=== PATIENT | female | born 1935 | race Caucasian/White ===

== ENCOUNTER 2016-03-28 08:32 | Inpatient (IN) | payer MEDICARE, OTHER ==
[~2016-03-28] VITALS: Ht 154.9 cm; Wt 47.5 kg
[~2016-03-28 08:32] MED LIST: /ESOM40CA PO; /NITR4TASL SL; /PROC25SU PO; ASPI81TA2 PO; BONI150T PO; CIPR500T3 PO; CIPR500T89 PO; CITRTAB15 PO; DRIS50002 PO; ECOT81TA2 PO; FLAG500T PO; FOLI1TAB2 PO; FOLI1TAB86 PO; HYCOSAMINE PO; HYDR200T3 PO; LEXA1TAB PO; LOPR50TA PO; MAGN500T2 PO; METH2.5T PO; METOPROLOL PO; MIRA255PW PO; NEXI40CA PO; OSEL75CA PO; PAXI40TA2 PO; PLAQ200T PO; PRED1TABL PO; PRED5TA PO; PRED5TAB PO; PROL60SO SC; PROVENTIL 90 MCG INH; RAMI5CA PO; TIMO5OPD OU; TYLE325T5 PO; ULTR50TA PO; VITA250L PO; VITAMIN D2 PO; XALATAN; XALATAN OU; [UNRECOGNIZED DRUG - CODE] PO; [UNRECOGNIZED DRUG - OTHER] OU; robitussin PO
[2016-03-28 09:36] LABS: BASO % 0.4 % (0.0-1.0); EOS # 0.2 K/mm3 (0.0-0.50); EOS % 1.9 % (0.0-3.0); LARGE UNSTAINED CELL # 0.1 K/mm3 (0.0-0.4); LARGE UNSTAINED CELL % 1.1 % (0.0-4.0); LYMPH # 1.6 K/mm3 (1.5-4.5); LYMPH % 18.2 % (24.0-44.0); MEAN CORPUSCULAR HEMOGLOBIN 29.7 pg (27.0-33.0); MEAN CORPUSCULAR HGB CONC 31.8 g/dl (32.0-36.5); MEAN CORPUSCULAR VOLUME 93.4 fl (80.0-96.0); MONO # 0.4 K/mm3 (0.0-0.8); MONO % 4.2 % (0.0-5.0); NEUTROPHILS # 6.6 K/mm3 (1.8-7.7); NEUTROPHILS % 74.2 % (36.0-66.0); PLATELET COUNT, AUTOMATED 230 k/mm3 (150-450); RED CELL DISTRIBUTION WIDTH 12.8 % (11.5-14.5); WHITE BLOOD COUNT 8.8 K/mm3 (4.0-10.0)
[2016-03-28 09:47] LABS: ANION GAP 9 MEQ/L (8-16); BLOOD UREA NITROGEN 22 MG/DL (7-18); CALCIUM LEVEL 9.3 MG/DL (8.8-10.2); CARBON DIOXIDE LEVEL 27 MEQ/L (21-32); CHLORIDE LEVEL 106 MEQ/L (98-107); CREATININE FOR GFR 0.78 MG/DL (0.55-1.02); GLOMERULAR FILTRATION RATE > 60.0 (>39); GLUCOSE, FASTING 83 MG/DL (83-110); SODIUM LEVEL 142 MEQ/L (136-145)
[2016-03-28 09:50] LABS: INR 0.98
[2016-03-28 09:59] LABS: ALBUMIN 3.6 GM/DL (3.2-5.2); ALBUMIN/GLOBULIN RATIO 1.16 (1.00-1.93); ALKALINE PHOSPHATASE 55 U/L (45-117); ALT/SGPT 17 U/L (12-78); AMYLASE 38 U/L (25-115); AST/SGOT 22 U/L (15-37); BILIRUBIN,DIRECT 0.2 MG/DL (0.0-0.2); BILIRUBIN,TOTAL 0.5 MG/DL (0.2-1.0); TOTAL PROTEIN 6.7 GM/DL (6.4-8.2)
--- NOTE | 2016-03-28 10:11 | REP ---
Portable chest x-ray: Sitting AP view. History: CVA less than 4 1/2 hours old. Comparison chest x-ray June 01, 2014. Findings: EKG monitoring electrodes overlie the chest. The lungs are symmetrically aerated and clear. Heart is not enlarged. The aorta somewhat tortuous. Pulmonary vasculature is not increased. Impression: No active disease. Signed by Jalen Dunn MD 03/28/2016 10:12 A
--- NOTE | 2016-03-28 10:19 | REP ---
Noncontrast head CT: History: CVA less than 4.[address] study June 09, 2014. 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 Bone window settings demonstrate an intact bony calvarium. Vascular calcification is noted in the carotid siphons bilaterally. There is chronic sinusitis filling the left sphenoid sinus and left posterior ethmoid air cells. Some bony sinus wall thickening is seen indicating chronicity. No bony destructive lesion is appreciated. No intraorbital abnormality is seen. There is diffuse cerebral atrophy noted. No evidence of intracranial hemorrhage is seen. There is a small low density area in the anterior limb of the internal capsule on the right unchanged from the June 09, 2014 study. This is compatible with old lacunar infarct. No acute infarct is seen. No extra-axial fluid collection, mass, or midline shift is seen. Impression: Vascular calcification, diffuse atrophy, old right basal ganglia lacunar infarct. No acute infarct, hemorrhage, mass or midline shift is seen. Signed by Jalen Dunn MD 03/28/2016 02:05 P
[2016-03-28] MEDS ORDERED: GABA-279 PO (11:04)
[2016-03-28] MEDS ORDERED: TIMO5OPD OU (11:04)
[2016-03-28] MEDS ORDERED: PRAV10TA PO (11:04)
[2016-03-28] MEDS ORDERED: LATA5OPD OU (11:04)
[2016-03-28] MEDS ORDERED: METO-207 PO (11:07)
[2016-03-28] MEDS ORDERED: ONDANSETRON 4MG/2ML VIAL (J2405) As Ordered ONE (11:35)
[2016-03-28] MEDS ORDERED: ACETAMINOPHEN TAB 650MG DOSE (2X325MG) PO PRN (12:15)
[2016-03-28] MEDS ORDERED: THIAMINE 100 MG TAB PO SCH (12:15)
[2016-03-28] MEDS ORDERED: HEPARIN SOD (PORCINE) 5000 UNITS/ML VIAL SC SCH (12:15)
[2016-03-28] MEDS ORDERED: GASTROGRAFIN SOLUTION 30ML (Q9963) As Ordered ONE (12:42)
--- NOTE | 2016-03-28 14:11 | REP ---
MR angiography the brain without contrast: History: Question CVA. Technique: 3-D [id number] MR angiography of the brain is acquired in the usual fashion and maximal intensity projection images were generated in rotational format about the vertical and horizontal axes. In addition, source axial T1-weighted images are viewed in cine mode. MR angiographic findings: The distal vertebral arteries are patent , left is dominant . Basilar artery is a little tortuous but widely patent. The posterior cerebral and superior cerebellar vessels are normal and symmetric. The left posterior cerebral artery takes a persistent origin which is a common normal variant. The distal internal carotid arteries are unremarkable. Anterior and middle cerebral arteries appear intact. There is no visible charles aneurysm or arteriovenous malformation. Impression: Unremarkable MR angiography the brain. Signed by Jalen Dunn MD 03/28/2016 02:02 P
--- NOTE | 2016-03-28 15:15 | HPE ---
DATE OF ADMISSION: 03/28/2016 PRIMARY CARE PROVIDER: Dr. Chun Quezada NEUROLOGIST: Nancy Vogel MD, currently covered by Dr. Lance Diaz CHIEF COMPLAINT: Amnesia. HISTORY OF PRESENT ILLNESS: This is a 80-year-old female patient with underlying rheumatoid arthritis, coronary artery disease, stents a couple of years ago, breast cancer with bilateral mastectomy, colon cancer with colostomy, gastroesophageal reflux disease (GERD). The patient woke up this morning, it was found that she cannot remember anything. Yesterday dinner, the patient does not remember emergency medical services (EMS) ride and have very limited short-term memory. Last noticed normal was 10 p.m. last night. The patient woke up around 6:30 in the morning. Lives with her . Baseline is high functioning. Walk on her own. Other than that, the patient reported some nausea. There was no vomiting. No belly pain. Denies any fevers or chills. Denies any headache, neck pain. No sick contact. No previous evidence of this happening. No urinary or bowel incontinence. No loss of consciousness, as per . Symptoms persisted in the emergency department (ED). ALLERGIES: To PENICILLIN and SULFA and CODEINE and TAPES. PAST MEDICAL HISTORY: 1. Rheumatoid arthritis. 2. Coronary artery disease. 3. Breast cancer bilateral. 4. Colon cancer. 5. GERD. PAST SURGICAL HISTORY: 1. Right knee replacement. 2. Left knee replacement. 3. Bilateral hip replacement. 4. Colostomy construction. 5. Double mastectomy. 6. Hernia repair with mesh. DICTATION ENDS HERE Please refer to full note. Dictation terminated in the middle MTDD
[2016-03-28 15:18] LABS: THYROXINE (T4) 10.6 UG/DL (4.5-12.0)
--- NOTE | 2016-03-28 16:10 | HPE ---
DATE OF ADMISSION: 03/28/2016 PRIMARY CARE PROVIDER: Chun Quezada MD CHIEF COMPLAINT: Cannot remember. HISTORY OF PRESENT ILLNESS: This is a 80-year-old female patient with underlying medical history of rheumatoid arthritis, coronary artery disease, stents a few years ago, bilateral breast cancer, colon cancer, in remission, gastroesophageal reflux disease (GERD), peripheral neuropathy. Patient was brought to the hospital with acute onset, patient woke up, cannot remember, last thing patient remembered was last night. As per family last normal was 10 p.m. last night. Patient remembered what she had for dinner but subsequently does not remember anything else and has very limited short-term memory. Does not remember that emergency medical services (EMS) brought her to the hospital. Patient also reported nausea with no vomiting, stomach upset. Denies any fever or chills, chest pain, pressure or discomfort, diarrhea, constipation, sick contacts, headache, vision change, hearing change. Denies any previous episode. Denies any urinary or bowel incontinence, tonic-clonic movement, no history of seizure, sees Dr. Vogel before. No history of dementia. No neurological deficits and no facial asymmetry. ALLERGIES: PENICILLIN, SULFA. PAST MEDICAL HISTORY: 1. Rheumatoid arthritis. 2. Peripheral neuropathy. 3. Coronary artery disease. 4. Breast cancer, bilateral. 5. Colon cancer. 6. GERD. PAST SURGICAL HISTORY: 1. Right knee replacement. 2. Left knee replacement. 3. Bilateral hip replacement. 4. Colostomy. 5. Double mastectomy. 6. Hernia repair. SOCIAL HISTORY: Former smoker, quit smoking 40 years ago, was a light smoker before, does not know how long she smoked. Socially drinks alcohol two times a week, a cup of wine. Denies any illicit substance abuse. Lives with . At baseline, patient is ambulatory. FAMILY HISTORY: Noncontributory. REVIEW OF SYSTEMS: 11-point review of systems is negative except for those mentioned in the history of present illness (HPI). HOME MEDICATIONS: - acetaminophen 650 mg by mouth every 4 hours as needed - aspirin 81 mg by mouth daily - Citracal one tablet by mouth daily - vitamin B12 1000 mcg by mouth daily - Nexium 40 mg by mouth daily - folic acid 1 mg by mouth twice a day - gabapentin 100 mg by mouth three times a day - hydroxychloroquine 300 mg by mouth daily - latanoprost one drop intraocular nightly - metoprolol 50 mg by mouth daily - pravastatin 10 mg by mouth nightly - prednisone 6 mg by mouth daily - Prolia 60 subcutaneous as directed every 6 months - ramipril 5 mg by mouth nightly - timolol eye drops twice a day - vitamin D 50,000 units by mouth every Wednesday PHYSICAL EXAMINATION: VITAL SIGNS: Temperature 100, pulse oximetry 98% on room air, pulse 86, blood pressure 170/97, respirations 16. Patient is alert, oriented to person, place, and birthday, in no acute distress, comfortable. HEENT: Normocephalic, atraumatic. PULMONARY: Bilaterally clear to auscultation. CARDIAC: Regular rate and rhythm, normal S1, S2. ABDOMEN: Soft, nontender, positive bowel sounds. EXTREMITIES: No edema bilateral lower extremities. NEUROLOGIC: Cranial nerves II-XII grossly intact. No focal deficit. Transient global amnesia. Lxjyca-fq-jigh intact. Able to move all four extremities. EKG sinus rhythm at [address] segment changes. LABORATORY DATA: WBC 8.8, hemoglobin and hematocrit 13.9/43.9, platelets 230. Chemistry: Sodium 142, potassium 4, chloride 106, bicarbonate 27, BUN 22, creatinine 0.78. Cardiac enzymes negative times two. Thyroid function within normal limits. Lipase negative. MRA preliminary negative. MRI still pending. ASSESSMENT AND PLAN: This is a 80-year-old female patient with underlying medical history of rheumatoid arthritis, coronary artery disease, bilateral breast cancer, colon cancer, gastroesophageal reflux disease (GERD), peripheral neuropathy, admitted with transient global amnesia. PROBLEMS: 1. Transient global amnesia. Possible etiology includes metastatic brain lesions, seizures versus ischemic changes. Will get neurology consult. Neurologic checks. Patient is on aspirin 81 mg at home, increased to 325 mg by mouth daily. Statin. Holding angiotensin converting enzyme (ALEXIA). Followup EEG, MRI of the brain with and without contrast, MRA of the brain, MRA of the neck, echo. Neurology consulted. Serial cardiac enzymes. EKG is appreciated. 2. Nausea. CT of the abdomen. 3. Peripheral neuropathy. Management as per neurology, Dr. Diaz. 4. Rheumatoid arthritis. Continue home medication. 5. Coronary artery disease. Continue aspirin, statin, beta blockers. Angiotensin-converting enzyme (ALEXIA) inhibitor on hold for permissive hypertension. 6. Deep venous thrombosis (DVT) prophylaxis. Heparin subcutaneous. 7. History of colon and breast cancer. Outpatient followup. DISPOSITION: Pending further workup, physical therapy.
--- NOTE | 2016-03-28 16:13 | EDDOCDS ---
Physician Documentation [facility] Name: Rosa Birch Age: 80 yrs Sex: Female : 1935 Arrival Date: 03/28/2016 Time: 08:32 Bed Admit Hold Private MD: Disposition: 03/28 10:19 Critical Care:. ml Disposition: 03/28/16 10:20 Hospitalization ordered by Gabrielle Hartley for Inpatient Admission. Preliminary diagnosis is Transient global amnesia - rule out ischmemic stroke. - Bed requested for PCU. - Status is Inpatient Admission. mb9 - Condition is Stable. - Problem is new. - Symptoms are unchanged. Historical: - Allergies: PENICILLINS (Hives); SULFA (SULFONAMIDES) (Hives); - Home Meds: 1. aspirin 81 mg Oral chew 1 tab once daily 2. Vitamin B-12 1,000 mcg Oral tab 3. prolia 2 shot Yearly 4. Xalatan 0.005 % Opht drop 1 drop nightly 5. timolol maleate 0.25 % Opht drop 1 drop 2 times per day 6. Vitamin D 1.25 mg weekly 7. ramipril 5 mg Oral cap 1 cap nightly 8. gabapentin 100 mg Oral tab three times a day 9. prednisone 5 mg Oral tab once daily 10. prednisone 1 mg Oral tab 2 tabs once daily 11. pravastatin 10 mg oral tab 1 tab nightly 12. Plaquenil 200 mg Oral tab 1.5 tabs once daily 13. Nexium 40 mg Oral cpDR 1 cap once daily as needed 14. metoprolol succinate 50 mg Tb24 1 tab once daily 15. metaxalone 800 mg oral tab 1 tab 3 times per day 16. folic acid 1 mg Oral tab 1 tab twice a day 17. Oral 30 mg as needed 18. Citracal Oral 1 tab daily - PMHx: Rheumatoid Arthritis; CAD; Cancer, Breast - Right; Cancer, Colon; GERD; Cancer, Breast - Left; - PSHx: Right Knee Replacement; left knee replacement; Hip Replacement Bilateral; Colostomy Construction; Double Mastectomy; Hernia repair with mesh; - Social history: Smoking status: Patient states former smoker of tobacco. No barriers to communication noted, The patient speaks fluent Ivorian. - Family history: Not pertinent. - : The pt / caregiver states he / she is not on anticoagulants. Home medication list is obtained from the patient, family members. - Exposure Risk Screening:: None identified. Vital Signs: 08:43 BP 185 / 92; Pulse 86; Resp 18; Temp 100.0(TE); Pulse Ox 97% on R/A; Weight 43.09 kg / ct3 95 lbs (R); Height 5 ft. 1 in. (154.94 cm) (R); Pain 0/10; 08:58 BP 170 / 97 (auto/); js13 08:58 Pulse 102 MON; Resp 16; Pulse Ox 98% on R/A; js13 09:11 BP 198 / 76 (auto/); js13 09:11 Pulse 90 MON; Resp 16; Pulse Ox 98% ; js13 09:26 BP 161 / 77 (auto/); js13 09:26 Pulse 78 MON; Resp 16; Pulse Ox 98% ; js13 09:41 BP 154 / 93 (auto/); js13 09:41 Pulse 84 MON; Resp 16; Pulse Ox 97% on R/A; js13 09:56 BP 156 / 86 (auto/); js13 09:56 Pulse 82 MON; Resp 16; Pulse Ox 98% on R/A; js13 10:11 BP 150 / 76 (auto/); js13 10:11 Pulse 76 MON; Resp 16; Pulse Ox 99% on R/A; js13 10:26 BP 171 / 94 (auto/); js13 10:26 Pulse 80 MON; Resp 16; Pulse Ox 99% on R/A; js13 10:41 BP 148 / 92 (auto/); mb9 10:42 Pulse 90 MON; Pulse Ox 99% ; mb9 10:56 BP 136 / 88 (auto/); mb9 10:57 Pulse 90 MON; Pulse Ox 98% ; mb9 11:11 BP 135 / 74 (auto/); mb9 11:12 Pulse 74 MON; Pulse Ox 98% ; mb9 11:26 BP 128 / 73 (auto/); mb9 11:27 Pulse 72 MON; Pulse Ox 99% ; mb9 11:41 BP 154 / 82 (auto/); mb9 11:42 Pulse 94 MON; Pulse Ox 97% ; mb9 11:56 BP 136 / 72 (auto/); mb9 11:57 Pulse 86 MON; Pulse Ox 98% ; mb9 12:11 BP 135 / 73 (auto/); mb9 12:12 Pulse 76 MON; Pulse Ox 98% ; mb9 12:26 BP 119 / 63 (auto/); mb9 12:27 Pulse 80 MON; Pulse Ox 97% ; mb9 14:38 BP 132 / 74 (auto/); mb9 14:40 BP 132 / 74; Pulse 80 MON; Resp 19; Temp 98.9(TE); Pulse Ox 97% ; mb9 08:43 Body Mass Index 17.95 (43.09 kg, 154.94 cm) ct3 MDM: 08:49 ECG WITH READING ER PHYS+CARDIAG ordered. EDMS 09:28 RN interventions must not delay CT ordered. js13 09:28 Sling Operator/Pulse Ox/q 15 min VS ordered. js13 09:28 IV Saline Lock ordered. js13 09:28 Rhythm Strip to chart ordered. js13 09:29 Type & Screen Ordered. EDMS 09:30 Basic Metabolic Profile Ordered. EDMS 09:30 CBC with Diff Ordered. EDMS 09:30 Partial Thromboplastin Time Ordered. EDMS 09:30 Prothrombin Time Profile\\E\\INR Ordered. EDMS 09:30 Chest, 1 View Ordered. EDMS 09:30 CT Head Without Contrast Ordered. EDMS 09:34 CIP Ordered. EDMS 09:34 Troponin Ordered. EDMS 09:34 Lactic Acid (Mo tube on ice) Ordered. EDMS 09:35 Ammonia ([place] Tube on Ice, Not [place]) Ordered. EDMS 09:44 AMYLASE Ordered. EDMS 09:44 LIPASE Ordered. EDMS 09:44 LIVER PROFILE Ordered. EDMS 10:06 BED REQUEST+ADM ordered. EDMS 10:10 Basic Metabolic Profile Reviewed. ml 10:10 CBC with Diff Reviewed. ml 10:10 Partial Thromboplastin Time Reviewed. ml 10:10 Prothrombin Time Profile\\E\\INR Reviewed. ml 10:10 Type & Screen Reviewed. ml 10:10 CIP Reviewed. ml 10:10 Troponin Reviewed. ml 10:10 Lactic Acid (Mo tube on ice) Reviewed. ml 10:10 AMYLASE Reviewed. ml 10:10 LIPASE Reviewed. ml 10:10 LIVER PROFILE Reviewed. ml 10:12 Financial registration complete. [id number] 10:15 [facility] Payment Agreement was scanned into [employer] and attached to record. dm19 11:33 Ondansetron 4 mg IVP once ordered. mb9 11:59 T-Sheet-- Draft Copy was scanned into [employer] and attached to record. seh 12:08 CARDIAC MARKER PANEL Ordered. EDMS 12:08 CARDIAC MARKER PANEL Ordered. EDMS 12:09 THYROID PROFILE Ordered. EDMS 12:09 MRA BRAIN W/O CONTRAST Ordered. EDMS 12:09 MRA CAROTID W/O FOL WITH Ordered. EDMS 12:10 Admission / Observation Status ordered. EDMS 12:10 ECHOCARD,DOPPLER/COLOR FLOW ordered. EDMS 12:11 REGULAR DIET ordered. EDMS 12:12 SYPHILIS Ordered. EDMS 12:15 PHYSICAL THERAPY EVAL & TREAT ordered. EDMS 12:41 Diatrizoate Meglumine & Sodium Liquid 10 ml PO once; mix in 290cc of water ordered. mb9 12:41 Diatrizoate Meglumine & Sodium Liquid 10 ml PO once; mix in 290cc of water ordered. mb9 13:48 MRI Brain without Contrast Ordered. EDMS Administered Medications: 11:39 Drug: Ondansetron 4 mg [ondansetron HCl 2 mg/mL intravenous solution (2 mL)] Route: mb9 IVP; Site: left antecubital; 12:39 Follow up: Response: Nausea is resolved mb9 14:42 Not Given (Other Intervention Used; Dr Hartley aware that pt unable to tolerate MRI. Dr Hartley mb9 states, "It can wait util tomorrow". ): Diatrizoate Meglumine & Sodium Liquid 10 ml PO once; mix in 290cc of water 14:42 Not Given (Other Intervention Used; Dr Hartley aware that pt unable to tolerate MRI. Dr Naeem adams9 states, "It can wait util tomorrow". ): Diatrizoate Meglumine & Sodium Liquid 10 ml PO once; mix in 290cc of water Critical Care Time: 10:19 Critical care time: Bedside Care: 90 minutes, Consultation: 10 minutes. Total time: 100 ml minutes Signatures: Dispatcher [employer] EDIA Michelle Eduardo MD MD ml Nannette Adams, BULK COOLER INSTALLER BULK COOLER INSTALLER ar3 Danielle AlvarengaRN RN [id number] Irving Warren RN RN mb9 Sunita Moncada Diane dm19 The chart was reviewed and I authenticate all verbal orders and agree with the evaluation and treatment provided.Corrections: (The following items were deleted from the chart) 09:29 09:28 Consult [facility]: Telemedicine Stroke Attending ordered. js13 js13 09:43 09:35 LIVER PROFILE+LAB ordered. EDMS EDMS :43 09:35 AMYLASE+LAB ordered. EDMS EDMS :43 09:35 LIPASE+LAB ordered. EDMS EDMS 13:48 12:09 MRI Brain W/O FOLL BY WITH ordered. EDMS EDMS 14:47 12:10 CT ABD & PELVIS WITH CONTRAST ordered. EDMS EDMS Attachments: 10:15 [facility] Payment Agreement [email or web address] 11:59 T-Sheet-- Draft [email or web address] M[facility]
--- NOTE | 2016-03-28 16:14 | EDDOCDS ---
Nurse's Notes [facility] Name: Rosa Birch Age: 80 yrs Sex: Female : 1935 Arrival Date: 03/28/2016 Time: 08:32 Bed Admit Hold Private MD: Diagnosis: Transient global amnesia-rule out ischmemic stroke Presentation: 03/28 08:48 Presenting complaint: EMS states: Patient woke up this morning at approx 0630 and was js13 nauseous. Patient went downstairs and then back to bed with no memory of events. Patients family states she is out of sorts. Adult Sepsis Screening: Patient has new or worsening altered mentation (1 point). Patient's respiratory rate is less than 22. Systolic blood pressure is greater than 100. Patient has a qSOFA score of 1- Negative Sepsis Screen. Suicide/Homicide risk assessment- the patient denies having any suicidal and/or homicidal ideations and does not present with any other emotional, behavioral or mental health complaints. Status: Patient is not a director volunteer services or dependent. Transition of care: patient was not received from another setting of care. Care prior to arrival: See EMS report. Glucose check. 121. 08:48 Acuity: MONIKA Level 3 js13 08:48 Method Of Arrival: Ambulance js13 Triage Assessment: 08:57 General: Appears in no apparent distress, comfortable, Behavior is appropriate for age, js13 cooperative. Pain: Denies pain. Neurological: Level of Consciousness is awake, alert, obeys commands, Oriented to person, place, month . Jewel Blocker And Sawyer are equal bilaterally Moves all extremities. Speech is normal, Facial symmetry appears normal, Facial symmetry: tongue is midline, Pupils are PERRLA. Cardiovascular: Rhythm is sinus rhythm Chest pain is denied. Respiratory: Airway is patent Respiratory effort is even, unlabored, Respiratory pattern is regular, symmetrical, Breath sounds are clear. Derm: Skin is pink, warm & dry. 08:57 The patient is triaged at the bedside. See Assessment in Nurses Notes section of ED js13 record. Historical: - Allergies: PENICILLINS (Hives); SULFA (SULFONAMIDES) (Hives); - Home Meds: 1. aspirin 81 mg Oral chew 1 tab once daily 2. Vitamin B-12 1,000 mcg Oral tab 3. prolia 2 shot Yearly 4. Xalatan 0.005 % Opht drop 1 drop nightly 5. timolol maleate 0.25 % Opht drop 1 drop 2 times per day 6. Vitamin D 1.25 mg weekly 7. ramipril 5 mg Oral cap 1 cap nightly 8. gabapentin 100 mg Oral tab three times a day 9. prednisone 5 mg Oral tab once daily 10. prednisone 1 mg Oral tab 2 tabs once daily 11. pravastatin 10 mg oral tab 1 tab nightly 12. Plaquenil 200 mg Oral tab 1.5 tabs once daily 13. Nexium 40 mg Oral cpDR 1 cap once daily as needed 14. metoprolol succinate 50 mg Tb24 1 tab once daily 15. metaxalone 800 mg oral tab 1 tab 3 times per day 16. folic acid 1 mg Oral tab 1 tab twice a day 17. Oral 30 mg as needed 18. Citracal Oral 1 tab daily - PMHx: Rheumatoid Arthritis; CAD; Cancer, Breast - Right; Cancer, Colon; GERD; Cancer, Breast - Left; - PSHx: Right Knee Replacement; left knee replacement; Hip Replacement Bilateral; Colostomy Construction; Double Mastectomy; Hernia repair with mesh; - Social history: Smoking status: Patient states former smoker of tobacco. No barriers to communication noted, The patient speaks fluent [place]. - Family history: Not pertinent. - : The pt / caregiver states he / she is not on anticoagulants. Home medication list is obtained from the patient, family members. - Exposure Risk Screening:: None identified. Screenin:58 Screening information is obtained from the patient. Fall risk: At risk due to apparent js13 cognitive impairment. Assistance ADL's: requires no assistance with activities of daily living. Abuse/DV Screen: The patient / caregiver reports he/she is: not in a situation that causes fear, pain or injury. Nutritional screening: No deficits noted. Advance Directives: There is no active DNR order. home support is adequate. Assessment: 08:58 General: Appears in no apparent distress, comfortable, Behavior is appropriate for age, js13 cooperative. Pain: Denies pain. Neurological: Level of Consciousness is awake, alert, obeys commands, Oriented to person, place, month. Jewel Blocker And Sawyer are equal bilaterally Moves all extremities. Speech is normal, Facial symmetry appears normal, Facial symmetry: tongue is midline, Pupils are PERRLA. Cardiovascular: Rhythm is sinus rhythm Chest pain is denied. Respiratory: Airway is patent Respiratory effort is even, unlabored, Respiratory pattern is regular, symmetrical. GI: Colostomy site Ostomy appliance is intact. Abd is soft and non tender. GI: Bowel sounds present X 4 quads. Derm: Skin is pink, warm & dry. 10:30 Adult Sepsis Screening: Patient has new or worsening altered mentation (1 point). js13 Patient's respiratory rate is less than 22. Systolic blood pressure is greater than 100. Patient has a qSOFA score of 1- Negative Sepsis Screen. General: Appears in no apparent distress, comfortable, Behavior is appropriate for age, cooperative. Pain: Denies pain. Neurological: Level of Consciousness is awake, alert, obeys commands, Oriented to person, place, Jewel Blocker And Sawyer are equal bilaterally Moves all extremities. Speech is normal, Facial symmetry appears normal, Facial symmetry: tongue is midline, Pupils are PERRLA. Cardiovascular: Rhythm is sinus rhythm Chest pain is denied. Respiratory: Airway is patent Respiratory effort is even, unlabored, Respiratory pattern is regular, symmetrical. Derm: Skin is pink, warm & dry. 11:15 General: Appears in no apparent distress, comfortable, Behavior is appropriate for age, mb9 cooperative. Pain: Denies pain. Neurological: Level of Consciousness is awake, alert, Oriented to person, place, time, Jewel Blocker And Sawyer are equal bilaterally Moves all extremities. Speech is normal, Facial symmetry appears normal, Pupils are PERRLA. Cardiovascular: Rhythm is sinus rhythm. Respiratory: Airway is patent Respiratory effort is even, unlabored. GI: Reports indigestion, nausea. 11:40 General: Dr. Hartley in to see pt at this time. . mb9 12:38 Reassessment: Patient states feeling better. Patient states symptoms have improved. mb9 General: Appears comfortable, Behavior is appropriate for age, cooperative. Respiratory: Airway is patent Respiratory effort is even, unlabored. 12:50 General: This RN went in to start pt on her oral contrast and the pt's family at the mb9 bedside state, "They just took her to MRI.".. 13:30 General: pt in mri. mb9 13:41 General: Sheryl from MRI called at this time to report, "pt was able to tolerate mri and mb9 mra of brain. I went to start the study of the mra with contrast of the carotids and she started to complain of sob. I called Dr. Hartley and he said it could be finished tomorrow. So ask pcu to order an mra of the brain with contrast and a mri/mra of the carotids with and without contrast". . 14:16 Reassessment: Patient appears in no apparent distress at this time. Adult Sepsis mb9 Screening: The patient does not have new or worsening altered mentation. Patient's respiratory rate is less than 22. Systolic blood pressure is greater than 100. Patient has a qSOFA score of 0- Negative Sepsis Screen. General: Appears in no apparent distress, comfortable, Behavior is appropriate for age, cooperative, pt able to ambulate to the bathroom with standby assist. . Pain: Denies pain. Respiratory: Airway is patent Respiratory effort is even, unlabored, Breath sounds are coarse bilaterally. 14:42 Reassessment: Patient appears in no apparent distress at this time. Patient states mb9 feeling better. Patient states symptoms have improved. General: Appears in no apparent distress, comfortable, Behavior is appropriate for age, cooperative, Dr Naeem made aware that pt was unable to tolerate MRI and that the pt has a CT of the ABD ordered. Dr Hartley states, "It's ok to hold off until tomorrow to do the CT of the abd.". . Respiratory: Airway is patent Respiratory effort is even, unlabored. Vital Signs: 08:43 BP 185 / 92; Pulse 86; Resp 18; Temp 100.0(TE); Pulse Ox 97% on R/A; Weight 43.09 kg ct3 (R); Height 5 ft. 1 in. (154.94 cm) (R); Pain 0/10; 08:58 BP 170 / 97 (auto/); js13 08:58 Pulse 102 MON; Resp 16; Pulse Ox 98% on R/A; js13 09:11 BP 198 / 76 (auto/); js13 09:11 Pulse 90 MON; Resp 16; Pulse Ox 98% ; js13 09:26 BP 161 / 77 (auto/); js13 09:26 Pulse 78 MON; Resp 16; Pulse Ox 98% ; js13 09:41 BP 154 / 93 (auto/); js13 09:41 Pulse 84 MON; Resp 16; Pulse Ox 97% on R/A; js13 09:56 BP 156 / 86 (auto/); js13 09:56 Pulse 82 MON; Resp 16; Pulse Ox 98% on R/A; js13 10:11 BP 150 / 76 (auto/); js13 10:11 Pulse 76 MON; Resp 16; Pulse Ox 99% on R/A; js13 10:26 BP 171 / 94 (auto/); js13 10:26 Pulse 80 MON; Resp 16; Pulse Ox 99% on R/A; js13 10:41 BP 148 / 92 (auto/); mb9 10:42 Pulse 90 MON; Pulse Ox 99% ; mb9 10:56 BP 136 / 88 (auto/); mb9 10:57 Pulse 90 MON; Pulse Ox 98% ; mb9 11:11 BP 135 / 74 (auto/); mb9 11:12 Pulse 74 MON; Pulse Ox 98% ; mb9 11:26 BP 128 / 73 (auto/); mb9 11:27 Pulse 72 MON; Pulse Ox 99% ; mb9 11:41 BP 154 / 82 (auto/); mb9 11:42 Pulse 94 MON; Pulse Ox 97% ; mb9 11:56 BP 136 / 72 (auto/); mb9 11:57 Pulse 86 MON; Pulse Ox 98% ; mb9 12:11 BP 135 / 73 (auto/); mb9 12:12 Pulse 76 MON; Pulse Ox 98% ; mb9 12:26 BP 119 / 63 (auto/); mb9 12:27 Pulse 80 MON; Pulse Ox 97% ; mb9 14:38 BP 132 / 74 (auto/); mb9 14:40 BP 132 / 74; Pulse 80 MON; Resp 19; Temp 98.9(TE); Pulse Ox 97% ; mb9 08:43 Body Mass Index 17.95 (43.09 kg, 154.94 cm) ct3 Vitals: 08:57 Log In Time N/A - ambulance arrival. js13 ED Course: 08:34 Patient visited by Nannette Adams PCA. ar3 08:34 Patient moved to Waiting ar3 08:35 Danielle Alvarenga,MICHAEL is Primary Nurse. ar3 08:35 Patient moved to 14 ar3 08:43 Accompanied by Family Member, Patient has correct armband on for positive ct3 identification. Placed in gown. Bed in low position. Call light in reach. Side rails up X2. warehouse associate on. Pulse ox on. NIBP on. 08:44 Patient visited by Mervat Maurer PCA. ct3 08:50 Triage Initiated js13 08:51 EKG done. (by ED staff). Reviewed by Woody Mo MD. nb2 08:55 Patient visited by Francine Ch. nb2 08:58 The patient / caregiver is instructed regarding the plan of care and ED course. js13 09:00 Patient visited by Danielle Alvarenga RN. js13 09:22 Michelle Eduardo MD is Attending Physician. ml 09:22 Patient visited by Michelle Eduardo MD. ml 09:30 Basic Metabolic Profile Sent. js13 09:30 CBC with Diff Sent. js13 09:30 Partial Thromboplastin Time Sent. js13 09:30 Type & Screen Sent. js13 09:30 Prothrombin Time Profile\\E\\INR Sent. js13 09:31 Inserted saline lock: 18 gauge in left antecubital area and blood collected. The js13 patient tolerated the procedure well. No procedures done that require assistance. Labs drawn. (by ED staff). Sent per order to lab. 09:31 Labs/Blood culture drawn. js13 09:39 Ammonia (Little Green Tube on Ice, Not Pea Green) Sent. js13 09:39 Lactic Acid (Mo tube on ice) Sent. js13 09:39 Troponin Sent. js13 09:39 CIP Sent. js13 09:52 LIVER PROFILE Sent. ar3 09:52 LIPASE Sent. ar3 09:52 AMYLASE Sent. ar3 09:57 Patient visited by Mervat Maurer PCA. ct3 10:15 [facility] Payment Agreement was scanned into [employer] and attached to record. dm19 10:19 Gabrielle Hartley is Hospitalizing Provider. ml 10:22 Chest, 1 View Returned. EDMS 10:22 CT Head Without Contrast Returned. EDMS 10:31 Patient visited by Danielle Alvarenga RN. js13 10:48 Patient visited by Jil Hernández. dem1 10:48 Assisted to bedside commode. dem1 11:59 T-Sheet-- Draft Copy was scanned into [employer] and attached to record. seh 12:12 Patient visited by Jil Hernández. dem1 12:12 Assisted to bedside commode. dem1 14:09 Patient moved to Admit Hold [facility] 14:30 MRA BRAIN W/O CONTRAST Returned. EDMS Administered Medications: 11:39 Drug: Ondansetron 4 mg [ondansetron HCl 2 mg/mL intravenous solution (2 mL)] Route: mb9 IVP; Site: left antecubital; 12:39 Follow up: Response: Nausea is resolved Jackeline 14:42 Not Given (Other Intervention Used; Dr Hartley aware that pt unable to tolerate MRI. Dr Naeem adams9 states, "It can wait util tomorrow". ): Diatrizoate Meglumine & Sodium Liquid 10 ml PO once; mix in 290cc of water 14:42 Not Given (Other Intervention Used; Dr Hartley aware that pt unable to tolerate MRI. Dr Naeem adams9 states, "It can wait util tomorrow". ): Diatrizoate Meglumine & Sodium Liquid 10 ml PO once; mix in 290cc of water Order Results: Lab Order: Basic Metabolic Profile; SPEC'M 03/28/16 09:24 Test: GLUCOSE, FASTING; Value: 83; Range: 83-110; Units: MG/DL; Status: F Test: BLOOD UREA NITROGEN; Value: 22; Range: 7-18; Abnormal: Above high normal; Units: MG/DL; Status: F Test: CREATININE FOR GFR; Value: 0.78; Range: 0.55-1.02; Units: MG/DL; Status: F Test: GLOMERULAR FILTRATION RATE; Value: > 60.0; Range: >39; Status: F Test: SODIUM LEVEL; Value: 142; Range: 136-145; Units: MEQ/L; Status: F Test: POTASSIUM SERUM; Value: 4.0; Range: 3.5-5.1; Units: MEQ/L; Status: F Test: CHLORIDE LEVEL; Value: 106; Range: 98-107; Units: MEQ/L; Status: F Test: CARBON DIOXIDE LEVEL; Value: 27; Range: 21-32; Units: MEQ/L; Status: F Test: ANION GAP; Value: 9; Range: 8-16; Units: MEQ/L; Status: F Test: CALCIUM LEVEL; Value: 9.3; Range: 8.8-10.2; Units: MG/DL; Status: F Test Note: ; Units are mL/min/1.73 m2 Chronic Kidney Disease Staging per NKF: Stage I & II GFR >=60 Normal to Mildly Decreased Stage III GFR 30-59 Moderately Decreased Stage IV GFR 15-29 Severely Decreased Stage V GFR <15 Very Little GFR Left ESRD GFR <15 on LOOP TACKER Lab Order: CBC with Diff; ADALID 03/28/16 09:24 Test: WHITE BLOOD COUNT; Value: 8.8; Range: 4.0-10.0; Units: K/mm3; Status: F Test: RED BLOOD COUNT; Value: 4.70; Range: 4.00-5.40; Units: M/mm3; Status: F Test: HEMOGLOBIN; Value: 13.9; Range: 12.0-16.0; Units: g/dl; Status: F Test: HEMATOCRIT; Value: 43.9; Range: 36.0-47.0; Units: %; Status: F Test: MEAN CORPUSCULAR VOLUME; Value: 93.4; Range: 80.0-96.0; Units: fl; Status: F Test: MEAN CORPUSCULAR HEMOGLOBIN; Value: 29.7; Range: 27.0-33.0; Units: pg; Status: F Test: MEAN CORPUSCULAR HGB CONC; Value: 31.8; Range: 32.0-36.5; Abnormal: Below low normal; Units: g/dl; Status: F Test: RED CELL DISTRIBUTION WIDTH; Value: 12.8; Range: 11.5-14.5; Units: %; Status: F Test: PLATELET COUNT, AUTOMATED; Value: 230; Range: 150-450; Units: k/mm3; Status: F Test: NEUTROPHILS %; Value: 74.2; Range: 36.0-66.0; Abnormal: Above high normal; Units: %; Status: F Test: LYMPH %; Value: 18.2; Range: 24.0-44.0; Abnormal: Below low normal; Units: %; Status: F Test: MONO %; Value: 4.2; Range: 0.0-5.0; Units: %; Status: F Test: EOS %; Value: 1.9; Range: 0.0-3.0; Units: %; Status: F Test: BASO %; Value: 0.4; Range: 0.0-1.0; Units: %; Status: F Test: LARGE UNSTAINED CELL %; Value: 1.1; Range: 0.0-4.0; Units: %; Status: F Test: NEUTROPHILS #; Value: 6.6; Range: 1.8-7.7; Units: K/mm3; Status: F Test: LYMPH #; Value: 1.6; Range: 1.5-4.5; Units: K/mm3; Status: F Test: MONO #; Value: 0.4; Range: 0.0-0.8; Units: K/mm3; Status: F Test: EOS #; Value: 0.2; Range: 0.0-0.50; Units: K/mm3; Status: F Test: BASO #; Value: 0.0; Range: 0.0-0.2; Units: K/mm3; Status: F Test: LARGE UNSTAINED CELL #; Value: 0.1; Range: 0.0-0.4; Units: K/mm3; Status: F Lab Order: Partial Thromboplastin Time; 03/28/16 09:24 Test: PARTIAL THROMBOPLASTIN TIME; Value: 29.2; Range: 26.6-37.1; Units: SECONDS; Status: F Lab Order: Prothrombin Time Profile\\E\\INR; 03/28/16 09:24 Test: PROTHROMBIN TIME; Value: 13.1; Range: 12.3-14.5; Units: SECONDS; Status: F Test: INR; Value: 0.98; Status: F Test Note: ; THERAPUTIC HUMAN INR VALUES INDICATIONS NORMAL RANGES PROPHYLAXIS/TREATMENT OF: VENOUS THROMBOSIS 2.0-3.0 PULMONARY EMBOLISM 2.0-3.0 PREVENTION OF SYSTEMIC EMBOLISM FROM: TISSUE HEART VALVES 2.0-3.0 ACUTE MYOCARDIAL INFARCTION 2.0-3.0 VALVULAR HEART DISEASE 2.0-3.0 ATRIAL FIBRILLATION 2.0-3.0 MECHANICAL VALVES(HIGH RISK) 2.5-3.5 RECURRENT MYOCARDIAL INFARCTION 2.5-3.5 Lab Order: Type & Screen; 03/28/16 09:24 Test: BLOOD TYPE; Value: O POS; Status: F Test: AB SCREEN (INDIRECT CORIE)GEL; Value: NEGATIVE; Status: F Lab Order: CIP; 03/28/16 09:24 Test: CPK CREATINE PHOSPHOKINASE; Value: 64; Range: 26-192; Units: U/L; Status: F Test: CK-MB VALUE MASS; Value: 1.9; Range: 0.0-3.6; Units: NG/ML; Status: F Test: MB/CK RELATIVE INDEX; Value: 2.96; Range: < OR =4; Status: F Test Note: ; DIAGNOSIS CRITERIA MMB ng/ml Relative Index (RI) NON-AMI < or = 5 N/A MO ZONE > 5 < or = 4 AMI > 5 > 4 Lab Order: Troponin; 03/28/1624 Test: TROPONIN I; Value: < 0.02; Range: < 0.10; Units: NG/ML; Status: F Test Note: ; Troponin I Reference Interval for [employer] LOCI: 99th Percentile= 0.00-0.045 ng/ml Risk Stratification: <= 0.10 ng/ml Decreased Risk for Adverse Clinical Events. 0.10-1.50 ng/ml Increased Risk for Adverse Clinical Events. Evaluation of additional criterion and/or repeat testing in 2-6 hours is suggested to rule out myocardial damage. >= 1.50 ng/ml Indicative of Myocardial Injury. Lab Order: Lactic Acid (Mo tube on ice); 03/28/16:24 Test: LACTIC ACID LEVEL, LACTATE; Value: 1.0; Range: 0.4-2.0; Units: MMOL/L; Status: F Lab Order: Ammonia (Little Green Tube on Ice, Not Pea Green); 03/28/16:24 Test: AMMONIA; Value: < 25; Range: <32; Units: uMOL/L; Status: F Lab Order: AMYLASE; 03/28/16 09:24 Test: AMYLASE; Value: 38; Range: 25-115; Units: U/L; Status: F Lab Order: LIPASE; 03/28/16 09:24 Test: LIPASE; Value: 83; Range: 73-393; Units: U/L; Status: F Lab Order: LIVER PROFILE; 03/28/16 09:24 Test: AST/SGOT; Value: 22; Range: 15-37; Units: U/L; Status: F Test: ALT/SGPT; Value: 17; Range: 12-78; Units: U/L; Status: F Test: ALKALINE PHOSPHATASE; Value: 55; Range: 45-117; Units: U/L; Status: F Test: BILIRUBIN,TOTAL; Value: 0.5; Range: 0.2-1.0; Units: MG/DL; Status: F Test: BILIRUBIN,DIRECT; Value: 0.2; Range: 0.0-0.2; Units: MG/DL; Status: F Test: TOTAL PROTEIN; Value: 6.7; Range: 6.4-8.2; Units: GM/DL; Status: F Test: ALBUMIN; Value: 3.6; Range: 3.2-5.2; Units: GM/DL; Status: F Test: ALBUMIN/GLOBULIN RATIO; Value: 1.16; Range: 1.00-1.93; Status: F Lab Order: CARDIAC MARKER PANEL; SPEC' 03/28/16 14:28 Test: CPK CREATINE PHOSPHOKINASE; Value: 73; Range: 26-192; Units: U/L; Status: F Test: CK-MB VALUE MASS; Value: 1.6; Range: 0.0-3.6; Units: NG/ML; Status: F Test: MB/CK RELATIVE INDEX; Value: 2.19; Range: < OR =4; Status: F Test: TROPONIN I; Value: < 0.02; Range: < 0.10; Units: NG/ML; Status: F Test Note: ; DIAGNOSIS CRITERIA MMB ng/ml Relative Index (RI) NON-AMI < or = 5 N/A MO ZONE > 5 < or = 4 AMI > 5 > 4 Lab Order: THYROID PROFILE; SPEC'M 03/28/16 14:28 Test: T UPTAKE; Value: 37; Range: 30-39; Units: %; Status: F Test: THYROXINE (T4); Value: 10.6; Range: 4.5-12.0; Units: UG/DL; Status: F Test: FREE THYROXINE INDEX; Value: 3.9; Range: 1.3-4.8; Units: %; Status: F Test: THYROID STIMULATING HORMONE; Value: 1.030; Range: 0.358-3.740; Units: uIU/ML; Status: F Radiology Order: CT Head Without Contrast Test: CT Head Without Contrast REASON FOR EXAMINATION: CVA <4.5hrs; Noncontrast head CT:; ; History: CVA less than 4.[address] study June 09, 2014.; ; Findings: Digital lateral livestock nutrition territory manager radiograph is unremarkable. Bone window; settings demonstrate an intact bony calvarium. Vascular calcification is noted; in the carotid siphons bilaterally. There is chronic sinusitis filling the left; sphenoid sinus and left posterior ethmoid air cells. Some bony sinus wall; thickening is seen indicating chronicity. No bony destructive lesion is; appreciated. No intraorbital abnormality is seen. There is diffuse cerebral; atrophy noted. No evidence of intracranial hemorrhage is seen. There is a small; low density area in the anterior limb of the internal capsule on the right; unchanged from the June 09, 2014 study. This is compatible with old lacunar; infarct. No acute infarct is seen. No extra-axial fluid collection, mass, or; midline shift is seen.; ; Impression:; ; Vascular calcification, diffuse atrophy, old right basal ganglia lacunar infarct.; No acute infarct, hemorrhage, mass or midline shift is seen.; ; ; Signed by; Jalen Dunn MD 03/28/2016 02:05 P; Radiology Order: Chest, 1 View Test: Chest, 1 View REASON FOR EXAMINATION: CVA <4.5hrs; Portable chest x-ray: Sitting AP view.; ; History: CVA less than 4 1/2 hours old.; ; Comparison chest x-ray June 01, 2014.; ; Findings: EKG monitoring electrodes overlie the chest. The lungs are; symmetrically aerated and clear. Heart is not enlarged. The aorta somewhat; tortuous. Pulmonary vasculature is not increased.; ; Impression:; ; No active disease.; ; ; Signed by; Jalen Dunn MD 03/28/2016 10:12 A; Radiology Order: MRA BRAIN W/O CONTRAST Test: MRA BRAIN W/O CONTRAST REASON FOR EXAMINATION: r/o CVA; MR angiography the brain without contrast:; ; History: Question CVA.; ; Technique: 3-D [id number] MR angiography of the brain is acquired in the; usual fashion and maximal intensity projection images were generated in; rotational format about the vertical and horizontal axes. In addition, source; axial T1-weighted images are viewed in cine mode.; ; MR angiographic findings: The distal vertebral arteries are patent , left is; dominant . Basilar artery is a little tortuous but widely patent. The posterior; cerebral and superior cerebellar vessels are normal and symmetric. The left; posterior cerebral artery takes a persistent origin which is a common; normal variant. The distal internal carotid arteries are unremarkable. Anterior; and middle cerebral arteries appear intact. There is no visible charles aneurysm; or arteriovenous malformation.; ; Impression:; ; Unremarkable MR angiography the brain.; ; ; Signed by; Jalen Dunn MD 03/28/2016 02:02 P; Outcome: 10:20 Decision to Hospitalize by Provider. 16:11 Discharge Assessment: patient administered narcotics - no. The following High Risk 9 Discharge criteria are identified: None. Admitted to PCU accompanied by nurse, accompanied by tech. Condition: good Condition: stable Condition: improved. CT Study completed. MRI Study completed. Property :Personal belongings accompany Pt. 16:12 Patient left the ED. mb9 Signatures: Dispatcher [employer] EDMS Michelle Eduardo MD MD ml Jobson, Karen RN RN Nannette Valentine, BUSINESS SUPPORT BUSINESS SUPPORT ar3 Meravt Maurer, BUSINESS SUPPORT BUSINESS SUPPORT ct3 Jil Hernández dem1 Danielle Alvarenga,RN RN js13 Irving Warren RN RN mb9 Antwan, Sunita Ch, Francine scott2 Dinah Small dm19 Corrections: (The following items were deleted from the chart) 09:43 09:39 LIPASE+LAB sent. [facility] 09:43 09:39 AMYLASE+LAB sent. [facility] 09:43 09:39 LIVER PROFILE+LAB sent. [facility] 10:17 10:17 Assisted with bedpan. dem1 dem1 MTDD
[2016-03-28 16:25] VITALS: BP 134/71
--- NOTE | 2016-03-28 17:00 | REP ---
MRI brain without contrast: History: Possible CVA, possible other lesion. History of cancer. Technique: Axial and sagittal imaging planes are utilized for T1 and T2-weighted scans. Sequences include spin-echo, fast spin echo, FLAIR, and diffusion weighted sequences. The patient was unable to tolerate lying flat any longer due to shortness of breath. The MRI study of the brain and the MR angio of the brain were accomplished but the patient requests that we postpone the MR angio of the carotids and the postcontrast MRI images of the brain. MRI findings: No bony calvarial lesion is seen. Craniocervical junction and upper cervical cord is normal in appearance. There is no evidence of intracranial hemorrhage. There are mild mucosal changes in the ethmoid air cells bilaterally. No intraorbital abnormality is seen. There is mild diffuse cerebral atrophy. Diffusion weighted scans show no evidence to suggest acute ischemia. No extra-axial fluid collection, mass or midline shift is seen. There are small vessel atherosclerotic changes in the periventricular white matter bilaterally. Impression: No acute intracranial lesion. Small vessel changes and diffuse atrophy. Mucosal thickening in the ethmoid sinuses. Signed by Jalen Dunn MD 03/28/2016 05:34 P
[2016-03-28] MEDS: ASPIRIN 325 MG TAB PO SCH (17:54)
[2016-03-28] MEDS: predniSONE 1 MG TAB PO SCH (17:54)
[2016-03-28] MEDS: GABAPENTIN 100 MG CAP PO SCH (17:54)
[2016-03-28] MEDS: METOPROLOL SUCC (TopROL XL) 50MG **XL** TAB PO SCH (17:54)
[2016-03-28] MEDS: predniSONE 5 MG TAB PO SCH (17:55)
[2016-03-28] MEDS: PANTOPRAZOLE 40MG TAB (PROTONIX) PO SCH (17:55)
[2016-03-28] MEDS: CYANOCOBALAMIN 500 MCG TAB PO SCH (17:55)
[2016-03-28] MEDS: HYDROXYCHLOROQUINE 200 MG TAB PO SCH (17:55)
[2016-03-28 20:35] VITALS: BP 124/65
[2016-03-28] MEDS: HEPARIN SOD (PORCINE) 5000 UNITS/ML VIAL SC SCH (20:50)
[2016-03-28] MEDS: TIMOLOL MALEATE 0.5% OPHTH SOLN 5 ML OU SCH (20:50)
[2016-03-28] MEDS: FOLIC ACID 1 MG TAB PO SCH (20:50)
[2016-03-28] MEDS ORDERED: DIVALPROEX 500MG *ER* TAB PO SCH (21:00)
[2016-03-28] MEDS ORDERED: ATORVASTATIN 20 MG TAB PO SCH (21:00)
[2016-03-28] MEDS ORDERED: LATANOPROST 0.005% OPHTH SOLN 2.5 ML OU SCH (21:00)
[2016-03-28 21:22] LABS: TOTAL PROTEIN 6.3 GM/DL (6.4-8.2)
--- NOTE | 2016-03-28 22:59 | ECGEPIP ---
Stationary ECG Study [facility] - ED Test Date: 2016-03-28 Pat Name: CLOTILDE MEJIA Department: Room: - Gender: F Regional Manager: nimo : [id number] Requested By: Michelle Eduardo Order Number: [id number] Reading MD: Gigi Garcia Measurements Intervals [place] Rate: 84 P: 80 SD: 199 QRS: 34 QRSD: 100 T: 29 QT: 370 QTc: 440 Interpretive Statements SINUS RHYTHM WITH OCCASIONAL SUPRAVENTRICULAR PREMATURE COMPLEXES NONSPECIFIC ST & T-WAVE ABNORMALITY SIMILAR TO 06/01/14 Electronically Signed On 03-28-2016 22:59:13 EST by Gigi Garcia
[2016-03-29] MEDS: GABAPENTIN 100 MG CAP PO SCH ×2 (00:39→07:56)
[2016-03-29 01:03] VITALS: BP 113/59
[2016-03-29 03:48] VITALS: BP 122/79
[2016-03-29 05:53] VITALS: BP 104/63
[2016-03-29 05:55] LABS: MEAN CORPUSCULAR HGB CONC 31.9 g/dl (32.0-36.5); MEAN CORPUSCULAR VOLUME 94.1 fl (80.0-96.0); RED CELL DISTRIBUTION WIDTH 13.5 % (11.5-14.5); WHITE BLOOD COUNT 7.4 K/mm3 (4.0-10.0)
[2016-03-29 06:03] LABS: ANION GAP 10 MEQ/L (8-16); BLOOD UREA NITROGEN 16 MG/DL (7-18); CALCIUM LEVEL 8.7 MG/DL (8.8-10.2); CARBON DIOXIDE LEVEL 25 MEQ/L (21-32); CHLORIDE LEVEL 108 MEQ/L (98-107); CHOLESTEROL LEVEL 153 MG/DL (<200); CREATININE FOR GFR 0.74 MG/DL (0.55-1.02); GLOMERULAR FILTRATION RATE > 60.0 (>39); GLUCOSE, FASTING 95 MG/DL (83-110); POTASSIUM SERUM 4.2 MEQ/L (3.5-5.1); SODIUM LEVEL 143 MEQ/L (136-145); TRIGLYCERIDES LEVEL 63 MG/DL (<150)
[2016-03-29] MEDS: CYANOCOBALAMIN 500 MCG TAB PO SCH (07:55)
[2016-03-29] MEDS: HEPARIN SOD (PORCINE) 5000 UNITS/ML VIAL SC SCH (07:55)
[2016-03-29] MEDS: PANTOPRAZOLE 40MG TAB (PROTONIX) PO SCH (07:56)
[2016-03-29] MEDS: FOLIC ACID 1 MG TAB PO SCH (07:56)
[2016-03-29] MEDS: predniSONE 1 MG TAB PO SCH (07:56)
[2016-03-29] MEDS: HYDROXYCHLOROQUINE 200 MG TAB PO SCH (07:56)
[2016-03-29] MEDS: ASPIRIN 325 MG TAB PO SCH (07:56)
[2016-03-29 07:57] VITALS: BP 112/74
[2016-03-29] MEDS: TIMOLOL MALEATE 0.5% OPHTH SOLN 5 ML OU SCH (07:57)
[2016-03-29] MEDS: METOPROLOL SUCC (TopROL XL) 50MG **XL** TAB PO SCH (07:57)
[2016-03-29] MEDS: predniSONE 5 MG TAB PO SCH (07:57)
[2016-03-29 08:00] VITALS: BP 113/62
[2016-03-29] MEDS ORDERED: VITAMIN D 50,000 UNITS CAPSULE (ERGOCALCIFEROL 1.25MG) PO SCH (09:00)
[2016-03-29] MEDS ORDERED: THIAMINE 100 MG TAB PO SCH (09:00)
[2016-03-29 12:00] VITALS: BP 121/71
[2016-03-29] MEDS ORDERED: DEPA500T2 PO (12:39)
[2016-03-29] MEDS ORDERED: ASPI325T PO (12:39)
[2016-03-29] MEDS ORDERED: PRAV10TA PO (12:39)
--- NOTE | 2016-03-29 14:35 | ECHO ---
DATE: 03/29/2016 REFERRING PHYSICIAN: Dr. Hartley INDICATIONS: CVA / TIA The patient measures 61 inches and weighs 94 pounds. DIMENSIONS: IVS 1.0 LV 3.2 LVPW 1.0 LA 4.3 Aorta 2.8 RV 2.8 Ascending FINDINGS: Study is of good technical quality. Parastomal views were limited but apical views were of good quality. Left ventricle is of normal size and systolic function with estimated EF around 65-70%. Right ventricle is also normal size and systolic function. Left atrium is severely enlarged right atrium is probably also severely enlarged. Aortic valve is sclerotic but it has it has trileaflet valve and has normal mobility. Mitral tricuspid and pulmonic valves appear normal. Pulmonic valve was not well seen. No pericardial effusion is noted. Inferior vena cava is mildly dilated but does have some collapse with respiration indicative of at least mildly elevated central venous pressure. Aortic root and abdominal aorta appear normal. Aortic arch was not seen. Doppler interrogation reveals no significant aortic disease. There is mild mitral insufficiency and moderate tricuspid insufficiency. Calculated pulmonary artery pressure is at least in mid 40s corresponding to moderate pulmonary hypertension. Pulmonic valve is poorly seen. Mitral inflow pattern and tissue Doppler imaging of mitral annulus reveal likely grade 2 diastolic dysfunction. CONCLUSIONS: 1. Study is of good technical quality. 2. Normal LV size and systolic function, grade 2 diastolic dysfunction. 3. Aortic sclerosis. 4. Mild mitral insufficiency. 5. Moderate tricuspid insufficiency. 6. Elevated CVP. 7. At least moderate pulmonary hypertension. COMMENT: SBE prophylaxis is not recommended. Study does not provide obvious explanation for TIA / CVA.
--- NOTE | 2016-03-30 08:56 | CR ---
DATE OF CONSULTATION: 03/28/2016 REFERRING PHYSICIAN: Dr. Hartley HISTORY: The patient is a 80-year-old female who he is being admitted to the hospital because of altered mental status. According to the history available, she went to bed last and seemed to be doing quite well. When she woke up this morning, her noted that she was confused. She was repeating things over and over. She was not remembering them after a few minutes. The patient however did not have any associated headache, dizzy spells, vertigo, diplopia, blurred vision, dysarthria or dysphagia. She was also not weak in her arms or legs. She was brought to the ER here at the [facility] where she had a CT scan of the brain performed, which did not show any acute changes. Since then, she has had an MRI and MRA of the brain but the results are still pending. Currently, the patient is awake and does not remember as to what happened this morning. She is now more alert when compared to before. She knows what is going on at the present time. On questioning this afternoon, she denies having any headache at the present time. There is no complaint of dizzy spells, vertigo, diplopia, blurred vision, dysarthria, dysphagia. She does not have any neck pain. There is no pain in her shoulder muscles or upper extremities. She denies weakness in her arms. There is no numbness in her hands. She has not noticed resting or postural tremors of the hands. She has known history of chronic low back pain. This pain at times radiates into her legs. There is no weakness in her lower extremities. Her feet are numb. She is unsteady on her feet. She has a tendency to drift towards one side when she walks. Her bladder and bowel functions are however normal. MEDICATIONS: Her medications prior to admission here included: - aspirin 81 mg daily - Citracal - vitamin B12 - Nexium - folic acid - gabapentin 100 mg three times a day - hydroxychloroquine - latanoprost eyedrops - metoprolol - pravastatin - prednisone - Prolia - Ramipril PAST MEDICAL HISTORY: 1. Hypertension. 2. Diabetes. 3. Coronary artery disease. 4. Depression. 5. Anxiety disorder. 6. Anemia. 7. Gastroesophageal reflux disease. 8. Colorectal cancer. 9. Diverticulitis. 10. Breast cancer. 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 12. Colon resection. 13. Stent placement. 14. Tonsillectomy. FAMILY HISTORY: The patient's mother and father are both . Her mother was known to have coronary artery disease. Her father had diabetes and peripheral polyneuropathy. PERSONAL AND SOCIAL HISTORY: The patient lives with her family. There is no past history of smoking or alcohol and drug abuse. REVIEW OF SYSTEMS: All other systems were reviewed and found to be noncontributory. PHYSICAL EXAMINATION: On examination, the patient does not appear in any discomfort. She is pleasant to interact with. Her posture is normal. Her blood pressure is 140/85. Pulse is 72 per minute. Respirations are 18 per minute. She is 5 feet 1 inch tall. She weighs about 43 kg. Her neck is supple. There is no carotid bruit audible. She does not have any tenderness in her cervical spine or lumbar area. Her ear, nose and throat examination is normal. Her lungs are clear to auscultation. Her heart is regular in rhythm. Her abdomen is soft and nondistended. There is no ankle edema seen. The peripheral pulses are normally palpable. She is oriented to time and place. Her speech is fluent. Extraocular movements are intact. There is no horizontal or vertical nystagmus seen. Her pupils are about 3 mm in size and reactive to light. The consensual light reflex is present bilaterally. Visual saini are all within normal limits. Her face is symmetrical. Her tongue is midline. Her motor examination does not show any focal motor weakness in her upper or lower extremities. There are no resting or postural tremors of the hands seen. Her muscle tone is normal. The sensation to fine touch and pinprick is equal on both sides of the body. Deep tendon reflexes are 1+ and symmetrical with equivocal plantar reflexes. Her gait is not tested. DIAGNOSTIC STUDIES: The patient's CBC shows a white cell count of 8800, hemoglobin 13.9, hematocrit 43.9 and platelets 230,000. Her sodium is 142, potassium 4, BUN 22 and creatinine 0.78. Her calcium level is 9.3. Her liver functions are all within normal limits. Her CPK on admission was 64. Her CT scan of the brain does not show any acute changes. IMPRESSION: 1. Episode of altered mental status. 2. Likely [employer] amnesia 3. Rule out CVA versus seizures, although unlikely 4. History of chronic migraine headaches. 5. Unsteady gait. 6. History of peripheral polyneuropathy. PLAN 1. Await for the results of her MRI and MRA of the brain. 2. MRA of the carotid arteries. 3. ESR, MEGHA, rheumatoid factor and lupus anticoagulant. 4. Vitamin B1, B6 and B12 levels. 5. EMG/NCS of the lower extremities as outpatient to assess her peripheral polyneuropathy. 6. Aspirin 325 mg by mouth daily. 7. Depakote ER 500 mg by mouth at night for her migraine headaches. Thank you very much for this consultation. NAHOMI
[2016-03-30 10:16] LABS: VITAMIN B12 LEVEL 534 PG/ML (247-911)
--- NOTE | 2016-03-31 11:21 | EDDOCDS ---
Nurse's Notes [facility] Name: Rosa Birch Age: 80 yrs Sex: Female : 1935 Arrival Date: 03/28/2016 Time: 08:32 Bed Admit Hold Private MD: Diagnosis: Transient global amnesia-rule out ischmemic stroke Presentation: 03/28 08:48 Presenting complaint: EMS states: Patient woke up this morning at approx 0630 and was js13 nauseous. Patient went downstairs and then back to bed with no memory of events. Patients family states she is out of sorts. Adult Sepsis Screening: Patient has new or worsening altered mentation (1 point). Patient's respiratory rate is less than 22. Systolic blood pressure is greater than 100. Patient has a qSOFA score of 1- Negative Sepsis Screen. Suicide/Homicide risk assessment- the patient denies having any suicidal and/or homicidal ideations and does not present with any other emotional, behavioral or mental health complaints. Status: Patient is not a automotive service technician or dependent. Transition of care: patient was not received from another setting of care. Care prior to arrival: See EMS report. Glucose check. 121. 08:48 Acuity: MONIKA Level 3 js13 08:48 Method Of Arrival: Ambulance js13 Triage Assessment: 08:57 General: Appears in no apparent distress, comfortable, Behavior is appropriate for age, js13 cooperative. Pain: Denies pain. Neurological: Level of Consciousness is awake, alert, obeys commands, Oriented to person, place, month . [employer] are equal bilaterally Moves all extremities. Speech is normal, Facial symmetry appears normal, Facial symmetry: tongue is midline, Pupils are PERRLA. Cardiovascular: Rhythm is sinus rhythm Chest pain is denied. Respiratory: Airway is patent Respiratory effort is even, unlabored, Respiratory pattern is regular, symmetrical, Breath sounds are clear. Derm: Skin is pink, warm & dry. 08:57 The patient is triaged at the bedside. See Assessment in Nurses Notes section of ED js13 record. Historical: - Allergies: PENICILLINS (Hives); SULFA (SULFONAMIDES) (Hives); - Home Meds: 1. aspirin 81 mg Oral chew 1 tab once daily 2. Vitamin B-12 1,000 mcg Oral tab 3. prolia 2 shot Yearly 4. Xalatan 0.005 % Opht drop 1 drop nightly 5. timolol maleate 0.25 % Opht drop 1 drop 2 times per day 6. Vitamin D 1.25 mg weekly 7. ramipril 5 mg Oral cap 1 cap nightly 8. gabapentin 100 mg Oral tab three times a day 9. prednisone 5 mg Oral tab once daily 10. prednisone 1 mg Oral tab 2 tabs once daily 11. pravastatin 10 mg oral tab 1 tab nightly 12. Plaquenil 200 mg Oral tab 1.5 tabs once daily 13. Nexium 40 mg Oral cpDR 1 cap once daily as needed 14. metoprolol succinate 50 mg Tb24 1 tab once daily 15. metaxalone 800 mg oral tab 1 tab 3 times per day 16. folic acid 1 mg Oral tab 1 tab twice a day 17. Oral 30 mg as needed 18. Citracal Oral 1 tab daily - PMHx: Rheumatoid Arthritis; CAD; Cancer, Breast - Right; Cancer, Colon; GERD; Cancer, Breast - Left; - PSHx: Right Knee Replacement; left knee replacement; Hip Replacement Bilateral; Colostomy Construction; Double Mastectomy; Hernia repair with mesh; - Social history: Smoking status: Patient states former smoker of tobacco. No barriers to communication noted, The patient speaks fluent [place] Leone[place]. - Family history: Not pertinent. - : The pt / caregiver states he / she is not on anticoagulants. Home medication list is obtained from the patient, family members. - Exposure Risk Screening:: None identified. Screenin:58 Screening information is obtained from the patient. Fall risk: At risk due to apparent js13 cognitive impairment. Assistance ADL's: requires no assistance with activities of daily living. Abuse/DV Screen: The patient / caregiver reports he/she is: not in a situation that causes fear, pain or injury. Nutritional screening: No deficits noted. Advance Directives: There is no active DNR order. home support is adequate. Assessment: 08:58 General: Appears in no apparent distress, comfortable, Behavior is appropriate for age, js13 cooperative. Pain: Denies pain. Neurological: Level of Consciousness is awake, alert, obeys commands, Oriented to person, place, month. [employer] are equal bilaterally Moves all extremities. Speech is normal, Facial symmetry appears normal, Facial symmetry: tongue is midline, Pupils are PERRLA. Cardiovascular: Rhythm is sinus rhythm Chest pain is denied. Respiratory: Airway is patent Respiratory effort is even, unlabored, Respiratory pattern is regular, symmetrical. GI: Colostomy site Ostomy appliance is intact. Abd is soft and non tender. GI: Bowel sounds present X 4 quads. Derm: Skin is pink, warm & dry. 10:30 Adult Sepsis Screening: Patient has new or worsening altered mentation (1 point). js13 Patient's respiratory rate is less than 22. Systolic blood pressure is greater than 100. Patient has a qSOFA score of 1- Negative Sepsis Screen. General: Appears in no apparent distress, comfortable, Behavior is appropriate for age, cooperative. Pain: Denies pain. Neurological: Level of Consciousness is awake, alert, obeys commands, Oriented to person, place, [employer]acer are equal bilaterally Moves all extremities. Speech is normal, Facial symmetry appears normal, Facial symmetry: tongue is midline, Pupils are PERRLA. Cardiovascular: Rhythm is sinus rhythm Chest pain is denied. Respiratory: Airway is patent Respiratory effort is even, unlabored, Respiratory pattern is regular, symmetrical. Derm: Skin is pink, warm & dry. 11:15 General: Appears in no apparent distress, comfortable, Behavior is appropriate for age, mb9 cooperative. Pain: Denies pain. Neurological: Level of Consciousness is awake, alert, Oriented to person, place, time, [employer]placer are equal bilaterally Moves all extremities. Speech is normal, Facial symmetry appears normal, Pupils are PERRLA. Cardiovascular: Rhythm is sinus rhythm. Respiratory: Airway is patent Respiratory effort is even, unlabored. GI: Reports indigestion, nausea. 11:40 General: Dr. Hartley in to see pt at this time. . mb9 12:38 Reassessment: Patient states feeling better. Patient states symptoms have improved. mb9 General: Appears comfortable, Behavior is appropriate for age, cooperative. Respiratory: Airway is patent Respiratory effort is even, unlabored. 12:50 General: This RN went in to start pt on her oral contrast and the pt's family at the mb9 bedside state, "They just took her to MRI.".. 13:30 General: pt in mri. mb9 13:41 General: Sheryl from MRI called at this time to report, "pt was able to tolerate mri and mb9 mra of brain. I went to start the study of the mra with contrast of the carotids and she started to complain of sob. I called Dr. Hartley and he said it could be finished tomorrow. So ask pcu to order an mra of the brain with contrast and a mri/mra of the carotids with and without contrast". . 14:16 Reassessment: Patient appears in no apparent distress at this time. Adult Sepsis mb9 Screening: The patient does not have new or worsening altered mentation. Patient's respiratory rate is less than 22. Systolic blood pressure is greater than 100. Patient has a qSOFA score of 0- Negative Sepsis Screen. General: Appears in no apparent distress, comfortable, Behavior is appropriate for age, cooperative, pt able to ambulate to the bathroom with standby assist. . Pain: Denies pain. Respiratory: Airway is patent Respiratory effort is even, unlabored, Breath sounds are coarse bilaterally. 14:42 Reassessment: Patient appears in no apparent distress at this time. Patient states mb9 feeling better. Patient states symptoms have improved. General: Appears in no apparent distress, comfortable, Behavior is appropriate for age, cooperative, Dr Naeem made aware that pt was unable to tolerate MRI and that the pt has a CT of the ABD ordered. Dr Hartley states, "It's ok to hold off until tomorrow to do the CT of the abd.". . Respiratory: Airway is patent Respiratory effort is even, unlabored. Vital Signs: 08:43 BP 185 / 92; Pulse 86; Resp 18; Temp 100.0(TE); Pulse Ox 97% on R/A; Weight 43.09 kg ct3 (R); Height 5 ft. 1 in. (154.94 cm) (R); Pain 0/10; 08:58 BP 170 / 97 (auto/); js13 08:58 Pulse 102 MON; Resp 16; Pulse Ox 98% on R/A; js13 09:11 BP 198 / 76 (auto/); js13 09:11 Pulse 90 MON; Resp 16; Pulse Ox 98% ; js13 09:26 BP 161 / 77 (auto/); js13 09:26 Pulse 78 MON; Resp 16; Pulse Ox 98% ; js13 09:41 BP 154 / 93 (auto/); js13 09:41 Pulse 84 MON; Resp 16; Pulse Ox 97% on R/A; js13 09:56 BP 156 / 86 (auto/); js13 09:56 Pulse 82 MON; Resp 16; Pulse Ox 98% on R/A; js13 10:11 BP 150 / 76 (auto/); js13 10:11 Pulse 76 MON; Resp 16; Pulse Ox 99% on R/A; js13 10:26 BP 171 / 94 (auto/); js13 10:26 Pulse 80 MON; Resp 16; Pulse Ox 99% on R/A; js13 10:41 BP 148 / 92 (auto/); mb9 10:42 Pulse 90 MON; Pulse Ox 99% ; mb9 10:56 BP 136 / 88 (auto/); mb9 10:57 Pulse 90 MON; Pulse Ox 98% ; mb9 11:11 BP 135 / 74 (auto/); mb9 11:12 Pulse 74 MON; Pulse Ox 98% ; mb9 11:26 BP 128 / 73 (auto/); mb9 11:27 Pulse 72 MON; Pulse Ox 99% ; mb9 11:41 BP 154 / 82 (auto/); mb9 11:42 Pulse 94 MON; Pulse Ox 97% ; mb9 11:56 BP 136 / 72 (auto/); mb9 11:57 Pulse 86 MON; Pulse Ox 98% ; mb9 12:11 BP 135 / 73 (auto/); mb9 12:12 Pulse 76 MON; Pulse Ox 98% ; mb9 12:26 BP 119 / 63 (auto/); mb9 12:27 Pulse 80 MON; Pulse Ox 97% ; mb9 14:38 BP 132 / 74 (auto/); mb9 14:40 BP 132 / 74; Pulse 80 MON; Resp 19; Temp 98.9(TE); Pulse Ox 97% ; mb9 08:43 Body Mass Index 17.95 (43.09 kg, 154.94 cm) ct3 Vitals: 08:57 Log In Time N/A - ambulance arrival. js13 ED Course: 08:34 Patient visited by Nannette Adams PCA. ar3 08:34 Patient moved to Waiting ar3 08:35 Danielle Alvarenga,MICHAEL is Primary Nurse. ar3 08:35 Patient moved to 14 ar3 08:43 Accompanied by Family Member, Patient has correct armband on for positive ct3 identification. Placed in gown. Bed in low position. Call light in reach. Side rails up X2. mail distribution scheme examiner on. Pulse ox on. NIBP on. 08:44 Patient visited by Mervat Maurer PCA. ct3 08:50 Triage Initiated js13 08:51 EKG done. (by ED staff). Reviewed by Woody Mo MD. nb2 08:55 Patient visited by Francine Ch. nb2 08:58 The patient / caregiver is instructed regarding the plan of care and ED course. js13 09:00 Patient visited by Danielle Alvarenga RN. js13 09:22 Michelle Eduardo MD is Attending Physician. ml 09:22 Patient visited by Michelle Eduardo MD. ml 09:30 Basic Metabolic Profile Sent. js13 09:30 CBC with Diff Sent. js13 09:30 Partial Thromboplastin Time Sent. js13 09:30 Type & Screen Sent. js13 09:30 Prothrombin Time Profile\\E\\INR Sent. js13 09:31 Inserted saline lock: 18 gauge in left antecubital area and blood collected. The js13 patient tolerated the procedure well. No procedures done that require assistance. Labs drawn. (by ED staff). Sent per order to lab. 09:31 Labs/Blood culture drawn. js13 09:39 Ammonia (Little Green Tube on Ice, Not Pea Green) Sent. js13 09:39 Lactic Acid (Mo tube on ice) Sent. js13 09:39 Troponin Sent. js13 09:39 CIP Sent. js13 09:52 LIVER PROFILE Sent. ar3 09:52 LIPASE Sent. ar3 09:52 AMYLASE Sent. ar3 09:57 Patient visited by Mervat Maurer PCA. ct3 10:15 [facility] Payment Agreement was scanned into [employer] and attached to record. dm19 10:19 Gabrielle Hartley is Hospitalizing Provider. ml 10:22 Chest, 1 View Returned. EDMS 10:22 CT Head Without Contrast Returned. EDMS 10:31 Patient visited by Danielle Alvarenga RN. js13 10:48 Patient visited by Jil Hernández. dem1 10:48 Assisted to bedside commode. dem1 11:59 T-Sheet-- Draft Copy was scanned into [employer] and attached to record. seh 12:12 Patient visited by Jil Hernández. dem1 12:12 Assisted to bedside commode. dem1 14:09 Patient moved to Admit Hold [facility] 14:30 MRA BRAIN W/O CONTRAST Returned. EDMS 03/29 11:00 ECG/EKG was scanned into [employer] and attached to record. gb Administered Medications: 03/28 11:39 Drug: Ondansetron 4 mg [ondansetron HCl 2 mg/mL intravenous solution (2 mL)] Route: mb9 IVP; Site: left antecubital; 12:39 Follow up: Response: Nausea is resolved [facility] 14:42 Not Given (Other Intervention Used; Dr Hartley aware that pt unable to tolerate MRI. Dr Naeem adams9 states, "It can wait util tomorrow". ): Diatrizoate Meglumine & Sodium Liquid 10 ml PO once; mix in 290cc of water 14:42 Not Given (Other Intervention Used; Dr Hartley aware that pt unable to tolerate MRI. Dr Naeem adams9 states, "It can wait util tomorrow". ): Diatrizoate Meglumine & Sodium Liquid 10 ml PO once; mix in 290cc of water Order Results: Lab Order: Basic Metabolic Profile; SPEC'M 03/28/16 09:24 Test: GLUCOSE, FASTING; Value: 83; Range: 83-110; Units: MG/DL; Status: F Test: BLOOD UREA NITROGEN; Value: 22; Range: 7-18; Abnormal: Above high normal; Units: MG/DL; Status: F Test: CREATININE FOR GFR; Value: 0.78; Range: 0.55-1.02; Units: MG/DL; Status: F Test: GLOMERULAR FILTRATION RATE; Value: > 60.0; Range: >39; Status: F Test: SODIUM LEVEL; Value: 142; Range: 136-145; Units: MEQ/L; Status: F Test: POTASSIUM SERUM; Value: 4.0; Range: 3.5-5.1; Units: MEQ/L; Status: F Test: CHLORIDE LEVEL; Value: 106; Range: 98-107; Units: MEQ/L; Status: F Test: CARBON DIOXIDE LEVEL; Value: 27; Range: 21-32; Units: MEQ/L; Status: F Test: ANION GAP; Value: 9; Range: 8-16; Units: MEQ/L; Status: F Test: CALCIUM LEVEL; Value: 9.3; Range: 8.8-10.2; Units: MG/DL; Status: F Test Note: ; Units are mL/min/1.73 m2 Chronic Kidney Disease Staging per NKF: Stage I & II GFR >=60 Normal to Mildly Decreased Stage III GFR 30-59 Moderately Decreased Stage IV GFR 15-29 Severely Decreased Stage V GFR <15 Very Little GFR Left ESRD GFR <15 on STONE DECORATOR Lab Order: CBC with Diff; SPEC'M 03/28/16 09:24 Test: WHITE BLOOD COUNT; Value: 8.8; Range: 4.0-10.0; Units: K/mm3; Status: F Test: RED BLOOD COUNT; Value: 4.70; Range: 4.00-5.40; Units: M/mm3; Status: F Test: HEMOGLOBIN; Value: 13.9; Range: 12.0-16.0; Units: g/dl; Status: F Test: HEMATOCRIT; Value: 43.9; Range: 36.0-47.0; Units: %; Status: F Test: MEAN CORPUSCULAR VOLUME; Value: 93.4; Range: 80.0-96.0; Units: fl; Status: F Test: MEAN CORPUSCULAR HEMOGLOBIN; Value: 29.7; Range: 27.0-33.0; Units: pg; Status: F Test: MEAN CORPUSCULAR HGB CONC; Value: 31.8; Range: 32.0-36.5; Abnormal: Below low normal; Units: g/dl; Status: F Test: RED CELL DISTRIBUTION WIDTH; Value: 12.8; Range: 11.5-14.5; Units: %; Status: F Test: PLATELET COUNT, AUTOMATED; Value: 230; Range: 150-450; Units: k/mm3; Status: F Test: NEUTROPHILS %; Value: 74.2; Range: 36.0-66.0; Abnormal: Above high normal; Units: %; Status: F Test: LYMPH %; Value: 18.2; Range: 24.0-44.0; Abnormal: Below low normal; Units: %; Status: F Test: MONO %; Value: 4.2; Range: 0.0-5.0; Units: %; Status: F Test: EOS %; Value: 1.9; Range: 0.0-3.0; Units: %; Status: F Test: BASO %; Value: 0.4; Range: 0.0-1.0; Units: %; Status: F Test: LARGE UNSTAINED CELL %; Value: 1.1; Range: 0.0-4.0; Units: %; Status: F Test: NEUTROPHILS #; Value: 6.6; Range: 1.8-7.7; Units: K/mm3; Status: F Test: LYMPH #; Value: 1.6; Range: 1.5-4.5; Units: K/mm3; Status: F Test: MONO #; Value: 0.4; Range: 0.0-0.8; Units: K/mm3; Status: F Test: EOS #; Value: 0.2; Range: 0.0-0.50; Units: K/mm3; Status: F Test: BASO #; Value: 0.0; Range: 0.0-0.2; Units: K/mm3; Status: F Test: LARGE UNSTAINED CELL #; Value: 0.1; Range: 0.0-0.4; Units: K/mm3; Status: F Lab Order: Partial Thromboplastin Time; SPEC 03/28/16 09:24 Test: PARTIAL THROMBOPLASTIN TIME; Value: 29.2; Range: 26.6-37.1; Units: SECONDS; Status: F Lab Order: Prothrombin Time Profile\\E\\INR; 03/28/16 09:24 Test: PROTHROMBIN TIME; Value: 13.1; Range: 12.3-14.5; Units: SECONDS; Status: F Test: INR; Value: 0.98; Status: F Test Note: ; THERAPUTIC HUMAN INR VALUES INDICATIONS NORMAL RANGES PROPHYLAXIS/TREATMENT OF: VENOUS THROMBOSIS 2.0-3.0 PULMONARY EMBOLISM 2.0-3.0 PREVENTION OF SYSTEMIC EMBOLISM FROM: TISSUE HEART VALVES 2.0-3.0 ACUTE MYOCARDIAL INFARCTION 2.0-3.0 VALVULAR HEART DISEASE 2.0-3.0 ATRIAL FIBRILLATION 2.0-3.0 MECHANICAL VALVES(HIGH RISK) 2.5-3.5 RECURRENT MYOCARDIAL INFARCTION 2.5-3.5 Lab Order: Type & Screen; 03/28/16 09:24 Test: BLOOD TYPE; Value: O POS; Status: F Test: AB SCREEN (INDIRECT CORIE)GEL; Value: NEGATIVE; Status: F Lab Order: CIP; 03/28/16 09:24 Test: CPK CREATINE PHOSPHOKINASE; Value: 64; Range: 26-192; Units: U/L; Status: F Test: CK-MB VALUE MASS; Value: 1.9; Range: 0.0-3.6; Units: NG/ML; Status: F Test: MB/CK RELATIVE INDEX; Value: 2.96; Range: < OR =4; Status: F Test Note: ; DIAGNOSIS CRITERIA MMB ng/ml Relative Index (RI) NON-AMI < or = 5 N/A MO ZONE > 5 < or = 4 AMI > 5 > 4 Lab Order: Troponin; 03/28/16:24 Test: TROPONIN I; Value: < 0.02; Range: < 0.10; Units: NG/ML; Status: F Test Note: ; Troponin I Reference Interval for ImaCor LOCI: 99th Percentile= 0.00-0.045 ng/ml Risk Stratification: <= 0.10 ng/ml Decreased Risk for Adverse Clinical Events. 0.10-1.50 ng/ml Increased Risk for Adverse Clinical Events. Evaluation of additional criterion and/or repeat testing in 2-6 hours is suggested to rule out myocardial damage. >= 1.50 ng/ml Indicative of Myocardial Injury. Lab Order: Lactic Acid (Mo tube on ice); 03/28/16 09:24 Test: LACTIC ACID LEVEL, LACTATE; Value: 1.0; Range: 0.4-2.0; Units: MMOL/L; Status: F Lab Order: Ammonia (Little Green Tube on Ice, Not Pea Green); 03/28/16 09:24 Test: AMMONIA; Value: < 25; Range: <32; Units: uMOL/L; Status: F Lab Order: AMYLASE; 03/28/16 09:24 Test: AMYLASE; Value: 38; Range: 25-115; Units: U/L; Status: F Lab Order: LIPASE; 03/28/16 09:24 Test: LIPASE; Value: 83; Range: 73-393; Units: U/L; Status: F Lab Order: LIVER PROFILE; 03/28/16 09:24 Test: AST/SGOT; Value: 22; Range: 15-37; Units: U/L; Status: F Test: ALT/SGPT; Value: 17; Range: 12-78; Units: U/L; Status: F Test: ALKALINE PHOSPHATASE; Value: 55; Range: 45-117; Units: U/L; Status: F Test: BILIRUBIN,TOTAL; Value: 0.5; Range: 0.2-1.0; Units: MG/DL; Status: F Test: BILIRUBIN,DIRECT; Value: 0.2; Range: 0.0-0.2; Units: MG/DL; Status: F Test: TOTAL PROTEIN; Value: 6.7; Range: 6.4-8.2; Units: GM/DL; Status: F Test: ALBUMIN; Value: 3.6; Range: 3.2-5.2; Units: GM/DL; Status: F Test: ALBUMIN/GLOBULIN RATIO; Value: 1.16; Range: 1.00-1.93; Status: F Lab Order: CARDIAC MARKER PANEL; [facility] 03/28/16 14:28 Test: CPK CREATINE PHOSPHOKINASE; Value: 73; Range: 26-192; Units: U/L; Status: F Test: CK-MB VALUE MASS; Value: 1.6; Range: 0.0-3.6; Units: NG/ML; Status: F Test: MB/CK RELATIVE INDEX; Value: 2.19; Range: < OR =4; Status: F Test: TROPONIN I; Value: < 0.02; Range: < 0.10; Units: NG/ML; Status: F Test Note: ; DIAGNOSIS CRITERIA MMB ng/ml Relative Index (RI) NON-AMI < or = 5 N/A MO ZONE > 5 < or = 4 AMI > 5 > 4 Lab Order: THYROID PROFILE; [facility] 03/28/16 14:28 Test: T UPTAKE; Value: 37; Range: 30-39; Units: %; Status: F Test: THYROXINE (T4); Value: 10.6; Range: 4.5-12.0; Units: UG/DL; Status: F Test: FREE THYROXINE INDEX; Value: 3.9; Range: 1.3-4.8; Units: %; Status: F Test: THYROID STIMULATING HORMONE; Value: 1.030; Range: 0.358-3.740; Units: uIU/ML; Status: F Radiology Order: CT Head Without Contrast Test: CT Head Without Contrast REASON FOR EXAMINATION: CVA <4.5hrs; Noncontrast head CT:; ; History: CVA less than 4.[address] study June 09, 2014.; ; Findings: Digital lateral rug shampooer radiograph is unremarkable. Bone window; settings demonstrate an intact bony calvarium. Vascular calcification is noted; in the carotid siphons bilaterally. There is chronic sinusitis filling the left; sphenoid sinus and left posterior ethmoid air cells. Some bony sinus wall; thickening is seen indicating chronicity. No bony destructive lesion is; appreciated. No intraorbital abnormality is seen. There is diffuse cerebral; atrophy noted. No evidence of intracranial hemorrhage is seen. There is a small; low density area in the anterior limb of the internal capsule on the right; unchanged from the June 09, 2014 study. This is compatible with old lacunar; infarct. No acute infarct is seen. No extra-axial fluid collection, mass, or; midline shift is seen.; ; Impression:; ; Vascular calcification, diffuse atrophy, old right basal ganglia lacunar infarct.; No acute infarct, hemorrhage, mass or midline shift is seen.; ; ; Signed by; Jalen Dunn MD 03/28/2016 02:05 P; Radiology Order: Chest, 1 View Test: Chest, 1 View REASON FOR EXAMINATION: CVA <4.5hrs; Portable chest x-ray: Sitting AP view.; ; History: CVA less than 4 1/2 hours old.; ; Comparison chest x-ray June 01, 2014.; ; Findings: EKG monitoring electrodes overlie the chest. The lungs are; symmetrically aerated and clear. Heart is not enlarged. The aorta somewhat; tortuous. Pulmonary vasculature is not increased.; ; Impression:; ; No active disease.; ; ; Signed by; Jalen Dunn MD 03/28/2016 10:12 A; Radiology Order: MRA BRAIN W/O CONTRAST Test: MRA BRAIN W/O CONTRAST REASON FOR EXAMINATION: r/o CVA; MR angiography the brain without contrast:; ; History: Question CVA.; ; Technique: 3-D [id number] MR angiography of the brain is acquired in the; usual fashion and maximal intensity projection images were generated in; rotational format about the vertical and horizontal axes. In addition, source; axial T1-weighted images are viewed in cine mode.; ; MR angiographic findings: The distal vertebral arteries are patent , left is; dominant . Basilar artery is a little tortuous but widely patent. The posterior; cerebral and superior cerebellar vessels are normal and symmetric. The left; posterior cerebral artery takes a persistent origin which is a common; normal variant. The distal internal carotid arteries are unremarkable. Anterior; and middle cerebral arteries appear intact. There is no visible charles aneurysm; or arteriovenous malformation.; ; Impression:; ; Unremarkable MR angiography the brain.; ; ; Signed by; Jalen Dunn MD 03/28/2016 02:02 P; Outcome: 10:20 Decision to Hospitalize by Provider. 16:11 Discharge Assessment: patient administered narcotics - no. The following High Risk mb9 Discharge criteria are identified: None. Admitted to PCU accompanied by nurse, accompanied by tech. Condition: good Condition: stable Condition: improved. CT Study completed. MRI Study completed. Property :Personal belongings accompany Pt. 16:12 Patient left the ED. mb9 Signatures: Dispatcher [employer] EDMS Michelle Eduardo MD MD ml Jobson, Karen RN RN Raya Renner, Kevin Reg Nannette Trevizo, PUBLIC HEALTH DOCTOR PUBLIC HEALTH DOCTOR ar3 Maurer, Mervat, PUBLIC HEALTH DOCTOR PUBLIC HEALTH DOCTOR ct3 Brett Hernándezia dem1 Danielle Alvarenga RN RN js13 Irving Warren RN RN mb9 Sunita Moncada Nicole nb2 McLear, Diane dm19 Corrections: (The following items were deleted from the chart) 09:43 09:39 LIPASE+LAB sent. [facility] EDAZ 09:43 09:39 AMYLASE+LAB sent. [facility] EDAZ 09:43 09:39 LIVER PROFILE+LAB sent. [facility] EDAZ 10:17 10:17 Assisted with bedpan. dem1 dem1 Chart Complete MTDD
--- NOTE | 2016-03-31 11:21 | EDDOCDS ---
Physician Documentation [facility] Name: Rosa Birch Age: 80 yrs Sex: Female : 1935 Arrival Date: 03/28/2016 Time: 08:32 Bed Admit Hold Private MD: Disposition: 03/28 10:19 Critical Care:. ml Disposition: 03/28/16 10:20 Hospitalization ordered by Gabrielle Hartley for Inpatient Admission. Preliminary diagnosis is Transient global amnesia - rule out ischmemic stroke. - Bed requested for PCU. - Status is Inpatient Admission. mb9 - Condition is Stable. - Problem is new. - Symptoms are unchanged. Historical: - Allergies: PENICILLINS (Hives); SULFA (SULFONAMIDES) (Hives); - Home Meds: 1. aspirin 81 mg Oral chew 1 tab once daily 2. Vitamin B-12 1,000 mcg Oral tab 3. prolia 2 shot Yearly 4. Xalatan 0.005 % Opht drop 1 drop nightly 5. timolol maleate 0.25 % Opht drop 1 drop 2 times per day 6. Vitamin D 1.25 mg weekly 7. ramipril 5 mg Oral cap 1 cap nightly 8. gabapentin 100 mg Oral tab three times a day 9. prednisone 5 mg Oral tab once daily 10. prednisone 1 mg Oral tab 2 tabs once daily 11. pravastatin 10 mg oral tab 1 tab nightly 12. Plaquenil 200 mg Oral tab 1.5 tabs once daily 13. Nexium 40 mg Oral cpDR 1 cap once daily as needed 14. metoprolol succinate 50 mg Tb24 1 tab once daily 15. metaxalone 800 mg oral tab 1 tab 3 times per day 16. folic acid 1 mg Oral tab 1 tab twice a day 17. Oral 30 mg as needed 18. Citracal Oral 1 tab daily - PMHx: Rheumatoid Arthritis; CAD; Cancer, Breast - Right; Cancer, Colon; GERD; Cancer, Breast - Left; - PSHx: Right Knee Replacement; left knee replacement; Hip Replacement Bilateral; Colostomy Construction; Double Mastectomy; Hernia repair with mesh; - Social history: Smoking status: Patient states former smoker of tobacco. No barriers to communication noted, The patient speaks fluent [place]. - Family history: Not pertinent. - : The pt / caregiver states he / she is not on anticoagulants. Home medication list is obtained from the patient, family members. - Exposure Risk Screening:: None identified. Vital Signs: 08:43 BP 185 / 92; Pulse 86; Resp 18; Temp 100.0(TE); Pulse Ox 97% on R/A; Weight 43.09 kg / ct3 95 lbs (R); Height 5 ft. 1 in. (154.94 cm) (R); Pain 0/10; 08:58 BP 170 / 97 (auto/); js13 08:58 Pulse 102 MON; Resp 16; Pulse Ox 98% on R/A; js13 09:11 BP 198 / 76 (auto/); js13 09:11 Pulse 90 MON; Resp 16; Pulse Ox 98% ; js13 09:26 BP 161 / 77 (auto/); js13 09:26 Pulse 78 MON; Resp 16; Pulse Ox 98% ; js13 09:41 BP 154 / 93 (auto/); js13 09:41 Pulse 84 MON; Resp 16; Pulse Ox 97% on R/A; js13 09:56 BP 156 / 86 (auto/); js13 09:56 Pulse 82 MON; Resp 16; Pulse Ox 98% on R/A; js13 10:11 BP 150 / 76 (auto/); js13 10:11 Pulse 76 MON; Resp 16; Pulse Ox 99% on R/A; js13 10:26 BP 171 / 94 (auto/); js13 10:26 Pulse 80 MON; Resp 16; Pulse Ox 99% on R/A; js13 10:41 BP 148 / 92 (auto/); mb9 10:42 Pulse 90 MON; Pulse Ox 99% ; mb9 10:56 BP 136 / 88 (auto/); mb9 10:57 Pulse 90 MON; Pulse Ox 98% ; mb9 11:11 BP 135 / 74 (auto/); mb9 11:12 Pulse 74 MON; Pulse Ox 98% ; mb9 11:26 BP 128 / 73 (auto/); mb9 11:27 Pulse 72 MON; Pulse Ox 99% ; mb9 11:41 BP 154 / 82 (auto/); mb9 11:42 Pulse 94 MON; Pulse Ox 97% ; mb9 11:56 BP 136 / 72 (auto/); mb9 11:57 Pulse 86 MON; Pulse Ox 98% ; mb9 12:11 BP 135 / 73 (auto/); mb9 12:12 Pulse 76 MON; Pulse Ox 98% ; mb9 12:26 BP 119 / 63 (auto/); mb9 12:27 Pulse 80 MON; Pulse Ox 97% ; mb9 14:38 BP 132 / 74 (auto/); mb9 14:40 BP 132 / 74; Pulse 80 MON; Resp 19; Temp 98.9(TE); Pulse Ox 97% ; mb9 08:43 Body Mass Index 17.95 (43.09 kg, 154.94 cm) ct3 MDM: 08:49 ECG WITH READING ER PHYS+CARDIAG ordered. EDMS 09:28 RN interventions must not delay CT ordered. js13 09:28 Blasting Entryman/Pulse Ox/q 15 min VS ordered. js13 09:28 IV Saline Lock ordered. js13 09:28 Rhythm Strip to chart ordered. js13 09:29 Type & Screen Ordered. EDMS 09:30 Basic Metabolic Profile Ordered. EDMS 09:30 CBC with Diff Ordered. EDMS 09:30 Partial Thromboplastin Time Ordered. EDMS 09:30 Prothrombin Time Profile\\E\\INR Ordered. EDMS 09:30 Chest, 1 View Ordered. EDMS 09:30 CT Head Without Contrast Ordered. EDMS 09:34 CIP Ordered. EDMS 09:34 Troponin Ordered. EDMS 09:34 Lactic Acid (Mo tube on ice) Ordered. EDMS 09:35 Ammonia (Little Green Tube on Ice, Not Pea Green) Ordered. EDMS 09:44 AMYLASE Ordered. EDMS 09:44 LIPASE Ordered. EDMS 09:44 LIVER PROFILE Ordered. EDMS 10:06 BED REQUEST+ADM ordered. EDMS 10:10 Basic Metabolic Profile Reviewed. ml 10:10 CBC with Diff Reviewed. ml 10:10 Partial Thromboplastin Time Reviewed. ml 10:10 Prothrombin Time Profile\\E\\INR Reviewed. ml 10:10 Type & Screen Reviewed. ml 10:10 CIP Reviewed. ml 10:10 Troponin Reviewed. ml 10:10 Lactic Acid (Mo tube on ice) Reviewed. ml 10:10 AMYLASE Reviewed. ml 10:10 LIPASE Reviewed. ml 10:10 LIVER PROFILE Reviewed. ml 10:12 Financial registration complete. dm19 10:15 [facility] [place] Payment Agreement was scanned into [employer] and attached to record. dm19 11:33 Ondansetron 4 mg IVP once ordered. mb9 11:59 T-Sheet-- Draft Copy was scanned into [employer] and attached to record. seh 12:08 CARDIAC MARKER PANEL Ordered. EDMS 12:08 CARDIAC MARKER PANEL Ordered. EDMS 12:09 THYROID PROFILE Ordered. EDMS 12:09 MRA BRAIN W/O CONTRAST Ordered. EDMS 12:09 MRA CAROTID W/O FOL WITH Ordered. EDMS 12:10 Admission / Observation Status ordered. EDMS 12:10 ECHOCARD,DOPPLER/COLOR FLOW ordered. EDMS 12:11 REGULAR DIET ordered. EDMS 12:12 SYPHILIS Ordered. EDMS 12:15 PHYSICAL THERAPY EVAL & TREAT ordered. EDMS 12:41 Diatrizoate Meglumine & Sodium Liquid 10 ml PO once; mix in 290cc of water ordered. mb9 12:41 Diatrizoate Meglumine & Sodium Liquid 10 ml PO once; mix in 290cc of water ordered. mb9 13:48 MRI Brain without Contrast Ordered. EDMS 03/29 11:00 ECG/EKG was scanned into [employer] and attached to record. gb Administered Medications: 03/28 11:39 Drug: Ondansetron 4 mg [ondansetron HCl 2 mg/mL intravenous solution (2 mL)] Route: mb9 IVP; Site: left antecubital; 12:39 Follow up: Response: Nausea is resolved mb9 14:42 Not Given (Other Intervention Used; Dr Hartley aware that pt unable to tolerate MRI. Dr Hartlye mb9 states, "It can wait util tomorrow". ): Diatrizoate Meglumine & Sodium Liquid 10 ml PO once; mix in 290cc of water 14:42 Not Given (Other Intervention Used; Dr Hartley aware that pt unable to tolerate MRI. Dr Hartley mb9 states, "It can wait util tomorrow". ): Diatrizoate Meglumine & Sodium Liquid 10 ml PO once; mix in 290cc of water Critical Care Time: 10:19 Critical care time: Bedside Care: 90 minutes, Consultation: 10 minutes. Total time: 100 ml minutes Signatures: Dispatcher [employer] EDNV Michelle Eduardo MD MD ml Barcedrict, Raya, Reg Reg gb Nannette Adams, MAIL COURIER MAIL COURIER ar3 Danielle Alvarenga RN RN js13 Irving Warren RN RN mb9 Sunita Moncada Diane dm19 The chart was reviewed and I authenticate all verbal orders and agree with the evaluation and treatment provided.Corrections: (The following items were deleted from the chart) 09:29 09:28 Consult [facility]: Telemedicine Stroke Attending ordered. js13 js13 09:43 09:35 LIVER PROFILE+LAB ordered. EDMS EDMS :43 09:35 AMYLASE+LAB ordered. EDMS EDMS :43 09:35 LIPASE+LAB ordered. EDMS EDMS 13:48 12:09 MRI Brain W/O FOLL BY WITH ordered. EDMS EDMS 14:47 12:10 CT ABD & PELVIS WITH CONTRAST ordered. EDMS EDMS Attachments: 10:15 [facility] [place] Payment Agreement [id number] 11:59 T-Sheet-- Draft Copy [facility] 03/29 11:00 ECG/EKG gb Chart Complete MTDD
--- NOTE | 2016-03-31 11:21 | EDDOCDS ---
Physician Documentation [facility] Name: Rosa Birch Age: 80 yrs Sex: Female : 1935 Arrival Date: 03/28/2016 Time: 08:32 Bed Admit Hold Private MD: Disposition: 03/28 10:19 Critical Care:. ml Disposition: 03/28/16 10:20 Hospitalization ordered by Gabrielle Hartley for Inpatient Admission. Preliminary diagnosis is Transient global amnesia - rule out ischmemic stroke. - Bed requested for PCU. - Status is Inpatient Admission. mb9 - Condition is Stable. - Problem is new. - Symptoms are unchanged. Historical: - Allergies: PENICILLINS (Hives); SULFA (SULFONAMIDES) (Hives); - Home Meds: 1. aspirin 81 mg Oral chew 1 tab once daily 2. Vitamin B-12 1,000 mcg Oral tab 3. prolia 2 shot Yearly 4. Xalatan 0.005 % Opht drop 1 drop nightly 5. timolol maleate 0.25 % Opht drop 1 drop 2 times per day 6. Vitamin D 1.25 mg weekly 7. ramipril 5 mg Oral cap 1 cap nightly 8. gabapentin 100 mg Oral tab three times a day 9. prednisone 5 mg Oral tab once daily 10. prednisone 1 mg Oral tab 2 tabs once daily 11. pravastatin 10 mg oral tab 1 tab nightly 12. Plaquenil 200 mg Oral tab 1.5 tabs once daily 13. Nexium 40 mg Oral cpDR 1 cap once daily as needed 14. metoprolol succinate 50 mg Tb24 1 tab once daily 15. metaxalone 800 mg oral tab 1 tab 3 times per day 16. folic acid 1 mg Oral tab 1 tab twice a day 17. Oral 30 mg as needed 18. Citracal Oral 1 tab daily - PMHx: Rheumatoid Arthritis; CAD; Cancer, Breast - Right; Cancer, Colon; GERD; Cancer, Breast - Left; - PSHx: Right Knee Replacement; left knee replacement; Hip Replacement Bilateral; Colostomy Construction; Double Mastectomy; Hernia repair with mesh; - Social history: Smoking status: Patient states former smoker of tobacco. No barriers to communication noted, The patient speaks fluent [place]. - Family history: Not pertinent. - : The pt / caregiver states he / she is not on anticoagulants. Home medication list is obtained from the patient, family members. - Exposure Risk Screening:: None identified. Vital Signs: 08:43 BP 185 / 92; Pulse 86; Resp 18; Temp 100.0(TE); Pulse Ox 97% on R/A; Weight 43.09 kg / ct3 95 lbs (R); Height 5 ft. 1 in. (154.94 cm) (R); Pain 0/10; 08:58 BP 170 / 97 (auto/); js13 08:58 Pulse 102 MON; Resp 16; Pulse Ox 98% on R/A; js13 09:11 BP 198 / 76 (auto/); js13 09:11 Pulse 90 MON; Resp 16; Pulse Ox 98% ; js13 09:26 BP 161 / 77 (auto/); js13 09:26 Pulse 78 MON; Resp 16; Pulse Ox 98% ; js13 09:41 BP 154 / 93 (auto/); js13 09:41 Pulse 84 MON; Resp 16; Pulse Ox 97% on R/A; js13 09:56 BP 156 / 86 (auto/); js13 09:56 Pulse 82 MON; Resp 16; Pulse Ox 98% on R/A; js13 10:11 BP 150 / 76 (auto/); js13 10:11 Pulse 76 MON; Resp 16; Pulse Ox 99% on R/A; js13 10:26 BP 171 / 94 (auto/); js13 10:26 Pulse 80 MON; Resp 16; Pulse Ox 99% on R/A; js13 10:41 BP 148 / 92 (auto/); mb9 10:42 Pulse 90 MON; Pulse Ox 99% ; mb9 10:56 BP 136 / 88 (auto/); mb9 10:57 Pulse 90 MON; Pulse Ox 98% ; mb9 11:11 BP 135 / 74 (auto/); mb9 11:12 Pulse 74 MON; Pulse Ox 98% ; mb9 11:26 BP 128 / 73 (auto/); mb9 11:27 Pulse 72 MON; Pulse Ox 99% ; mb9 11:41 BP 154 / 82 (auto/); mb9 11:42 Pulse 94 MON; Pulse Ox 97% ; mb9 11:56 BP 136 / 72 (auto/); mb9 11:57 Pulse 86 MON; Pulse Ox 98% ; mb9 12:11 BP 135 / 73 (auto/); mb9 12:12 Pulse 76 MON; Pulse Ox 98% ; mb9 12:26 BP 119 / 63 (auto/); mb9 12:27 Pulse 80 MON; Pulse Ox 97% ; mb9 14:38 BP 132 / 74 (auto/); mb9 14:40 BP 132 / 74; Pulse 80 MON; Resp 19; Temp 98.9(TE); Pulse Ox 97% ; mb9 08:43 Body Mass Index 17.95 (43.09 kg, 154.94 cm) ct3 MDM: 08:49 ECG WITH READING ER PHYS+CARDIAG ordered. EDMS 09:28 RN interventions must not delay CT ordered. js13 09:28 Joint Filler/Pulse Ox/q 15 min VS ordered. js13 09:28 IV Saline Lock ordered. js13 09:28 Rhythm Strip to chart ordered. js13 09:29 Type & Screen Ordered. EDMS 09:30 Basic Metabolic Profile Ordered. EDMS 09:30 CBC with Diff Ordered. EDMS 09:30 Partial Thromboplastin Time Ordered. EDMS 09:30 Prothrombin Time Profile\\E\\INR Ordered. EDMS 09:30 Chest, 1 View Ordered. EDMS 09:30 CT Head Without Contrast Ordered. EDMS 09:34 CIP Ordered. EDMS 09:34 Troponin Ordered. EDMS 09:34 Lactic Acid (Mo tube on ice) Ordered. EDMS 09:35 Ammonia (Little Green Tube on Ice, Not Pea Green) Ordered. EDMS 09:44 AMYLASE Ordered. EDMS 09:44 LIPASE Ordered. EDMS 09:44 LIVER PROFILE Ordered. EDMS 10:06 BED REQUEST+ADM ordered. EDMS 10:10 Basic Metabolic Profile Reviewed. ml 10:10 CBC with Diff Reviewed. ml 10:10 Partial Thromboplastin Time Reviewed. ml 10:10 Prothrombin Time Profile\\E\\INR Reviewed. ml 10:10 Type & Screen Reviewed. ml 10:10 CIP Reviewed. ml 10:10 Troponin Reviewed. ml 10:10 Lactic Acid (Mo tube on ice) Reviewed. ml 10:10 AMYLASE Reviewed. ml 10:10 LIPASE Reviewed. ml 10:10 LIVER PROFILE Reviewed. ml 10:12 Financial registration complete. [id number] 10:15 [facility] [place] Payment Agreement was scanned into [employer] and attached to record. dm19 11:33 Ondansetron 4 mg IVP once ordered. mb9 11:59 T-Sheet-- Draft Copy was scanned into [employer] and attached to record. seh 12:08 CARDIAC MARKER PANEL Ordered. EDMS 12:08 CARDIAC MARKER PANEL Ordered. EDMS 12:09 THYROID PROFILE Ordered. EDMS 12:09 MRA BRAIN W/O CONTRAST Ordered. EDMS 12:09 MRA CAROTID W/O FOL WITH Ordered. EDMS 12:10 Admission / Observation Status ordered. EDMS 12:10 ECHOCARD,DOPPLER/COLOR FLOW ordered. EDMS 12:11 REGULAR DIET ordered. EDMS 12:12 SYPHILIS Ordered. EDMS 12:15 PHYSICAL THERAPY EVAL & TREAT ordered. EDMS 12:41 Diatrizoate Meglumine & Sodium Liquid 10 ml PO once; mix in 290cc of water ordered. mb9 12:41 Diatrizoate Meglumine & Sodium Liquid 10 ml PO once; mix in 290cc of water ordered. mb9 13:48 MRI Brain without Contrast Ordered. EDMS 03/29 11:00 ECG/EKG was scanned into [employer] and attached to record. gb Administered Medications: 03/28 11:39 Drug: Ondansetron 4 mg [ondansetron HCl 2 mg/mL intravenous solution (2 mL)] Route: mb9 IVP; Site: left antecubital; 12:39 Follow up: Response: Nausea is resolved mb9 14:42 Not Given (Other Intervention Used; Dr Hartley aware that pt unable to tolerate MRI. Dr Hartley mb9 states, "It can wait util tomorrow". ): Diatrizoate Meglumine & Sodium Liquid 10 ml PO once; mix in 290cc of water 14:42 Not Given (Other Intervention Used; Dr Hartley aware that pt unable to tolerate MRI. Dr Hartley mb9 states, "It can wait util tomorrow". ): Diatrizoate Meglumine & Sodium Liquid 10 ml PO once; mix in 290cc of water Critical Care Time: 10:19 Critical care time: Bedside Care: 90 minutes, Consultation: 10 minutes. Total time: 100 ml minutes Signatures: Dispatcher [employer] EDAR Michelle Eduardo MD MD ml Barcedrict, Raya, Reg Reg gb Nannette Adams, PUBLIC INFORMATION COORDINATOR PUBLIC INFORMATION COORDINATOR ar3 Danielle Alvarenga RN RN js13 Irving Warren RN RN mb9 Sunita Moncada Diane dm19 The chart was reviewed and I authenticate all verbal orders and agree with the evaluation and treatment provided.Corrections: (The following items were deleted from the chart) 09:29 09:28 Consult [facility]: Telemedicine Stroke Attending ordered. js13 js13 09:43 09:35 LIVER PROFILE+LAB ordered. EDMS EDMS :43 09:35 AMYLASE+LAB ordered. EDMS EDMS :43 09:35 LIPASE+LAB ordered. EDMS EDMS 13:48 12:09 MRI Brain W/O FOLL BY WITH ordered. EDMS EDMS 14:47 12:10 CT ABD & PELVIS WITH CONTRAST ordered. EDMS EDMS Attachments: 10:15 [facility] Payment Agreement [email or web address] 11:59 T-Sheet-- Draft Copy [facility] 03/29 11:00 ECG/EKG gb Chart Complete MTDD
[2016-04-01 07:39] LABS: ALBUMIN 3.52 GM/DL (3.29-5.55); ALBUMIN % 55.8 % (55.8-66.1)
--- NOTE | 2016-04-01 09:53 | DSES ---
DATE OF ADMISSION: 03/28/2016 DATE OF DISCHARGE: 03/29/2016 PRIMARY CARE PROVIDER: Chun Quezada. DISCHARGE DIAGNOSES: Transient local amnesia. Rheumatoid arthritis. Coronary artery disease status post stents. History of breast cancer status post surgery. History of colon cancer in remission. Peripheral neuropathy. Gastroesophageal reflux disease (GERD). Depression and anxiety. History of double mastectomy. Colon resection. Hypertension. History of chronic migraine headaches. Diastolic congestive heart failure, chronic. Moderate pulmonary hypertension. DISCHARGE MEDICATIONS: - aspirin 325 mg by mouth daily - Depakote ER 500 mg at bedtime - Tylenol 650 mg every 4 hours as needed pain - Citracal plus one tablet by mouth daily - cyanocobalamin 1000 mcg by mouth daily - esomeprazole 40 mg by mouth daily - folic acid 1 mg by mouth twice daily - gabapentin 100 mg by mouth three times daily - hydroxychloroquine 300 mg by mouth daily - metoprolol succinate 50 mg by mouth daily - prednisone 6 mg by mouth daily - Protea mg subcutaneous as directed - Ramipril 5 mg at bedtime - Timolol eye drop both eyes twice a day - latanoprost eye drop both eyes at bedtime - vitamin D 50,000 units once a week - pravastatin 20 mg at bedtime HOSPITAL COURSE: This is a 80-year-old female who presented to the hospital with acute onset altered mental status. Patient went to bed in her usual state of health. When she woke up in the morning, her noted that she was confused, repeating things over and over, not remembering them after a few minutes so the patient was brought to the emergency room. In the ED, patient had a CT head done which was negative. Patient also had MRI and MRA of the brain done which did not show any acute cerebrovascular event. Patient was subsequently seen by neurology, Dr. Diaz, and was diagnosed with transient global ischemia versus seizures. After about 6-7 hours, patient's mental status came back to baseline. Patient did not remember anything that happened in those few hours. She was scheduled as an outpatient. On the day of discharge, patient was back to her baseline mental functional status without any complaints with stable vitals. PHYSICAL EXAMINATION: Vital signs: Temperature 96.9, pulse 62, respiratory rate 18, blood pressure 121/71, pulse oximetry 97% on room air. General: Patient awake, alert, oriented times three. Lying down in bed in no acute distress. HEENT: Normocephalic, atraumatic. Moist mucous membranes. Anicteric eyes. Chest: Clear to auscultation. Cardiovascular: S1, S2. Regular. No rub, murmur or gallop. Abdomen: Soft, nontender, bowel sounds present. Extremities: No edema. Neurological examination: Intact with normal sensations on both sides of the body. Normal deep tendon reflexes with symmetrical flexor plantar. Symmetric equal motor power in both sides of the body. LABORATORY DATA: WBC 7.4, hemoglobin 12.5, platelets 238. Sodium 143, potassium 4.2, chloride 108, bicarbonate 25, BUN 16, creatinine 0.7, calcium 8.7. Lipid panel within normal limits. Vitamin B12 534. TSH 1.03. Protein electrophoresis as well as vitamin B1 and B6 levels are pending. Serum RPR negative. ANS screen pending. Also protein C, protein S pending. Lupus anticoagulant screen negative. Brain MRA was unremarkable. Brain MRI showed small vessel changes and diffuse atrophy. No acute intracranial lesion. DISPOSITION: Patient is discharged home in stable condition. DISCHARGE INSTRUCTIONS: Patient to followup with primary care provider in 2 weeks. Patient to followup with Dr. Diaz in 1-2 weeks. Patient will need outpatient EEG to assess for seizures. She will also need outpatient EMG and CT studies of the lower extremities to evaluate for her peripheral polyneuropathy. Patient will also need a carotid ultrasound Doppler or MRA of the carotid as an outpatient.
[2016-04-02 10:19] LABS: PROTEIN C ANTIGEN 87 % (60-150); PROTEIN S ANTIGEN FREE 105 % (57-157); PROTEIN S ANTIGEN TOTAL 89 % (60-150)
== END 2016-03-29 14:57 | disposition home or self-care (01) | DRG 71 ==
LOC: M ED 08:32 → M PCU 11:57 → M ED INP 11:58 → M PCU 16:25
PROVIDERS: ADMIT Hospitalist; ATTEND Internal Medicine Nephrology
DX: G45.4 Transient global amnesia (principal); I50.32 Chronic diastolic (congestive) heart failure; I25.10 Atherosclerotic heart disease of native coronary artery without angina pectoris; K21.9 Gastro-esophageal reflux disease without esophagitis; F41.9 Anxiety disorder, unspecified; F32.9 Major depressive disorder, single episode, unspecified; I10 Essential (primary) hypertension; Z79.82 Long term (current) use of aspirin; Z79.899 Other long term (current) drug therapy; G60.9 Hereditary and idiopathic neuropathy, unspecified; M06.9 Rheumatoid arthritis, unspecified; Z85.3 Personal history of malignant neoplasm of breast; I27.2 Other secondary pulmonary hypertension; Z85.038 Personal history of other malignant neoplasm of large intestine; Z90.13 Acquired absence of bilateral breasts and nipples; Z88.0 Allergy status to penicillin; Z88.2 Allergy status to sulfonamides; Z88.5 Allergy status to narcotic agent; Z87.891 Personal history of nicotine dependence; E11.9 Type 2 diabetes mellitus without complications; G43.909 Migraine, unspecified, not intractable, without status migrainosus

== ENCOUNTER → 2016-08-20 | Outpatient (CLI) | payer MEDICARE, OTHER ==
[~2016-08-20] MED LIST changes: +ASPI325T PO; +DEPA500T2 PO; -ECOT81TA2 PO; +ECOT81TA5 PO; +GABA-279 PO; +LATA5OPD OU; +METO-207 PO; +PRAV10TA PO
[2016-08-20 11:18] LABS: ANION GAP 6 MEQ/L (8-16); BLOOD UREA NITROGEN 26 MG/DL (7-18); CALCIUM LEVEL 10.1 MG/DL (8.8-10.2); CARBON DIOXIDE LEVEL 34 MEQ/L (21-32); CHLORIDE LEVEL 106 MEQ/L (98-107); CREATININE FOR GFR 0.93 MG/DL (0.55-1.02); GLOMERULAR FILTRATION RATE > 60.0 (>39); GLUCOSE, FASTING 88 MG/DL (83-110); POTASSIUM SERUM 3.9 MEQ/L (3.5-5.1); SODIUM LEVEL 146 MEQ/L (136-145)
== END ==
LOC: M LAB 09:53
PROVIDERS: ATTEND Internal Medicine Endocrinology, Diabetes & Metabolism
DX: M81.0 Age-related osteoporosis without current pathological fracture (principal); E55.9 Vitamin D deficiency, unspecified

== ENCOUNTER → 2016-10-06 | Outpatient (REF) | payer MEDICARE, OTHER ==
[~2016-10-06] MED LIST changes: +ASPI1TAB PO; +DONN1TAB PO; -FOLI1TAB2 PO; +FOLI1TAB4 PO; -METO-207 PO; +METO1TAB7 PO; -PRAV10TA PO; +PRAV10TA4 PO; +TIMO0.5S29 OU; +plaquenil
[2016-10-06 11:44] LABS: MEAN CORPUSCULAR HEMOGLOBIN 30.8 pg (27.0-33.0); MEAN CORPUSCULAR HGB CONC 32.9 g/dl (32.0-36.5); MEAN CORPUSCULAR VOLUME 93.6 fl (80.0-96.0); RED CELL DISTRIBUTION WIDTH 13.5 % (11.5-14.5); WHITE BLOOD COUNT 7.6 K/mm3 (4.0-10.0)
[2016-10-06 12:03] LABS: ALBUMIN 3.8 GM/DL (3.2-5.2); ALBUMIN/GLOBULIN RATIO 1.31 (1.00-1.93); ALKALINE PHOSPHATASE 52 U/L (45-117); ALT/SGPT 15 U/L (12-78); ANION GAP 7 MEQ/L (8-16); AST/SGOT 15 U/L (15-37); BILIRUBIN,TOTAL 0.5 MG/DL (0.2-1.0); BLOOD UREA NITROGEN 23 MG/DL (7-18); CALCIUM LEVEL 9.8 MG/DL (8.8-10.2); CARBON DIOXIDE LEVEL 28 MEQ/L (21-32); CHLORIDE LEVEL 107 MEQ/L (98-107); CHOLESTEROL LEVEL 157 MG/DL (<200); CREATININE FOR GFR 0.77 MG/DL (0.55-1.02); GLOMERULAR FILTRATION RATE > 60.0 (>39); GLUCOSE, FASTING 72 MG/DL (83-110); POTASSIUM SERUM 4.3 MEQ/L (3.5-5.1); SODIUM LEVEL 142 MEQ/L (136-145); TOTAL PROTEIN 6.7 GM/DL (6.4-8.2); TRIGLYCERIDES LEVEL 96 MG/DL (<150)
== END ==
LOC: M SFHCPLAZ 10:09
PROVIDERS: ATTEND Internal Medicine
DX: M06.9 Rheumatoid arthritis, unspecified (principal); I10 Essential (primary) hypertension; E78.5 Hyperlipidemia, unspecified

== ENCOUNTER → 2016-10-26 | Outpatient (CLI) | payer MEDICARE, OTHER ==
[2016-10-26 13:52] LABS: BASO # 0.1 K/mm3 (0.0-0.2); BASO % 0.8 % (0.0-1.0); EOS # 0.2 K/mm3 (0.0-0.50); EOS % 2.3 % (0.0-3.0); LARGE UNSTAINED CELL # 0.1 K/mm3 (0.0-0.4); LARGE UNSTAINED CELL % 1.3 % (0.0-4.0); LYMPH # 3.4 K/mm3 (1.5-4.5); LYMPH % 42.1 % (24.0-44.0); MEAN CORPUSCULAR HEMOGLOBIN 29.9 pg (27.0-33.0); MEAN CORPUSCULAR HGB CONC 31.5 g/dl (32.0-36.5); MEAN CORPUSCULAR VOLUME 95.1 fl (80.0-96.0); MONO # 0.5 K/mm3 (0.0-0.8); NEUTROPHILS # 3.7 K/mm3 (1.8-7.7); NEUTROPHILS % 47.5 % (36.0-66.0); PLATELET COUNT, AUTOMATED 282 k/mm3 (150-450); RED CELL DISTRIBUTION WIDTH 12.9 % (11.5-14.5); WHITE BLOOD COUNT 7.7 K/mm3 (4.0-10.0)
[2016-10-26 14:39] LABS: ERYTHROCYTE SEDIMENTATION RATE 5 mm/hr (0-30)
== END ==
LOC: M SMT 09:39
PROVIDERS: ATTEND Orthopaedic Surgery
DX: Z96.651 Presence of right artificial knee joint (principal)

== ENCOUNTER → 2016-11-12 | Outpatient (CLI) | payer MEDICARE, OTHER ==
--- NOTE | 2016-11-12 10:33 | REP ---
CHEST X-RAY: TWO VIEWS. HISTORY: Chronic diastolic heart failure. FINDINGS: The lungs are hyperinflated. Pleural angles are sharp. Heart is mildly enlarged. Cardiothoracic ratio is 12.7 cm over 25.9 cm. The aorta is slightly tortuous, as before. There are degenerative changes in the thoracic spine, and there are osteoporotic wedge compression deformities at several levels. These are unchanged from comparison radiograph June 01, 2014. IMPRESSION: Mild cardiac enlargement. Otherwise no acute cardiopulmonary disease. Signed by Jalen Dunn MD 11/12/2016 01:59 P
== END ==
LOC: M RAD 10:00
PROVIDERS: ATTEND Internal Medicine Cardiovascular Disease
DX: I50.32 Chronic diastolic (congestive) heart failure (principal)

== ENCOUNTER 2016-12-27 01:53 | Emergency (ER) | payer MEDICARE, OTHER ==
[~2016-12-27] VITALS: Ht 149.9 cm; Wt 43.0 kg
[~2016-12-27 01:53] MED LIST changes: -ASPI1TAB PO; -DONN1TAB PO; -plaquenil
[2016-12-27] MEDS ORDERED: DONN1TAB PO (02:12)
[2016-12-27] MEDS ORDERED: plaquenil (02:12)
[2016-12-27] MEDS ORDERED: ASPI1TAB PO (02:12)
[2016-12-27 03:12] LABS: BASO # 0.1 10^3/uL (0.0-0.2); BASO % 0.5 % (0.0-1.0); EOS # 0.2 10^3/uL (0.0-0.50); EOS % 2.5 % (0.0-3.0); IMMATURE GRANULOCYTE % 0.1 % (0-0); LYMPH # 3.9 10^3/uL (1.5-4.5); LYMPH % 39.9 % (24.0-44.0); MEAN CORPUSCULAR HEMOGLOBIN 29.8 pg (27.0-33.0); MEAN CORPUSCULAR HGB CONC 31.7 g/dl (32.0-36.5); MEAN CORPUSCULAR VOLUME 93.9 fl (80.0-96.0); MONO # 0.7 10^3/uL (0.0-0.8); MONO % 7.3 % (0.0-5.0); NEUTROPHILS # 4.8 10^3/uL (1.8-7.7); NEUTROPHILS % 49.7 % (36.0-66.0); PLATELET COUNT, AUTOMATED 245 10^3/uL (150-450); RED CELL DISTRIBUTION WIDTH 12.6 % (11.5-14.5); VENOUS BASE EXCESS 3.2 (-2.0-2.0); VENOUS O2 SATURATION 59.3 % (60.0-80.0); VENOUS PARTIAL PRESSURE CO2 53.6 mmHg (38.0-50.0); VENOUS PARTIAL PRESSURE O2 32.2 mmHg (30.0-50.0); VENOUS STANDARD HCO3 26.3 MEQ/L; VENOUS TOTAL CO2 31.5 MEQ/L (24.0-28.0); WHITE BLOOD COUNT 9.7 10^3/uL (4.0-10.0)
[2016-12-27] MEDS: IPRATROPIUM 0.5MG/ALBUTEROL 2.5MG INH SOL UD 3ML (DUONEB)(J7620) NEB ONE (03:16)
[2016-12-27 03:34] LABS: ANION GAP 6 MEQ/L (8-16); BLOOD UREA NITROGEN 18 MG/DL (7-18); CALCIUM LEVEL 9.9 MG/DL (8.8-10.2); CARBON DIOXIDE LEVEL 32 MEQ/L (21-32); CHLORIDE LEVEL 103 MEQ/L (98-107); CREATININE FOR GFR 0.69 MG/DL (0.55-1.02); GLOMERULAR FILTRATION RATE > 60.0 (>39); GLUCOSE, FASTING 89 MG/DL (83-110); POTASSIUM SERUM 4.1 MEQ/L (3.5-5.1); SODIUM LEVEL 141 MEQ/L (136-145)
[2016-12-27] MEDS: FUROSEMIDE 40 MG/4 ML VIAL (J1940) IV ONE (04:30)
[2016-12-27 04:34] VITALS: BP 135/77
--- NOTE | 2016-12-27 11:42 | REP ---
REASON: Dyspnea. COMPARISON: 11/12/2016 There are chronic right lung base changes status quo. The cardiomediastinal silhouette is unchanged. There are no new abnormal opacities. There is no change in the osseous structures. Multiple thoracic spine vertebral body compression fractures of various grades are again noted. IMPRESSION: Stable exam. Signed by Farrukh Luis DO 12/27/2016 10:40 A
--- NOTE | 2016-12-27 12:44 | ECGEPIP ---
Stationary ECG Study [facility] - ED Test Date: 2016-12-27 Pat Name: CLOTILDE MEJIA Department: Room: - Gender: F It Trainee: jaz : 1935 Requested By: ELLIE Muñoz Order Number: [id number] Reading MD: Sunita Nielsen Measurements Intervals [place] Rate: 65 P: 38 AK: 199 QRS: 38 QRSD: 90 T: 12 QT: 366 QTc: 383 Interpretive Statements SINUS RHYTHM VOLTAGE CRITERIA FOR LVH NONSPECIFIC T-WAVE ABNORMALITY DECREASED ECTOPY 03/28/16 Electronically Signed On 12-27-2016 12:43:57 EDT by Sunita Nielsen
== END 2016-12-27 04:41 | disposition home or self-care (01) ==
LOC: M ED 01:53
DX: I50.9 Heart failure, unspecified (principal)
CPT/HCPCS: 71020; 80048; 82550; 82553; 82803; 83880; 84484; 85025; 93005; 93041; 94640; 96374; 99284; J1940

== ENCOUNTER → 2017-02-15 | Outpatient (CLI) | payer MEDICARE, OTHER ==
[~2017-02-15] MED LIST changes: +ASPI1TAB PO; +DONN1TAB PO; +plaquenil
--- NOTE | 2017-02-15 11:55 | REP ---
Clinical: Dyspnea. Comparison: 01/23/2012. Findings: The bilateral lung saini are relatively well aerated and symmetric. Minimal bibasilar fibroatelectatic changes are appreciated (right greater than left). No significant consolidation, nodule or mass lesion. No pleural effusion/reaction or pneumothorax. Tracheobronchial tree is patent. Atherosclerotic changes to the thoracic aorta and coronary arteries noted without aortic aneurysm. Chronic cardiomegaly is suggested without significant pericardial effusion. Elevation to the right hemidiaphragm is nonspecific and without obvious associated abnormality. Surrounding musculoskeletal structures demonstrate age-related degenerative changes and chronic-appearing compression fractures most pronounced at the T11 and T12 levels. Impression: Mild bibasilar fibroatelectatic changes. Chronic changes as noted above including chronic-appearing compression deformities at T11 and T12 and to a lesser extent T7. Signed by John Bernabe MD 02/15/2017 11:47 A
== END ==
LOC: M RAD 10:13
PROVIDERS: ATTEND Physician Assistant
DX: R06.00 Dyspnea, unspecified (principal); R91.8 Other nonspecific abnormal finding of lung field

== ENCOUNTER → 2017-02-23 | Outpatient (REF) | payer MEDICARE, OTHER ==
[2017-02-23 13:58] LABS: CALCIUM LEVEL 9.6 MG/DL (8.8-10.2)
== END ==
LOC: M LABDRAW1 10:03
PROVIDERS: ATTEND Internal Medicine Endocrinology, Diabetes & Metabolism
DX: M81.0 Age-related osteoporosis without current pathological fracture (principal); E55.9 Vitamin D deficiency, unspecified

== ENCOUNTER → 2017-04-05 | Outpatient (REF) | payer MEDICARE, OTHER ==
[2017-04-05 12:15] LABS: ALBUMIN 3.6 GM/DL (3.2-5.2); ALBUMIN/GLOBULIN RATIO 1.24 (1.00-1.93); ALKALINE PHOSPHATASE 107 U/L (45-117); ALT/SGPT 41 U/L (12-78); ANION GAP 3 MEQ/L (8-16); AST/SGOT 22 U/L (7-37); BILIRUBIN,TOTAL 0.4 MG/DL (0.2-1.0); BLOOD UREA NITROGEN 20 MG/DL (7-18); CALCIUM LEVEL 9.4 MG/DL (8.8-10.2); CARBON DIOXIDE LEVEL 33 MEQ/L (21-32); CHLORIDE LEVEL 107 MEQ/L (98-107); CREATININE FOR GFR 0.71 MG/DL (0.55-1.02); GLOMERULAR FILTRATION RATE > 60.0 (>39); GLUCOSE, FASTING 82 MG/DL (83-110); MAGNESIUM LEVEL 2.2 MG/DL (1.8-2.4); POTASSIUM SERUM 3.9 MEQ/L (3.5-5.1); SODIUM LEVEL 143 MEQ/L (136-145); TOTAL PROTEIN 6.5 GM/DL (6.4-8.2)
== END ==
LOC: M SFHCPLAZ 09:21
DX: I10 Essential (primary) hypertension (principal)
CPT/HCPCS: 83735

== ENCOUNTER → 2017-05-03 | Outpatient (REF) | payer MEDICARE, OTHER ==
[2017-05-03 12:54] LABS: BASO % 0.5 % (0.0-1.0); EOS # 0.3 10^3/uL (0.0-0.50); EOS % 3.4 % (0.0-3.0); HEMATOCRIT 42.9 % (36.0-47.0); HEMOGLOBIN 13.4 g/dl (12.0-16.0); IMMATURE GRANULOCYTE % 0.3 % (0-3.0); LYMPH # 2.2 10^3/uL (1.5-4.5); LYMPH % 28.3 % (24.0-44.0); MEAN CORPUSCULAR HEMOGLOBIN 28.9 pg (27.0-33.0); MEAN CORPUSCULAR HGB CONC 31.2 g/dl (32.0-36.5); MEAN CORPUSCULAR VOLUME 92.7 fl (80.0-96.0); MONO # 0.7 10^3/uL (0.0-0.8); MONO % 8.5 % (0.0-5.0); NEUTROPHILS # 4.6 10^3/uL (1.8-7.7); PLATELET COUNT, AUTOMATED 237 10^3/uL (150-450); RED BLOOD COUNT 4.63 10^6/uL (4.00-5.40); RED CELL DISTRIBUTION WIDTH 13.3 % (11.5-14.5); WHITE BLOOD COUNT 7.8 10^3/uL (4.0-10.0)
[2017-05-03 12:59] LABS: ALBUMIN 3.6 GM/DL (3.2-5.2); ALT/SGPT 35 U/L (12-78); AST/SGOT 32 U/L (7-37); C REACTIVE PROTEIN QUANTITATIV 0.52 MG/DL (0.00-0.30); CREATININE FOR GFR 0.76 MG/DL (0.55-1.30); GLOMERULAR FILTRATION RATE > 60.0 (>39)
[2017-05-03 13:18] LABS: ERYTHROCYTE SEDIMENTATION RATE 7 mm/hr (0-30)
== END ==
LOC: M LABDRAW1 11:50
DX: Z79.899 Other long term (current) drug therapy (principal)
CPT/HCPCS: 84460

== ENCOUNTER → 2017-07-08 | Outpatient (REF) | payer MEDICARE, OTHER ==
[2017-07-08 14:03] LABS: ALBUMIN 3.6 GM/DL (3.2-5.2); ALBUMIN/GLOBULIN RATIO 1.24 (1.00-1.93); ALKALINE PHOSPHATASE 57 U/L (45-117); ALT/SGPT 19 U/L (12-78); ANION GAP 6 MEQ/L (8-16); AST/SGOT 19 U/L (7-37); BILIRUBIN,TOTAL 0.4 MG/DL (0.2-1.0); BLOOD UREA NITROGEN 23 MG/DL (7-18); CALCIUM LEVEL 9.3 MG/DL (8.8-10.2); CARBON DIOXIDE LEVEL 30 MEQ/L (21-32); CHLORIDE LEVEL 108 MEQ/L (98-107); CHOLESTEROL LEVEL 135 MG/DL (<200); CHOLESTEROL RISK RATIO 1.687 (<5); GLOMERULAR FILTRATION RATE > 60.0 (>39); GLUCOSE, FASTING 71 MG/DL (70-100); HDL CHOLESTEROL 80 MG/DL (>40); LDL CHOLESTEROL 36.8 MG/DL (<100); MAGNESIUM LEVEL 2.3 MG/DL (1.8-2.4); NON-HDL-C 55 MG/DL; POTASSIUM SERUM 4.3 MEQ/L (3.5-5.1); SODIUM LEVEL 144 MEQ/L (136-145); TOTAL PROTEIN 6.5 GM/DL (6.4-8.2); TRIGLYCERIDES LEVEL 91 MG/DL (<150)
== END ==
LOC: M SFHCPLAZ 08:47
DX: I10 Essential (primary) hypertension (principal); I25.10 Atherosclerotic heart disease of native coronary artery without angina pectoris
CPT/HCPCS: 83735

== ENCOUNTER → 2017-08-17 | Outpatient (CLI) | payer MEDICARE, OTHER | LOC: M RAD 08:56 | DX: J84.9 Interstitial pulmonary disease, unspecified (principal); I25.10 Atherosclerotic heart disease of native coronary artery without angina pectoris; I70.0 Atherosclerosis of aorta; J47.9 Bronchiectasis, uncomplicated | CPT/HCPCS: 71250 ==

== ENCOUNTER → 2017-08-19 | Outpatient (CLI) | payer MEDICARE, OTHER ==
[2017-08-19 14:21] LABS: ALBUMIN 3.7 GM/DL (3.2-5.2); ALT/SGPT 32 U/L (12-78); AST/SGOT 18 U/L (7-37); BASO % 0.4 % (0.0-1.0); C REACTIVE PROTEIN QUANTITATIV < 0.30 MG/DL (0.00-0.30); EOS # 0.2 10^3/uL (0.0-0.50); EOS % 2.7 % (0.0-3.0); GLOMERULAR FILTRATION RATE > 60.0 (>39); HEMATOCRIT 41.3 % (36.0-47.0); HEMOGLOBIN 12.9 g/dl (12.0-15.5); IMMATURE GRANULOCYTE % 0.1 % (0-3.0); LYMPH # 3.6 10^3/uL (1.5-4.5); LYMPH % 46.1 % (24.0-44.0); MEAN CORPUSCULAR HEMOGLOBIN 29.7 pg (27.0-33.0); MEAN CORPUSCULAR HGB CONC 31.2 g/dl (32.0-36.5); MEAN CORPUSCULAR VOLUME 94.9 fl (80.0-96.0); MONO # 0.7 10^3/uL (0.0-0.8); MONO % 8.8 % (0.0-5.0); NEUTROPHILS # 3.2 10^3/uL (1.8-7.7); NEUTROPHILS % 41.9 % (36.0-66.0); PLATELET COUNT, AUTOMATED 241 10^3/uL (150-450); RED BLOOD COUNT 4.35 10^6/uL (4.00-5.40); RED CELL DISTRIBUTION WIDTH 14.2 % (11.5-14.5); WHITE BLOOD COUNT 7.7 10^3/uL (4.0-10.0)
[2017-08-19 16:17] LABS: ERYTHROCYTE SEDIMENTATION RATE 4 mm/hr (0-30)
== END ==
LOC: M SMT 09:02
DX: M06.9 Rheumatoid arthritis, unspecified (principal); Z79.899 Other long term (current) drug therapy
CPT/HCPCS: 84460

== ENCOUNTER → 2017-08-23 | Outpatient (CLI) | payer MEDICARE, OTHER ==
[2017-08-23 12:01] LABS: CALCIUM LEVEL 9.8 MG/DL (8.8-10.2)
[2017-08-23 12:06] LABS: TOTAL 25(OH) VITAMIN D 60.1 NG/ML (30.0-100.0)
== END ==
LOC: M LAB 10:51
DX: M81.0 Age-related osteoporosis without current pathological fracture (principal)
CPT/HCPCS: 82310

== ENCOUNTER → 2017-09-07 | Outpatient (CLI) | payer MEDICARE, OTHER | LOC: M RAD 07:48 | DX: I27.20 Pulmonary hypertension, unspecified (principal) | CPT/HCPCS: 71046 ==

== ENCOUNTER 2017-09-12 11:21 | Inpatient (IN) | payer MEDICARE, OTHER ==
[2017-09-12 11:41] LABS: BASO % 0.4 % (0.0-1.0); EOS # 0.2 10^3/uL (0.0-0.50); EOS % 1.4 % (0.0-3.0); IMMATURE GRANULOCYTE % 0.2 % (0-3.0); LYMPH # 3.9 10^3/uL (1.5-4.5); LYMPH % 35.4 % (24.0-44.0); MEAN CORPUSCULAR HEMOGLOBIN 30.3 pg (27.0-33.0); MEAN CORPUSCULAR HGB CONC 32.6 g/dl (32.0-36.5); MEAN CORPUSCULAR VOLUME 93.1 fl (80.0-96.0); MONO # 0.8 10^3/uL (0.0-0.8); MONO % 6.8 % (0.0-5.0); NEUTROPHILS # 6.2 10^3/uL (1.8-7.7); NEUTROPHILS % 55.8 % (36.0-66.0); PLATELET COUNT, AUTOMATED 250 10^3/uL (150-450); RED BLOOD COUNT 4.62 10^6/uL (4.00-5.40); WHITE BLOOD COUNT 11.1 10^3/uL (4.0-10.0)
[2017-09-12] MEDS: METOPROLOL 5 MG/5 ML VIAL IV ×3 (11:54→12:20)
[2017-09-12 12:05] LABS: INR 0.91; PROTHROMBIN TIME 12.3 SECONDS (12.4-14.5)
[2017-09-12 12:06] LABS: ALT/SGPT 25 U/L (12-78); ANION GAP 6 MEQ/L (8-16); AST/SGOT 24 U/L (7-37); BLOOD UREA NITROGEN 24 MG/DL (7-18); CALCIUM LEVEL 9.1 MG/DL (8.8-10.2); CARBON DIOXIDE LEVEL 29 MEQ/L (21-32); CHLORIDE LEVEL 107 MEQ/L (98-107); CPK CREATINE PHOSPHOKINASE 83 U/L (26-192); CREATININE FOR GFR 0.83 MG/DL (0.55-1.30); GLOMERULAR FILTRATION RATE > 60.0 (>39); GLUCOSE, FASTING 111 MG/DL (70-100); POTASSIUM SERUM 3.4 MEQ/L (3.5-5.1); SODIUM LEVEL 142 MEQ/L (136-145)
[2017-09-12 12:07] LABS: ALBUMIN 3.8 GM/DL (3.2-5.2); ALBUMIN/GLOBULIN RATIO 0.93 (1.00-1.93); ALKALINE PHOSPHATASE 71 U/L (45-117); BILIRUBIN,DIRECT 0.1 MG/DL (0.0-0.2); BILIRUBIN,TOTAL 0.6 MG/DL (0.2-1.0); TOTAL PROTEIN 7.9 GM/DL (6.4-8.2); TROPONIN I < 0.02 NG/ML (< 0.10)
[2017-09-12 12:12] LABS: CK-MB VALUE MASS 3.7 NG/ML (<3.6); MB/CK RELATIVE INDEX 4.45 (< OR =4); NT-PRO BNP 1877 PG/ML (<450); THYROID STIMULATING HORMONE 0.966 uIU/ML (0.358-3.740)
[2017-09-12] MEDS: POTASSIUM CHLORIDE 10 MEQ SR TABLET PO (12:38)
[2017-09-12 13:29] LABS: MAGNESIUM LEVEL 1.8 MG/DL (1.8-2.4)
[2017-09-12] MEDS ORDERED: DENOSUMAB 60MG/1ML SYRINGE (PROLIA) (J0897 PER 1MG) (FOR ONCOLOGY) SC (18:00)
[2017-09-12] MEDS ORDERED: DICYCLOMINE 10 MG CAP PO (18:00)
[2017-09-12] MEDS ORDERED: ACETAMINOPHEN 500 MG TAB PO (18:00)
[2017-09-12] MEDS: APIXABAN 2.5 MG TAB (ELIQUIS) PO (18:09)
[2017-09-12] MEDS: GABAPENTIN 400 MG CAP PO (19:28)
[2017-09-12] MEDS: METOPROLOL TART 25 MG TABLET PO (19:28)
[2017-09-12 21:08] LABS: CPK CREATINE PHOSPHOKINASE 76 U/L (26-192); TROPONIN I 0.99 NG/ML (< 0.10)
[2017-09-12 21:09] LABS: CK-MB VALUE MASS 5.5 NG/ML (<3.6); MB/CK RELATIVE INDEX 7.23 (< OR =4)
[2017-09-12] MEDS: LATANOPROST 0.005% OPHTH SOLN 2.5 ML OU (21:34)
[2017-09-13 01:37] LABS: CK-MB VALUE MASS 5.1 NG/ML (<3.6); CPK CREATINE PHOSPHOKINASE 65 U/L (26-192); MB/CK RELATIVE INDEX 7.84 (< OR =4)
[2017-09-13 04:31] LABS: BASO % 0.4 % (0.0-1.0); EOS # 0.2 10^3/uL (0.0-0.50); EOS % 2.1 % (0.0-3.0); HEMATOCRIT 40.4 % (36.0-47.0); HEMOGLOBIN 13.2 g/dl (12.0-15.5); IMMATURE GRANULOCYTE % 0.2 % (0-3.0); LYMPH # 3.3 10^3/uL (1.5-4.5); LYMPH % 39.2 % (24.0-44.0); MEAN CORPUSCULAR HEMOGLOBIN 29.9 pg (27.0-33.0); MEAN CORPUSCULAR HGB CONC 32.7 g/dl (32.0-36.5); MEAN CORPUSCULAR VOLUME 91.6 fl (80.0-96.0); MONO # 0.7 10^3/uL (0.0-0.8); MONO % 8.6 % (0.0-5.0); NEUTROPHILS # 4.2 10^3/uL (1.8-7.7); NEUTROPHILS % 49.5 % (36.0-66.0); PLATELET COUNT, AUTOMATED 227 10^3/uL (150-450); RED BLOOD COUNT 4.41 10^6/uL (4.00-5.40); RED CELL DISTRIBUTION WIDTH 13.6 % (11.5-14.5); WHITE BLOOD COUNT 8.5 10^3/uL (4.0-10.0)
[2017-09-13 05:10] LABS: ALBUMIN 3.1 GM/DL (3.2-5.2); ALKALINE PHOSPHATASE 60 U/L (45-117); ALT/SGPT 21 U/L (12-78); ANION GAP 6 MEQ/L (8-16); AST/SGOT 17 U/L (7-37); BILIRUBIN,TOTAL 0.3 MG/DL (0.2-1.0); BLOOD UREA NITROGEN 19 MG/DL (7-18); CALCIUM LEVEL 8.7 MG/DL (8.8-10.2); CARBON DIOXIDE LEVEL 29 MEQ/L (21-32); CHLORIDE LEVEL 109 MEQ/L (98-107); CREATININE FOR GFR 0.66 MG/DL (0.55-1.30); GLOMERULAR FILTRATION RATE > 60.0 (>39); GLUCOSE, FASTING 108 MG/DL (70-100); POTASSIUM SERUM 4.1 MEQ/L (3.5-5.1); SODIUM LEVEL 144 MEQ/L (136-145); TOTAL PROTEIN 6.2 GM/DL (6.4-8.2)
[2017-09-13 08:24] LABS: CK-MB VALUE MASS 4.7 NG/ML (<3.6); CPK CREATINE PHOSPHOKINASE 60 U/L (26-192); MB/CK RELATIVE INDEX 7.83 (< OR =4)
[2017-09-13] MEDS: CANDESARTAN 4MG TABLET PO (09:00)
[2017-09-13] MEDS: predniSONE 5 MG TAB PO (09:00)
[2017-09-13] MEDS: CYANOCOBALAMIN 500 MCG TAB PO (09:00)
[2017-09-13] MEDS: METOPROLOL SUCC (TopROL XL) 50MG **XL** TAB PO (09:00)
[2017-09-13] MEDS: predniSONE 1 MG TAB PO (09:00)
[2017-09-13] MEDS: FOLIC ACID 1 MG TAB PO (09:00)
[2017-09-13] MEDS: ATORVASTATIN 20 MG TAB PO (09:00)
[2017-09-13] MEDS: GABAPENTIN 100 MG CAP PO (09:00)
[2017-09-13] MEDS: APIXABAN 2.5 MG TAB (ELIQUIS) PO ×2 (09:00→20:58)
[2017-09-13] MEDS: ASPIRIN 81 MG ENTERIC TAB PO (09:00)
[2017-09-13] MEDS: DIGOXIN INJ 0.5 MG/2 ML AMP (J1160) IV (09:06)
[2017-09-13] MEDS ORDERED: SLF 3 ML SYR IV (12:00)
[2017-09-13] MEDS: AMIODARONE 200 MG TAB (PACERONE) PO ×3 (13:09→20:58)
[2017-09-13] MEDS: SLF 3 ML SYR IV ×2 (13:09→22:00)
[2017-09-13] MEDS: AMIODARONE HCL 150 MG in APPROPRIATE DILUENT 1 EA IV (15:46)
[2017-09-13] MEDS: GABAPENTIN 400 MG CAP PO (17:11)
[2017-09-13] MEDS: LATANOPROST 0.005% OPHTH SOLN 2.5 ML OU (20:58)
[2017-09-14] MEDS: SLF 3 ML SYR IV ×2 (05:43→14:54)
[2017-09-14 05:44] LABS: BASO % 0.4 % (0.0-1.0); EOS # 0.2 10^3/uL (0.0-0.50); EOS % 2.2 % (0.0-3.0); HEMATOCRIT 41.5 % (36.0-47.0); HEMOGLOBIN 13.3 g/dl (12.0-15.5); IMMATURE GRANULOCYTE % 0.2 % (0-3.0); LYMPH # 3.4 10^3/uL (1.5-4.5); LYMPH % 36.7 % (24.0-44.0); MEAN CORPUSCULAR HEMOGLOBIN 30.1 pg (27.0-33.0); MEAN CORPUSCULAR VOLUME 93.9 fl (80.0-96.0); MONO # 0.9 10^3/uL (0.0-0.8); MONO % 9.5 % (0.0-5.0); NEUTROPHILS # 4.6 10^3/uL (1.8-7.7); PLATELET COUNT, AUTOMATED 217 10^3/uL (150-450); RED BLOOD COUNT 4.42 10^6/uL (4.00-5.40); RED CELL DISTRIBUTION WIDTH 13.9 % (11.5-14.5); WHITE BLOOD COUNT 9.1 10^3/uL (4.0-10.0)
[2017-09-14 06:08] LABS: ALBUMIN/GLOBULIN RATIO 0.94 (1.00-1.93); ALKALINE PHOSPHATASE 62 U/L (45-117); ALT/SGPT 21 U/L (12-78); ANION GAP 5 MEQ/L (8-16); AST/SGOT 14 U/L (7-37); BILIRUBIN,TOTAL 0.2 MG/DL (0.2-1.0); BLOOD UREA NITROGEN 21 MG/DL (7-18); CALCIUM LEVEL 8.6 MG/DL (8.8-10.2); CARBON DIOXIDE LEVEL 30 MEQ/L (21-32); CHLORIDE LEVEL 110 MEQ/L (98-107); CREATININE FOR GFR 0.77 MG/DL (0.55-1.30); GLOMERULAR FILTRATION RATE > 60.0 (>39); GLUCOSE, FASTING 80 MG/DL (70-100); POTASSIUM SERUM 4.3 MEQ/L (3.5-5.1); SODIUM LEVEL 145 MEQ/L (136-145); TOTAL PROTEIN 6.2 GM/DL (6.4-8.2)
[2017-09-14] MEDS: ATORVASTATIN 20 MG TAB PO (08:51)
[2017-09-14] MEDS: GABAPENTIN 100 MG CAP PO (08:51)
[2017-09-14] MEDS: CYANOCOBALAMIN 500 MCG TAB PO (08:51)
[2017-09-14] MEDS: FOLIC ACID 1 MG TAB PO (08:51)
[2017-09-14] MEDS: HYDROXYCHLOROQUINE 200 MG TAB PO (08:52)
[2017-09-14] MEDS: METOPROLOL SUCC (TopROL XL) 100MG *XL* TAB PO (08:52)
[2017-09-14] MEDS: APIXABAN 2.5 MG TAB (ELIQUIS) PO (08:52)
[2017-09-14] MEDS: ASPIRIN 81 MG ENTERIC TAB PO (08:52)
[2017-09-14] MEDS: AMIODARONE 200 MG TAB (PACERONE) PO ×2 (08:52→13:17)
[2017-09-14] MEDS: predniSONE 1 MG TAB PO (08:53)
[2017-09-14] MEDS: predniSONE 5 MG TAB PO (08:53)
== END 2017-09-14 17:15 | disposition home or self-care (01) | DRG 309 ==
LOC: M PCU 09-13 22:44 → M ED 11:21 → M ED INP 16:53 → M ICU 18:32
DX: I48.3 Typical atrial flutter (principal); I50.32 Chronic diastolic (congestive) heart failure; E46 Unspecified protein-calorie malnutrition; Z68.1 Body mass index [BMI] 19.9 or less, adult; Z66 Do not resuscitate; I47.1 Supraventricular tachycardia; I11.0 Hypertensive heart disease with heart failure; I25.10 Atherosclerotic heart disease of native coronary artery without angina pectoris; I50.812 Chronic right heart failure; I44.0 Atrioventricular block, first degree; E78.00 Pure hypercholesterolemia, unspecified; R94.31 Abnormal electrocardiogram [ECG] [EKG]; I48.0 Paroxysmal atrial fibrillation; I27.29 Other secondary pulmonary hypertension; M06.9 Rheumatoid arthritis, unspecified; K21.9 Gastro-esophageal reflux disease without esophagitis; G62.9 Polyneuropathy, unspecified; Z96.653 Presence of artificial knee joint, bilateral; Z96.643 Presence of artificial hip joint, bilateral; Z90.13 Acquired absence of bilateral breasts and nipples; Z87.891 Personal history of nicotine dependence; Z85.3 Personal history of malignant neoplasm of breast; Z85.038 Personal history of other malignant neoplasm of large intestine; Z93.3 Colostomy status; Z79.82 Long term (current) use of aspirin; Z79.52 Long term (current) use of systemic steroids; Z79.899 Other long term (current) drug therapy; Z88.0 Allergy status to penicillin; Z88.2 Allergy status to sulfonamides; Z88.5 Allergy status to narcotic agent; Z95.9 Presence of cardiac and vascular implant and graft, unspecified

== ENCOUNTER → 2017-10-04 | Outpatient (REF) | payer MEDICARE, OTHER ==
[2017-10-04 13:21] LABS: ALBUMIN 3.3 GM/DL (3.2-5.2); ALBUMIN/GLOBULIN RATIO 1.14 (1.00-1.93); ALKALINE PHOSPHATASE 55 U/L (45-117); ALT/SGPT 35 U/L (12-78); ANION GAP 7 MEQ/L (8-16); AST/SGOT 18 U/L (7-37); BILIRUBIN,TOTAL 0.5 MG/DL (0.2-1.0); BLOOD UREA NITROGEN 23 MG/DL (7-18); CALCIUM LEVEL 9.3 MG/DL (8.8-10.2); CARBON DIOXIDE LEVEL 31 MEQ/L (21-32); CHLORIDE LEVEL 107 MEQ/L (98-107); CREATININE FOR GFR 0.85 MG/DL (0.55-1.30); GLOMERULAR FILTRATION RATE > 60.0 (>32); GLUCOSE, FASTING 79 MG/DL (70-100); MAGNESIUM LEVEL 2.2 MG/DL (1.8-2.4); POTASSIUM SERUM 4.3 MEQ/L (3.5-5.1); SODIUM LEVEL 145 MEQ/L (136-145); TOTAL PROTEIN 6.2 GM/DL (6.4-8.2)
== END ==
LOC: M SFHCPLAZ 08:39
DX: I10 Essential (primary) hypertension (principal); F34.1 Dysthymic disorder; R53.82 Chronic fatigue, unspecified
CPT/HCPCS: 83735

== ENCOUNTER → 2017-11-25 | Outpatient (REF) | payer MEDICARE, OTHER | LOC: M LAB REF 14:43 | DX: M67.479 Ganglion, unspecified ankle and foot (principal) | CPT/HCPCS: 88108 ==

== ENCOUNTER → 2018-01-07 | Outpatient (CLI) | payer MEDICARE, OTHER ==
[2018-01-07 13:40] LABS: BASO % 0.3 % (0.0-1.0); EOS # 0.1 10^3/uL (0.0-0.50); EOS % 1.1 % (0.0-3.0); HEMATOCRIT 40.4 % (36.0-47.0); HEMOGLOBIN 12.8 g/dl (12.0-15.5); IMMATURE GRANULOCYTE % 0.3 % (0-3.0); LYMPH # 2.7 10^3/uL (1.5-4.5); LYMPH % 26.5 % (24.0-44.0); MEAN CORPUSCULAR HEMOGLOBIN 31.4 pg (27.0-33.0); MEAN CORPUSCULAR HGB CONC 31.7 g/dl (32.0-36.5); MONO # 0.7 10^3/uL (0.0-0.8); NEUTROPHILS # 6.7 10^3/uL (1.8-7.7); NEUTROPHILS % 64.8 % (36.0-66.0); PLATELET COUNT, AUTOMATED 242 10^3/uL (150-450); RED BLOOD COUNT 4.08 10^6/uL (4.00-5.40); RED CELL DISTRIBUTION WIDTH 14.5 % (11.5-14.5); WHITE BLOOD COUNT 10.3 10^3/uL (4.0-10.0)
[2018-01-07 14:04] LABS: ALBUMIN 3.8 GM/DL (3.2-5.2); ALT/SGPT 28 U/L (12-78); AST/SGOT 22 U/L (7-37); C REACTIVE PROTEIN QUANTITATIV < 0.30 MG/DL (0.00-0.30); CREATININE FOR GFR 0.81 MG/DL (0.55-1.30); GLOMERULAR FILTRATION RATE > 60.0 (>32)
[2018-01-07 14:37] LABS: ERYTHROCYTE SEDIMENTATION RATE 6 mm/hr (0-30)
== END ==
LOC: M LAB 12:32
DX: Z51.81 Encounter for therapeutic drug level monitoring (principal); Z79.899 Other long term (current) drug therapy
CPT/HCPCS: 84460

== ENCOUNTER 2018-01-16 10:56 | Emergency (ER) | payer MEDICARE, OTHER ==
[2018-01-16] MEDS: TETANUS/DIPHTHERIA TOX ADSORB ADULT 0.5ML SYR/VIAL (90714) IM (11:37)
== END 2018-01-16 11:48 | disposition home or self-care (01) ==
LOC: M ED 10:56
DX: S81.812A Laceration without foreign body, left lower leg, initial encounter (principal); W22.09XA Striking against other stationary object, initial encounter; Y92.098 Other place in other non-institutional residence as the place of occurrence of the external cause; I10 Essential (primary) hypertension; E78.9 Disorder of lipoprotein metabolism, unspecified; H40.9 Unspecified glaucoma; Z88.5 Allergy status to narcotic agent; Z88.0 Allergy status to penicillin; Z88.2 Allergy status to sulfonamides; Z79.899 Other long term (current) drug therapy; Z79.01 Long term (current) use of anticoagulants; Z79.82 Long term (current) use of aspirin
CPT/HCPCS: 90714

== ENCOUNTER → 2018-01-17 | Outpatient (REF) | payer MEDICARE, OTHER ==
[2018-01-17 12:30] LABS: ALBUMIN 3.3 GM/DL (3.2-5.2); ALBUMIN/GLOBULIN RATIO 1.06 (1.00-1.93); ALKALINE PHOSPHATASE 74 U/L (45-117); ALT/SGPT 28 U/L (12-78); ANION GAP 9 MEQ/L (8-16); AST/SGOT 19 U/L (7-37); BILIRUBIN,TOTAL 0.4 MG/DL (0.2-1.0); BLOOD UREA NITROGEN 22 MG/DL (7-18); CALCIUM LEVEL 9.3 MG/DL (8.8-10.2); CARBON DIOXIDE LEVEL 29 MEQ/L (21-32); CHLORIDE LEVEL 107 MEQ/L (98-107); CREATININE FOR GFR 0.89 MG/DL (0.55-1.30); GLOMERULAR FILTRATION RATE > 60.0 (>32); GLUCOSE, FASTING 72 MG/DL (70-100); MAGNESIUM LEVEL 2.1 MG/DL (1.8-2.4); POTASSIUM SERUM 4.2 MEQ/L (3.5-5.1); SODIUM LEVEL 145 MEQ/L (136-145); TOTAL PROTEIN 6.4 GM/DL (6.4-8.2)
== END ==
LOC: M SFHCPLAZ 08:11
DX: I10 Essential (primary) hypertension (principal); E53.8 Deficiency of other specified B group vitamins
CPT/HCPCS: 83735

== ENCOUNTER 2018-02-10 08:14 | Emergency (ER) | payer MEDICARE, OTHER ==
[2018-02-10] MEDS: FLUORESCEIN OPHTH 1 MG STRIP OD (09:00)
[2018-02-10] MEDS: TETRACAINE 0.5% OPHTH SOLN 4ML OD (09:00)
[2018-02-10] MEDS ORDERED: TETRACAINE 0.5% OPHTH SOLN 4ML OD (09:15)
[2018-02-10] MEDS: TOBRAMYCIN 0.3% OPHTH SOLN 5 ML OD (09:20)
== END 2018-02-10 09:21 | disposition home or self-care (01) ==
LOC: M ED 08:14
DX: H11.31 Conjunctival hemorrhage, right eye (principal); S05.01XA Injury of conjunctiva and corneal abrasion without foreign body, right eye, initial encounter; X58.XXXA Exposure to other specified factors, initial encounter; Y92.89 Other specified places as the place of occurrence of the external cause; I10 Essential (primary) hypertension; E78.9 Disorder of lipoprotein metabolism, unspecified; H40.9 Unspecified glaucoma; K21.9 Gastro-esophageal reflux disease without esophagitis; K58.9 Irritable bowel syndrome, unspecified; F41.9 Anxiety disorder, unspecified; Z95.5 Presence of coronary angioplasty implant and graft; Z79.899 Other long term (current) drug therapy; Z79.82 Long term (current) use of aspirin; Z88.0 Allergy status to penicillin; Z88.2 Allergy status to sulfonamides; Z88.5 Allergy status to narcotic agent
CPT/HCPCS: 99283

== ENCOUNTER → 2018-02-28 | Outpatient (CLI) | payer MEDICARE, OTHER ==
[2018-02-28 13:14] LABS: CALCIUM LEVEL 8.8 MG/DL (8.8-10.2)
== END ==
LOC: M SMT 09:26
DX: M81.0 Age-related osteoporosis without current pathological fracture (principal)
CPT/HCPCS: 82310

== ENCOUNTER → 2018-03-29 | Outpatient (REF) | payer MEDICARE, OTHER ==
[~2018-03-29] MED LIST changes: +ACET500T15 PO; +AMIO200T PO; +ATOR40TA75 PO; +CAND4TAB PO; +DICY10CA13 PO; -DONN1TAB PO; +DONN1TAB3 PO; -DRIS50002 PO; +DRIS50003 PO; +ELIQ2.5T PO; +FOLI1TAB11 PO; -FOLI1TAB4 PO; +GABA-1171 PO; -GABA-279 PO; +GABA-845 PO; +METH2.5T48 PO; +METO1TAB32 PO; +METO1TAB33 PO; +RAMI1CAP24 PO; -RAMI5CA PO; +TOBR0.3S37 OD
[2018-03-29 11:58] LABS: HEMATOCRIT 43.6 % (36.0-47.0); HEMOGLOBIN 13.6 g/dl (12.0-15.5); MEAN CORPUSCULAR HEMOGLOBIN 30.6 pg (27.0-33.0); MEAN CORPUSCULAR HGB CONC 31.2 g/dl (32.0-36.5); PLATELET COUNT, AUTOMATED 248 10^3/uL (150-450); RED BLOOD COUNT 4.45 10^6/uL (4.00-5.40); WHITE BLOOD COUNT 7.4 10^3/uL (4.0-10.0)
[2018-03-29 12:16] LABS: ALBUMIN 3.4 GM/DL (3.2-5.2); ALT/SGPT 25 U/L (12-78); BILIRUBIN,TOTAL 0.5 MG/DL (0.2-1.0); BLOOD UREA NITROGEN 17 MG/DL (7-18); CALCIUM LEVEL 9.1 MG/DL (8.8-10.2); CARBON DIOXIDE LEVEL 30 MEQ/L (21-32); CHLORIDE LEVEL 107 MEQ/L (98-107); CREATININE FOR GFR 0.82 MG/DL (0.55-1.30); GLOMERULAR FILTRATION RATE > 60.0 (>32); GLUCOSE, FASTING 87 MG/DL (70-100); MAGNESIUM LEVEL 2.1 MG/DL (1.8-2.4); POTASSIUM SERUM 4.1 MEQ/L (3.5-5.1); SODIUM LEVEL 144 MEQ/L (136-145); TOTAL PROTEIN 6.4 GM/DL (6.4-8.2)
== END ==
LOC: M SFHCPLAZ 08:30
PROVIDERS: ATTEND Nurse Practitioner Adult Health
DX: M06.9 Rheumatoid arthritis, unspecified (principal); I10 Essential (primary) hypertension; R53.82 Chronic fatigue, unspecified

== ENCOUNTER → 2018-06-29 | Outpatient (CLI) | payer MEDICARE, OTHER ==
[~2018-06-29] MED LIST changes: -/ESOM40CA PO; -/NITR4TASL SL; -/PROC25SU PO; +ASPI-1 PO; -ASPI1TAB PO; -ASPI325T PO; +ASPI81TA26 PO; +COMP1SUP2 PO; +FLON1SPR NARES; +LATA0.0013 OU; -LATA5OPD OU; -MIRA255PW PO; +NEXI1CAP3 PO; +NITR0.4S SL; +POLY1POW4 PO; -TIMO5OPD OU
[2018-06-29 10:58] LABS: BASO % 0.3 % (0.0-1.0); EOS # 0.1 10^3/uL (0.0-0.50); EOS % 1.3 % (0.0-3.0); HEMATOCRIT 39.9 % (36.0-47.0); HEMOGLOBIN 12.4 g/dl (12.0-15.5); LYMPH # 2.2 10^3/uL (1.5-4.5); LYMPH % 29.9 % (24.0-44.0); MEAN CORPUSCULAR HEMOGLOBIN 30.4 pg (27.0-33.0); MEAN CORPUSCULAR HGB CONC 31.1 g/dl (32.0-36.5); MEAN CORPUSCULAR VOLUME 97.8 fl (80.0-96.0); MONO # 0.7 10^3/uL (0.0-0.8); MONO % 9.3 % (0.0-5.0); NEUTROPHILS # 4.4 10^3/uL (1.8-7.7); NEUTROPHILS % 59.1 % (36.0-66.0); PLATELET COUNT, AUTOMATED 249 10^3/uL (150-450); RED BLOOD COUNT 4.08 10^6/uL (4.00-5.40); WHITE BLOOD COUNT 7.5 10^3/uL (4.0-10.0)
[2018-06-29 11:27] LABS: GLOMERULAR FILTRATION RATE > 60.0 (>32)
[2018-06-29 11:34] LABS: ERYTHROCYTE SEDIMENTATION RATE 9 mm/hr (0-30)
== END ==
LOC: M SMT 09:14
PROVIDERS: ATTEND Physician Assistant
DX: M35.00 Sjogren syndrome, unspecified (principal); Z79.899 Other long term (current) drug therapy

== ENCOUNTER → 2018-07-01 | Outpatient (CLI) | payer MEDICARE, OTHER ==
[~2018-07-01] MED LIST changes: +GASTROGRAFIN SOLUTION 30ML (Q9963) As Ordered ONE
--- NOTE | 2018-07-01 18:59 | REP ---
CT abdomen and pelvis without IV but with oral contrast: History: Chronic fatigue, weight loss, history of colon carcinoma. Comparison CT study October 19, 2013. CT findings: Preliminary digital business representative radiograph demonstrates prosthetic hips bilaterally. The lung bases show minimal linear fibrosis but no mass or nodule. Bilateral breast prostheses are noted. Vascular calcification is visible. No pleural or pericardial effusion is seen. No focal liver mass lesion is seen. The spleen is unremarkable. No adrenal lesion is observed on either side. There is some fatty involution of the pancreas. No pancreatic mass or cyst is appreciated. The gallbladder shows no abnormality. Vascular calcification is noted in the abdomen. There are intrarenal stones bilaterally. The largest of these is in the lower pole of the left kidney. This calculus measures 9 mm in greatest diameter. There is a left lumbar hernia transmitting perirenal and pararenal fat into the left flank through a defect which measures approximately 18 mm across. The rectum appears to be oversewn and there is a left lower quadrant colostomy. There is an anastomotic suture line in the small bowel in the left lower quadrant. No obstructive lesion is seen. No retroperitoneal or mesenteric mass or adenopathy is observed. No uterine abnormality is observed. The urinary bladder is not well seen due to spray artifact from the hip prostheses. There is a large fluid collection in the anterior periarticular soft tissues associated with the right hip prosthesis. This extends upward from the inguinal soft tissues lateral to the femoral vessels along the anterior border of the iliopsoas on the right side. This fluid collection has a craniocaudal span of 9.4 cm. It was not apparent in 2014. There are degenerative changes in the lumbar spine. No bony destructive lesion is seen. Impression: Status post left colonic resection and left lower quadrant colostomy. Bilateral nephrolithiasis. Large periarticular fluid collection associated with a prosthetic right hip extends into the right lower quadrant within the right iliopsoas muscle. Moderate right colonic stool. No acute abnormality seen. Electronically Signed by Jalen Dunn MD 07/01/2018 08:15 P
== END ==
LOC: M RAD 15:04
PROVIDERS: ATTEND Nurse Practitioner Adult Health
DX: R53.81 Other malaise (principal)
CPT/HCPCS: 74176; Q9963

== ENCOUNTER → 2018-08-18 | Outpatient (CLI) | payer MEDICARE, OTHER ==
[~2018-08-18] MED LIST changes: -GASTROGRAFIN SOLUTION 30ML (Q9963) As Ordered ONE
--- NOTE | 2018-08-18 15:10 | REP ---
CT CHEST WITHOUT CONTRAST: HISTORY: Abnormal finding in the lung saini. Comparison chest CT studies are from August 17, 2017, February 15, 2017, and January 23, 2012. The patient gives a history of prior carcinoma of the breast and colon. 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 There are two small low density nodules in the left lobe of the thyroid gland which appear to be chronic findings. There is no evidence of hilar or mediastinal mass or adenopathy. Vascular calcification is noted including coronary artery vascular calcification. There is no evidence of pleural or pericardial effusion. There are mild bilateral lower lobe fibrotic changes which are essentially status quo. No new infiltrate is seen. No significant pulmonary nodule is appreciated. The right hemidiaphragm is elevated unchanged. Tracheobronchial tree is unremarkable. The thoracic aorta is tortuous as before. There are multiple wedge-shaped compression deformities in the lower thoracic and mid thoracic and upper lumbar spine. These are unchanged from the August 17, 2017 prior study. No acute bony abnormality is appreciated. There is a 1 cm stone in the lower pole collecting system of the left kidney. There are several other smaller intrarenal calculi bilaterally. No adrenal lesion is seen. The visualized upper abdominal structures are otherwise unremarkable. IMPRESSION: Stable bibasilar fibrosis. No pulmonary mass or nodules seen. Extensive vascular calcification. Chronic wedge compression deformities in multiple thoracic and upper lumbar levels unchanged. Electronically Signed by Jalen Dunn MD 08/18/2018 03:53 P
== END ==
LOC: M RAD 11:00
PROVIDERS: ATTEND Physician Assistant
DX: R91.8 Other nonspecific abnormal finding of lung field (principal); J84.10 Pulmonary fibrosis, unspecified; N20.0 Calculus of kidney

== ENCOUNTER → 2018-09-02 | Outpatient (CLI) | payer MEDICARE, OTHER | LOC: M SMT 09:25 | PROVIDERS: ATTEND Internal Medicine Endocrinology, Diabetes & Metabolism | DX: M81.0 Age-related osteoporosis without current pathological fracture (principal) ==

== ENCOUNTER → 2018-10-06 | Outpatient (REF) | payer MEDICARE, OTHER ==
[2018-10-06 17:35] LABS: HEMATOCRIT 40.9 % (36.0-47.0); HEMOGLOBIN 12.5 g/dl (12.0-15.5); MEAN CORPUSCULAR HEMOGLOBIN 30.3 pg (27.0-33.0); MEAN CORPUSCULAR HGB CONC 30.6 g/dl (32.0-36.5); MEAN CORPUSCULAR VOLUME 99.3 fl (80.0-96.0); PLATELET COUNT, AUTOMATED 303 10^3/uL (150-450); RED BLOOD COUNT 4.12 10^6/uL (4.00-5.40); WHITE BLOOD COUNT 9.6 10^3/uL (4.0-10.0)
[2018-10-06 18:19] LABS: ALBUMIN 3.2 GM/DL (3.2-5.2); ALT/SGPT 27 U/L (12-78); BILIRUBIN,TOTAL 0.5 MG/DL (0.2-1.0); BLOOD UREA NITROGEN 20 MG/DL (7-18); CARBON DIOXIDE LEVEL 30 MEQ/L (21-32); CHLORIDE LEVEL 105 MEQ/L (98-107); CREATININE FOR GFR 0.81 MG/DL (0.55-1.30); GLOMERULAR FILTRATION RATE > 60.0 (>32); GLUCOSE, FASTING 73 MG/DL (70-100); POTASSIUM SERUM 4.1 MEQ/L (3.5-5.1); SODIUM LEVEL 143 MEQ/L (136-145); TOTAL PROTEIN 6.2 GM/DL (6.4-8.2)
== END ==
LOC: M SFHCPLAZ 15:21
PROVIDERS: ATTEND Nurse Practitioner Adult Health
DX: R53.82 Chronic fatigue, unspecified (principal)
CPT/HCPCS: 36415; 80053; 85027; G0463

== ENCOUNTER → 2018-12-21 | Outpatient (REF) | payer MEDICARE, OTHER ==
[2018-12-21 13:20] LABS: FREE T4 1.49 NG/DL (0.76-1.46); RHEUMATOID FACTOR QUANT < 10.0 IU/ML (<15.0); TOTAL PROTEIN 6.6 GM/DL (6.4-8.2)
[2018-12-21 13:21] LABS: VITAMIN B12 LEVEL 1369 PG/ML
[2018-12-21 13:22] LABS: FOLATE > 24.0 NG/ML
[2018-12-21 14:18] LABS: HEMOGLOBIN A1c 5.8 %
[2018-12-22 12:41] LABS: ALBUMIN % 56.7 % (55.8-66.1)
[2018-12-22 12:42] LABS: ALBUMIN 3.74 GM/DL (3.29-5.55); ALPHA-1-GLOBULIN % 5.3 % (2.9-4.9); ALPHA-1-GLOBULINS 0.35 GM/DL (0.17-0.41); ALPHA-2-GLOBULINS 0.89 GM/DL (0.42-0.99); ALPHA-2-GLOBULINS % 13.5 % (7.1-11.8); BETA-1-GLOBULINS 0.46 GM/DL (0.28-0.60); GAMMA GLOBULIN % 11.5 % (11.1-18.8); GAMMA GLOBULINS 0.76 GM/DL (0.65-1.58)
[2018-12-26 08:23] LABS: ANTINUCLEAR ANTIBODIES DIRECT Negative (Negative); VITAMIN B1 LEVEL WHOLE BLOOD 118.3 nmol/L (66.5-200.0); VITAMIN B6,PYRIDOXAL PHOSPHATE 3.5 ug/L (2.0-32.8); VITAMIN E(ALPHA TOCOPHEROL) 10.7 mg/L (9.0-29.0); VITAMIN E(GAMMA TOCOPHEROL) 1.7 mg/L (0.5-4.9)
[2018-12-27 09:04] LABS: DRVV SCREEN 36.2 SEC
[2018-12-27 09:05] LABS: PTT LUPUS TYPE ANTICOAG SCREEN 0.9 (0-1.2)
== END ==
LOC: M LABNEURO 11:00
PROVIDERS: ATTEND Psychiatry & Neurology Neurology
DX: F03.90 Unspecified dementia, unspecified severity, without behavioral disturbance, psychotic disturbance, mood disturbance, and anxiety (principal); G62.9 Polyneuropathy, unspecified; Z79.899 Other long term (current) drug therapy; Z79.82 Long term (current) use of aspirin

== ENCOUNTER → 2019-01-12 | Outpatient (CLI) | payer MEDICARE, OTHER ==
[2019-01-12 13:34] LABS: BASO % 0.5 % (0.0-1.0); EOS # 0.1 10^3/uL (0.0-0.5); EOS % 1.2 % (0.0-3.0); HEMATOCRIT 41.8 % (36.0-47.0); HEMOGLOBIN 12.8 g/dl (12.0-15.5); LYMPH # 2.7 10^3/uL (1.5-5.0); LYMPH % 33.6 % (24.0-44.0); MEAN CORPUSCULAR HEMOGLOBIN 31.1 pg (27.0-33.0); MEAN CORPUSCULAR HGB CONC 30.6 g/dl (32.0-36.5); MEAN CORPUSCULAR VOLUME 101.5 fl (80.0-96.0); MONO # 0.6 10^3/uL (0.0-0.8); MONO % 7.3 % (0.0-5.0); NEUTROPHILS # 4.6 10^3/uL (1.5-8.5); NEUTROPHILS % 57.2 % (36.0-66.0); PLATELET COUNT, AUTOMATED 242 10^3/uL (150-450); RED BLOOD COUNT 4.12 10^6/uL (4.00-5.40)
[2019-01-12 14:04] LABS: ALBUMIN 3.3 GM/DL (3.2-5.2); ALT/SGPT 29 U/L (12-78); C REACTIVE PROTEIN QUANTITATIV < 0.30 MG/DL (0.00-0.30); GLOMERULAR FILTRATION RATE > 60.0 (>32)
[2019-01-12 14:07] LABS: ERYTHROCYTE SEDIMENTATION RATE 4 mm/hr (0-30)
== END ==
LOC: M SMT 09:22
PROVIDERS: ATTEND Nurse Practitioner
DX: Z51.81 Encounter for therapeutic drug level monitoring (principal); Z79.899 Other long term (current) drug therapy; M06.9 Rheumatoid arthritis, unspecified

== ENCOUNTER 2019-01-27 11:26 | Inpatient (IN) | payer MEDICARE, OTHER ==
[~2019-01-27] VITALS: Ht 142.2 cm; Wt 43.6 kg
[2019-01-27] MEDS ORDERED: TIMO0.5S29 OU (11:57)
[2019-01-27] MEDS ORDERED: ATOR40TA75 PO (11:57)
[2019-01-27] MEDS ORDERED: METO1TAB32 PO (11:57)
[2019-01-27] MEDS ORDERED: ONDANSETRON 4MG/2ML VIAL (J2405) IV ONE (12:15)
[2019-01-27] MEDS ORDERED: NS 500 ML IV ONE ×2 (12:15→14:00)
[2019-01-27] MEDS: MORPHINE 2 MG/ML 1ML VIAL (J2270) IV PRN ×3 (12:29→18:24)
[2019-01-27] MEDS ORDERED: ISOVUE-370 76% 100ML VIAL (Q9967) As Ordered ONE (12:44)
[2019-01-27 12:46] LABS: BASO % 0.4 % (0.0-1.0); EOS # 0.1 10^3/uL (0.0-0.5); EOS % 0.6 % (0.0-3.0); HEMATOCRIT 39.4 % (36.0-47.0); HEMOGLOBIN 12.2 g/dl (12.0-15.5); LYMPH # 0.4 10^3/uL (1.5-5.0); LYMPH % 4.5 % (24.0-44.0); MEAN CORPUSCULAR HEMOGLOBIN 30.4 pg (27.0-33.0); MEAN CORPUSCULAR VOLUME 98.3 fl (80.0-96.0); MONO # 0.6 10^3/uL (0.0-0.8); MONO % 5.7 % (0.0-5.0); NEUTROPHILS # 8.5 10^3/uL (1.5-8.5); NEUTROPHILS % 88.4 % (36.0-66.0); PLATELET COUNT, AUTOMATED 203 10^3/uL (150-450); RED BLOOD COUNT 4.01 10^6/uL (4.00-5.40); WHITE BLOOD COUNT 9.6 10^3/uL (4.0-10.0)
--- NOTE | 2019-01-27 12:53 | REP ---
Portable chest x-ray: Single view. History: Chest pain. Comparison chest x-ray: September 12, 2017. Findings: EKG monitoring electrodes overlie the chest. Right hemidiaphragm is somewhat elevated unchanged. Heart is mildly prominent also unchanged. There is linear fibrosis in the left base. There is diffuse osteopenia. Pulmonary vasculature is not increased. Impression: Mildly prominent heart. Left base fibrosis. Chronic elevation right hemidiaphragm. No acute abnormality. Electronically Signed by Jalen Dunn MD 01/27/2019 12:45 P
[2019-01-27 12:54] LABS: INR 1.09; PROTHROMBIN TIME 13.8 SECONDS (11.8-14.0)
[2019-01-27 12:55] LABS: PARTIAL THROMBOPLASTIN TIME 26.8 SECONDS (25.0-38.4)
[2019-01-27 13:06] LABS: ALBUMIN 3.2 GM/DL (3.2-5.2); ALT/SGPT 38 U/L (12-78); BILIRUBIN,DIRECT 0.3 MG/DL (0.0-0.2); BILIRUBIN,TOTAL 1.2 MG/DL (0.2-1.0); C REACTIVE PROTEIN QUANTITATIV 1.83 MG/DL (0.00-0.30); CK-MB VALUE MASS 1.6 NG/ML (<3.6); CPK CREATINE PHOSPHOKINASE 46 U/L (26-192); LIPASE 29 U/L (73-393); MB/CK RELATIVE INDEX 3.48 (< OR =4); NT-PRO BNP 2185 PG/ML (<450); TOTAL PROTEIN 5.7 GM/DL (6.4-8.2); TROPONIN I < 0.02 NG/ML (< 0.10)
--- NOTE | 2019-01-27 13:20 | REP ---
CT of the chest with IV contrast for chest and abdomen pain: Comparison is 08/18/2018 without IV contrast. The the pulmonary arteries are adequately opacified. There are no pulmonary emboli. There is no contrast in the abdominal aorta, therefore the study is insensitive for aortic dissection. There is no periaortic hematoma. There is no mediastinal hematoma. There is focal discoid atelectasis posteriorly in the right lower lobe. There are no infiltrates. No pleural effusions. There are no masses or nodules. There is no pneumothorax. Beam-hardening artifact from the dense contrast in the pulmonary arteries obscures the mediastinum. No large adenopathy or mediastinal mass are identified. There is no hilar adenopathy. No axillary adenopathy. Cardiac size is mildly enlarged. This is unchanged. There is no pericardial effusion. There are chronic compression deformities of mid/lower thoracic vertebral bodies, unchanged. Impression: There are no pulmonary emboli. There is no contrast in the thoracic aorta, the study is insensitive for thoracic aortic dissection. There is no periaortic/mediastinal hematoma. Chronic compression deformities of lower thoracic vertebral bodies, unchanged. The discoid atelectasis in the right lower lobe. Cardiomegaly. Electronically Signed by Woody Wallace MD 01/27/2019 01:11 P
[2019-01-27] MEDS ORDERED: METOCLOPRAMIDE INJ 10MG/2ML VIAL (J2765) IV ONE (13:30)
--- NOTE | 2019-01-27 13:33 | REP ---
CT of the abdomen and pelvis with IV contrast, without bowel contrast: The studies performed contiguously with the chest CT this same date. On the abdominal CT. There is contrast in the abdominal aorta. There is no abdominal aortic aneurysm or dissection. The abdominal aorta is tortuous. The hepatic parenchyma is homogeneous. The gallbladder is dilated and there is pericholecystic fluid. This is concerning for acalculous cholecystitis. There is no no gallbladder calculi are identified. There is no biliary duct dilatation. There is no ascites. The pancreas and spleen are unremarkable. The adrenals are unremarkable. There are bilateral nonobstructive renal calculi as previously. There are parapelvic renal cysts. There is no hydroureter. There is no perinephric stranding. There is anterior abdominal wall colostomy as previously. The the patient has a left mikal colon resection. This is unchanged. There is no bowel distension or obstruction. There is a left lumbar hernia containing retroperitoneal fat, unchanged. Pelvis: The uterus and adnexa are unremarkable. The inferior pelvis is obscured by bilateral hip arthroplasties. A large right femoral fluid collection extending cephalic along the right so as muscle into the pelvis is again identified, compatible with bursitis, unchanged. Impression: The abdominal aorta is unremarkable. There is no dissection, aneurysm or periaortic hematoma. The gallbladder is distended and there is pericholecystic fluid. There are no gallbladder calculi. Findings suggest AT calculus cholecystitis and require clinical confirmation. There is no biliary duct dilatation. Nonobstructive renal calculi bilaterally. Parapelvic cysts. No hydronephrosis or ureteral dilatation. Left hemicolectomy and colostomy are unchanged. Left lumbar hernia containing retroperitoneal fat is unchanged. Electronically Signed by Woody Wallace MD 01/27/2019 01:25 P
--- NOTE | 2019-01-27 13:45 | ECGEPIP ---
[facility] - ED Test Date: 2019-01-27 Pat Name: CLOTILDE MEJIA Department: Room: - Gender: Female Mycologist: : 1935 Requested By: Gigi Tsang Order Number: [id number] Reading MD: Sunita Nielsen Measurements Intervals [place] Rate: 52 P: 64 KS: 243 QRS: 52 QRSD: 88 T: -14 QT: 465 QTc: 436 Interpretive Statements SINUS BRADYCARDIA WITH FIRST DEGREE AV BLOCK LEFT VENTRICULAR HYPERTROPHY AND ST-T CHANGE NSTTW abnormalities PRIOR SINUS TACHYCARDIA 09/12/17 Electronically Signed on 01-27-2019 13:45:12 EST by Sunita Nielsen
[2019-01-27] MEDS: HYDROMORPHONE HCL 0.5 MG/ 0.5 ML SYRINGE (J1170 PER 1) IV PRN ×2 (13:50→15:14)
[2019-01-27] MEDS ORDERED: ERTAPENEM SODIUM 1 GM in NS MINI-BAG PLUS 50 ML IV ONE (14:00)
[2019-01-27] MEDS ORDERED: FLON1SPR NARES (14:25)
[2019-01-27] MEDS ORDERED: VOLT1GEL15 TD (14:25)
[2019-01-27] MEDS ORDERED: GABA-1171 PO (14:25)
[2019-01-27] MEDS ORDERED: XALA0.007 OU (14:25)
[2019-01-27] MEDS ORDERED: AMIO200T PO (14:25)
[2019-01-27] MEDS ORDERED: FLUO0.0216 TOP (14:25)
--- NOTE | 2019-01-27 15:06 | REP ---
However quadrant sonography: History: Right upper quadrant pain. Comparison CT study January 27, 2019. Findings: Scanning through the right upper quadrant of the abdomen demonstrates a mildly dilated, 8.2 x 5.0 x 4.3 cm gallbladder. There is a small amount of pericholecystic fluid. Nonshadowing echogenic material is seen in the gallbladder consistent with sludge. Gallbladder wall is thickened, 0.4 cm. Common bile duct is somewhat dilated measuring 0.9 cm in greatest diameter. No focal liver lesion is seen. No pancreatic abnormalities observed. The pancreas is largely obscured by abdominal gas however. There is no diffuse ascites. Right kidney measures 9.7 x 5.6 x 5.3 cm. There is a 0.8 cm echogenic focus with shadowing in the lower pole of the right kidney consistent with intrarenal calculus. IMPRESSION: 1. Dilated thick-walled gallbladder with pericholecystic fluid consistent with cholecystitis. There is some echogenic sludge in the gallbladder. Similar findings are visible on today's CT. Common bile duct is dilated as well. 2. Probable intrarenal calculus lower pole right kidney. Electronically Signed by Jalen Dunn MD 01/27/2019 05:19 P
[2019-01-27] MEDS ORDERED: DICYCLOMINE 10 MG CAP PO PRN (15:30)
[2019-01-27] MEDS ORDERED: FLUTICASONE PROP 0.05% NASAL SPRAY 16 GM (FLONASE) NARES PRN (15:30)
--- NOTE | 2019-01-27 15:42 | IPNPDOC ---
Date Seen The patient was seen on 01/27/19. Progress Note SUBJECTIVE: 83-year-old female with past medical history of paroxysmal A. fib (not on anticoagulation), CHF, rheumatoid arthritis, breast cancer status post bilateral mastectomy, colon cancer, status post left hemicolectomy with ostomy in place, presents with severe acute abdominal pain and nausea since last night. Patient was feeling well up until last night when her symptoms started with sha rp chest pain, abdominal pain and nausea for which she came to the emergency room. She was evaluated in the emergency department, CTA of chest was negative for PE, CT abdomen and pelvis consistent with acalculous cholecystitis; follow- up ultrasound of the gallbladder was consistent with the same diagnosis. Dr. Tyler from general surgery was consulted by the emergency department, who plans on surgical intervention but requests hospital medicine to admit the patient. Patient is currently comfortable after receiving IV Dilaudid, Zofran and Reglan, no complaints at this time, denies any shortness of breath, chest pain, nausea, vomiting, abdominal pain or diarrhea. 10 point review of systems negative except for above PHYSICAL EXAMINATION: VITAL SIGNS: Please see below. GENERAL: No distress, thin, frail HEENT: Normocephalic, atraumatic, moist mucous membranes NECK: Supple CARDIOVASCULAR EXAMINATION: S1, S2, systolic murmur appreciated loudest at the apex RESPIRATORY EXAMINATION: Clear to auscultation, no wheezing ABDOMINAL EXAMINATION: Soft, mild right upper quadrant tenderness, positive Gama sign, nondistended, ostomy in place positive bowel sounds EXTREMITIES: Range of motion intact SKIN: No rash NEUROLOGICAL EXAMINATION: Alert and oriented 3, no focal deficits PSYCHIATRIC EXAMINATION: Calm and cooperative LABORATORY DATA, IMAGING STUDIES, MICROBIOLOGY: Please see below. Echocardiogram: Pending. DVT prophylaxis ordered?: Yes ASSESSMENT AND PLAN: 83-year-old female with past medical history of paroxysmal A. fib, not oriented to current admission, CHF, which arthritis on chronic steroids, breast and colon cancer, status post colostomy, presents with abdominal pain. CT and imaging concerning for a calculus cholecystitis. PROBLEMS: 1. Acalculous cholecystitis: . Surgical evaluation pending, pain control with morphine and Tylenol, Cipro, Flagyl. If surgical intervention is planned. We will give stress dose steroids, patient is at moderate risk for moderate risk procedure. Nothing by mouth, maintenance IV fluids. Patient is medically cleared for surgery if needed, TTE pending for further cardiac assessment. 2. Paroxysmal A. fib:. Continue amiodarone and beta tae, no anticoagulation. 3. CAD/CHF:, Stable, continue home meds. (Aspirin, statin, beta tae) 4. Rheumatoid arthritis. Continue Plaquenil will and prednisone, I'll hold methotrexate for now. DVT prophylaxis: Heparin subcutaneous GI prophylaxis: Not needed VS, I&O, 24H, Fishbone Vital Signs/I&O Vital Signs Date Time Temp Pulse Resp B/P (MAP) Pulse Ox O2 Delivery O2 Flow Rate FiO2 01/27/19 15:14 18 01/27/19 15:04 194/98 (130) 01/27/19 15:00 74 100 Nasal Cannula 2.0 01/27/19 11:45 97.7 Laboratory Data 24H LABS Laboratory Tests 2 01/27/19 12:23: Immature Granulocyte % (Auto) 0.4, Neutrophils (%) (Auto) 88.4H, Lymphocytes (%) (Auto) 4.5L, Monocytes (%) (Auto) 5.7H, Eosinophils (%) (Auto) 0.6, Basophils (%) (Auto) 0.4, Neutrophils # (Auto) 8.5, Lymphocytes # (Auto) 0.4L, Monocytes # (Auto) 0.6, Eosinophils # (Auto) 0.1, Basophils # (Auto) 0.0, Nucleated Red Blood Cells % (auto) 0.0, Prothrombin Time 13.8, Prothromb Time International Ratio 1.09, Activated Partial Thromboplast Time 26.8, Total Bilirubin 1.2H, Direct Bilirubin 0.3H, Aspartate Amino Transf (AST/SGOT) 31, Alanine Aminotransferase (ALT/SGPT) 38, Alkaline Phosphatase 59, Total Creatine Kinase 46, Creatine Kinase MB 1.6, Creatine Kinase MB Relative Index 3.48, Troponin I < 0.02, C-Reactive Protein, Quantitative 1.83H, KP-Bfk-[id number]-Type Natriuretic Peptide 2185H, Total Protein 5.7L, Albumin 3.2, Albumin/Globulin Ratio 1.28, Lipase 29L, Thyroid Stimulating Hormone (TSH) 2.790 01/27/19 12:36: POC Glucose (Misc Panel) 121H, POC Sodium (Misc Panel) 139, POC Potassium (Misc Panel) 3.8, POC Chloride (Misc Panel) 103, POC Total CO2 (Misc Panel) 26.0, POC Blood Urea Nitrogen (Misc Panel 21, POC Ionized Calcium (Misc Panel) 4.6, POC Creatinine (Misc Panel) 0.7, POC Hematocrit (Misc Panel) 38.0 01/27/19 12:42: Lactic Acid Level 1.7 CBC/BMP Laboratory Tests 01/27/19 12:23 Microbiology Microbiology 01/27/19 Blood Culture, Received Pending 01/27/19 Blood Culture, Received Pending JOEY IRIZARRY MD Jan 27, 2019 15:42
[2019-01-27 17:24] VITALS: BP 163/79
[2019-01-27] MEDS: NS 1,000 ML IV SCH (18:23)
[2019-01-27] MEDS: LATANOPROST 0.005% OPHTH SOLN 2.5 ML OU SCH (20:02)
[2019-01-27] MEDS: ATORVASTATIN 20 MG TAB PO SCH (20:02)
[2019-01-27] MEDS: GABAPENTIN 100 MG CAP PO SCH (20:03)
[2019-01-27] MEDS: HEPARIN SOD (PORCINE) 5000 UNITS/ML VIAL SC SCH (20:04)
[2019-01-27] MEDS: METOPROLOL SUCC *XL* 25MG TAB (TopROL *XL*) PO SCH (20:06)
[2019-01-27] MEDS: metroNIDAZOLE 500 MG in IV 1 EA IV SCH (20:10)
[2019-01-27] MEDS: CIPROFLOXACIN 400 MG in IV 1 EA IV SCH (21:21)
[2019-01-27 22:00] VITALS: BP 144/65
[2019-01-27] MEDS: ACETAMINOPHEN 500 MG TAB PO PRN (22:01)
[2019-01-28] VITALS (9 sets, daily range): BP systolic 82–126; BP diastolic 51–67
[2019-01-28] MEDS: ACETAMINOPHEN 500 MG TAB PO PRN ×2 (03:10→10:32)
[2019-01-28] MEDS: metroNIDAZOLE 500 MG in IV 1 EA IV SCH ×3 (03:49→19:08)
[2019-01-28] MEDS: MORPHINE 2 MG/ML 1ML VIAL (J2270) IV PRN ×2 (03:57→08:03)
[2019-01-28 06:10] LABS: HEMOGLOBIN 11.4 g/dl (12.0-15.5); MEAN CORPUSCULAR HEMOGLOBIN 30.5 pg (27.0-33.0); MEAN CORPUSCULAR HGB CONC 30.8 g/dl (32.0-36.5); MEAN CORPUSCULAR VOLUME 98.9 fl (80.0-96.0); PLATELET COUNT, AUTOMATED 164 10^3/uL (150-450); RED BLOOD COUNT 3.74 10^6/uL (4.00-5.40); WHITE BLOOD COUNT 15.8 10^3/uL (4.0-10.0)
[2019-01-28 06:40] LABS: ALBUMIN 2.7 GM/DL (3.2-5.2); ALT/SGPT 52 U/L (12-78); BILIRUBIN,TOTAL 0.8 MG/DL (0.2-1.0); BLOOD UREA NITROGEN 20 MG/DL (7-18); CALCIUM LEVEL 7.8 MG/DL (8.8-10.2); CARBON DIOXIDE LEVEL 22 MEQ/L (21-32); CHLORIDE LEVEL 108 MEQ/L (98-107); CREATININE FOR GFR 0.94 MG/DL (0.55-1.30); GLOMERULAR FILTRATION RATE > 60.0 (>32); GLUCOSE, FASTING 77 MG/DL (70-100); MAGNESIUM LEVEL 1.6 MG/DL (1.8-2.4); SODIUM LEVEL 138 MEQ/L (136-145); TOTAL PROTEIN 5.7 GM/DL (6.4-8.2)
[2019-01-28] MEDS: CIPROFLOXACIN 400 MG in IV 1 EA IV SCH ×2 (08:04→20:57)
[2019-01-28] MEDS: CYANOCOBALAMIN 500 MCG TAB PO SCH (08:05)
[2019-01-28] MEDS: TIMOLOL MALEATE 0.5% OPHTH SOLN 5 ML OU SCH (08:05)
[2019-01-28] MEDS: HEPARIN SOD (PORCINE) 5000 UNITS/ML VIAL SC SCH ×2 (08:05→21:10)
[2019-01-28] MEDS: AMIODARONE 200 MG TAB (PACERONE) PO SCH (08:05)
[2019-01-28] MEDS: GABAPENTIN 100 MG CAP PO SCH ×2 (08:05→21:07)
[2019-01-28] MEDS: FOLIC ACID 1 MG TAB PO SCH (08:06)
[2019-01-28] MEDS ORDERED: predniSONE 5 MG TAB PO SCH (09:00)
[2019-01-28] MEDS ORDERED: predniSONE 1 MG TAB PO SCH (09:00)
[2019-01-28] MEDS ORDERED: ASPIRIN 81 MG ENTERIC TAB PO SCH (09:00)
[2019-01-28] MEDS: MAG SULF 1GM/100ML (MAG RUN) 1 GM in IV 1 EA IV SCH ×3 (10:32→12:29)
[2019-01-28] MEDS ORDERED: HYDROCORTISONE 100 MG/2 ML VIAL (J1720) IV SCH (12:00)
[2019-01-28] MEDS: HYDROCORTISONE 100 MG/2 ML VIAL (J1720) IV SCH ×2 (12:07→18:00)
[2019-01-28] MEDS: NS 1,000 ML IV SCH ×2 (12:08→20:56)
[2019-01-28] MEDS ORDERED: NS 500 ML IV ONE (13:00)
--- NOTE | 2019-01-28 13:28 | CR.PDOC ---
General Surgery Consultation Date of Consultation 01/28/19 History and Physical CONSULT REPORT FOR: hospitalist service REASON FOR CONSULTATION: acute cholecystitis HISTORY OF PRESENT ILLNESS: Patient is an 83-year-old female with multiple medical problems who was brought into the emergency room early Wednesday morning with sudden onset of sharp right sided abdominal upper abdominal and chest pain along with shortness of breath that she thought she was having a heart attack that she was brought to the emergency room and evaluated was found to have evidence for severe acute cholecystitis. She denies any fevers or chills. She felt very nauseous when she came in but improved with a dose of Zofran and Reglan. She was given IV Dilaudid with improvement of her pain though she continues to complain of soreness on her abdomen. She reports some mild shortness of breath with taking deep breaths but able to lay down flat in the bed. Patient denies any prior episodes of what could be biliary colic attacks. She has significant multiple prior abdominal surgeries including that of a colectomy with an end colostomy for colon (?rectal) cancer. She subsequently had a parastomal hernia which was repaired in 2018 [facility] with mesh. She has a long-standing use of prednisone for rheumatoid arthritis. PAST MEDICAL HISTORY: 1. History of paroxysmal atrial fibrillation 2. Congestive heart failure 3. Rheumatoid arthritis 4. History of colon/rectal cancer status post resection with colostomy.5. History of breast cancer status post bilateral mastectomy. . PAST SURGICAL HISTORY: INCLUDES: 1. She had some sort of a colectomy with an end colostomy placed for colorectal cancer. 2. Should bilateral mastectomy for breast cancer 3. She had a laparoscopic/robotic parastomal hernia repair with placement of mesh that was done at [facility] last year. PREVIOUS ANESTHESIA REACTIONS: Denies ALLERGIES: Please see below. FAMILY HISTORY: Noncontributory HOME MEDICATIONS: Please see below. REVIEW OF SYSTEMS: Patient was in her usual state of health prior to the episode started last evening. Baseline she reports that she is mainly sedentary. She still fairly independent and see able to ambulate by herself but does not go out much. Main limiting factor seems to be her rheumatoid arthritis. She denies any chest pain with her regular activity, denies any shortness of breath, wheezing or paroxysmal nocturnal dyspnea. She is seen Dr. Smith and she was last seen back in August and has been maintained on her usual medications. She has rheumatoid arthritis and is on chronic steroids. She currently is on 5 mg daily of prednisone. She denies any swollen joints at this time. As mentioned she has a prior history of colon cancer for which she had surgery. According to her she was recommended to have chemotherapy but opted not to go through this adjuvant lay. She had bilateral mastectomy done for breast cancer. She denies any dysuria, hematuria or nocturia. She denies any heat or cold intolerance, polyphagia, polyuria or polydipsia. PHYSICAL EXAMINATION: VITALS SIGNS: Please see below. GENERAL APPEARANCE: Patient seen laying in bed, mildly uncomfortable. SKIN: Warm and dry. HEENT: Normocephalic, atraumatic, mild pale palpebral conjunctiva. Dry lips and mucosa. NECK: No obvious jugular venous distention noted. LUNGS: [Clear to auscultation bilaterally. No wheezing appreciated]. HEART: Regular heart rate and rhythm with some dropped beats, no murmurs appreciated. ABDOMEN: Abdomen is mildly distended, soft, tender on palpation at the right upper quadrant towards the right paramedian and right paraumbilical area with mild guarding.. She has a left-sided colostomy. No obvious recurrence of her hernia. This seems to be functioning with semi-formed brownish stool without any blood. She is nontender on the left side. EXTREMITIES: [Extremities have no deformities. No edema identified] ANCILLARIES: . LABORATORY DATA: Please see below. IMAGING STUDIES: CT abdomen and pelvis. The gallbladder is distended and there is pericholecystic fluid. There are no gallbladder calculi. Findings suggest AT calculus cholecystitis and require clinical confirmation. There is no biliary duct dilatation. Nonobstructive renal calculi bilaterally. Parapelvic cysts. No hydronephrosis or ureteral dilatation. Left hemicolectomy and colostomy are unchanged. Left lumbar hernia containing retroperitoneal fat is unchanged. Ultrasound gallbladder 1. Dilated thick-walled gallbladder with pericholecystic fluid consistent with cholecystitis. There is some echogenic sludge in the gallbladder. Similar findings are visible on today's CT. Common bile duct is dilated as well. 2. Probable intrarenal calculus lower pole right kidney. IMPRESSION AND PLAN: Acute cholecystitis Patient on chronic prednisone and most likely with some element of adrenal suppression Patient has multiple abdominal surgeries including prior hernia repair with intra-abdominal mesh placement Significant history for CHF, CAD, paroxysmal atrial fibrillation I saw the patient yesterday, she was comfortable but relatively hemodynamically stable. The CAT scan shows a very inflamed gallbladder. No definite stones seen but has some sludge on the ultrasound. She denies any prior biliary colic type symptoms. She was actually hypertensive with a saw her which I presume was more from the discomfort. My initial plan was to have her be treated with IV antibiotics and short period of bowel rest and if need be draining the gallbladder percutaneously with a cholecystostomy tube on Wednesday. Interventional radiology services or not available in our instruction on the weekend. I feel with her multiple abdominal surgeries, her fragile baseline medical state, presence of mesh in the abdomen, going inside the abdomen to perform cholecystectomy and the hot gallbladder may not be the best route for her. If she gets better with or without the drain, we spoke about getting her optimized for attempt at laparoscopic cholecystectomy. Even then there is a good chance that she may need an open cholecystectomy given her multiple abdominal surgeries. Overnight patient was noted to be hypotensive. Patient still is moderately uncomfortable on palpation over the right upper quadrant area. She was given a stress dose of steroids. This could certainly be worsening of her gallbladder with her possibly becoming septic from the cholecystitis or just her adrenal system being chronically suppressed with her steroids she is not able to mount the appropriate response hemodynamically to the current stress. I still think that a percutaneous cholecystostomy route is prudent for her but given that we don't have that at our facility I think we need to bring her to the operating room to attempt a cholecystectomy or depending on how she is doing a cholecystostomy drainage. We will start with laparoscopy and evaluate for feasibility of performing laparoscopic cholecystectomy. Depending on the degree of inflammation, degree of abdominal adhesions he may need to convert to an open cholecystectomy or switch to a surgically placed cholecystostomy tube to drain the gallbladder to control the cholecystitis. A cholecystostomy would only be feasible if there is no gross perforation/necrosis of the wall of the gallbladder. I have conveyed to them my plan surgically and patient has agreed to proceed. Anticipate she will need to be closely monitored postoperatively and even may need to be in the ICU. Vital Signs Vital Signs Date Time Temp Pulse Resp B/P (MAP) Pulse Ox O2 Delivery O2 Flow Rate FiO2 01/28/19 12:12 99.5 70 20 85/54 (64) 01/28/19 06:00 96 Room Air 01/27/19 17:19 2.0 I&Os I&O- Last 24 Hours up to 6 AM 01/28/19 06:00 Intake Total 1850 ml Output Total 0 ml Balance 1850 ml Laboratory Data Labs 24H Laboratory Tests 2 01/28/19 05:47: Nucleated Red Blood Cells % (auto) 0.0, Anion Gap 8, Glomerular Filtration Rate > 60.0, Calcium Level 7.8L, Magnesium Level 1.6L, Total Bilirubin 0.8, Aspartate Amino Transf (AST/SGOT) 41H, Alanine Aminotransferase (ALT/SGPT) 52, Alkaline Phosphatase 77, Total Protein 5.7L, Albumin 2.7L, Albumin/Globulin Ratio 0.90L CBC/BMP Laboratory Tests 01/28/19 05:47 Microbiology Microbiology 01/27/19 Blood Culture - Preliminary, Resulted No growth after 24 hours . All specim... 01/27/19 Blood Culture - Preliminary, Resulted No growth after 24 hours . All specim... Home Medications Scheduled Amiodarone HCl (Amiodarone HCl) 200 Mg Tablet, 200 MG PO DAILY, (Reported) Aspirin (Aspirin EC) 81 Mg Tab, 81 MG PO DAILY, (Reported) Atorvastatin Calcium (Atorvastatin Calcium) 40 Mg Tablet, 40 MG PO QHS, (Reported) Cyanocobalamin (Vitamin B-12) (Vitamin B-12) 250 Mcg Lizette, 1,000 MCG PO DAILY, (Reported) Denosumab Injection (Prolia) 60 Mg/Ml Wendy, 60 MG SC ASDIRECTED, (Reported) EVERY 6 MONTHS Ergocalciferol (Vitamin D2) (Drisdol) 50,000 Unit Cap, 50,000 UNIT PO Q2WK, (Reported) EVERY OTHER WEDNESDAY Fluorouracil (Fluorouracil) 0.5% 30GM Cream..g., 1 APLCT TOP BID, (Reported) APPLY TO LEGS Folic Acid (Folic Acid) 1 Mg Tab, 2 MG PO DAILY, (Reported) Gabapentin (Gabapentin) 100 Mg Cap, 100 MG PO QAM, (Reported) Gabapentin (Gabapentin) 100 Mg Capsule, 200 MG PO QHS, (Reported) Hydroxychloroquine Sulfate (Hydroxychloroquine Sulfate) 200 Mg Tab, 200 MG PO Q2D, (Reported) Latanoprost (Xalatan) 0.005% 2.5ML Drops, 1 DROP OU QHS, (Reported) Methotrexate Sodium (Methotrexate) 2.5 Mg Tab, 7.5 MG PO QWEEK, (Reported) TUESDAYS Metoprolol Succinate (Metoprolol Succinate) 25 Mg Tab.er.24h, 25 MG PO QHS, (Reported) Prednisone (Prednisone) 1 Mg Tab, 1 MG PO DAILY, (Reported) TOTAL 6MG Prednisone (Prednisone) 5 Mg Tab, 5 MG PO DAILY, (Reported) TOTAL 6MG Timolol Maleate (Timolol Maleate) 0.5% 5ML Drops, 1 DROP OU DAILY, (Reported) Scheduled PRN Acetaminophen (Acetaminophen) 500 Mg Tab, 500 MG PO Q4H PRN for PAIN, (Reported) Diclofenac Sodium (Voltaren) 100 Gm Gel..gram., 1 GM TD TID PRN for PAIN, (Reported) APPLY TO ELBOW Dicyclomine HCl (Dicyclomine HCl) 10 Mg Cap, 10 MG PO Q6H PRN for ABDOMINAL PAIN, (Reported) Fluticasone Propionate (Flonase Allergy Relief) 9.9 Ml [place].susp, 2 SPRAY NARES DAILY PRN for CONGESTION, (Reported) Phenobarb/Hyoscy/Atropine/Scop ( Tablet) 1 Tab Tab, 1 TAB PO TID PRN for ABDOMINAL PAIN, (Reported) Allergies Coded Allergies: Penicillins (Verified Allergy, Intermediate, Hives, 07/08/18) Sulfa (Sulfonamide Antibiotics) (Verified Allergy, Intermediate, Hives, 07/08/18) codeine (Verified Allergy, Unknown, UNKNOWN REACTION, 01/27/19) STEPHANI GARAY MD Jan 28, 2019 13:28
[2019-01-28] MEDS ORDERED: traMADol 50 MG TAB PO ONE (14:00)
--- NOTE | 2019-01-28 14:36 | IPNPDOC ---
Date Seen The patient was seen on 01/28/19. Progress Note SUBJECTIVE: 83-year-old female with past medical history of paroxysmal A. fib (not on anticoagulation), CHF, rheumatoid arthritis, breast cancer status post bilateral mastectomy, colon cancer, status post left hemicolectomy with ostomy in place, presents with severe acute abdominal pain and nausea since last night. Patient was feeling well up until last night when her symptoms started with sha rp chest pain, abdominal pain and nausea for which she came to the emergency room. She was evaluated in the emergency department, CTA of chest was negative for PE, CT abdomen and pelvis consistent with acalculous cholecystitis; follow- up ultrasound of the gallbladder was consistent with the same diagnosis. Dr. Tyler from general surgery was consulted by the emergency department, who plans on surgical intervention but requests hospital medicine to admit the patient. Patient is currently comfortable after receiving IV Dilaudid, Zofran and Reglan, no complaints at this time, denies any shortness of breath, chest pain, nausea, vomiting, abdominal pain or diarrhea. 01/28/2019 Patient with significant abdominal pain today, worsening overnight, was also hypotensive overnight. She has no additional complaints at this time, denies any short of breath, nausea, vomiting, chest pain or diarrhea. 10 point review of systems negative except for above PHYSICAL EXAMINATION: VITAL SIGNS: Please see below. GENERAL: No distress, thin, frail HEENT: Normocephalic, atraumatic, moist mucous membranes NECK: Supple CARDIOVASCULAR EXAMINATION: S1, S2, systolic murmur appreciated loudest at the apex RESPIRATORY EXAMINATION: Clear to auscultation, no wheezing ABDOMINAL EXAMINATION: Soft, moderate to severe right upper quadrant tenderness, positive Gama's sign, nondistended, ostomy in place positive bowel sounds EXTREMITIES: Range of motion intact SKIN: No rash NEUROLOGICAL EXAMINATION: Alert and oriented 3, no focal deficits PSYCHIATRIC EXAMINATION: Calm and cooperative LABORATORY DATA, IMAGING STUDIES, MICROBIOLOGY: Please see below. Echocardiogram: Pending. DVT prophylaxis ordered?: Yes ASSESSMENT AND PLAN: 83-year-old female with past medical history of paroxysmal A. fib, not oriented to current admission, CHF, which arthritis on chronic steroids, breast and colon cancer, status post colostomy, presents with abdominal pain. CT and imaging concerning for Acalculous cholecystitis. PROBLEMS: 1. Acalculous cholecystitis: Plan for or today, possible cholecystectomy versus surgical cholecystostomy placement, continue Cipro, Flagyl, pain control, IV fluids, stress dose steroids ordered. Maintain nothing by mouth, patient is moderate to high risk for this procedure, discussed in detail with patient and family at bedside, patient understands and agrees with the procedure. Given patient's clinical presentation, delay in surgery can be fatal, percutaneous cholecystostomy would be ideal, but IR is not available over the weekend. I believe patient's condition will deteriorate the longer surgical intervention is delayed. Patient is as medically optimized as we can hope at this time, cleared for surgery. 2. Paroxysmal A. fib: Continue amiodarone and beta tae, no anticoagulation. 3. CAD/CHF: Stable, continue home meds. (Aspirin, statin, beta tae) 4. Rheumatoid arthritis. Continue Plaquenil will and prednisone, I'll hold methotrexate for now. DVT prophylaxis: Heparin subcutaneous GI prophylaxis: Not needed VS, I&O, 24H, Fishbone Vital Signs/I&O Vital Signs Date Time Temp Pulse Resp B/P (MAP) Pulse Ox O2 Delivery O2 Flow Rate FiO2 01/28/19 14:21 18 01/28/19 13:32 99.0 66 82/51 (61) 01/28/19 06:00 96 Room Air 01/27/19 17:19 2.0 I&O- Last 24 Hours up to 6 AM 01/28/19 05:59 Intake Total 1650 ml Output Total 0 ml Balance 1650 ml Laboratory Data 24H LABS Laboratory Tests 2 01/28/19 05:47: Nucleated Red Blood Cells % (auto) 0.0, Anion Gap 8, Glomerular Filtration Rate > 60.0, Calcium Level 7.8L, Magnesium Level 1.6L, Total Bilirubin 0.8, Aspartate Amino Transf (AST/SGOT) 41H, Alanine Aminotransferase (ALT/SGPT) 52, Alkaline Phosphatase 77, Total Protein 5.7L, Albumin 2.7L, Albumin/Globulin Ratio 0.90L CBC/BMP Laboratory Tests 01/28/19 05:47 Microbiology Microbiology 01/27/19 Blood Culture - Preliminary, Resulted No growth after 24 hours . All specim... 01/27/19 Blood Culture - Preliminary, Resulted No growth after 24 hours . All specim... JOEY IRIZARRY MD Jan 28, 2019 14:35
[2019-01-28] MEDS ORDERED: PHENYLEPHRINE INJ 10MG/ML VIAL (J2370) As Ordered ONE (15:19)
[2019-01-28] MEDS ORDERED: PROPOFOL 200 MG/20 ML VIAL As Ordered ONE (15:21)
[2019-01-28] MEDS ORDERED: LIDOCAINE 2% INJ 100 MG/5 ML SDV (FOR ANES.) As Ordered ONE (15:21)
[2019-01-28] MEDS ORDERED: dexameTHASONE 4 MG/ML 1ML VIAL (J1100) As Ordered ONE (15:21)
[2019-01-28] MEDS ORDERED: ONDANSETRON 4MG/2ML VIAL (J2405) As Ordered ONE (15:21)
[2019-01-28] MEDS ORDERED: fentaNYL 100 MCG/2 ML INJECTION (J3010) As Ordered ONE (15:21)
[2019-01-28] MEDS ORDERED: ROCURONIUM BROMIDE 50 MG/5 ML VIAL As Ordered ONE (15:21)
[2019-01-28] MEDS ORDERED: BUPIVACAINE HCL 0.25% 30 ML VIAL As Ordered ONE (16:01)
[2019-01-28] MEDS ORDERED: LIDOCAINE 1% SDV INJ 30 ML VIAL As Ordered ONE (16:01)
[2019-01-28] MEDS ORDERED: MIDAZOLAM INJ 2 MG/2 ML VIAL (J2250) As Ordered ONE (16:04)
[2019-01-28] MEDS ORDERED: VASOPRESSIN INJ 20 UNITS/ML VIAL As Ordered ONE (16:33)
[2019-01-28] MEDS ORDERED: ACETAMINOPHEN 1000MG 100ML IV BTL (OFIRMEV) (J0131 PER 10MG) As Ordered ONE (17:05)
[2019-01-28] MEDS ORDERED: SUGAMMADEX SODIUM 500 MG/5 ML VIAL (BRIDION) As Ordered ONE (17:46)
[2019-01-28] MEDS ORDERED: KETOROLAC 60 MG/2 ML VIAL (J1885) As Ordered ONE (17:51)
--- NOTE | 2019-01-28 18:26 | ROOPDOC ---
[facility] Report Of Operation Report of Operation DATE OF PROCEDURE: 01/28/19 PREPROCEDURE DIAGNOSES: Acute Cholecystitis. POSTPROCEDURE DIAGNOSES: Ischemic Gallbladder secondary to Volvulus of gallbladder. PROCEDURE: Laparoscopic Cholecystectomy. SURGEON: Willy Tyler MD SKEINS YARN EXAMINER: ANESTHESIA: General Anesthesia. ESTIMATED BLOOD LOSS: Approximately 20 mL. COMPLICATIONS: none, patient extubated, hemodynamically stable. . PROCEDURE NOTE: Ischemic/hemorrhagic gallbladder with clotted blood inside the distended gallbladder, floppy attachment to the liver with the gb fully twisted onto itself causing rolando ischemia of the gb wall. DESCRIPTION OF PROCEDURE: Patient is admitted to the hospitalist service for acalculous cholecystitis and was noted to be worsening with a drop on her blood pressure. She has been maintained on ciprofloxacin and metronidazole admission. I gave her an additional dose of Ertapenem to increase the coverage and antibiotic penetration. She was brought to the operating room, laid supine on the table, compression boots placed for DVT prophylaxis. General endotracheal anesthesia started. Her abdomen then prepped and draped in usual sterile fashion. Surgical timeout was performed prior to starting surgery. Entry into the abdomen done through an incision at the LUQ to avoid her previous midline incision. A Veress needle was inserted with a controlled fashion. CO2 insufflation started to pressure 15 mmHg. Using the same incision a 5 mm Visiport was placed under direct vision laparoscope. The area underneath the insertion site was inspected and no injury found. There were omental and small bowel adhesions at the midline to the falciform ligament and going down past the umbilicus. The right side of the abdomen was not clearly visible with our port placement. A second port was placed at the left lateral lower abdomen and then began taking down the omental and small bowel adhesions using the laparoscopic radha attached to Bovie cautery. Once the area around the umbilicus was cleared, a 5 mm port was placed in their was transferred camera to the umbilical port. She was then placed in steep reverse Trendelenburg. Her right side was tilted up to further expose the gallbladder. Under direct vision a 11 mm epigastric port and Two 5 mm working ports placed along the right subcostal line. Operative findings: There was some inflammatory fluid as well as omental adhesions to the gallbladder which appears ischemic, purplish, black in appearance. The gallbladder was enlarged and distended but not thickened or severely inflamed. There was no gross perforation. This was moderately distended but over all not as thickened as I would expect a very inflamed gallbladder would be. The gallbladder itself also seems to be quite floppy from its attachment to the liver and they noted that it was twisted along its actual axis. At this point I freed up the omental attachments to the gallbladder sharply. I then tried to return the gallbladder in its anatomic disposition and untwisted the gallbladder making the anatomy much easier to discern. It does look like that the gallbladder was fully twisted probably compromising the vascular supply. This is due to the loose peritoneal attachments of the gallbladder to the liver so much so that when retracting the gallbladder superiorly the liver remains in place with the whole of the gallbladder including that of the hepatocystic triangle being able to be retracted superior to the gallbladder. Once this was done I continued with the usual dissection of the hepatocystic triangle. The hepatocystic triangle was approached and dissected using a [place] and instrument. The cystic duct was identified coming off from the next gallbladder this was circumferentially dissected. The cystic artery was identified in its usual position medially behind a small lymph node of Calot. This was similarly circumferentially dissected off surrounding adipose tissue. We continued posterior dissection proximally at the next gallbladder until a critical view of safety was achieved whereby only the previously identified duct and artery coursing through the neck the gallbladder. At this point the cystic artery was clipped 4 times and divided. The cystic duct was also clipped 4 times and subsequently. The rest of the gallbladder was then dissected free of the gallbladder bed using Bovie cautery. There was minimal bleeding at the lateral gallbladder attachments to the liver capsule this was easily controlled with Bovie cautery. The gallbladder was then placed in an Endo Catch bag and retrieved outside through the epigastric port site. I left a 10 flat LITZY drain at the liver bed after irrigating the liver bed. After re- insufflation and inspected the clips and noted this to be in place. No further bleeding noted. No bile leakage noted. The abdomen was deflated all ports were removed. The epigastric fascial defect repaired with 0 Vicryl in a mattress fashion. Rest of the skin incisions closed with 4-0 Monocryl in subcuticular fashion. Steri-Strips and gauze dressings were placed, the wound. Patient was informed they awakened, extubated and brought to recovery room stable WILLY TYLER MD Jan 28, 2019 18:26
[2019-01-28] MEDS ORDERED: METOCLOPRAMIDE INJ 10MG/2ML VIAL (J2765) IV PRN (18:30)
[2019-01-28] MEDS ORDERED: LR 1,000 ML IV SCH (18:30)
[2019-01-28] MEDS ORDERED: fentaNYL 100 MCG/2 ML INJECTION (J3010) IV PRN (18:30)
[2019-01-28] MEDS ORDERED: MEPERIDINE INJ 25 MG/ML VIAL (J2175) IV PRN (18:30)
[2019-01-28] MEDS ORDERED: ONDANSETRON 4MG/2ML VIAL (J2405) IV PRN (18:30)
[2019-01-28] MEDS ORDERED: oxyCODONE 5MG TAB PO PRN (18:30)
[2019-01-28] MEDS ORDERED: metroNIDAZOLE/NACL 500MG(5MG/ML)100 ML BAG (S0030) As Ordered ONE (19:01)
[2019-01-28] MEDS: METOPROLOL SUCC *XL* 25MG TAB (TopROL *XL*) PO SCH (21:00)
[2019-01-28] MEDS: ATORVASTATIN 20 MG TAB PO SCH (21:08)
[2019-01-28] MEDS: LATANOPROST 0.005% OPHTH SOLN 2.5 ML OU SCH (21:10)
[2019-01-29] VITALS (7 sets, daily range): BP systolic 101–118; BP diastolic 58–70
[2019-01-29] MEDS: metroNIDAZOLE 500 MG in IV 1 EA IV SCH ×3 (04:01→20:58)
[2019-01-29 05:53] LABS: BASO % 0.1 % (0.0-1.0); HEMATOCRIT 36.2 % (36.0-47.0); HEMOGLOBIN 11.2 g/dl (12.0-15.5); LYMPH # 0.4 10^3/uL (1.5-5.0); LYMPH % 2.3 % (24.0-44.0); MEAN CORPUSCULAR HEMOGLOBIN 31.1 pg (27.0-33.0); MEAN CORPUSCULAR HGB CONC 30.9 g/dl (32.0-36.5); MEAN CORPUSCULAR VOLUME 100.6 fl (80.0-96.0); MONO # 0.9 10^3/uL (0.0-0.8); NEUTROPHILS # 13.9 10^3/uL (1.5-8.5); NEUTROPHILS % 90.9 % (36.0-66.0); PLATELET COUNT, AUTOMATED 142 10^3/uL (150-450); WHITE BLOOD COUNT 15.3 10^3/uL (4.0-10.0)
[2019-01-29 06:06] LABS: ALBUMIN 2.3 GM/DL (3.2-5.2); ALT/SGPT 39 U/L (12-78); BILIRUBIN,TOTAL 0.7 MG/DL (0.2-1.0); BLOOD UREA NITROGEN 27 MG/DL (7-18); CALCIUM LEVEL 7.7 MG/DL (8.8-10.2); CARBON DIOXIDE LEVEL 22 MEQ/L (21-32); CHLORIDE LEVEL 108 MEQ/L (98-107); CREATININE FOR GFR 0.77 MG/DL (0.55-1.30); GLOMERULAR FILTRATION RATE > 60.0 (>32); GLUCOSE, FASTING 142 MG/DL (70-100); POTASSIUM SERUM 4.2 MEQ/L (3.5-5.1); SODIUM LEVEL 136 MEQ/L (136-145); TOTAL PROTEIN 5.4 GM/DL (6.4-8.2)
[2019-01-29] MEDS: HYDROCORTISONE 100 MG/2 ML VIAL (J1720) IV SCH ×2 (07:49)
--- NOTE | 2019-01-29 09:00 | IPNPDOC ---
Subjective General Date/Time Seen The patient was seen on 01/29/19 at 09:00. Subject Chief Complaint/History The patient is a 83-year-old female admitted with a reason for visit of Acalculous Cholecystitis. Shes doing very well after emergent laparoscopic cholecystectomy. She turned out to have gb voluvulus with resulting hemorrhage and ischemia. Her bp has stabilized. She is tolerating clear. Current Medications Current Medications Current Medications Medications (Trade) Dose Ordered Sig/Dio Route PRN Reason Start Time Stop Time Status Last Admin Dose Admin Acetaminophen (Tylenol Tab) 500 mg Q4H PRN PO PAIN 01/27/19 15:30 01/28/19 10:32 Amiodarone HCl (Pacerone, Cordarone) 200 mg DAILY PO 01/28/19 09:00 01/28/19 08:05 Aspirin (Ecotrin) 81 mg DAILY PO 01/28/19 09:00 01/28/19 18:24 DC 01/28/19 08:06 Atorvastatin Calcium (Lipitor) 40 mg QHS PO 01/27/19 21:00 01/28/19 21:08 Ciprofloxacin 400 mg/IV Miscellaneous Supplies 200 ml @ 200 mls/hr BID IV 01/27/19 21:00 01/28/19 20:57 Cyanocobalamin (Vitamin B12) 1,000 mcg DAILY PO 01/28/19 09:00 01/28/19 08:05 Dicyclomine HCl (Bentyl) 10 mg Q6HP PRN PO ABDOMINAL PAIN 01/27/19 15:30 Fentanyl Citrate (Sublimaze) 25 mcg Q5MP PRN IV PAIN LEVEL 5-10 01/28/19 18:30 01/28/19 19:39 DC Fluticasone Propionate (Flonase 0.05% Nasal [place]) 2 spray DAILYPRN PRN NARES CONGESTION 01/27/19 15:30 Folic Acid (Folic Acid) 2 mg DAILY PO 01/28/19 09:00 01/28/19 08:06 Gabapentin (Neurontin) 100 mg QAM PO 01/28/19 09:00 01/28/19 08:05 Gabapentin (Neurontin) 200 mg QHS PO 01/27/19 21:00 01/28/19 21:07 Heparin Sodium (Porcine) (Heparin) 5,000 units Q12H SC 01/27/19 21:00 01/28/19 21:10 Home Med (Med Rec Complete!) ASDIRECTED XX 01/27/19 14:30 01/27/19 14:36 DC Hydrocortisone (A-Hydrocort) 50 mg Q6H IV 01/28/19 12:00 01/28/19 11:54 DC Hydrocortisone (A-Hydrocort) 100 mg Q6H IV 01/28/19 12:00 01/29/19 07:49 Hydromorphone HCl (Dilaudid) 0.5 mg Q30M PRN IV MODERATE PAIN (PS 5-7) 01/27/19 13:30 01/27/19 15:14 DC 01/27/19 15:14 Hydroxychloroquine Sulfate (Plaquenil) 200 mg Q2D@0900 PO 01/29/19 09:00 Lactated Ringer's 1,000 ml @ 100 mls/hr Q10H IV 01/28/19 18:30 01/28/19 19:30 DC Latanoprost (Xalatan 0.005% Op Soln) 1 drop QHS OU 01/27/19 21:00 01/28/19 21:10 Magnesium Sulfate/ Dextrose 1 gm/IV Miscellaneous Supplies 100 ml @ 100 mls/hr Q1H IV 01/28/19 09:00 01/28/19 11:59 DC 01/28/19 12:29 Meperidine HCl (Demerol) 12.5 mg Q5MP PRN IV SHIVERING 01/28/19 18:30 01/28/19 19:30 DC Metoclopramide HCl (REGLAN INJection) 10 mg Q6HP PRN IV NAUSEA OR VOMITING 01/28/19 18:30 01/28/19 19:30 DC Metoprolol Succinate (TopROL XL) 25 mg QHS PO 01/27/19 21:00 01/27/19 20:06 Metronidazole 500 mg/IV Miscellaneous Supplies 100 ml @ 100 mls/hr Q8H IV 01/27/19 20:00 01/29/19 04:01 Morphine Sulfate (Morphine Sulfate Inj) 2 mg Q30M PRN IV MODERATE PAIN (PS 5-7) 01/27/19 12:15 01/27/19 13:09 DC 01/27/19 13:09 Morphine Sulfate (Morphine Sulfate Inj) 2 mg Q4H PRN IV pain 7-10 01/27/19 15:30 01/28/19 08:03 Ondansetron HCl (ZOFRAN INJection) 4 mg Q4HP PRN IV NAUSEA OR VOMITING 01/28/19 18:30 01/28/19 19:30 DC Oxycodone HCl (Roxicodone, Oxyir) 5 mg ASDIRECTED PRN PO PAIN LEVEL 1-4 01/28/19 18:30 01/28/19 19:30 DC Prednisone (Deltasone) 1 mg DAILY PO 01/28/19 09:00 01/28/19 11:34 DC 01/28/19 08:05 Prednisone (Deltasone) 5 mg DAILY PO 01/28/19 09:00 01/28/19 11:34 DC 01/28/19 08:05 Sodium Chloride 1,000 ml @ 75 mls/hr [id number] IV 01/27/19 15:45 01/28/19 20:56 Timolol Maleate (Timoptic 0.5% Ophth Wendy) 1 drop DAILY OU 01/28/19 09:00 01/28/19 08:05 Allergies Coded Allergies: Penicillins (Verified Allergy, Intermediate, Hives, 07/08/18) Sulfa (Sulfonamide Antibiotics) (Verified Allergy, Intermediate, Hives, 07/08/18) codeine (Verified Allergy, Unknown, UNKNOWN REACTION, 01/27/19) Objective Physical Examination Examination GENERAL APPEARANCE:looks comfortable. SKIN: warm and dry. HEENT: anicteric sclerae. NECK: no JV distention. LUNGS: Clear to auscultation bilaterally. No wheezing appreciated. HEART: No chest wall abnormalities. Regular rate and rhythm with no murmurs appreciated. ABDOMEN: Abdomen is minimally distended, soft, port sites dressings are dry. LITZY drain with light pink serosanguenous fluid. EXTREMITIES: minimal LE edema. Vital Signs Vital Signs Date Time Temp Pulse Resp B/P (MAP) Pulse Ox O2 Delivery O2 Flow Rate FiO2 01/29/19 06:14 97.6 61 16 114/62 (79) 96 Room Air 01/29/19 00:00 2.0 I&Os I&O- Last 24 Hours up to 6 AM0 01/29/19 06:00 Intake Total 1300 ml Output Total 865 ml Balance 435 ml Laboratory Data Labs 24H Laboratory Tests 2 01/29/19 05:34: Immature Granulocyte % (Auto) 0.7, Neutrophils (%) (Auto) 90.9H, Lymphocytes (%) (Auto) 2.3L, Monocytes (%) (Auto) 6.0H, Eosinophils (%) (Auto) 0.0, Basophils (%) (Auto) 0.1, Neutrophils # (Auto) 13.9H, Lymphocytes # (Auto) 0.4L, Monocytes # (Auto) 0.9H, Eosinophils # (Auto) 0.0, Basophils # (Auto) 0.0, Nucleated Red Blood Cells % (auto) 0.0, Anion Gap 6L, Glomerular Filtration Rate > 60.0, Calcium Level 7.7L, Total Bilirubin 0.7, Aspartate Amino Transf (AST/SGOT) 30, Alanine Aminotransferase (ALT/SGPT) 39, Alkaline Phosphatase 58, Total Protein 5.4L, Albumin 2.3L, Albumin/Globulin Ratio 0.74L CBC/BMP Laboratory Tests 01/29/19 05:34 Microbiology Microbiology 01/27/19 Blood Culture - Preliminary, Resulted No growth after 24 hours . All specim... 01/27/19 Blood Culture - Preliminary, Resulted No growth after 24 hours . All specim... Impression She is postop day 1 after laparoscopic cholecystectomy for ischemic gallbladder secondary to gallbladder volvulus jose raul denise dc'd already will advance her diet encourage to be oob incentive spirometers will sl ivf cont iv abx for now switch to po if tolerating diet. prob only needs a 5-7 day course of ab in total switch back to regular prednisone dose Plan / VTE VTE Prophylaxis Ordered?: Yes Plan / Urinary Catheter Urinary Catheter: D/C STEPHANI Romeo MD Jan 29, 2019 09:00
[2019-01-29] MEDS: CIPROFLOXACIN 400 MG in IV 1 EA IV SCH ×2 (09:53→22:28)
[2019-01-29] MEDS: CYANOCOBALAMIN 500 MCG TAB PO SCH (09:54)
[2019-01-29] MEDS: HYDROXYCHLOROQUINE 200 MG TAB PO SCH (09:54)
[2019-01-29] MEDS: FOLIC ACID 1 MG TAB PO SCH (09:54)
[2019-01-29] MEDS: AMIODARONE 200 MG TAB (PACERONE) PO SCH (09:54)
[2019-01-29] MEDS: GABAPENTIN 100 MG CAP PO SCH ×2 (09:54→20:57)
[2019-01-29] MEDS: TIMOLOL MALEATE 0.5% OPHTH SOLN 5 ML OU SCH (09:55)
[2019-01-29] MEDS: HEPARIN SOD (PORCINE) 5000 UNITS/ML VIAL SC SCH ×2 (09:55→20:57)
[2019-01-29 12:55] LABS: TROPONIN I 0.07 NG/ML (< 0.10)
[2019-01-29] MEDS ORDERED: predniSONE 5 MG TAB PO ONE (14:45)
--- NOTE | 2019-01-29 14:46 | IPNPDOC ---
Date Seen The patient was seen on 01/29/19. Progress Note SUBJECTIVE: 83-year-old female with past medical history of paroxysmal A. fib (not on anticoagulation), CHF, rheumatoid arthritis, breast cancer status post bilateral mastectomy, colon cancer, status post left hemicolectomy with ostomy in place, presents with severe acute abdominal pain and nausea since last night. Patient was feeling well up until last night when her symptoms started with sh amrita chest pain, abdominal pain and nausea for which she came to the emergency room. She was evaluated in the emergency department, CTA of chest was negative for PE, CT abdomen and pelvis consistent with acalculous cholecystitis; follow- up ultrasound of the gallbladder was consistent with the same diagnosis. Dr. Tyler from general surgery was consulted by the emergency department, who plans on surgical intervention but requests hospital medicine to admit the patient. Patient is currently comfortable after receiving IV Dilaudid, Zofran and Reglan, no complaints at this time, denies any shortness of breath, chest pain, nausea, vomiting, abdominal pain or diarrhea. 01/28/2019 Patient with significant abdominal pain today, worsening overnight, was also hypotensive overnight. She has no additional complaints at this time, denies any short of breath, nausea, vomiting, chest pain or diarrhea. 01/29/2019 Patient status post laparoscopic cholecystectomy yesterday, reports significant improvement, abdominal pain, continues to have mild to moderate right upper quadrant abdominal pain, no other symptoms at this time. She denies any nausea, vomiting, chest pain or diarrhea. She is tolerating her diet without any issues. 10 point review of systems negative except for above PHYSICAL EXAMINATION: VITAL SIGNS: Please see below. GENERAL: No distress, thin, frail HEENT: Normocephalic, atraumatic, moist mucous membranes NECK: Supple CARDIOVASCULAR EXAMINATION: S1, S2, systolic murmur appreciated loudest at the apex RESPIRATORY EXAMINATION: Clear to auscultation, no wheezing ABDOMINAL EXAMINATION: Soft, mild to moderate tenderness, nondistended, ostomy in place, positive bowel sounds EXTREMITIES: Range of motion intact SKIN: No rash NEUROLOGICAL EXAMINATION: Alert and oriented 3, no focal deficits PSYCHIATRIC EXAMINATION: Calm and cooperative LABORATORY DATA, IMAGING STUDIES, MICROBIOLOGY: Please see below. Echocardiogram: Pending. DVT prophylaxis ordered?: Yes ASSESSMENT AND PLAN: 83-year-old female with past medical history of paroxysmal A. fib, not oriented to current admission, CHF, which arthritis on chronic steroids, breast and colon cancer, status post colostomy, presents with abdominal pain. CT and imaging concerning for Acalculous cholecystitis. PROBLEMS: 1. Acalculous cholecystitis: Status post laparoscopic cholecystectomy yesterday, stress dose steroids discontinued, continue Cipro, Flagyl, tolerating diet without any difficulty. Patient was high risk for procedure, will trend troponin daily for the next 3 days, troponin is slightly elevated to 0.07 today. 2. Paroxysmal A. fib: Continue amiodarone and beta tae, no anticoagulation. 3. CAD/CHF: Stable, continue home meds. (Aspirin, statin, beta tae) 4. Rheumatoid arthritis. Continue Plaquenil, restart prednisone. DVT prophylaxis: Heparin subcutaneous GI prophylaxis: Not needed VS, I&O, 24H, Fishbone Vital Signs/I&O Vital Signs Date Time Temp Pulse Resp B/P (MAP) Pulse Ox O2 Delivery O2 Flow Rate FiO2 01/29/19 12:00 98.2 58 16 101/58 (72) 97 Room Air 01/29/19 00:00 2.0 I&O- Last 24 Hours up to 6 AM 01/29/19 05:59 Intake Total 1500 ml Output Total 725 ml Balance 775 ml Laboratory Data 24H LABS Laboratory Tests 2 01/29/19 05:34: Immature Granulocyte % (Auto) 0.7, Neutrophils (%) (Auto) 90.9H, Lymphocytes (%) (Auto) 2.3L, Monocytes (%) (Auto) 6.0H, Eosinophils (%) (Auto) 0.0, Basophils (%) (Auto) 0.1, Neutrophils # (Auto) 13.9H, Lymphocytes # (Auto) 0.4L, Monocytes # (Auto) 0.9H, Eosinophils # (Auto) 0.0, Basophils # (Auto) 0.0, Nucleated Red Blood Cells % (auto) 0.0, Anion Gap 6L, Glomerular Filtration Rate > 60.0, Calcium Level 7.7L, Total Bilirubin 0.7, Aspartate Amino Transf (AST/SGOT) 30, Alanine Aminotransferase (ALT/SGPT) 39, Alkaline Phosphatase 58, Troponin I 0.07#, Total Protein 5.4L, Albumin 2.3L, Albumin/Globulin Ratio 0.74L CBC/BMP Laboratory Tests 01/29/19 05:34 Microbiology Microbiology 11/8/19 Blood Culture - Preliminary, Resulted No Growth after 48 hours. All Specime... 01/27/19 Blood Culture - Preliminary, Resulted No Growth after 48 hours. All Specime... JOEY IRIZARRY MD Jan 29, 2019 14:46
[2019-01-29] MEDS: ATORVASTATIN 20 MG TAB PO SCH (20:57)
[2019-01-29] MEDS: METOPROLOL SUCC *XL* 25MG TAB (TopROL *XL*) PO SCH (21:00)
[2019-01-29] MEDS: LATANOPROST 0.005% OPHTH SOLN 2.5 ML OU SCH (21:02)
[2019-01-30] VITALS (7 sets, daily range): BP systolic 114–139; BP diastolic 60–80
[2019-01-30] MEDS: metroNIDAZOLE 500 MG in IV 1 EA IV SCH (04:59)
[2019-01-30 05:49] LABS: HEMATOCRIT 33.7 % (36.0-47.0); HEMOGLOBIN 10.3 g/dl (12.0-15.5); MEAN CORPUSCULAR HEMOGLOBIN 30.3 pg (27.0-33.0); MEAN CORPUSCULAR HGB CONC 30.6 g/dl (32.0-36.5); MEAN CORPUSCULAR VOLUME 99.1 fl (80.0-96.0); PLATELET COUNT, AUTOMATED 173 10^3/uL (150-450); WHITE BLOOD COUNT 13.5 10^3/uL (4.0-10.0)
[2019-01-30 06:17] LABS: BLOOD UREA NITROGEN 27 MG/DL (7-18); CALCIUM LEVEL 7.6 MG/DL (8.8-10.2); CARBON DIOXIDE LEVEL 26 MEQ/L (21-32); CHLORIDE LEVEL 107 MEQ/L (98-107); CREATININE FOR GFR 0.74 MG/DL (0.55-1.30); GLOMERULAR FILTRATION RATE > 60.0 (>32); GLUCOSE, FASTING 132 MG/DL (70-100); MAGNESIUM LEVEL 2.7 MG/DL (1.8-2.4); PHOSPHORUS LEVEL 0.8 MG/DL (2.5-4.9); POTASSIUM SERUM 4.3 MEQ/L (3.5-5.1); SODIUM LEVEL 137 MEQ/L (136-145); TROPONIN I 0.06 NG/ML (< 0.10)
[2019-01-30] MEDS: HEPARIN SOD (PORCINE) 5000 UNITS/ML VIAL SC SCH ×2 (08:07→21:31)
[2019-01-30] MEDS: FOLIC ACID 1 MG TAB PO SCH (08:08)
[2019-01-30] MEDS: AMIODARONE 200 MG TAB (PACERONE) PO SCH (08:08)
[2019-01-30] MEDS: CIPROFLOXACIN 400 MG in IV 1 EA IV SCH (08:08)
[2019-01-30] MEDS: predniSONE 5 MG TAB PO SCH (08:08)
[2019-01-30] MEDS: CYANOCOBALAMIN 500 MCG TAB PO SCH (08:08)
[2019-01-30] MEDS: GABAPENTIN 100 MG CAP PO SCH ×2 (08:08→21:30)
[2019-01-30] MEDS: TIMOLOL MALEATE 0.5% OPHTH SOLN 5 ML OU SCH (08:09)
[2019-01-30] MEDS: SODIUM PHOSPHATE INJ 30 MMOL in D5W 500 ML IV SCH ×2 (09:31→14:00)
[2019-01-30] MEDS: predniSONE 1 MG TAB PO SCH (09:31)
[2019-01-30] MEDS ORDERED: SLF 3 ML SYR IV PRN (10:15)
--- NOTE | 2019-01-30 10:16 | IPNPDOC ---
Subjective General Date/Time Seen The patient was seen on 01/30/19 at 10:15. Subject Chief Complaint/History The patient is a 83-year-old female admitted with a reason for visit of Acalculous Cholecystitis. Patient is on her second postoperative day after laparoscopic cholecystectomy. She reports she is doing very well. She does not have much discomfort. Her drain is starting to come down on the amount of drainage and is appearing light pink serosanguineous. Current Medications Current Medications Current Medications Medications (Trade) Dose Ordered Sig/Dio Route PRN Reason Start Time Stop Time Status Last Admin Dose Admin Acetaminophen (Tylenol Tab) 500 mg Q4H PRN PO PAIN 01/27/19 15:30 01/28/19 10:32 Amiodarone HCl (Pacerone, Cordarone) 200 mg DAILY PO 01/28/19 09:00 01/30/19 08:08 Aspirin (Ecotrin) 81 mg DAILY PO 01/28/19 09:00 01/28/19 18:24 DC 01/28/19 08:06 Atorvastatin Calcium (Lipitor) 40 mg QHS PO 01/27/19 21:00 01/29/19 20:57 Ciprofloxacin 400 mg/IV Miscellaneous Supplies 200 ml @ 200 mls/hr BID IV 01/27/19 21:00 01/30/19 08:08 Cyanocobalamin (Vitamin B12) 1,000 mcg DAILY PO 01/28/19 09:00 01/30/19 08:08 Dicyclomine HCl (Bentyl) 10 mg Q6HP PRN PO ABDOMINAL PAIN 01/27/19 15:30 Fentanyl Citrate (Sublimaze) 25 mcg Q5MP PRN IV PAIN LEVEL 5-10 01/28/19 18:30 01/28/19 19:39 DC Fluticasone Propionate (Flonase 0.05% Nasal [place]) 2 spray DAILYPRN PRN NARES CONGESTION 01/27/19 15:30 Folic Acid (Folic Acid) 2 mg DAILY PO 01/28/19 09:00 01/30/19 08:08 Gabapentin (Neurontin) 100 mg QAM PO 01/28/19 09:00 01/30/19 08:08 Gabapentin (Neurontin) 200 mg QHS PO 01/27/19 21:00 01/29/19 20:57 Heparin Sodium (Porcine) (Heparin) 5,000 units Q12H SC 01/27/19 21:00 01/30/19 08:07 Home Med (Med Rec Complete!) ASDIRECTED XX 01/27/19 14:30 01/27/19 14:36 DC Hydrocortisone (A-Hydrocort) 50 mg Q6H IV 01/28/19 12:00 01/28/19 11:54 DC Hydrocortisone (A-Hydrocort) 100 mg Q6H IV 01/28/19 12:00 01/29/19 10:11 DC 01/29/19 07:49 Hydromorphone HCl (Dilaudid) 0.5 mg Q30M PRN IV MODERATE PAIN (PS 5-7) 01/27/19 13:30 01/27/19 15:14 DC 01/27/19 15:14 Hydroxychloroquine Sulfate (Plaquenil) 200 mg Q2D@0900 PO 01/29/19 09:00 01/29/19 09:54 Lactated Ringer's 1,000 ml @ 100 mls/hr Q10H IV 01/28/19 18:30 01/28/19 19:30 DC Latanoprost (Xalatan 0.005% Op Soln) 1 drop QHS OU 01/27/19 21:00 01/29/19 21:02 Magnesium Sulfate/ Dextrose 1 gm/IV Miscellaneous Supplies 100 ml @ 100 mls/hr Q1H IV 01/28/19 09:00 01/28/19 11:59 DC 01/28/19 12:29 Meperidine HCl (Demerol) 12.5 mg Q5MP PRN IV SHIVERING 01/28/19 18:30 01/28/19 19:30 DC Metoclopramide HCl (REGLAN INJection) 10 mg Q6HP PRN IV NAUSEA OR VOMITING 01/28/19 18:30 01/28/19 19:30 DC Metoprolol Succinate (TopROL XL) 25 mg QHS PO 01/27/19 21:00 01/29/19 21:00 Metronidazole 500 mg/IV Miscellaneous Supplies 100 ml @ 100 mls/hr Q8H IV 01/27/19 20:00 01/30/19 04:59 Morphine Sulfate (Morphine Sulfate Inj) 2 mg Q30M PRN IV MODERATE PAIN (PS 5-7) 01/27/19 12:15 01/27/19 13:09 DC 01/27/19 13:09 Morphine Sulfate (Morphine Sulfate Inj) 2 mg Q4H PRN IV pain 7-10 01/27/19 15:30 01/28/19 08:03 Ondansetron HCl (ZOFRAN INJection) 4 mg Q4HP PRN IV NAUSEA OR VOMITING 01/28/19 18:30 01/28/19 19:30 DC Oxycodone HCl (Roxicodone, Oxyir) 5 mg ASDIRECTED PRN PO PAIN LEVEL 1-4 01/28/19 18:30 01/28/19 19:30 DC Prednisone (Deltasone) 1 mg DAILY PO 01/30/19 09:00 01/30/19 09:31 Prednisone (Deltasone) 1 mg DAILY PO 01/28/19 09:00 01/28/19 11:34 DC 01/28/19 08:05 Prednisone (Deltasone) 5 mg DAILY PO 01/30/19 09:00 01/30/19 08:08 Prednisone (Deltasone) 5 mg DAILY PO 01/28/19 09:00 01/28/19 11:34 DC 01/28/19 08:05 Sodium Chloride 1,000 ml @ 75 mls/hr [id number] IV 01/27/19 15:45 01/29/19 10:11 DC 01/28/19 20:56 Sodium Chloride (Saline Lock Flush) 2 ml ASDIRECTED PRN IV SEE LABEL COMMENTS 01/30/19 10:15 Sodium Chloride (Saline Lock Flush) 2 ml SLF IV 01/30/19 14:00 Sodium Phosphate 30 mmol/Dextrose 510 ml @ 130 mls/hr Q1H IV 01/30/19 08:00 01/30/19 09:59 DC 01/30/19 09:31 Timolol Maleate (Timoptic 0.5% Ophth [place]) 1 drop DAILY OU 01/28/19 09:00 01/30/19 08:09 Allergies Coded Allergies: Penicillins (Verified Allergy, Intermediate, Hives, 07/08/18) Sulfa (Sulfonamide Antibiotics) (Verified Allergy, Intermediate, Hives, 07/08/18) codeine (Verified Allergy, Unknown, UNKNOWN REACTION, 01/27/19) Objective Physical Examination Examination GENERAL APPEARANCE: Comfortable. SKIN: Warm and moist., No jaundice HEENT: Normocephalic, atraumatic. [place] palpebral conjunctiva, anicteric sclerae. Lips and mucosa appear moist. NECK: Supple, no thyromegaly. No obvious jugular venous distention. LUNGS: Clear to auscultation bilaterally. No wheezing appreciated. HEART: No chest wall abnormalities. Regular rate and rhythm with no murmurs appreciated. ABDOMEN: Abdomen is round, soft, nondistended. Port site incisions and dressings intact. Left sided LITZY drain with light pink serosanguineous fluid. EXTREMITIES: Extremities have no deformities. No edema identified. Vital Signs Vital Signs Date Time Temp Pulse Resp B/P (MAP) Pulse Ox O2 Delivery O2 Flow Rate FiO2 01/30/19 08:00 98.4 65 17 135/66 (89) 98 Room Air 01/29/19 00:00 2.0 I&Os I&O- Last 24 Hours up to 6 AM 01/30/19 06:00 Intake Total 2590 ml Output Total 965 ml Balance 1625 ml Laboratory Data Labs 24H Laboratory Tests 2 01/30/19 05:30: Nucleated Red Blood Cells % (auto) 0.0, Anion Gap 4L, Glomerular Filtration Rate > 60.0, Calcium Level 7.6L, Phosphorus Level 0.8L, Magnesium Level 2.7H, Troponin I 0.06 CBC/BMP Laboratory Tests 01/30/19 05:30 Microbiology Microbiology 01/27/19 Blood Culture - Preliminary, Resulted No Growth after 48 hours. All Specime... 01/27/19 Blood Culture - Preliminary, Resulted No Growth after 48 hours. All Specime... 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 I will keep the drain today and most likely d/c it tomorrow. Switch to PO abx. May go home when medically stable Follow up with me in 2 weeks Plan / VTE VTE Prophylaxis Ordered?: Yes Plan / Urinary Catheter Urinary Catheter: D/C STEPHANI Romeo MD Jan 30, 2019 10:16
[2019-01-30] MEDS: SLF 3 ML SYR IV SCH ×2 (13:07→21:31)
[2019-01-30] MEDS: metroNIDAZOLE (FLAGYL) 500 MG TAB PO SCH ×2 (13:09→21:30)
--- NOTE | 2019-01-30 13:17 | IPNPDOC ---
Date Seen The patient was seen on 01/30/19. Progress Note SUBJECTIVE: 83-year-old female with past medical history of paroxysmal A. fib (not on anticoagulation), CHF, rheumatoid arthritis, breast cancer status post bilateral mastectomy, colon cancer, status post left hemicolectomy with ostomy in place, presents with severe acute abdominal pain and nausea since last night. Patient was feeling well up until last night when her symptoms started with sh amrita chest pain, abdominal pain and nausea for which she came to the emergency room. She was evaluated in the emergency department, CTA of chest was negative for PE, CT abdomen and pelvis consistent with acalculous cholecystitis; follow- up ultrasound of the gallbladder was consistent with the same diagnosis. Dr. Tyler from general surgery was consulted by the emergency department, who plans on surgical intervention but requests hospital medicine to admit the patient. Patient is currently comfortable after receiving IV Dilaudid, Zofran and Reglan, no complaints at this time, denies any shortness of breath, chest pain, nausea, vomiting, abdominal pain or diarrhea. 01/28/2019 Patient with significant abdominal pain today, worsening overnight, was also hypotensive overnight. She has no additional complaints at this time, denies any short of breath, nausea, vomiting, chest pain or diarrhea. 01/29/2019 Patient status post laparoscopic cholecystectomy yesterday, reports significant improvement, abdominal pain, continues to have mild to moderate right upper quadrant abdominal pain, no other symptoms at this time. She denies any nausea, vomiting, chest pain or diarrhea. She is tolerating her diet without any issues. 01/30/2019 Patient doing well, without any complaints, tolerating diet, having minimal abdominal pain, has not passed any stool through her colostomy yet, passing gas. She denies any shortness of breath, nausea, vomiting, chest pain or headache. 10 point review of systems negative except for above PHYSICAL EXAMINATION: VITAL SIGNS: Please see below. GENERAL: No distress, thin, frail HEENT: Normocephalic, atraumatic, moist mucous membranes NECK: Supple CARDIOVASCULAR EXAMINATION: S1, S2, systolic murmur appreciated loudest at the apex RESPIRATORY EXAMINATION: Clear to auscultation, no wheezing ABDOMINAL EXAMINATION: Soft, no tenderness, nondistended, ostomy in place, LITZY draining serosanguineous fluid, positive bowel sounds EXTREMITIES: Range of motion intact SKIN: No rash NEUROLOGICAL EXAMINATION: Alert and oriented 3, no focal deficits PSYCHIATRIC EXAMINATION: Calm and cooperative LABORATORY DATA, IMAGING STUDIES, MICROBIOLOGY: Please see below. Echocardiogram: Pending. DVT prophylaxis ordered?: Yes ASSESSMENT AND PLAN: 83-year-old female with past medical history of paroxysmal A. fib, not oriented to current admission, CHF, which arthritis on chronic steroids, breast and colon cancer, status post colostomy, presents with abdominal pain. CT and imaging concerning for Acalculous cholecystitis. PROBLEMS: 1. Acalculous cholecystitis: Status post laparoscopic cholecystectomy, stress dose steroids discontinued, continue Cipro, Flagyl, tolerating diet without any difficulty. Surgery planning on removing LITZY tomorrow, if remains stable, plan for discharge tomorrow. 2. Paroxysmal A. fib: Continue amiodarone and beta tae, not on anticoagulation. 3. CAD/CHF: Stable, continue home meds. (Aspirin, statin, beta tae) 4. Rheumatoid arthritis. Continue Plaquenil, restart prednisone. 5. Hypophosphatemia. Supplement IV DVT prophylaxis: Heparin subcutaneous GI prophylaxis: Not needed VS, I&O, 24H, [facility] Vital Signs/I&O Vital Signs Date Time Temp Pulse Resp B/P (MAP) Pulse Ox O2 Delivery O2 Flow Rate FiO2 01/30/19 12:00 97.9 60 17 139/67 (91) 99 Room Air 01/29/19 00:00 2.0 I&O- Last 24 Hours up to 6 AM 01/30/19 06:00 Intake Total 2590 ml Output Total 965 ml Balance 1625 ml Laboratory Data 24H LABS Laboratory Tests 2 01/30/19 05:30: Nucleated Red Blood Cells % (auto) 0.0, Anion Gap 4L, Glomerular Filtration Rate > 60.0, Calcium Level 7.6L, Phosphorus Level 0.8L, Magnesium Level 2.7H, Troponin I 0.06 CBC/BMP Laboratory Tests 01/30/19 05:30 Microbiology Microbiology 01/27/19 Blood Culture - Preliminary, Resulted No Growth after 72 hours. All specime... 01/27/19 Blood Culture - Preliminary, Resulted No Growth after 72 hours. All specime... JOEY IRIZARRY MD Jan 30, 2019 13:17
[2019-01-30] MEDS: CIPROFLOXACIN 500 MG TAB PO SCH (16:57)
[2019-01-30] MEDS: ATORVASTATIN 20 MG TAB PO SCH (21:30)
[2019-01-30] MEDS: METOPROLOL SUCC *XL* 25MG TAB (TopROL *XL*) PO SCH (21:31)
[2019-01-30] MEDS: LATANOPROST 0.005% OPHTH SOLN 2.5 ML OU SCH (21:31)
[2019-01-31] VITALS: BP 120/68
--- NOTE | 2019-01-31 00:22 | ECHO ---
DATE OF PROCEDURE: 01/30/2019 REFERRING PHYSICIAN: Dr. Dina Boateng INDICATION: Heart failure, unspecified. HEIGHT: 142 cm WEIGHT: 39.1 kg 2D MEASUREMENTS: Ventricular septum: 0.97-1.54 cm Posterior wall: 1.12 cm Left ventricle diastole: 3.5 cm Aortic root: 2.6 cm LVOT: 1.9 cm Proximal ascending aorta: 2.8 cm Right ventricle: 3.5 cm Left atrial volume index: 54 DOPPLER MEASUREMENTS: Aortic valve velocity: 157 cm LVOT velocity: 56.4 cm LVOT VTI: 12.2 cm No aortic stenosis. No aortic regurgitation. Moderate mitral regurgitation. No mitral stenosis. Mitral E velocity: 81.4 cm/s Mitral deceleration time: 162 milliseconds Severe tricuspid regurgitation. Estimated right ventricle systolic pressure: At least 91 mmHg assuming a right atrial pressure of at least 20 mmHg. Very mild pulmonic regurgitation. Pulmonary acceleration time: 74 milliseconds. MITRAL ANNULAR TISSUE DOPPLER: E prime septal: 3.7 cm/s E prime lateral: 6.7 cm/s Inferior vena cava: 2.2 cm with marked reduction of respiratory variation DESCRIPTION: Rhythm was mostly sinus bradycardia. Image quality was good. No pericardial effusion. This was a 2D, M-mode, color flow Doppler and pulse wave Doppler examination and included mitral annular tissue Doppler. No pericardial effusion. CONCLUSIONS: 1. Suggestive of very severe elevation of estimated right ventricle systolic pressure, at least 91 mmHg, assuming a right atrial pressure of at least 20 mmHg. Normal right ventricle size and systolic function. Severe right atrial dilatation. Structurally normal appearing tricuspid leaflets. Severe tricuspid regurgitation. Severe right atrial dilatation. Inferior vena cava plethora with marked reduction of respiratory variation. Suggestive of elevated central venous pressure of at least 20 mmHg. 2. Normal left ventricle internal dimensions. Mild-moderate focal hypertrophy of the basal anterior ventricular septum. No dynamic left ventricular outflow tract obstruction. LV diastolic function difficult to determine because of moderate mitral regurgitation and because of virtual absence of an atrial filling wave (hypocontractile left atrium). Reduced mitral annular tissue Doppler velocities consistent with at least some degree of LV diastolic dysfunction. 3. Severe left atrial dilatation. 4. Severe aortic valve thickening and calcification of a 3-cusp aortic valve. No aortic stenosis. No aortic regurgitation. 5. Moderate mitral annular calcification. Moderate mitral regurgitation. No mitral stenosis. 6. No pericardial effusion.
[2019-01-31 04:00] VITALS: BP 122/74
[2019-01-31 05:58] LABS: HEMATOCRIT 35.6 % (36.0-47.0); HEMOGLOBIN 10.8 g/dl (12.0-15.5); MEAN CORPUSCULAR HEMOGLOBIN 30.3 pg (27.0-33.0); MEAN CORPUSCULAR HGB CONC 30.3 g/dl (32.0-36.5); PLATELET COUNT, AUTOMATED 186 10^3/uL (150-450); RED BLOOD COUNT 3.56 10^6/uL (4.00-5.40); WHITE BLOOD COUNT 11.5 10^3/uL (4.0-10.0)
[2019-01-31 06:25] LABS: BLOOD UREA NITROGEN 18 MG/DL (7-18); CALCIUM LEVEL 8.3 MG/DL (8.8-10.2); CARBON DIOXIDE LEVEL 27 MEQ/L (21-32); CHLORIDE LEVEL 111 MEQ/L (98-107); CREATININE FOR GFR 0.59 MG/DL (0.55-1.30); GLOMERULAR FILTRATION RATE > 60.0 (>32); GLUCOSE, FASTING 99 MG/DL (70-100); PHOSPHORUS LEVEL 1.4 MG/DL (2.5-4.9); POTASSIUM SERUM 3.9 MEQ/L (3.5-5.1); SODIUM LEVEL 142 MEQ/L (136-145); TROPONIN I 0.05 NG/ML (< 0.10)
[2019-01-31] MEDS: SLF 3 ML SYR IV SCH ×2 (06:32→14:00)
[2019-01-31] MEDS: metroNIDAZOLE (FLAGYL) 500 MG TAB PO SCH ×2 (06:32→12:56)
[2019-01-31] MEDS: CIPROFLOXACIN 500 MG TAB PO SCH (06:32)
[2019-01-31 08:00] VITALS: BP 126/67
[2019-01-31] MEDS: TIMOLOL MALEATE 0.5% OPHTH SOLN 5 ML OU SCH (09:43)
[2019-01-31] MEDS: FOLIC ACID 1 MG TAB PO SCH (09:43)
[2019-01-31] MEDS: GABAPENTIN 100 MG CAP PO SCH (09:43)
[2019-01-31] MEDS: CYANOCOBALAMIN 500 MCG TAB PO SCH (09:43)
[2019-01-31] MEDS: AMIODARONE 200 MG TAB (PACERONE) PO SCH (09:44)
[2019-01-31] MEDS: HEPARIN SOD (PORCINE) 5000 UNITS/ML VIAL SC SCH (09:44)
[2019-01-31] MEDS: predniSONE 5 MG TAB PO SCH (09:44)
[2019-01-31] MEDS: predniSONE 1 MG TAB PO SCH (09:44)
[2019-01-31] MEDS: HYDROXYCHLOROQUINE 200 MG TAB PO SCH (09:44)
[2019-01-31] MEDS ORDERED: POTASSIUM PHOSPHATE INJ 30 MMOL in D5W 500 ML IV ONE (10:00)
[2019-01-31 12:00] VITALS: BP 112/62
[2019-01-31] MEDS ORDERED: FUROSEMIDE 40 MG/4 ML VIAL (J1940) IV ONE (12:00)
[2019-01-31] MEDS ORDERED: POTASSIUM CHLORIDE 10 MEQ SR TABLET PO ONE (12:00)
--- NOTE | 2019-01-31 12:03 | REP ---
Two-view chest: 01/31/2019. Indication: Dyspnea. Comparison: 01/27/2019. Findings: Compared to 4 days earlier, no significant changes are present. Elevated right hemidiaphragm is again noted. Bibasilar atelectasis is unchanged. There is no significant pleural effusion or pneumothorax. Impression: No acute changes compared to 4 days earlier. Electronically Signed by Hayden Nunn DO 01/31/2019 11:54 A
--- NOTE | 2019-01-31 12:55 | IPNPDOC ---
Subjective General Date/Time Seen The patient was seen on 01/31/19 at 12:51. Subject Chief Complaint/History The patient is a 83-year-old female admitted with a reason for visit of Acalculous Cholecystitis. Patient stated lump on the chair, looks comfortable. She reports some shortness of breath when she is laying down flat in the bed which improves when she stated up. She elects retaken shows fairly clear lung saini may be slight cephalization. Her echocardiogram is not available yet. Otherwise she is eating well and denies any nausea, vomiting and bloating or abdominal discomfort., Current Medications Current Medications Current Medications Medications (Trade) Dose Ordered Sig/Dio Route PRN Reason Start Time Stop Time Status Last Admin Dose Admin Acetaminophen (Tylenol Tab) 500 mg Q4H PRN PO PAIN 01/27/19 15:30 01/28/19 10:32 Amiodarone HCl (Pacerone, Cordarone) 200 mg DAILY PO 01/28/19 09:00 01/31/19 09:44 Aspirin (Ecotrin) 81 mg DAILY PO 01/28/19 09:00 01/28/19 18:24 DC 01/28/19 08:06 Atorvastatin Calcium (Lipitor) 40 mg QHS PO 01/27/19 21:00 01/30/19 21:30 Ciprofloxacin (Cipro) 500 mg BID@06,18 PO 01/30/19 18:00 02/03/19 17:59 01/31/19 06:32 Ciprofloxacin 400 mg/IV Miscellaneous Supplies 200 ml @ 200 mls/hr BID IV 01/27/19 21:00 01/30/19 10:18 DC 01/30/19 08:08 Cyanocobalamin (Vitamin B12) 1,000 mcg DAILY PO 01/28/19 09:00 01/31/19 09:43 Dicyclomine HCl (Bentyl) 10 mg Q6HP PRN PO ABDOMINAL PAIN 01/27/19 15:30 Fentanyl Citrate (Sublimaze) 25 mcg Q5MP PRN IV PAIN LEVEL 5-10 01/28/19 18:30 01/28/19 19:39 DC Fluticasone Propionate (Flonase 0.05% Nasal [place]) 2 spray DAILYPRN PRN NARES CONGESTION 01/27/19 15:30 Folic Acid (Folic Acid) 2 mg DAILY PO 01/28/19 09:00 01/31/19 09:43 Gabapentin (Neurontin) 100 mg QAM PO 01/28/19 09:00 01/31/19 09:43 Gabapentin (Neurontin) 200 mg QHS PO 01/27/19 21:00 01/30/19 21:30 Heparin Sodium (Porcine) (Heparin) 5,000 units Q12H SC 01/27/19 21:00 01/31/19 09:44 Home Med (Med Rec Complete!) ASDIRECTED XX 01/27/19 14:30 01/27/19 14:36 DC Hydrocortisone (A-Hydrocort) 50 mg Q6H IV 01/28/19 12:00 01/28/19 11:54 DC Hydrocortisone (A-Hydrocort) 100 mg Q6H IV 01/28/19 12:00 01/29/19 10:11 DC 01/29/19 07:49 Hydromorphone HCl (Dilaudid) 0.5 mg Q30M PRN IV MODERATE PAIN (PS 5-7) 01/27/19 13:30 01/27/19 15:14 DC 01/27/19 15:14 Hydroxychloroquine Sulfate (Plaquenil) 200 mg Q2D@0900 PO 01/29/19 09:00 01/31/19 09:44 Lactated Ringer's 1,000 ml @ 100 mls/hr Q10H IV 01/28/19 18:30 01/28/19 19:30 DC Latanoprost (Xalatan 0.005% Op Soln) 1 drop QHS OU 01/27/19 21:00 01/30/19 21:31 Magnesium Sulfate/ Dextrose 1 gm/IV Miscellaneous Supplies 100 ml @ 100 mls/hr Q1H IV 01/28/19 09:00 01/28/19 11:59 DC 01/28/19 12:29 Meperidine HCl (Demerol) 12.5 mg Q5MP PRN IV SHIVERING 01/28/19 18:30 01/28/19 19:30 DC Metoclopramide HCl (REGLAN INJection) 10 mg Q6HP PRN IV NAUSEA OR VOMITING 01/28/19 18:30 01/28/19 19:30 DC Metoprolol Succinate (TopROL XL) 25 mg QHS PO 01/27/19 21:00 01/30/19 21:31 Metronidazole (Flagyl) 500 mg Q8H PO 01/30/19 14:00 02/03/19 13:59 01/31/19 06:32 Metronidazole 500 mg/IV Miscellaneous Supplies 100 ml @ 100 mls/hr Q8H IV 01/27/19 20:00 01/30/19 10:18 DC 01/30/19 04:59 Morphine Sulfate (Morphine Sulfate Inj) 2 mg Q30M PRN IV MODERATE PAIN (PS 5-7) 01/27/19 12:15 01/27/19 13:09 DC 01/27/19 13:09 Morphine Sulfate (Morphine Sulfate Inj) 2 mg Q4H PRN IV pain 7-10 01/27/19 15:30 01/28/19 08:03 Ondansetron HCl (ZOFRAN INJection) 4 mg Q4HP PRN IV NAUSEA OR VOMITING 01/28/19 18:30 01/28/19 19:30 DC Oxycodone HCl (Roxicodone, Oxyir) 5 mg ASDIRECTED PRN PO PAIN LEVEL 1-4 01/28/19 18:30 01/28/19 19:30 DC Prednisone (Deltasone) 1 mg DAILY PO 01/30/19 09:00 01/31/19 09:44 Prednisone (Deltasone) 1 mg DAILY PO 01/28/19 09:00 01/28/19 11:34 DC 01/28/19 08:05 Prednisone (Deltasone) 5 mg DAILY PO 01/30/19 09:00 01/31/19 09:44 Prednisone (Deltasone) 5 mg DAILY PO 01/28/19 09:00 01/28/19 11:34 DC 01/28/19 08:05 Sodium Chloride 1,000 ml @ 75 mls/hr [id number] IV 01/27/19 15:45 01/29/19 10:11 DC 01/28/19 20:56 Sodium Chloride (Saline Lock Flush) 2 ml ASDIRECTED PRN IV SEE LABEL COMMENTS 01/30/19 10:15 Sodium Chloride (Saline Lock Flush) 2 ml SLF IV 01/30/19 14:00 01/31/19 06:32 Sodium Phosphate 30 mmol/Dextrose 510 ml @ 130 mls/hr Q1H IV 01/30/19 08:00 01/30/19 09:59 DC 01/30/19 14:00 Timolol Maleate (Timoptic 0.5% Ophth [place]) 1 drop DAILY OU 01/28/19 09:00 01/31/19 09:43 Allergies Coded Allergies: Penicillins (Verified Allergy, Intermediate, Hives, 07/08/18) Sulfa (Sulfonamide Antibiotics) (Verified Allergy, Intermediate, Hives, 07/08/18) codeine (Verified Allergy, Unknown, UNKNOWN REACTION, 01/27/19) Objective Physical Examination Examination GENERAL APPEARANCE: Patient looks comfortable. SKIN: No jaundice. HEENT: Normocephalic, atraumatic. [place] palpebral conjunctiva, anicteric sclerae. Lips and mucosa appear moist. NECK: Supple, no thyromegaly. No obvious jugular venous distention. LUNGS: Clear to auscultation bilaterally. No wheezing appreciated. HEART: No chest wall abnormalities. Regular rate and rhythm with no murmurs appreciated. ABDOMEN: Abdomen is round, soft, nondistended. Nontender on palpation. Left upper quadrant [place] drain with light pink serosanguineous fluid. Ostomy is functioning. EXTREMITIES: Minimal lower extremity edema. Vital Signs Vital Signs Date Time Temp Pulse Resp B/P (MAP) Pulse Ox O2 Delivery O2 Flow Rate FiO2 01/31/19 12:00 98.5 68 20 112/62 (79) 96 Room Air 01/29/19 00:00 2.0 I&Os I&O- Last 24 Hours up to 6 AM 01/31/19 06:00 Intake Total 2140 ml Output Total 1750 ml Balance 390 ml Laboratory Data Labs 24H Laboratory Tests 2 01/31/19 05:15: Nucleated Red Blood Cells % (auto) 0.0, Anion Gap 4L, Glomerular Filtration Rate > 60.0, Calcium Level 8.3L, Phosphorus Level 1.4#L, Troponin I 0.05 CBC/BMP Laboratory Tests 01/31/19 05:15 Microbiology Microbiology 01/27/19 Blood Culture - Preliminary, Resulted No Growth after 72 hours. All specime... 01/27/19 Blood Culture - Preliminary, Resulted No Growth after 72 hours. All specime... 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 She is complaining of feeling short of breath when she lays down and better when she is sedated up. She saturating well. Her lung sounds are clear. The drain is light pink serosanguineous. This will be discontinued today. I suggest completing a 7 day coverage of antibiotics so she should just need about 2-3 days more of antibiotics if she goes home today. Regular diet as tolerated Follow up with me in 2 weeks Plan / VTE VTE Prophylaxis Ordered?: Yes Plan / Urinary Catheter Urinary Catheter: D/C SETPHANI Romeo MD Jan 31, 2019 12:55
[2019-01-31] MEDS ORDERED: CIPR-249 PO (13:08)
[2019-01-31] MEDS ORDERED: FLAG500T PO (13:08)
[2019-01-31] MEDS ORDERED: NEUTPW PO (13:55)
--- NOTE | 2019-01-31 14:07 | DS.PDOC ---
Discharge Summary General Date of Admission Jan 27, 2019 at 15:24 Date of Discharge 01/31/2019 Attending Physician: JOEY IRIZARRY MD Discharge Summary PROCEDURES PERFORMED DURING STAY: None. ADMITTING DIAGNOSES: 1. Acute cholecystitis. DISCHARGE DIAGNOSES: 1. Acute cholecystitis. COMPLICATIONS/CHIEF COMPLAINT: Acalculous Cholecystitis. HISTORY OF PRESENT ILLNESS: 83-year-old female with past medical history of paroxysmal A. fib (not on anticoagulation), CHF and rheumatoid arthritis, was admitted for acute cholecystitis. She underwent laparoscopic cholecystectomy, has done well postop, without any complications. She is tolerating her diet, passing gas, denies any nausea, vomiting or severe abdominal pain. She had severe electrolyte abnormalities, supplemented IV, will be discharged on 1 week of oral phosphorus supplementation. She will also be discharged on 3 more days of Cipro, Flagyl to complete a seven-day course of antibiotics. She is currently hemodynamically and clinically stable for discharge with outpatient follow-up with surgery and primary care physician. HOSPITAL COURSE: As above. DISCHARGE MEDICATIONS: Please see below. ALLERGIES: Please see below. PHYSICAL EXAMINATION: VITAL SIGNS: Please see below. GENERAL: No distress, thin, frail HEENT: Normocephalic, atraumatic, moist mucous membranes NECK: Supple CARDIOVASCULAR EXAMINATION: S1, S2, systolic murmur appreciated loudest at the apex RESPIRATORY EXAMINATION: Clear to auscultation, no wheezing ABDOMINAL EXAMINATION: Soft, mild tenderness, nondistended, ostomy in place, LITZY draining serosanguineous fluid, positive bowel sounds EXTREMITIES: Range of motion intact SKIN: No rash NEUROLOGICAL EXAMINATION: Alert and oriented 3, no focal deficits PSYCHIATRIC EXAMINATION: Calm and cooperative LABORATORY DATA: Please see below. PROGNOSIS: Guarded ACTIVITY: As tolerated. DIET: Cardiac DISCHARGE PLAN: Patient will follow up with surgery and PCP in 1-2 weeks DISPOSITION: Home. DISCHARGE INSTRUCTIONS: 1. As above. DISCHARGE CONDITION: Stable. TIME SPENT ON DISCHARGE: Greater than 36 minutes. Vital Signs/I&Os Vital Signs Date Time Temp Pulse Resp B/P (MAP) Pulse Ox O2 Delivery O2 Flow Rate FiO2 01/31/19 12:00 98.5 68 20 112/62 (79) 96 Room Air 01/29/19 00:00 2.0 I&O- Last 24 Hours up to 6 AM 01/31/19 05:59 Intake Total 2140 ml Output Total 1740 ml Balance 400 ml Laboratory Data Labs 24H Laboratory Tests 2 01/31/19 05:15: Nucleated Red Blood Cells % (auto) 0.0, Anion Gap 4L, Glomerular Filtration Rate > 60.0, Calcium Level 8.3L, Phosphorus Level 1.4#L, Troponin I 0.05 CBC/BMP Laboratory Tests 01/31/19 05:15 Microbiology Microbiology 01/27/19 Blood Culture - Preliminary, Resulted No Growth after 72 hours. All specime... 01/27/19 Blood Culture - Preliminary, Resulted No Growth after 72 hours. All specime... Discharge Medications Scheduled Amiodarone HCl (Amiodarone HCl) 200 Mg Tablet, 200 MG PO DAILY, (Reported) Aspirin (Aspirin EC) 81 Mg Tab, 81 MG PO DAILY, (Reported) Atorvastatin Calcium (Atorvastatin Calcium) 40 Mg Tablet, 40 MG PO QHS, (Reported) Ciprofloxacin HCl (Cipro) 500 Mg Tablet, 500 MG PO BID@,18 Cyanocobalamin (Vitamin B-12) (Vitamin B-12) 250 Mcg Lizette, 1,000 MCG PO DAILY, (Reported) Denosumab Injection (Prolia) 60 Mg/Ml Wendy, 60 MG SC ASDIRECTED, (Reported) EVERY 6 MONTHS Ergocalciferol (Vitamin D2) (Drisdol) 50,000 Unit Cap, 50,000 UNIT PO Q2WK, (Reported) EVERY OTHER WEDNESDAY Fluorouracil (Fluorouracil) 0.5% 30GM Cream..g., 1 APLCT TOP BID, (Reported) APPLY TO LEGS Folic Acid (Folic Acid) 1 Mg Tab, 2 MG PO DAILY, (Reported) Gabapentin (Gabapentin) 100 Mg Cap, 100 MG PO QAM, (Reported) Gabapentin (Gabapentin) 100 Mg Capsule, 200 MG PO QHS, (Reported) Hydroxychloroquine Sulfate (Hydroxychloroquine Sulfate) 200 Mg Tab, 200 MG PO Q2D, (Reported) Latanoprost (Xalatan) 0.005% 2.5ML Drops, 1 DROP OU QHS, (Reported) Methotrexate Sodium (Methotrexate) 2.5 Mg Tab, 7.5 MG PO QWEEK, (Reported) TUESDAYS Metoprolol Succinate (Metoprolol Succinate) 25 Mg Tab.er.24h, 25 MG PO QHS, (Reported) Metronidazole (Flagyl) 500 Mg Tablet, 500 MG PO Q8H Potassium Phos/Sodium Phos (Phos-Nak Packet) 1 Each Powd.pack, 1 PKT PO Q12H Prednisone (Prednisone) 1 Mg Tab, 1 MG PO DAILY, (Reported) TOTAL 6MG Prednisone (Prednisone) 5 Mg Tab, 5 MG PO DAILY, (Reported) TOTAL 6MG Timolol Maleate (Timolol Maleate) 0.5% 5ML Drops, 1 DROP OU DAILY, (Reported) Scheduled PRN Acetaminophen (Acetaminophen) 500 Mg Tab, 500 MG PO Q4H PRN for PAIN, (Reported) Diclofenac Sodium (Voltaren) 100 Gm Gel..gram., 1 GM TD TID PRN for PAIN, (Reported) APPLY TO ELBOW Dicyclomine HCl (Dicyclomine HCl) 10 Mg Cap, 10 MG PO Q6H PRN for ABDOMINAL PAIN, (Reported) Fluticasone Propionate (Flonase Allergy Relief) 9.9 Ml [place].susp, 2 SPRAY NARES DAILY PRN for CONGESTION, (Reported) Phenobarb/Hyoscy/Atropine/Scop ( Tablet) 1 Tab Tab, 1 TAB PO TID PRN for ABDOMINAL PAIN, (Reported) Allergies Coded Allergies: Penicillins (Verified Allergy, Intermediate, Hives, 07/08/18) Sulfa (Sulfonamide Antibiotics) (Verified Allergy, Intermediate, Hives, 07/08/18) codeine (Verified Allergy, Unknown, UNKNOWN REACTION, 01/27/19) JOYE IRIZARRY MD Jan 31, 2019 14:07
== END 2019-01-31 16:21 | disposition home or self-care (01) | DRG 418 ==
LOC: M ED 11:26 → EDBD 11:26 → M ED INP 15:24 → M MSPAV 17:24 → M PCU 01-28 19:38
PROVIDERS: ADMIT Internal Medicine; ATTEND Internal Medicine
PROC: 0FT44ZZ Resection of Gallbladder, Percutaneous Endoscopic Approach (ICD-10-PCS; principal; 2019-01-28 15:00)
DX: K81.0 Acute cholecystitis (principal); K82.0 Obstruction of gallbladder; I48.0 Paroxysmal atrial fibrillation; I50.9 Heart failure, unspecified; M06.9 Rheumatoid arthritis, unspecified; Z85.3 Personal history of malignant neoplasm of breast; Z90.13 Acquired absence of bilateral breasts and nipples; Z85.038 Personal history of other malignant neoplasm of large intestine; Z90.49 Acquired absence of other specified parts of digestive tract; Z93.3 Colostomy status; Z79.52 Long term (current) use of systemic steroids; I25.10 Atherosclerotic heart disease of native coronary artery without angina pectoris; Z79.82 Long term (current) use of aspirin; Z79.899 Other long term (current) drug therapy; Z88.0 Allergy status to penicillin; Z88.2 Allergy status to sulfonamides

== ENCOUNTER → 2019-03-09 | Outpatient (CLI) | payer MEDICARE, OTHER ==
[~2019-03-09] MED LIST changes: +CIPR-249 PO; +FLUO0.0216 TOP; +NEUTPW PO; +VOLT1GEL15 TD; +XALA0.007 OU
== END ==
LOC: M PLALAB 14:14
PROVIDERS: ATTEND Internal Medicine Endocrinology, Diabetes & Metabolism
DX: M81.0 Age-related osteoporosis without current pathological fracture (principal)

== ENCOUNTER → 2019-03-10 | Outpatient (REF) | payer MEDICARE, OTHER ==
[~2019-03-10] MED LIST changes: +VITA50005 PO
== END ==
LOC: M LAB REF 17:24
PROVIDERS: ATTEND Dermatology
DX: L57.0 Actinic keratosis (principal)
CPT/HCPCS: 11102; 88305; G0463

== ENCOUNTER 2019-03-30 16:22 | Inpatient (IN) | payer MEDICARE, OTHER ==
[~2019-03-30] VITALS: Ht 144.8 cm; Wt 39.0 kg
[2019-03-30] MEDS: LATANOPROST 0.005% OPHTH SOLN 2.5 ML OU SCH (02:30)
[~2019-03-30 16:22] MED LIST changes: +FLON1SPR
[2019-03-30 16:57] LABS: BASO % 0.3 % (0.0-1.0); EOS # 0.1 10^3/uL (0.0-0.5); EOS % 0.6 % (0.0-3.0); HEMATOCRIT 39.9 % (36.0-47.0); HEMOGLOBIN 11.9 g/dl (12.0-15.5); LYMPH # 2.9 10^3/uL (1.5-5.0); LYMPH % 23.1 % (24.0-44.0); MEAN CORPUSCULAR HEMOGLOBIN 29.5 pg (27.0-33.0); MEAN CORPUSCULAR HGB CONC 29.8 g/dl (32.0-36.5); MONO # 0.7 10^3/uL (0.0-0.8); MONO % 5.7 % (0.0-5.0); NEUTROPHILS # 8.7 10^3/uL (1.5-8.5); NEUTROPHILS % 69.4 % (36.0-66.0); PLATELET COUNT, AUTOMATED 301 10^3/uL (150-450); RED BLOOD COUNT 4.03 10^6/uL (4.00-5.40); WHITE BLOOD COUNT 12.6 10^3/uL (4.0-10.0)
[2019-03-30 17:10] LABS: INR 1.01; PARTIAL THROMBOPLASTIN TIME 29.2 SECONDS (25.0-38.4)
[2019-03-30 17:34] LABS: BLOOD UREA NITROGEN 20 MG/DL (7-18); CALCIUM LEVEL 8.7 MG/DL (8.8-10.2); CARBON DIOXIDE LEVEL 29 MEQ/L (21-32); CHLORIDE LEVEL 107 MEQ/L (98-107); CK-MB VALUE MASS 1.4 NG/ML (<3.6); CPK CREATINE PHOSPHOKINASE 51 U/L (26-192); CREATININE FOR GFR 0.89 MG/DL (0.55-1.30); FREE T4 1.36 NG/DL (0.76-1.46); GLOMERULAR FILTRATION RATE > 60.0 (>32); GLUCOSE, FASTING 87 MG/DL (70-100); MB/CK RELATIVE INDEX 2.75 (< OR =4); POTASSIUM SERUM 4.4 MEQ/L (3.5-5.1); SODIUM LEVEL 142 MEQ/L (136-145); TROPONIN I < 0.02 NG/ML (< 0.10)
--- NOTE | 2019-03-30 17:38 | REPVR ---
PROCEDURE INFORMATION: Exam: CT Head Without Contrast Exam date and time: 03/30/2019 4:38 PM Age: 83 years old Clinical indication: Syncope and collapse TECHNIQUE: Imaging protocol: Computed tomography of the head without contrast. Radiation optimization: All CT scans at this facility use at least one of these dose optimization techniques: automated exposure control; mA and/or kV adjustment per patient size (includes targeted exams where dose is matched to clinical indication); or iterative reconstruction. COMPARISON: CT Head without contrast 06/01/2018 11:12 AM FINDINGS: Brain: There is [id number] global age related parenchymal volume loss. White matter changes are demonstrated in the subcortical, centrum semiovale and periventricular white matter consistent with age related small vessel white matter angiopathic gliosis. Ventricles: The degree of ventricular dilatation is normal for age and/or degree of atrophy present. Bones/joints: Unremarkable. No acute fracture. Sinuses: Near complete opacification of the left maxillary sinus. Left ethmoid sinusitis. Left sphenoid sinusitis. Air-fluid levels in the left maxillary and left sphenoid sinus may indicate acute sinusitis. Widening of the ostiomeatal complex on the left with minimal soft tissue protrusion may suggest a possible antral choanal polyp. Mastoid air cells: Visualized mastoid air cells are well aerated. Soft tissues: Unremarkable. IMPRESSION: 1. Air-fluid levels in the left maxillary and left sphenoid sinus may indicate acute sinusitis. 2. There is kasd-[id number] global age related parenchymal volume loss. White matter changes are demonstrated in the subcortical, centrum semiovale and periventricular white matter consistent with age related small vessel white matter angiopathic gliosis. 3. The degree of ventricular dilatation is normal for age and/or degree of atrophy present. Electronically signed by: Reed Dempsey On 03/30/2019 17:37:51 PM
--- NOTE | 2019-03-30 17:53 | REPVR ---
PROCEDURE INFORMATION: Exam: CT Cervical Spine Without Contrast Exam date and time: 03/30/2019 4:38 PM Age: 83 years old Clinical indication: Other: Syncope TECHNIQUE: Imaging protocol: Computed tomography images of the cervical spine without contrast. Radiation optimization: All CT scans at this facility use at least one of these dose optimization techniques: automated exposure control; mA and/or kV adjustment per patient size (includes targeted exams where dose is matched to clinical indication); or iterative reconstruction. COMPARISON: No relevant prior studies available. FINDINGS: Vertebrae: Levoscoliosis. Discs/Spinal canal/Neural foramina: Moderate degenerative spondylosis throughout the cervical spine with disc space narrowing and intervertebral osteophytes from C2-C3 to C6-C7. There are degenerative changes demonstrated in the atlantoaxial joint with osteophytes and joint space narrowing. The transverse ligament mildly thickened. Moderate foraminal stenosis on the right at C3 moderate bilateral foraminal stenosis at C4 moderate to severe bilateral foraminal stenosis at C5 [id number]-[id number] foraminal stenosis at C6 secondary to uncinate joint hypertrophic changes. Disc osteophyte complex is demonstrated from C2-C3 to C6-C7 resulting in varying degrees of effacement of the ventral subarachnoid space. There is mild cord impingement at C3-C4, C4-C5, C5-C6 and C6-C7. Other bones/joints: Osteoporosis. Soft tissues: See Discs/spinal Canal/neural Foramina Finding. Thyroid: Bilateral thyroid nodules measure up to 9 mm on the left. Considering patient age no follow-up suggested. Lungs: Lung apices are normal. IMPRESSION: 1. Moderate degenerative spondylosis with multilevel disc space narrowing throughout the cervical spine, multilevel bilateral foraminal narrowing and multilevel disc osteophyte complexes with mild cord impingement at several levels as described above. No acute findings. 2. Bilateral thyroid nodules measure up to 9 mm on the left. Considering patient age no follow-up suggested. COMMENT: In patients aged 35 years and older with an incidental thyroid nodule equal to or greater than 1.[address], MRI or extrathyroidal US, further evaluation with dedicated thyroid US is recommended for patients with normal life expectancy and without comorbidities. For smaller nodules without suspicious features, no further evaluation or follow up is recommended. Electronically signed by: Reed Dempsey On 03/30/2019 17:52:55 PM
--- NOTE | 2019-03-30 18:02 | REP ---
Pelvis left hip: Three views. History: Syncope, near-syncope. Comparison radiographs December 16, 2011. Findings: The patient is status post bilateral hip arthroplasties. There are is a surgical suture line in the left mid pelvis and there are clips in the left mid abdomen. Bowel gas pattern is normal. There is diffuse osteoporosis. No bony pelvic fracture is seen. Impression: No acute abnormality. No hip or pelvic fracture is appreciated. Status post bilateral hip arthroplasties. Electronically Signed by Jalen Dunn MD 03/30/2019 05:54 P
--- NOTE | 2019-03-30 18:04 | REP ---
Left femur: Two views. History: Pain after a fall. Findings: AP and lateral views of the left mid and distal femur demonstrate left knee arthroplasty and intramedullary rods in the proximal femur. These components are in good position. There is diffuse osteopenia. There is no evidence of femoral fracture or subluxation. Vascular calcification is observed. Impression: No acute fracture seen. Status post left knee arthroplasty. Electronically Signed by Jalen Dunn MD 03/30/2019 05:56 P
--- NOTE | 2019-03-30 18:13 | REP ---
Portable chest x-ray: Single view. History: Syncope. Comparison chest x-ray: January 31, 2019. Findings: The right hemidiaphragm is elevated. There are clips in the right upper quadrant. Mildly prominent heart is seen. The lung saini are free of infiltrate. The pleural angles are sharp. The aorta is somewhat tortuous. Mild linear fibrosis is seen in the left base. Impression: Mildly prominent heart. Elevated right hemidiaphragm. Linear fibrosis left base. No acute infiltrate seen. Electronically Signed by Jalen Dunn MD 03/30/2019 06:36 P
[2019-03-30] MEDS ORDERED: ACETAMINOPHEN TAB 650MG DOSE (2X325MG) PO ONE (18:30)
[2019-03-30] MEDS ORDERED: MORPHINE 2 MG/ML 1ML VIAL (J2270) IV PRN (19:30)
--- NOTE | 2019-03-30 19:32 | ECGEPIP ---
[facility] - ED Test Date: 2019-03-30 Pat Name: CLOTILDE MEJIA Department: Room: - Gender: Female Reporting Developer: SILVESTRE : 1935 Requested By: JOSE English Order Number: [id number] Reading MD: Gigi Garcia Measurements Intervals [place] Rate: 72 P: 85 WI: 257 QRS: 39 QRSD: 80 T: 19 QT: 393 QTc: 431 Interpretive Statements SINUS RHYTHM WITH FIRST DEGREE AV BLOCK POOR R WAVE PROGRESSION SIMILAR TO 01/27/19 Electronically Signed on 03-30-2019 19:31:37 EST by Gigi Garcia
[2019-03-30] MEDS ORDERED: GABAPENTIN 300 MG CAP PO ONE (20:15)
--- NOTE | 2019-03-30 20:43 | HPEPDOC ---
[facility] Medical History & Physical Date of Admission Mar 30, 2019 Date of Service: Mar 30, 2019 Primary Care Physician: Chun Quezada Attending Physician: ABENA WATKINS MD History and Physical TIME OF SERVICE: 9:22 PM CHIEF COMPLAINT: Dizziness HISTORY OF PRESENT ILLNESS: This is a 83-year-old female who presented to the ER after having a dizzy spell while cooking. She has a history of dizziness and has been evaluated by Dr. Diaz in the past; she has had several CT scans and MRIs and reports that they were unable to find the cause of her dizziness . As a result of the fall, she developed left-sided hip pain. The patient remembers falling to the ground and reports that she did not lose consciousness. As soon as she fell, her who was in the room, came and helped her. She denies having chest pain or shortness of breath prior to the fall. REVIEW OF SYSTEMS: 12 point review of systems negative except as listed in HPI PAST MEDICAL/ SURGICAL HISTORY: Paroxysmal atrial fibrillation History of vestibular disorder Rheumatoid arthritis CAD status post PCI 2 Severe pulmonary hypertension with a PSAP of 91. Chronic diastolic CHF / chronic hypertension Severe aortic valve thickening and calcification without regurgitation or stenosis severe atrial dilatation Severe tricuspid regurg Peripheral neuropathy Osteoporosis. Lichen sclerosus atrophicus of the vulva. History of stage I infiltrating adenocarcinoma of the colon History of stage I right-sided ER positive, MA positive, HER-2/ariel negative breast cancer Status post left knee replacement. Status post left hip replacement. Status post cholecystectomy SOCIAL HISTORY: She does not smoke FAMILY HISTORY: CAD Lung cancer ALLERGIES: Please see below. HOME MEDICATIONS: Please see below. PHYSICAL EXAMINATION: VITAL SIGNS: Please see below. GEN: Slim build/ NAD HEENT: NCAT / lips acyanotic /mucus membranes moist and pink CVS: RRR/NMRG / no lower extremity edema LUNGS: able to speak full sentences without stopping to take a breath/ lungs are clear to auscultation bilaterally on room air ABDOMEN: Contour (scaphoid) / there are no masses or lesions /the abdomen is soft & not tender with palpation MSK/EXTREMITIES: range of motion intact in all 4 extremities except for left hip were range of motion is limited by pain NEURO: CN 2-12 are grossly intact / speech is not dysarthric PSYCH: alert and oriented to person place and time/ able to understand and follow all commands LABORATORY DATA: See below. IMAGING: CT of the head " IMPRESSION: 1. Air-fluid levels in the left maxillary and left sphenoid sinus may indicate acute sinusitis. 2. There is zktc-sd-dwnwjhcw global age related parenchymal volume loss. White matter changes are demonstrated in the subcortical, centrum semiovale and periventricular white matter consistent with age related small vessel white matter angiopathic gliosis. 3. The degree of ventricular dilatation is normal for age and/or degree of atrophy present. MICROBIOLOGY: Please see below. ASSESSMENT: Ms. Birch is a 83-year-old with a history of paroxysmal atrial fibrillation, rheumatoid arthritis, CAD, severe pulmonary hypertension, diastolic CHF, peripheral neuropathy, osteoporosis, and multiple history of multiple malignancies who is admitted for evaluation of presyncope and management of pain secondary to a left hip fracture. PLAN: 1. Presyncope According to the patient, this has been a long-standing issue. CT of the head was negative EKG only showed first-degree AV block Plan: Admit to medical floor/telemetry/follow-up serial troponins / The daytime team can call Dr. Diaz (Neuro) to determine if the patient should have an MRI of the brain or additional testing 2. Nondisplaced left hip prosthetic fracture 2/2 mechanical Fall / osteoporosis She previously had a prosthesis placed in this hip. Plan: Ortho consult Dr. Barreto was consulted / PT consult / pain control w Toradol/ she continues to have fractures despite being on Denosumab, PCP may consider referring her to an datacap developer to determine if she is a candidate for Forteo 3. Macrocytic anemia Likely due to methotrexate. Plan: Continue with vitamin B supplements 4. Paroxysmal atrial fibrillation She is not on anticoagulation for unclear reasons. CHADSVASC score is about 5 Plan: Metoprolol, amiodarone / follow up with PCP 5. Rheumatoid arthritis Plan: Methotrexate, hydroxychloroquine, prednisone 6. CAD status post PCI 2 Plan: Aspirin, atorvastatin, metoprolol 7. Severe pulmonary hypertension Likely type I pulmonary hypertension related to RA 8. Chronic diastolic CHF / chronic hypertension Plan: Metoprolol DVT PROPHYLAXIS: Heparin DISPOSITION: Home versus SNF for rehabilitation after more than 2 midnight's stay Vital Signs Vital Signs Date Time Temp Pulse Resp B/P (MAP) Pulse Ox O2 Delivery O2 Flow Rate FiO2 03/30/19 19:32 Room Air 03/30/19 19:15 18 160/81 (107) 03/30/19 19:08 70 97 03/30/19 16:45 98.6 Laboratory Data Labs 24H Laboratory Tests 2 03/30/19 16:41: Immature Granulocyte % (Auto) 0.9, Neutrophils (%) (Auto) 69.4H, Lymphocytes (%) (Auto) 23.1L, Monocytes (%) (Auto) 5.7H, Eosinophils (%) (Auto) 0.6, Basophils (%) (Auto) 0.3, Neutrophils # (Auto) 8.7H, Lymphocytes # (Auto) 2.9, Monocytes # (Auto) 0.7, Eosinophils # (Auto) 0.1, Basophils # (Auto) 0.0, Nucleated Red Blood Cells % (auto) 0.0, Prothrombin Time 13.0, Prothromb Time International Ratio 1.01, Activated Partial Thromboplast Time 29.2, Anion Gap 6L, Glomerular Filtration Rate > 60.0, Lactic Acid Level 1.5, Calcium Level 8.7L, Magnesium Level 2.0, Total Creatine Kinase 51, Creatine Kinase MB 1.4, Creatine Kinase MB Relative Index 2.75, Troponin I < 0.02, Thyroid Stimulating Hormone (TSH) 2.780, Free Thyroxine 1.36 03/30/19 16:55: Bedside Glucose (Misc Panel) 90 03/30/19 17:03: Urine Color STRAW, Urine Appearance CLEAR, Urine pH 8.0, Urine Specific [place] 1.009, Urine Protein NEGATIVE, Urine Glucose (UA) NEGATIVE, Urine Ketones NEGATIVE, Urine Blood 1+H, Urine Nitrite NEGATIVE, Urine Bilirubin NEGATIVE, Urine Urobilinogen 0.2, Urine Leukocyte Esterase NEGATIVE, Urine WBC (Auto) 1, U rine RBC (Auto) 8H, Urine Hyaline Casts (Auto) 0, Urine Bacteria (Auto) NEGATIVE, Urine Squamous Epithelial Cells 0, Urine Mucus (Auto) SMALL, Urine Sperm (Auto) CBC/BMP Laboratory Tests 03/30/19 16:41 Home Medications Scheduled Amiodarone HCl (Amiodarone HCl) 200 Mg Tablet, 200 MG PO DAILY Aspirin (Aspirin EC) 81 Mg Tab, 81 MG PO DAILY Atorvastatin Calcium (Atorvastatin Calcium) 40 Mg Tablet, 40 MG PO QHS Cyanocobalamin (Vitamin B-12) (Vitamin B-12) 1,000 Mcg Tablet, 1,000 MCG PO DAILY Denosumab Injection (Prolia) 60 Mg/Ml Wendy, 60 MG SC ASDIRECTED EVERY 6 MONTHS: LAST DOSE END OF FEBRUARY Ergocalciferol (Vitamin D2) (Vitamin D2) 50,000 Units Cap, 50,000 UNITS PO Q2WK EVERY OTHER WEDNESDAY Fluorouracil (Fluorouracil) 0.5% 30GM Cream..g., 1 DOSE TOP BID APPLY TO LEGS Folic Acid (Folic Acid) 1 Mg Tab, 2 MG PO DAILY Gabapentin (Gabapentin) 100 Mg Capsule, 200 MG PO QHS Hydroxychloroquine Sulfate (Hydroxychloroquine Sulfate) 200 Mg Tab, 200 MG PO Q2D Latanoprost (Xalatan) 0.005% 2.5ML Drops, 1 DROP OU QHS Methotrexate Sodium (Methotrexate) 2.5 Mg Tab, 7.5 MG PO QWEEK TUESDAYS Metoprolol Succinate (Metoprolol Succinate) 25 Mg Tab.er.24h, 25 MG PO DAILY Prednisone (Prednisone) 1 Mg Tab, 1 MG PO DAILY TOTAL 6MG Prednisone (Prednisone) 5 Mg Tab, 5 MG PO DAILY TOTAL 6MG Timolol Maleate (Timolol Maleate) 0.5% 5ML Drops, 1 DROP OU DAILY Scheduled PRN Acetaminophen (Acetaminophen) 500 Mg Tab, 1,000 MG PO Q6H PRN for PAIN Dicyclomine HCl (Dicyclomine HCl) 10 Mg Cap, 10 MG PO Q6H PRN for ABDOMINAL PAIN Fluticasone Propionate (Flonase Allergy Relief) 9.9 Ml [place].susp, 2 SPRAY NA DAILY PRN for NASAL CONGESTION Phenobarb/Hyoscy/Atropine/Scop ( Tablet) 1 Tab Tab, 1 TAB PO TID PRN for ABDOMINAL PAIN Allergies Coded Allergies: Penicillins (Verified Allergy, Intermediate, Hives, 07/08/18) Sulfa (Sulfonamide Antibiotics) (Verified Allergy, Intermediate, Hives, 07/08/18) codeine (Verified Allergy, Unknown, UNKNOWN REACTION, 01/27/19) A-FIB/CHADSVASC A-FIB History Current/History of A-Fib/PAF?: Yes Current PO Anticoag Therapy: No Age/Risk Factor Scoring CHADSVASC: CHADSVASC Response (Comments) Value Age Risk Factor Age >/= 75 years old 2 Gender Risk Factor Female 1 Hx of CHF Yes 1 Hx of HTN Yes 1 Hx of Stroke/TIA/or VTE No 0 Hx of Diabetes No 0 Hx of Vascular Disease No 0 Total 5 Treatment Treatment ordered: Holding Other ABENA WATKINS MD Mar 30, 2019 20:43
[2019-03-30] MEDS ORDERED: MOM 30ML SUSPENSION UDC PO PRN (20:45)
[2019-03-30] MEDS ORDERED: NS 250 ML IV ONE (20:45)
[2019-03-30] MEDS ORDERED: MAALOX 30 ML SUSP *UDC PO PRN (20:45)
[2019-03-30] MEDS ORDERED: KETOROLAC 30 MG/ML VIAL (J1885) IV PRN (20:45)
[2019-03-30] MEDS: GABAPENTIN 100 MG CAP PO SCH (21:00)
[2019-03-30] MEDS: DOCUSATE SODIUM 100 MG CAP PO SCH (21:00)
--- NOTE | 2019-03-30 21:51 | REPVR ---
PROCEDURE INFORMATION: Exam: CT Left Lower Extremity Without Contrast, Hip Exam date and time: 03/30/2019 9:00 PM Age: 83 years old Clinical indication: Pain; Hip; Left; Additional info: Left hip pain TECHNIQUE: Imaging protocol: CT of the Left lower extremity without contrast was performed. Exam focused on the hip. Radiation optimization: All CT scans at this facility use at least one of these dose optimization techniques: automated exposure control; mA and/or kV adjustment per patient size (includes targeted exams where dose is matched to clinical indication); or iterative reconstruction. COMPARISON: CR Hip,AP,LAT to include Pelvis 03/30/2019 5:25 PM FINDINGS: Bones/joints: Left hip prosthesis in position. No lucency to suggest loosening. There is slightly eccentric positioning of the femoral head component within the acetabular cup suggesting some wear of the acetabular [place] lining or cup. There is a nondisplaced oblique periprosthetic fracture of the proximal femoral metaphysis or diaphysis which extends to the level of the lesser trochanter medially and is just below the greater trochanter at the lateral aspect. Diffuse osteopenia. Soft tissues: Normal. IMPRESSION: 1. Left hip prosthesis in position. 2. Osteopenia. 3. Eccentric position of the prosthetic femoral head within the acetabular component suggesting wear of the acetabular lining or cup. 4. Nondisplaced periprosthetic fracture which extends across the cephalad aspect of the femoral stem consistent with probably [place] B1 fracture. Electronically signed by: Castillo Velasco On 03/30/2019 21:51:00 PM
[2019-03-30] MEDS ORDERED: NS 1,000 ML IV SCH (21:55)
[2019-03-30] MEDS ORDERED: ACETAMINOPHEN *IV* 1,000 MG in IV 1 EA IV ONE (22:00)
[2019-03-30] MEDS ORDERED: CYAN100050 PO (22:03)
[2019-03-30 22:05] LABS: NT-PRO BNP 1967 PG/ML (<450)
[2019-03-30] MEDS ORDERED: FLUTICASONE PROP 0.05% NASAL SPRAY 16 GM (FLONASE) PRN (22:15)
[2019-03-30] MEDS ORDERED: DICYCLOMINE 10 MG CAP PO PRN (22:15)
[2019-03-30 22:46] VITALS: BP 176/84
[2019-03-31] MEDS: ATORVASTATIN 20 MG TAB PO SCH ×2 (00:01→20:19)
[2019-03-31] MEDS: KETOROLAC TROMETHAMINE 10 MG TAB PO PRN ×2 (02:32→09:49)
[2019-03-31] MEDS: HEPARIN SOD (PORCINE) 5000 UNITS/ML VIAL SQ SCH ×3 (05:36→22:31)
[2019-03-31 06:00] VITALS: BP 141/66
[2019-03-31] MEDS ORDERED: HEPARIN SOD (PORCINE) 5000 UNITS/ML VIAL SQ SCH (06:00)
[2019-03-31 06:18] LABS: HEMOGLOBIN 11.1 g/dl (12.0-15.5); MEAN CORPUSCULAR HEMOGLOBIN 29.3 pg (27.0-33.0); MEAN CORPUSCULAR VOLUME 97.6 fl (80.0-96.0); PLATELET COUNT, AUTOMATED 250 10^3/uL (150-450); RED BLOOD COUNT 3.79 10^6/uL (4.00-5.40); WHITE BLOOD COUNT 9.7 10^3/uL (4.0-10.0)
[2019-03-31 06:48] LABS: BLOOD UREA NITROGEN 16 MG/DL (7-18); CALCIUM LEVEL 8.5 MG/DL (8.8-10.2); CARBON DIOXIDE LEVEL 28 MEQ/L (21-32); CHLORIDE LEVEL 107 MEQ/L (98-107); CREATININE FOR GFR 0.72 MG/DL (0.55-1.30); GLOMERULAR FILTRATION RATE > 60.0 (>32); GLUCOSE, FASTING 80 MG/DL (70-100); SODIUM LEVEL 139 MEQ/L (136-145); TROPONIN I < 0.02 NG/ML (< 0.10)
[2019-03-31] MEDS ORDERED: ENTER DRUG NAME HERE (PATIENT'S OWN MED) PO SCH (09:00)
[2019-03-31] MEDS: DOCUSATE SODIUM 100 MG CAP PO SCH ×4 (09:00→20:22)
[2019-03-31] MEDS: TIMOLOL MALEATE 0.5% OPHTH SOLN 5 ML OU SCH (09:47)
[2019-03-31] MEDS: FOLIC ACID 1 MG TAB PO SCH (09:49)
[2019-03-31] MEDS: predniSONE 1 MG TAB PO SCH (09:50)
[2019-03-31] MEDS: HYDROXYCHLOROQUINE 200 MG TAB PO SCH (09:50)
[2019-03-31] MEDS: CYANOCOBALAMIN 500 MCG TAB PO SCH (09:50)
[2019-03-31] MEDS: METOPROLOL SUCC *XL* 25MG TAB (TopROL *XL*) PO SCH (09:50)
[2019-03-31] MEDS: AMIODARONE 200 MG TAB (PACERONE) PO SCH (09:51)
[2019-03-31] MEDS: predniSONE 5 MG TAB PO SCH (09:51)
--- NOTE | 2019-03-31 11:27 | IPNPDOC ---
Subjective Date Seen The patient was seen on 03/31/19. Subjective Chief Complaint/HPI Patient is comfortable, but still has some pain in her left hip on movements, patient declined all syncope workup as per patient, has been done. Milium times with the neurologist, Dr. Bacon General: Denies: ROS Unobtainable, Chills, Night Sweats, Fatigue, Malaise, Normal Appetite, Other Symptoms Constitutional: Denies: Chills, Fever, Malaise, Night Sweats, Weakness, Fatigue, Weight Loss, Lethargy, Other Skin: Denies: Rash, Lesions, Jaundice, Bruising, Itching, Dry, Breakdown, Nail Changes, Other Pulmonary: Denies: Dyspnea, Cough, Pleuritic Chest Pain, Other Symptoms Cardiovascular: Denies: Chest Pain, Palpitations, Orthopnea, Paroxysmal Noc. Dyspnea, Edema, Lt Headedness, Other Symptoms Gastrointestinal: Denies: Nausea, Vomiting, Abdominal Pain, Diarrhea, Constipation, Melena, Hematochezia, Other Symptoms Hematologic: Denies: Bruising, Bleeding Excessively, Petecchia, Purpura, Enlarged Lymph Nodes, Other Hematologic Musculoskeletal: Reports: Other Symptoms (left hip pain) Neurological: Denies: Weakness, Numbness, Incoordination, Change in speech, Confusion, Seizures, Other Symptoms Objective Physical Examination General Exam: Positive: Alert, Cooperative ENT Exam: Positive: Atraumatic, Mucous membr. moist/pink Neck Exam: Positive: Supple Chest Exam: Positive: Clear to auscultation, Normal air movement Heart Exam: Positive: Rate Normal, Normal S1 Abdomen Exam: Positive: Normal bowel sounds, Soft Extremity Exam: Positive: Tenderness (. Positive tenderness on left hip on palpation) Skin Exam: Positive: Nl turgor and temperature Neuro Exam: Positive: Strength at 5/5 X4 ext, Sensation Intact, Cranial Nerves 3-12 NL Assessment /Plan Problems (1) Syncope Status: Acute Problem Text: As per patient, she had a extensive workup done with her neurologist, and does not wish any new workup including MRIs of the neck, brain as well as MRA of neck and brain as well as echocardiogram and are any other workup. According to patient is a long-standing issue and she gets frequent vertigo EKG was normal sinus rhythm with first-degree AV block Neurologist and discuss further To further intervention at this point (2) Fracture of prosthetic hip Status: Acute Problem Text: Nondisplaced left prosthetic hip fracture secondary to mechanical fall Auto consult with Dr. Fox has been called and physical therapy consult has been called Continue pain management Further, as per pending recommendation from orthopedic and physical therapy (3) Atrial fibrillation Status: Acute Problem Text: Continue home meds Plan/VTE VTE Prophylaxis Ordered?: Yes VS, I&O, 24H, Fishbone Vital Signs/I&O Vital Signs Date Time Temp Pulse Resp B/P (MAP) Pulse Ox O2 Delivery O2 Flow Rate FiO2 03/31/19 09:50 69 141/66 03/31/19 06:00 97.8 16 98 Room Air I&O- Last 24 Hours up to 6 AM 03/31/19 06:00 Intake Total 550 ml Output Total 350 ml Balance 200 ml Laboratory Data 24H LABS Laboratory Tests 2 03/30/19 16:41: Immature Granulocyte % (Auto) 0.9, Neutrophils (%) (Auto) 69.4H, Lymphocytes (%) (Auto) 23.1L, Monocytes (%) (Auto) 5.7H, Eosinophils (%) (Auto) 0.6, Basophils (%) (Auto) 0.3, Neutrophils # (Auto) 8.7H, Lymphocytes # (Auto) 2.9, Monocytes # (Auto) 0.7, Eosinophils # (Auto) 0.1, Basophils # (Auto) 0.0, Nucleated Red Blood Cells % (auto) 0.0, Prothrombin Time 13.0, Prothromb Time International Ratio 1.01, Activated Partial Thromboplast Time 29.2, Anion Gap 6L, Glomerular Filtration Rate > 60.0, Lactic Acid Level 1.5, Calcium Level 8.7L, Magnesium Level 2.0, Total Creatine Kinase 51, Creatine Kinase MB 1.4, Creatine Kinase MB Relative Index 2.75, Troponin I < 0.02, XJ-Hcl-W-Type Natriuretic Peptide 1967H, Thyroid Stimulating Hormone (TSH) 2.780, Free Thyroxine 1.36 03/30/19 16:55: Bedside Glucose (Misc Panel) 90 03/30/19 17:03: Urine Color STRAW, Urine Appearance CLEAR, Urine pH 8.0, Urine Specific [place] 1.009, Urine Protein NEGATIVE, Urine Glucose (UA) NEGATIVE, Urine Ketones NEGATIVE, Urine Blood 1+H, Urine Nitrite NEGATIVE, Urine Bilirubin NEGATIVE, Urine Urobilinogen 0.2, Urine Leukocyte Esterase NEGATIVE, Urine WBC (Auto) 1, Urine RBC (Auto) 8H, Urine Hyaline Casts (Auto) 0, Urine Bacteria (Auto) NEGATIVE, Urine Squamous Epithelial Cells 0, Urine Mucus (Auto) SMALL, Urine Sperm (Auto) 03/30/19 23:03: Troponin I < 0.02 03/31/19 05:27: Nucleated Red Blood Cells % (auto) 0.0, Anion Gap 4L, Glomerular Filtration Rate > 60.0, Calcium Level 8.5L, Troponin I < 0.02 CBC/BMP Laboratory Tests 03/30/19 16:41 03/31/19 05:27 SAFIA SMITH MD Mar 31, 2019 11:26
[2019-03-31 14:00] VITALS: BP 137/64
[2019-03-31] MEDS: ACETAMINOPHEN TAB 650MG DOSE (2X325MG) PO PRN ×2 (15:11→20:19)
[2019-03-31] MEDS: GABAPENTIN 100 MG CAP PO SCH (20:19)
[2019-03-31] MEDS: LATANOPROST 0.005% OPHTH SOLN 2.5 ML OU SCH (20:20)
[2019-03-31 22:00] VITALS: BP 130/68
[2019-04-01 02:00] VITALS: BP 149/78
[2019-04-01] MEDS: HEPARIN SOD (PORCINE) 5000 UNITS/ML VIAL SQ SCH ×3 (05:55→22:08)
[2019-04-01 06:00] VITALS: BP 149/70
[2019-04-01 06:13] LABS: BASO % 0.3 % (0.0-1.0); EOS # 0.2 10^3/uL (0.0-0.5); EOS % 1.5 % (0.0-3.0); HEMATOCRIT 35.9 % (36.0-47.0); HEMOGLOBIN 11.2 g/dl (12.0-15.5); LYMPH # 2.6 10^3/uL (1.5-5.0); LYMPH % 25.1 % (24.0-44.0); MEAN CORPUSCULAR HEMOGLOBIN 30.5 pg (27.0-33.0); MEAN CORPUSCULAR HGB CONC 31.2 g/dl (32.0-36.5); MEAN CORPUSCULAR VOLUME 97.8 fl (80.0-96.0); MONO # 0.8 10^3/uL (0.0-0.8); MONO % 7.9 % (0.0-5.0); NEUTROPHILS # 6.7 10^3/uL (1.5-8.5); NEUTROPHILS % 64.8 % (36.0-66.0); PLATELET COUNT, AUTOMATED 255 10^3/uL (150-450); RED BLOOD COUNT 3.67 10^6/uL (4.00-5.40); WHITE BLOOD COUNT 10.4 10^3/uL (4.0-10.0)
[2019-04-01 06:32] LABS: ALBUMIN 2.5 GM/DL (3.2-5.2); ALT/SGPT 18 U/L (12-78); BILIRUBIN,TOTAL 0.6 MG/DL (0.2-1.0); BLOOD UREA NITROGEN 23 MG/DL (7-18); CALCIUM LEVEL 8.6 MG/DL (8.8-10.2); CARBON DIOXIDE LEVEL 27 MEQ/L (21-32); CHLORIDE LEVEL 107 MEQ/L (98-107); CREATININE FOR GFR 0.72 MG/DL (0.55-1.30); GLOMERULAR FILTRATION RATE > 60.0 (>32); GLUCOSE, FASTING 75 MG/DL (70-100); POTASSIUM SERUM 4.3 MEQ/L (3.5-5.1); SODIUM LEVEL 140 MEQ/L (136-145)
[2019-04-01] MEDS: DOCUSATE SODIUM 100 MG CAP PO SCH ×2 (08:53→21:00)
[2019-04-01] MEDS: predniSONE 1 MG TAB PO SCH (08:54)
[2019-04-01] MEDS: CYANOCOBALAMIN 500 MCG TAB PO SCH (08:54)
[2019-04-01] MEDS: FOLIC ACID 1 MG TAB PO SCH (08:54)
[2019-04-01] MEDS: TIMOLOL MALEATE 0.5% OPHTH SOLN 5 ML OU SCH (08:54)
[2019-04-01] MEDS: predniSONE 5 MG TAB PO SCH (08:54)
--- NOTE | 2019-04-01 09:24 | IPNPDOC ---
Subjective Date Seen The patient was seen on 04/01/19. Subjective Chief Complaint/HPI Patient able to move her legs and sit on the bedside with the legs dangling awaiting placement in acute rehabilitation unit General: Denies: ROS Unobtainable, Chills, Night Sweats, Fatigue, Malaise, Normal Appetite, Other Symptoms Constitutional: Denies: Chills, Fever, Malaise, Night Sweats, Weakness, Fatigue, Weight Loss, Lethargy, Other Pulmonary: Denies: Dyspnea, Cough, Pleuritic Chest Pain, Other Symptoms Cardiovascular: Denies: Chest Pain, Palpitations, Orthopnea, Paroxysmal Noc. Dyspnea, Edema, Lt Headedness, Other Symptoms Gastrointestinal: Denies: Nausea, Vomiting, Abdominal Pain, Diarrhea, Constipation, Melena, Hematochezia, Other Symptoms Musculoskeletal: Denies: Neck Pain, Back Pain, Shoulder Pain, Arm Pain, Hand Pain, Leg Pain, Foot Pain, Joint Pain, Muscle Pain, Spasms, Other Symptoms Neurological: Denies: Weakness, Numbness, Incoordination, Change in speech, Confusion, Seizures, Other Symptoms Objective Physical Examination ENT Exam: Positive: Atraumatic, Mucous membr. moist/pink Neck Exam: Positive: Supple Chest Exam: Positive: Clear to auscultation, Normal air movement Heart Exam: Positive: Rate Normal, Normal S1 Abdomen Exam: Positive: Normal bowel sounds, Soft Extremity Exam: Positive: Tenderness (. Positive tenderness on left hip on palpation) Skin Exam: Positive: Nl turgor and temperature Neuro Exam: Positive: Strength at 5/5 X4 ext, Sensation Intact, Cranial Nerves 3-12 NL Assessment /Plan Problems (1) Syncope Status: Acute Problem Text: As per patient, she had a extensive workup done with her neurologist, and does not wish any new workup including MRIs of the neck, brain as well as MRA of neck and brain as well as echocardiogram and are any other wo rkup. According to patient is a long-standing issue and she gets frequent vertigo EKG was normal sinus rhythm with first-degree AV block Patient is refusing any further workup and we'll leave any further workup to her neurologist, Dr. Bacon who is very well aware about her medical condition. (2) Fracture of prosthetic hip Status: Acute Problem Text: Nondisplaced left prosthetic hip fracture secondary to mechanical fall Auto consult with Dr. Fox has been called and physical therapy consult has been called Continue pain management Patient probably will be transferred to acute rehabilitation unit once accepted Continue physical therapy (3) Atrial fibrillation Status: Acute Problem Text: Continue home meds Plan/VTE VTE Prophylaxis Ordered?: Yes VS, I&O, 24H, Fishbone Vital Signs/I&O Vital Signs Date Time Temp Pulse Resp B/P (MAP) Pulse Ox O2 Delivery O2 Flow Rate FiO2 04/01/19 06:00 98.0 64 20 149/70 (96) 100 Room Air I&O- Last 24 Hours up to 6 AM 04/01/19 06:00 Intake Total 0 ml Output Total 0 ml Balance 0 ml Laboratory Data 24H LABS Laboratory Tests 2 04/01/19 05:18: Immature Granulocyte % (Auto) 0.4, Neutrophils (%) (Auto) 64.8, Lymphocytes (%) (Auto) 25.1, Monocytes (%) (Auto) 7.9H, Eosinophils (%) (Auto) 1.5, Basophils (%) (Auto) 0.3, Neutrophils # (Auto) 6.7, Lymphocytes # (Auto) 2.6, Monocytes # (Auto) 0.8, Eosinophils # (Auto) 0.2, Basophils # (Auto) 0.0, Nucleated Red Blood Cells % (auto) 0.0, Anion Gap 6L, Glomerular Filtration Rate > 60.0, Calcium Level 8.6L, Total Bilirubin 0.6, Aspartate Amino Transf (AST/SGOT) 16, Alanine Aminotransferase (ALT/SGPT) 18, Alkaline Phosphatase 81, Total Protein 6.0L, Albumin 2.5L, Albumin/Globulin Ratio 0.71L CBC/BMP Laboratory Tests 04/01/19 05:18 SAFIA SMITH MD Apr 01, 2019 09:24
[2019-04-01 10:00] VITALS: BP 147/67
[2019-04-01] MEDS: KETOROLAC TROMETHAMINE 10 MG TAB PO PRN ×2 (10:01→16:32)
[2019-04-01] MEDS: METOPROLOL SUCC *XL* 25MG TAB (TopROL *XL*) PO SCH (10:02)
[2019-04-01] MEDS: AMIODARONE 200 MG TAB (PACERONE) PO SCH (10:02)
[2019-04-01] MEDS: ACETAMINOPHEN TAB 650MG DOSE (2X325MG) PO PRN (13:55)
[2019-04-01 14:00] VITALS: BP 104/54
[2019-04-01 18:00] VITALS: BP 129/63
--- NOTE | 2019-04-01 18:42 | CR ---
DATE OF CONSULTATION: 03/31/2019 REQUESTING PHYSICIAN: Dr. Rosado. CHIEF COMPLAINT: Left hip pain. HISTORY OF PRESENT ILLNESS: The 83-year-old yesterday had a dizzy spell while cooking, fell and was not able to ambulate, had significant pain in the left hip and groin area, radiating towards the knee. She has had both hips and both knees replaced by Dr. Kenrick James in the past. She said that the left hip was replaced approximately 20 years ago and had been giving her good service. Now, she is frustrated because she cannot bear weight without pain. She is fiercely independent and wants to stay independent, does not want to go to a long term, does not want to have surgery. Denies having loss of consciousness. Not complaining of a headache, shortness of breath. Complains of some bruising in the left upper extremity that she says does not hurt. Survey in medical history and physical and surgical/medical history reviewed and remanded. Includes a history of atrial fibrillation, vestibular disorder, rheumatoid arthritis, coronary artery disease with stenting interventions, pulmonary hypertension described as severe, chronic diastolic congestive heart failure, chronic hypertension, severe aortic valve thickening and calcification without regurgitation or stenosis, severe atrial dilatation, severe tricuspid regurgitation, peripheral neuropathy, osteoporosis, lichen sclerosis of the vulva, colon cancer, multiple orthopedic surgeries, cholecystectomy. SOCIAL HISTORY: She is a nonsmoker, lives independently. FAMILY HISTORY: Not contributory. Accompanied by her daughter today. CLINICAL EXAMINATION: She is alert, oriented and cooperative. Mood and affect appropriate. Appears to be her stated vintage of 83. She has a slight body habitus, is not quite tachypneic. Body mass index less than 25. She has got healthy skin of the lower extremities. No open wounds. The right lower extremity nontender. Left lower extremity, she does have tenderness with any manipulation about the hip. It centers towards the hip. She had some discomfort in the thigh when trying to extend the knee. Can extended it passively. Legs are soft and nontender. Grossly there is no deformity. Warm, well-perfused. Nonedematous at the feet. IMAGING STUDIES: Plain films: There may be some irregularity around the greater trochanter of the left hip. CT scan: CT scan suggested a nondisplaced fracture extending around the greater trochanteric, but also to the proximal metaphyseal region of the femur. Knee films: The prosthetic seems to be well-aligned, fixed. IMPRESSION: Periprosthetic fracture, nondisplaced, in an 83-year-old female with multiple medical comorbidities. RECOMMENDATIONS: Fortunately for this patient, I think this may be amenable to nonoperative care such as bed to chair, trying to let this heal on its own. We would concentrate on bed to chair if she could be touchdown weightbearing for transfers. She would need likely to be in a subacute rehabilitation facility, although if significant accommodations at home were made, it could be possible, but she really needs a full-time caregiver to be available. We would re-x-ray the hip in approximately a weeks' time to make sure that there is no interval development of displacement. Revision surgery for this patient could be quite a difficult undertaking for her physiologically. Thank you for this consult.
[2019-04-01] MEDS: ATORVASTATIN 20 MG TAB PO SCH (20:46)
[2019-04-01] MEDS: GABAPENTIN 100 MG CAP PO SCH (20:46)
[2019-04-01] MEDS: LATANOPROST 0.005% OPHTH SOLN 2.5 ML OU SCH (20:47)
[2019-04-01 22:00] VITALS: BP 134/63
[2019-04-02 02:00] VITALS: BP 130/67
[2019-04-02 06:00] VITALS: BP 127/68
[2019-04-02 06:31] LABS: HEMATOCRIT 35.5 % (36.0-47.0); HEMOGLOBIN 10.7 g/dl (12.0-15.5); MEAN CORPUSCULAR HEMOGLOBIN 29.6 pg (27.0-33.0); MEAN CORPUSCULAR HGB CONC 30.1 g/dl (32.0-36.5); MEAN CORPUSCULAR VOLUME 98.3 fl (80.0-96.0); PLATELET COUNT, AUTOMATED 236 10^3/uL (150-450); RED BLOOD COUNT 3.61 10^6/uL (4.00-5.40); WHITE BLOOD COUNT 9.8 10^3/uL (4.0-10.0)
[2019-04-02] MEDS: HEPARIN SOD (PORCINE) 5000 UNITS/ML VIAL SQ SCH ×3 (06:40→21:46)
[2019-04-02] MEDS: DOCUSATE SODIUM 100 MG CAP PO SCH (08:58)
[2019-04-02] MEDS: FOLIC ACID 1 MG TAB PO SCH (08:59)
[2019-04-02] MEDS: CYANOCOBALAMIN 500 MCG TAB PO SCH (08:59)
[2019-04-02] MEDS: AMIODARONE 200 MG TAB (PACERONE) PO SCH (08:59)
[2019-04-02] MEDS: predniSONE 1 MG TAB PO SCH (08:59)
[2019-04-02] MEDS: HYDROXYCHLOROQUINE 200 MG TAB PO SCH (08:59)
[2019-04-02] MEDS: predniSONE 5 MG TAB PO SCH (08:59)
[2019-04-02] MEDS: METOPROLOL SUCC *XL* 25MG TAB (TopROL *XL*) PO SCH (09:00)
[2019-04-02] MEDS: TIMOLOL MALEATE 0.5% OPHTH SOLN 5 ML OU SCH (09:06)
--- NOTE | 2019-04-02 09:38 | IPNPDOC ---
Subjective Date Seen The patient was seen on 04/02/19. Subjective Chief Complaint/HPI Patient that complaining of some pain in her hip but otherwise no new complaints General: Denies: ROS Unobtainable, Chills, Night Sweats, Fatigue, Malaise, Normal Appetite, Other Symptoms Pulmonary: Denies: Dyspnea, Cough, Pleuritic Chest Pain, Other Symptoms Cardiovascular: Denies: Chest Pain, Palpitations, Orthopnea, Paroxysmal Noc. Dyspnea, Edema, Lt Headedness, Other Symptoms Gastrointestinal: Denies: Nausea, Vomiting, Abdominal Pain, Diarrhea, Cons tipation, Melena, Hematochezia, Other Symptoms Musculoskeletal: Denies: Neck Pain, Back Pain, Shoulder Pain, Arm Pain, Hand Pain, Leg Pain, Foot Pain, Joint Pain, Muscle Pain, Spasms, Other Symptoms Neurological: Denies: Weakness, Numbness, Incoordination, Change in speech, Confusion, Seizures, Other Symptoms Objective Physical Examination ENT Exam: Positive: Atraumatic, Mucous membr. moist/pink Neck Exam: Positive: Supple Chest Exam: Positive: Clear to auscultation, Normal air movement Heart Exam: Positive: Rate Normal, Normal S1 Abdomen Exam: Positive: Normal bowel sounds, Soft Extremity Exam: Positive: Tenderness (. Positive tenderness on left hip on palpation) Skin Exam: Positive: Nl turgor and temperature Neuro Exam: Positive: Strength at 5/5 X4 ext, Sensation Intact, Cranial Nerves 3-12 NL Assessment /Plan Problems (1) Syncope Status: Acute Problem Text: As per patient, she had a extensive workup done with her neurologist, and does not wish any new workup including MRIs of the neck, brain as well as MRA of neck and brain as well as echocardiogram and are any other workup. According to patient is a long-standing issue and she gets frequent vertigo EKG was normal sinus rhythm with first-degree AV block Patient is refusing any further workup and we'll leave any further workup to her neurologist, Dr. Bacon who is very well aware about her medical condition. (2) Fracture of prosthetic hip Status: Acute Problem Text: Nondisplaced left prosthetic hip fracture secondary to mechanical fall Auto consult with Dr. Fox has been called and physical therapy consult has been called Patient is improved with pain management. Continue her home gabapentin as well Possible transfer to acute rehabilitation unit once cleared by physical therapy (3) Atrial fibrillation Status: Acute Problem Text: Continue home meds Plan/VTE VTE Prophylaxis Ordered?: Yes VS, I&O, 24H, Fishbone Vital Signs/I&O Vital Signs Date Time Temp Pulse Resp B/P (MAP) Pulse Ox O2 Delivery O2 Flow Rate FiO2 04/02/19 09:00 73 137/59 04/02/19 06:00 97.9 16 98 Room Air I&O- Last 24 Hours up to 6 AM 04/02/19 06:00 Intake Total 460 ml Output Total 0 ml Balance 460 ml Laboratory Data 24H LABS Laboratory Tests 2 04/02/19 05:20: Nucleated Red Blood Cells % (auto) 0.0 CBC/BMP Laboratory Tests 04/02/19 05:20 SAFIA SMITH MD Apr 02, 2019 09:38
[2019-04-02 10:00] VITALS: BP 115/58
[2019-04-02] MEDS: GABAPENTIN 100 MG CAP PO SCH (10:13)
[2019-04-02] MEDS: ASPIRIN 81 MG ENTERIC TAB PO SCH (10:13)
[2019-04-02] MEDS: KETOROLAC TROMETHAMINE 10 MG TAB PO PRN ×2 (10:14→17:41)
[2019-04-02] MEDS: ACETAMINOPHEN TAB 650MG DOSE (2X325MG) PO PRN (12:26)
[2019-04-02 14:00] VITALS: BP 144/92
[2019-04-02 18:00] VITALS: BP 128/76
[2019-04-02] MEDS ORDERED: GABAPENTIN 300 MG CAP PO SCH (21:00)
[2019-04-02] MEDS: ATORVASTATIN 20 MG TAB PO SCH (21:46)
[2019-04-02] MEDS: LATANOPROST 0.005% OPHTH SOLN 2.5 ML OU SCH (21:47)
[2019-04-02 22:00] VITALS: BP 122/70
[2019-04-03] MEDS: KETOROLAC TROMETHAMINE 10 MG TAB PO PRN ×2 (00:21→09:07)
[2019-04-03 02:00] VITALS: BP 124/68
[2019-04-03 06:00] VITALS: BP 125/70
[2019-04-03] MEDS: HEPARIN SOD (PORCINE) 5000 UNITS/ML VIAL SQ SCH ×2 (06:49→14:32)
[2019-04-03 09:06] VITALS: BP 160/83
[2019-04-03] MEDS: AMIODARONE 200 MG TAB (PACERONE) PO SCH (09:06)
[2019-04-03] MEDS: predniSONE 1 MG TAB PO SCH (09:06)
[2019-04-03] MEDS: ASPIRIN 81 MG ENTERIC TAB PO SCH (09:06)
[2019-04-03] MEDS: GABAPENTIN 100 MG CAP PO SCH (09:06)
[2019-04-03] MEDS: METOPROLOL SUCC *XL* 25MG TAB (TopROL *XL*) PO SCH (09:06)
[2019-04-03] MEDS: predniSONE 5 MG TAB PO SCH (09:06)
[2019-04-03] MEDS: FOLIC ACID 1 MG TAB PO SCH (09:06)
[2019-04-03] MEDS: CYANOCOBALAMIN 500 MCG TAB PO SCH (09:06)
[2019-04-03] MEDS: TIMOLOL MALEATE 0.5% OPHTH SOLN 5 ML OU SCH (09:08)
[2019-04-03 10:00] VITALS: BP 127/58
--- NOTE | 2019-04-03 10:49 | IPNPDOC ---
Subjective Date Seen The patient was seen on 04/03/19. Subjective Chief Complaint/HPI Patient is a comfortable, in no distress now is agreed to go to rehabilitation unit General: Denies: ROS Unobtainable, Chills, Night Sweats, Fatigue, Malaise, Normal Appetite, Other Symptoms Constitutional: Denies: Chills, Fever, Malaise, Night Sweats, Weakness, Fatigue, Weight Loss, Lethargy, Other Pulmonary: Denies: Dyspnea, Cough, Pleuritic Chest Pain, Other Symptoms Cardiovascular: Denies: Chest Pain, Palpitations, Orthopnea, Paroxysmal Noc. Dyspnea, Edema, Lt Headedness, Other Symptoms Gastrointestinal: Denies: Nausea, Vomiting, Abdominal Pain, Diarrhea, Constipation, Melena, Hematochezia, Other Symptoms Hematologic: Denies: Bruising, Bleeding Excessively, Petecchia, Purpura, Enlarged Lymph Nodes, Other Hematologic Endocrine: Denies: Polydipsia, Polyphagia, Polyuria, Heat Intolerance, Cold Intolerance, Other Endocrine Sx Musculoskeletal: Denies: Neck Pain, Back Pain, Shoulder Pain, Arm Pain, Hand Pain, Leg Pain, Foot Pain, Joint Pain, Muscle Pain, Spasms, Other Symptoms Neurological: Denies: Weakness, Numbness, Incoordination, Change in speech, Confusion, Seizures, Other Symptoms Objective Physical Examination ENT Exam: Positive: Atraumatic, Mucous membr. moist/pink Neck Exam: Positive: Supple Chest Exam: Positive: Clear to auscultation, Normal air movement Heart Exam: Positive: Rate Normal, Normal S1 Abdomen Exam: Positive: Normal bowel sounds, Soft Extremity Exam: Positive: Tenderness (. Positive tenderness on left hip on palpation) Skin Exam: Positive: Nl turgor and temperature Neuro Exam: Positive: Strength at 5/5 X4 ext, Sensation Intact, Cranial Nerves 3-12 NL Assessment /Plan Problems (1) Syncope Status: Acute Problem Text: As per patient, she had a extensive workup done with her neurologist, and does not wish any new workup including MRIs of the neck, brain as well as MRA of neck and brain as well as echocardiogram and are any other workup. According to patient is a long-standing issue and she gets frequent vertigo EKG was normal sinus rhythm with first-degree AV block Patient is refusing any further workup and we'll leave any further workup to her neurologist, Dr. Bacon who is very well aware about her medical condition. (2) Fracture of prosthetic hip Status: Acute Problem Text: Nondisplaced left prosthetic hip fracture secondary to mechanical fall Auto consult with Dr. Fox has been called and physical therapy consult has been called Patient is improved with pain management. Continue her home gabapentin as well Patient is tolerating physical therapy from bed to chair Will probably benefit from subacute rehabilitation facility Continue present care (3) Atrial fibrillation Status: Acute Problem Text: Continue home meds Plan/VTE VTE Prophylaxis Ordered?: Yes VS, I&O, 24H, Fishbone Vital Signs/I&O Vital Signs Date Time Temp Pulse Resp B/P (MAP) Pulse Ox O2 Delivery O2 Flow Rate FiO2 04/03/19 09:06 70 160/83 04/03/19 06:00 98.3 16 98 Room Air I&O- Last 24 Hours up to 6 AM 04/03/19 06:00 Intake Total 720 ml Balance 720 ml SAFIA SMITH MD Apr 03, 2019 10:49
--- NOTE | 2019-04-03 12:24 | DS.PDOC ---
Discharge Summary General Date of Admission Mar 30, 2019 at 20:34 Date of Discharge 04/03/19 Discharge Summary PROCEDURES PERFORMED DURING STAY: None. ADMITTING DIAGNOSES: 1. Dizziness, syncope. Left hip pain. DISCHARGE DIAGNOSES: 1. , Dizziness, syncope. Left hip pain. COMPLICATIONS/CHIEF COMPLAINT: Hip Pain, Left, Syncope. HISTORY OF PRESENT ILLNESS: This is a 83-year-old female who presented to the ER after having a dizzy spell while cooking. She has a history of dizziness and has been evaluated by Dr. Diaz in the past; she has had several CT scans and MRIs and reports that they were unable to find the cause of her dizziness . As a result of the fall, she developed left-sided hip pain. The patient remembers falling to the ground and reports that she did not lose consciousness. As soon as she fell, her who was in the room, came and helped her. She denies having chest pain or shortness of breath prior to the fall. HOSPITAL COURSE: Patient was admitted to medical floor with telemetry for possible syncope. Patient has a chronic history of syncope and had all the workup was done with the neurologist Dr. Diaz as an outpatient and she refused to do any more further workup while in the hospital. Patient also was found to have eccentric position are prosthetic femoral head within the acetabulum but no fracture. Patient was seen by orthopedic and recommended conservative management with physical therapy only. Patient received physical therapy while inpatient. She can do all is from out of bed to chair and the meantime and progressively wi ll improve so she can ambulate before she can go home. Patient has been accepted to acute rehabilitation unit. She will be discharged there today for physical therapy before discharging her home.. DISCHARGE MEDICATIONS: Please see below. ALLERGIES: Please see below. PHYSICAL EXAMINATION ON DISCHARGE: VITAL SIGNS: Please see below. GENERAL: Within normal limits HEENT: PERRLA. Extraocular muscles intact NECK: Supple CARDIOVASCULAR EXAMINATION: S1, S2, regular RESPIRATORY EXAMINATION: Clear to A&P ABDOMINAL EXAMINATION: Benign EXTREMITIES: No clubbing, cyanosis, edema SKIN: Normal NEUROLOGICAL EXAMINATION: . No focal motor sensory deficit PSYCHIATRIC EXAMINATION: Normal LABORATORY DATA: Please see below. IMAGING: CT left lower extremity IMPRESSION: 1. Left hip prosthesis in position. 2. Osteopenia. 3. Eccentric position of the prosthetic femoral head within the acetabular component suggesting wear of the acetabular lining or cup. 4. Nondisplaced periprosthetic fracture which extends across the cephalad aspect of the femoral stem consistent with probably [place] B1 fracture. PROGNOSIS: Good ACTIVITY: out Of bed to chair. DIET: Regular DISCHARGE PLAN: Transfer to acute rehabilitation unit DISPOSITION: To acute rehabilitation unit. DISCHARGE INSTRUCTIONS: 1. As per discharge instructions. ITEMS TO FOLLOWUP ON ON OUTPATIENT: 1. Follow with the acute rehabilitation unit. DISCHARGE CONDITION: Stable. TIME SPENT ON DISCHARGE: 35 minutes. Vital Signs/I&Os Vital Signs Date Time Temp Pulse Resp B/P (MAP) Pulse Ox O2 Delivery O2 Flow Rate FiO2 04/03/19 10:00 98.5 61 18 127/58 (81) 99 04/03/19 06:00 Room Air I&O- Last 24 Hours up to 6 AM 04/03/19 05:59 Intake Total 720 ml Output Total 0 ml Balance 720 ml Discharge Medications Scheduled Amiodarone HCl (Amiodarone HCl) 200 Mg Tablet, 200 MG PO DAILY, (Reported) Aspirin (Aspirin EC) 81 Mg Tab, 81 MG PO DAILY, (Reported) Atorvastatin Calcium (Atorvastatin Calcium) 40 Mg Tablet, 40 MG PO QHS, (Reported) Cyanocobalamin (Vitamin B-12) (Vitamin B-12) 1,000 Mcg Tablet, 1,000 MCG PO DAILY, (Reported) Denosumab Injection (Prolia) 60 Mg/Ml Wendy, 60 MG SC ASDIRECTED, (Reported) EVERY 6 MONTHS: LAST DOSE END OF FEBRUARY Ergocalciferol (Vitamin D2) (Vitamin D2) 50,000 Units Cap, 50,000 UNITS PO Q2WK, (Reported) EVERY OTHER WEDNESDAY Fluorouracil (Fluorouracil) 0.5% 30GM Cream..g., 1 DOSE TOP BID, (Reported) APPLY TO LEGS Folic Acid (Folic Acid) 1 Mg Tab, 2 MG PO DAILY, (Reported) Gabapentin (Gabapentin) 100 Mg Capsule, 200 MG PO QHS, (Reported) Hydroxychloroquine Sulfate (Hydroxychloroquine Sulfate) 200 Mg Tab, 200 MG PO Q2D, (Reported) Latanoprost (Xalatan) 0.005% 2.5ML Drops, 1 DROP OU QHS, (Reported) Methotrexate Sodium (Methotrexate) 2.5 Mg Tab, 7.5 MG PO QWEEK, (Reported) TUESDAYS Metoprolol Succinate (Metoprolol Succinate) 25 Mg Tab.er.24h, 25 MG PO DAILY, (Reported) Prednisone (Prednisone) 1 Mg Tab, 1 MG PO DAILY, (Reported) TOTAL 6MG Prednisone (Prednisone) 5 Mg Tab, 5 MG PO DAILY, (Reported) TOTAL 6MG Timolol Maleate (Timolol Maleate) 0.5% 5ML Drops, 1 DROP OU DAILY, (Reported) Scheduled PRN Acetaminophen (Acetaminophen) 500 Mg Tab, 1,000 MG PO Q6H PRN for PAIN, (Reported) Dicyclomine HCl (Dicyclomine HCl) 10 Mg Cap, 10 MG PO Q6H PRN for ABDOMINAL PAIN, (Reported) Fluticasone Propionate (Flonase Allergy Relief) 9.9 Ml [place].susp, 2 SPRAY NA DAILY PRN for NASAL CONGESTION, (Reported) Phenobarb/Hyoscy/Atropine/Scop ( Tablet) 1 Tab Tab, 1 TAB PO TID PRN for ABDOMINAL PAIN, (Reported) Allergies Coded Allergies: Penicillins (Verified Allergy, Intermediate, Hives, 07/08/18) Sulfa (Sulfonamide Antibiotics) (Verified Allergy, Intermediate, Hives, 07/08/18) codeine (Verified Allergy, Unknown, UNKNOWN REACTION, 01/27/19) SAFIA SMITH MD Apr 03, 2019 12:24
[2019-04-03 14:00] VITALS: BP 143/67
[2019-04-03] MEDS: ACETAMINOPHEN TAB 650MG DOSE (2X325MG) PO PRN (14:36)
[2019-04-04] MEDS ORDERED: METHOTREXATE 2.5 MG TAB (J8610 PER 2.5MG) PO SCH (09:00)
== END 2019-04-03 14:48 | DRG 560 ==
LOC: M ED 16:22 → M ED INP 20:34 → ENRESERVTM 22:22 → ENRESERVDT 22:22 → M MSPAV 22:45
PROVIDERS: ADMIT Internal Medicine; ATTEND Internal Medicine
DX: M97.02XA Periprosthetic fracture around internal prosthetic left hip joint, initial encounter (principal); I50.32 Chronic diastolic (congestive) heart failure; I11.0 Hypertensive heart disease with heart failure; R55 Syncope and collapse; Z79.82 Long term (current) use of aspirin; Z79.899 Other long term (current) drug therapy; Z88.0 Allergy status to penicillin; Z88.5 Allergy status to narcotic agent; Z88.2 Allergy status to sulfonamides; I48.0 Paroxysmal atrial fibrillation; M06.9 Rheumatoid arthritis, unspecified; I25.10 Atherosclerotic heart disease of native coronary artery without angina pectoris; Z95.2 Presence of prosthetic heart valve; I27.20 Pulmonary hypertension, unspecified; I08.2 Rheumatic disorders of both aortic and tricuspid valves; M81.0 Age-related osteoporosis without current pathological fracture; Z96.642 Presence of left artificial hip joint; Z96.652 Presence of left artificial knee joint; Z85.038 Personal history of other malignant neoplasm of large intestine; G62.9 Polyneuropathy, unspecified; I44.0 Atrioventricular block, first degree; D53.9 Nutritional anemia, unspecified

== ENCOUNTER 2019-04-03 13:09 | Inpatient (IN) | payer MEDICARE, OTHER ==
[~2019-04-03] VITALS: Ht 144.8 cm; Wt 39.7 kg
[~2019-04-03 13:09] MED LIST changes: +CYAN100050 PO
--- NOTE | 2019-04-03 13:30 | HPEPDOC ---
Tooth Cutter Pinion Note DATE OF ADMISSION: 04-03-19 DATE OF SERVICE: 04-04-19 TIME OF ADMISSION: Please refer to physician's admission order. SOURCE OF ADMISSION INFORMATION: [facility] record and patient CHIEF COMPLAINT: femur fracture HISTORY OF PRESENT ILLNESS: 83F pmh Afib, vestibular disorder, RA, CAD s/p PCIx2, pulmonary HTN, peripheral neuropathy, colon cancer s/p resection with colostomy who had a dizzy spell at home resulting in a fall, presented to [facility] ED on 03-30-19 with difficulty walking. CTH showed, Air-fluid levels in the left maxillary and left sphenoid sinus may indicate acute sinusitis. CT cervical spine showed, Moderate degenerative spondylosis with multilevel disc space narrowing throughout the cervical spine, multilevel bilateral foraminal narrowing and multilevel disc osteophyte complexes with mild cord impingement at several levels. Xrays did not reveal hip or pelvic fractures, however due to persistent pain, CT was ordered showing, Nondisplaced periprosthetic fracture which extends across the cephalad aspect of the femoral stem consistent with probably [place] B1 fracture. She was evaluated by orthopedics who made her TTWB and a non-surgical candidate. She was evaluated by therapy, found to be well below her prior level of function for mobility and ADLs and deemed appropriate for discharge to ARU on 04-03-19. REVIEW OF SYSTEMS: The following is a completed review of systems and has been reviewed. Review of systems otherwise unremarkable. PAIN: Patient self reports left hip pain EYES: No recent vision changes EARS, NOSE, & THROAT: No throat pain, or dysphagia, or rhinorrhea CARDIOVASCULAR: Denies chest pain or palpitations PULMONARY: Denies shortness of breath GASTROINTESTINAL:+nausea, denies constipation/diarrhea, +colostomy GENITOURINARY: denies dysuria MUSCULOSKELETAL: left hip fracture NEUROLOGICAL:no focal tremor HEMATOLOGICAL: denies easy bruising SKIN: no rash PSYCHIATRIC: Unremarkable All other review of systems found to be negative. PAST MEDICAL HISTORY: as per HPI PAST SURGICAL HISTORY: Left TKR, bilateral THR, cholecystectomy ALLERGIES: Please see below. MEDICATIONS: Please see below. FAMILY HISTORY:CAD and lung cancer SOCIAL HISTORY: no etoh, smoking, or illicit drugs DIET: low salt PHYSICAL EXAMINATION: VITAL SIGNS: Please see below. GENERAL: Pleasant and cooperative. No acute distress. HEENT: PERRL. Extraocular movements intact. Clear conjunctiva CARDIOVASCULAR: Regular rate and rhythm. No murmurs, rubs, or gallops LUNGS: Clear to auscultation bilaterally. No wheezes. No rhonchi ABDOMEN: Soft, nontender, nondistended. Positive bowel sounds. Normal active bowel sounds +colostomy NEUROLOGICAL: Alert and oriented times three. Cranial nerves II through XII grossly intact. Sensation grossly intact EXTREMITIES: 5\5 strength bilateral upper extremities. 5\5 strength right lower extremity. 5/5 strength in left ankle DF, EHL, and PF(limited due to hip fracture) SKIN: intact LABORATORY DATA: Please see below. IMAGING:Imaging documentation personally reviewed by record. FUNCTIONAL STATUS: Premorbid: Independent with all activities of daily life as well as mobility On Admission: Contact guard assistance for dressing, bed chair and wheelchair transfers, toilet transfers, ambulation GOALS: Modified independent for functional transfers, household ambulation, toileting, bathing, dressing, grooming, medical optimization, caregiver training ASSESSMENT:83-year-old F with past medical history of afib who presents status post fall with periprosthetic fracture PLAN: 1. Rehab- PT/OT TTWB to the LLE, optmize transfers, gait training, strengthen/stretch/maintain ROM, core strengthening 2. Neuro: hx of vestibular dysfunction, seen by neurology in the past, monitor 3. Cardiac: hx of afib not on AC- c/u Amiodarone, last ECHO indeterminant diastolic function, will assume some degree of CHF and fluid restrict with daily weights, medicine consulted to assist in management -CAD s/p PCI c/u ASA and metoprolol -HLD- lipitor 4. Resp: encourage incentive spirometry, monitor for infection 5. ENT: recent CT showing sings of possible acute sinusitis, c/u flonase, monitor for infection 6. Rheum: hx of RA, c/u prednisone, methotrexate, and plaquenil 7. Pain: due to neuroapthy and RA, c/u RA meds, gabapentin, tylenol -patient requesting Toradol, has nausea with oxycodone 8. DVT ppx: heparin and teds 9. GI ppx: protonix -will add sucralfate and check FOBT while on Toradol 10. : monitor PVRs 11. Ortho: s/p left femur periprosthetic fracture, TTWB- ortho consulted 11. Dispo: TBD POST ADMISSION PHYSICIAN EVALUATION: Medical and functional status: Description of medical status, medical assessm ent: As above. Rehabilitation diagnosis and current and prior cold morbid medical conditions as above. Risk of complications and plans to mitigate them as above. Description of functional status current status is as above. Prior status as above. Status compared to preadmission: There are no clinically significant differences between the patient's current status and the information described on the preadmission screening document. Treatment plan anticipated: Treatment plan is as described above. Required disciplines including physical therapy, occupational therapy, others as noted above. Intensity of services: 3 hours a day, 6 days a week. Special considerations: There are no specific special or safety considerations that would likely preclude immediate implementation of an intensive r ehabilitation program or subsequently influence the plan of care. ATTESTATION:Considering all the information above, it is my best judgment that this patient requires intensive rehabilitation therapy as described above and an inpatient hospital environment due to the complexity of nursing, medical, and rehabilitation needs required by the patient. Furthermore, this patient can pati sonably be expected to participate in an benefit from an inpatient rehabilitation stay with an interdisciplinary team approach to the delivery of rehabilitation care under the direction and supervision of rehabilitation physician. PROGNOSIS: Excellent ESTIMATED LENGTH OF STAY:14-16 days. PROJECTED DISCHARGE DESTINATION: Home with family support and any durable medical equipment required to increase functional safety and mobility. TIME SPENT COUNSELING AND COORDINATING INITIAL CARE: Greater than 70 minutes. Vital Signs Vital Signs Date Time Temp Pulse Resp B/P (MAP) Pulse Ox O2 Delivery O2 Flow Rate FiO2 04/03/19 14:55 98.7 67 20 147/71 (96) 99 Room Air Home Medications Scheduled Amiodarone HCl (Amiodarone HCl) 200 Mg Tablet, 200 MG PO DAILY, (Reported) Aspirin (Aspirin EC) 81 Mg Tab, 81 MG PO DAILY, (Reported) Atorvastatin Calcium (Atorvastatin Calcium) 40 Mg Tablet, 40 MG PO QHS, (Reported) Cyanocobalamin (Vitamin B-12) (Vitamin B-12) 1,000 Mcg Tablet, 1,000 MCG PO DAILY, (Reported) Denosumab Injection (Prolia) 60 Mg/Ml Wendy, 60 MG SC ASDIRECTED, (Reported) EVERY 6 MONTHS: LAST DOSE END OF FEBRUARY Ergocalciferol (Vitamin D2) (Vitamin D2) 50,000 Units Cap, 50,000 UNITS PO Q2WK, (Reported) EVERY OTHER WEDNESDAY Fluorouracil (Fluorouracil) 0.5% 30GM Cream..g., 1 DOSE TOP BID, (Reported) APPLY TO LEGS Folic Acid (Folic Acid) 1 Mg Tab, 2 MG PO DAILY, (Reported) Gabapentin (Gabapentin) 100 Mg Capsule, 200 MG PO QHS, (Reported) Hydroxychloroquine Sulfate (Hydroxychloroquine Sulfate) 200 Mg Tab, 200 MG PO Q2D, (Reported) Latanoprost (Xalatan) 0.005% 2.5ML Drops, 1 DROP OU QHS, (Reported) Methotrexate Sodium (Methotrexate) 2.5 Mg Tab, 7.5 MG PO QWEEK, (Reported) TUESDAYS Metoprolol Succinate (Metoprolol Succinate) 25 Mg Tab.er.24h, 25 MG PO DAILY, (Reported) Prednisone (Prednisone) 1 Mg Tab, 1 MG PO DAILY, (Reported) TOTAL 6MG Prednisone (Prednisone) 5 Mg Tab, 5 MG PO DAILY, (Reported) TOTAL 6MG Timolol Maleate (Timolol Maleate) 0.5% 5ML Drops, 1 DROP OU DAILY, (Reported) Scheduled PRN Acetaminophen (Acetaminophen) 500 Mg Tab, 1,000 MG PO Q6H PRN for PAIN, (Reported) Dicyclomine HCl (Dicyclomine HCl) 10 Mg Cap, 10 MG PO Q6H PRN for ABDOMINAL PAIN, (Reported) Fluticasone Propionate (Flonase Allergy Relief) 9.9 Ml [place].susp, 2 SPRAY NA DAILY PRN for NASAL CONGESTION, (Reported) Phenobarb/Hyoscy/Atropine/Scop ( Tablet) 1 Tab Tab, 1 TAB PO TID PRN for ABDOMINAL PAIN, (Reported) Allergies Coded Allergies: Penicillins (Verified Allergy, Intermediate, Hives, 07/08/18) Sulfa (Sulfonamide Antibiotics) (Verified Allergy, Intermediate, Hives, 07/08/18) codeine (Verified Allergy, Unknown, UNKNOWN REACTION, 01/27/19) A-FIB/CHADSVASC A-FIB History Current/History of A-Fib/PAF?: Yes Current PO Anticoag Therapy: No AXEL BROTHERS MD Apr 03, 2019 13:30
[2019-04-03] MEDS ORDERED: MOM 30ML SUSPENSION UDC PO PRN (13:45)
[2019-04-03] MEDS ORDERED: oxyCODONE 5MG TAB PO PRN (13:45)
[2019-04-03 14:55] VITALS: BP 147/71
[2019-04-03] MEDS ORDERED: PILL CUTTER 1 EACH XX PRN (15:45)
[2019-04-03] MEDS: PANTOPRAZOLE 40MG TAB (PROTONIX) PO SCH (16:18)
[2019-04-03] MEDS: SODIUM CHLORIDE NASAL 0.65% SPRAY BTL (OCEAN) SCH ×2 (16:18→22:01)
[2019-04-03] MEDS: ACETAMINOPHEN 500 MG TAB PO SCH ×2 (16:18→22:02)
[2019-04-03 20:00] VITALS: BP 138/72
[2019-04-03] MEDS: HEPARIN SOD (PORCINE) 5000 UNITS/ML VIAL SC SCH (22:00)
[2019-04-03] MEDS: LATANOPROST 0.005% OPHTH SOLN 2.5 ML OU SCH (22:00)
[2019-04-03] MEDS: FLUTICASONE PROP 0.05% NASAL SPRAY 16 GM (FLONASE) NARES SCH (22:00)
[2019-04-03] MEDS: SENNA 8.6 MG TAB (SENOKOT) PO SCH (22:01)
[2019-04-03] MEDS: GABAPENTIN 300 MG CAP PO SCH (22:01)
[2019-04-03] MEDS: DOCUSATE SODIUM 100 MG CAP PO SCH (22:01)
[2019-04-03] MEDS: ATORVASTATIN 20 MG TAB PO SCH (22:02)
[2019-04-04 06:00] VITALS: BP 132/77
[2019-04-04] MEDS: HEPARIN SOD (PORCINE) 5000 UNITS/ML VIAL SC SCH ×3 (06:20→21:14)
[2019-04-04 07:06] LABS: BASO % 0.4 % (0.0-1.0); EOS # 0.1 10^3/uL (0.0-0.5); EOS % 1.6 % (0.0-3.0); HEMATOCRIT 36.4 % (36.0-47.0); HEMOGLOBIN 10.9 g/dl (12.0-15.5); LYMPH # 2.2 10^3/uL (1.5-5.0); LYMPH % 27.1 % (24.0-44.0); MEAN CORPUSCULAR HEMOGLOBIN 29.6 pg (27.0-33.0); MEAN CORPUSCULAR HGB CONC 29.9 g/dl (32.0-36.5); MEAN CORPUSCULAR VOLUME 98.9 fl (80.0-96.0); MONO # 0.7 10^3/uL (0.0-0.8); MONO % 8.9 % (0.0-5.0); NEUTROPHILS % 61.5 % (36.0-66.0); PLATELET COUNT, AUTOMATED 235 10^3/uL (150-450); RED BLOOD COUNT 3.68 10^6/uL (4.00-5.40); WHITE BLOOD COUNT 8.1 10^3/uL (4.0-10.0)
[2019-04-04 07:36] LABS: ALBUMIN 2.5 GM/DL (3.2-5.2); ALT/SGPT 21 U/L (12-78); BILIRUBIN,TOTAL 0.4 MG/DL (0.2-1.0); BLOOD UREA NITROGEN 29 MG/DL (7-18); CALCIUM LEVEL 8.7 MG/DL (8.8-10.2); CARBON DIOXIDE LEVEL 27 MEQ/L (21-32); CHLORIDE LEVEL 109 MEQ/L (98-107); CREATININE FOR GFR 0.67 MG/DL (0.55-1.30); GLOMERULAR FILTRATION RATE > 60.0 (>32); GLUCOSE, FASTING 79 MG/DL (70-100); POTASSIUM SERUM 4.3 MEQ/L (3.5-5.1); SODIUM LEVEL 142 MEQ/L (136-145)
[2019-04-04] MEDS: DOCUSATE SODIUM 100 MG CAP PO SCH ×3 (09:00→21:15)
[2019-04-04] MEDS ORDERED: METHOTREXATE 2.5 MG TAB (J8610 PER 2.5MG) PO SCH (09:00)
[2019-04-04] MEDS: SODIUM CHLORIDE NASAL 0.65% SPRAY BTL (OCEAN) SCH ×3 (09:00→21:00)
[2019-04-04] MEDS: predniSONE 5 MG TAB PO SCH (09:09)
[2019-04-04] MEDS: PANTOPRAZOLE 40MG TAB (PROTONIX) PO SCH (09:10)
[2019-04-04] MEDS: AMIODARONE 200 MG TAB (PACERONE) PO SCH (09:10)
[2019-04-04] MEDS: FOLIC ACID 1 MG TAB PO SCH (09:10)
[2019-04-04] MEDS: GABAPENTIN 100 MG CAP PO SCH (09:10)
[2019-04-04] MEDS: HYDROXYCHLOROQUINE 200 MG TAB PO SCH (09:10)
[2019-04-04] MEDS: ASPIRIN 81 MG ENTERIC TAB PO SCH (09:10)
[2019-04-04] MEDS: predniSONE 1 MG TAB PO SCH (09:10)
[2019-04-04] MEDS: CYANOCOBALAMIN 500 MCG TAB PO SCH (09:11)
[2019-04-04] MEDS: ACETAMINOPHEN 500 MG TAB PO SCH ×3 (09:12→21:15)
[2019-04-04] MEDS: METOPROLOL SUCC *XL* 25MG TAB (TopROL *XL*) PO SCH (09:13)
[2019-04-04] MEDS: FLUTICASONE PROP 0.05% NASAL SPRAY 16 GM (FLONASE) NARES SCH ×2 (09:15→21:00)
[2019-04-04] MEDS: TIMOLOL MALEATE 0.5% OPHTH SOLN 5 ML OU SCH (09:16)
[2019-04-04 14:00] VITALS: BP 141/64
[2019-04-04] MEDS: SUCRALFATE SUSP 1GM/10ML UD PO SCH ×2 (14:09→17:20)
[2019-04-04 20:00] VITALS: BP 115/57
[2019-04-04] MEDS: SENNA 8.6 MG TAB (SENOKOT) PO SCH ×2 (21:00→21:15)
[2019-04-04] MEDS: GABAPENTIN 300 MG CAP PO SCH (21:15)
[2019-04-04] MEDS: LATANOPROST 0.005% OPHTH SOLN 2.5 ML OU SCH (21:15)
[2019-04-04] MEDS: ATORVASTATIN 20 MG TAB PO SCH (21:15)
[2019-04-05 06:00] VITALS: BP 163/87
[2019-04-05] MEDS: HEPARIN SOD (PORCINE) 5000 UNITS/ML VIAL SC SCH ×3 (06:16→21:25)
[2019-04-05] MEDS: KETOROLAC TROMETHAMINE 10 MG TAB PO PRN ×2 (06:48→12:42)
[2019-04-05] MEDS: SUCRALFATE SUSP 1GM/10ML UD PO SCH ×3 (07:30→16:44)
[2019-04-05] MEDS: DOCUSATE SODIUM 100 MG CAP PO SCH ×2 (09:00→21:00)
[2019-04-05] MEDS: PANTOPRAZOLE 40MG TAB (PROTONIX) PO SCH (09:32)
[2019-04-05] MEDS: ASPIRIN 81 MG ENTERIC TAB PO SCH (09:32)
[2019-04-05] MEDS: CYANOCOBALAMIN 500 MCG TAB PO SCH (09:32)
[2019-04-05] MEDS: METOPROLOL SUCC *XL* 25MG TAB (TopROL *XL*) PO SCH (09:35)
[2019-04-05] MEDS: AMIODARONE 200 MG TAB (PACERONE) PO SCH (09:36)
[2019-04-05] MEDS: predniSONE 1 MG TAB PO SCH (09:36)
[2019-04-05] MEDS: FOLIC ACID 1 MG TAB PO SCH (09:36)
[2019-04-05] MEDS: predniSONE 5 MG TAB PO SCH (09:36)
[2019-04-05] MEDS: GABAPENTIN 100 MG CAP PO SCH (09:37)
[2019-04-05] MEDS: ACETAMINOPHEN 500 MG TAB PO SCH ×3 (09:37→21:24)
[2019-04-05] MEDS: FLUTICASONE PROP 0.05% NASAL SPRAY 16 GM (FLONASE) NARES SCH ×2 (09:40→21:26)
[2019-04-05] MEDS: SODIUM CHLORIDE NASAL 0.65% SPRAY BTL (OCEAN) SCH ×3 (09:40→21:26)
[2019-04-05] MEDS: TIMOLOL MALEATE 0.5% OPHTH SOLN 5 ML OU SCH (09:40)
--- NOTE | 2019-04-05 10:59 | CR.PDOC ---
General Date of Consultation: Apr 05, 2019 Consultation CHIEF COMPLAINT: femur fracture HISTORY OF PRESENT ILLNESS: 83F pmh Afib, vestibular disorder, RA, CAD s/p PCIx2 in remote past, pulmonary HTN, peripheral neuropathy, colon cancer s/p resection with colostomy who had a dizzy spell at home resulting in a fall, presented to [facility] ED with difficulty walking. CT showed moderate degenerative spondylosis with multilevel disc space narrowing throughout the cervical spine, multilevel bilateral foraminal narrowing and multilevel disc osteophyte complexes with mild cord impingement at several levels . Xrays did not reveal hip or pelvic fractures, however due to persistent pain, CT was ordered showing, nondisplaced periprosthetic fracture which extends across the cephalad aspect of the femoral stem consistent with probably [place] B1 fracture. She was evaluated by orthopedics and recommended conservative management with physical therapy only. Patient received physical therapy while inpatient. Patient was accepted to acute rehabilitation unit eventually. REVIEW OF SYSTEMS: The following is a completed review of systems and has been reviewed. Review of systems otherwise unremarkable. PAIN: Patient self reports left hip pain EYES: No recent vision changes EARS, NOSE, & THROAT: No throat pain, or dysphagia, or rhinorrhea CARDIOVASCULAR: Denies chest pain or palpitations PULMONARY: Denies shortness of breath GASTROINTESTINAL:+nausea, denies constipation/diarrhea, +colostomy GENITOURINARY: denies dysuria MUSCULOSKELETAL: left hip fracture NEUROLOGICAL:no focal tremor HEMATOLOGICAL: denies easy bruising PSYCHIATRIC: Unremarkable All other review of systems found to be negative. PAST MEDICAL HISTORY: as per HPI PAST SURGICAL HISTORY: Left TKR, bilateral THR, cholecystectomy ALLERGIES: Please see below. MEDICATIONS: Please see below. FAMILY HISTORY:CAD and lung cancer SOCIAL HISTORY: no etoh, smoking, or illicit drugs PHYSICAL EXAMINATION: GENERAL: Pleasant and cooperative. No acute distress. HEENT: PERRL. Extraocular movements intact. Clear conjunctiva CARDIOVASCULAR: Regular rate and rhythm. No murmurs, rubs, or gallops LUNGS: Clear to auscultation bilaterally. No wheezes. No rhonchi ABDOMEN: Soft, nontender, nondistended. Positive bowel sounds. Normal active bowel sounds +colostomy NEUROLOGICAL: Alert and oriented times three. Cranial nerves II through XII grossly intact. Sensation grossly intact EXTREMITIES: 5\5 strength bilateral upper extremities. 5\5 strength right lower extremity. LABORATORY DATA: Please see below. IMAGING:Imaging documentation personally reviewed by record. Assessment and plan 1. Presyncope: Evaluated in detail. Patient had CT scan and MRI of the head which did not show any etiology. Last echo only showed diastolic dysfunction but no valvular dysfunction. The patient does have a history of A. fib, currently rate controlled with metoprolol. Continue aspiration and fall precautions. 2. Status post fall with periprosthetic fracture: Conservative management as per Ortho. Physical therapy has been following the patient. Pain management with Toradol as per rehabilitation 3. Macrocytic anemia: Likely due to methotrexate. Continue with vitamin B supplements 4. Paroxysmal atrial fibrillation . She is not on anticoagulation, possibly because of high risk of fall and high risk of bleeding. She continues to be on metoprolol and amiodarone and follows up with cardiology as an outpatient. 5. Rheumatoid arthritis: Continue home medications with Methotrexate, hydroxychloroquine, prednisone 6. CAD status post PCI 2 in the remote past. Continue with Aspirin, atorvastatin, metoprolol 7. Severe pulmonary hypertension : As the patient has chronic diastolic heart failure with pulmonary hypertension. Low dose of Lasix probably will be helpful. 2 g sodium diet restriction 8. Chronic diastolic CHF : 2 g sodium diet, daily weights and will recommend 20 mg of Lasix every alternate day for now. DVT PROPHYLAXIS: Heparin DISPOSITION: As per rehabilitation Vital Signs/I&O Vital Signs Date Time Temp Pulse Resp B/P (MAP) Pulse Ox O2 Delivery O2 Flow Rate FiO2 04/05/19 09:35 72 124/72 04/05/19 06:00 97.3 18 98 Room Air I&O- Last 24 Hours up to 6 AM 04/05/19 05:59 Intake Total 650 ml Balance 650 ml Laboratory Data Labs 24H Laboratory Tests 2 04/04/19 20:09: Bedside Glucose (Misc Panel) 100 Microbiology Microbiology 04/04/19 Stool Occult Blood (DEBBIE) - Final, Complete Allergies Coded Allergies: Penicillins (Verified Allergy, Intermediate, Hives, 07/08/18) Sulfa (Sulfonamide Antibiotics) (Verified Allergy, Intermediate, Hives, 07/08/18) codeine (Verified Allergy, Unknown, UNKNOWN REACTION, 01/27/19) Home Medications Scheduled Amiodarone HCl (Amiodarone HCl) 200 Mg Tablet, 200 MG PO DAILY, (Reported) Aspirin (Aspirin EC) 81 Mg Tab, 81 MG PO DAILY, (Reported) Atorvastatin Calcium (Atorvastatin Calcium) 40 Mg Tablet, 40 MG PO QHS, (Reported) Cyanocobalamin (Vitamin B-12) (Vitamin B-12) 1,000 Mcg Tablet, 1,000 MCG PO DAILY, (Reported) Denosumab Injection (Prolia) 60 Mg/Ml Wendy, 60 MG SC ASDIRECTED, (Reported) EVERY 6 MONTHS: LAST DOSE END OF FEBRUARY Ergocalciferol (Vitamin D2) (Vitamin D2) 50,000 Units Cap, 50,000 UNITS PO Q2WK, (Reported) EVERY OTHER WEDNESDAY Fluorouracil (Fluorouracil) 0.5% 30GM Cream..g., 1 DOSE TOP BID, (Reported) APPLY TO LEGS Folic Acid (Folic Acid) 1 Mg Tab, 2 MG PO DAILY, (Reported) Gabapentin (Gabapentin) 100 Mg Capsule, 200 MG PO QHS, (Reported) Hydroxychloroquine Sulfate (Hydroxychloroquine Sulfate) 200 Mg Tab, 200 MG PO Q2D, (Reported) Latanoprost (Xalatan) 0.005% 2.5ML Drops, 1 DROP OU QHS, (Reported) Methotrexate Sodium (Methotrexate) 2.5 Mg Tab, 7.5 MG PO QWEEK, (Reported) TUESDAYS Metoprolol Succinate (Metoprolol Succinate) 25 Mg Tab.er.24h, 25 MG PO DAILY, (Reported) Prednisone (Prednisone) 1 Mg Tab, 1 MG PO DAILY, (Reported) TOTAL 6MG Prednisone (Prednisone) 5 Mg Tab, 5 MG PO DAILY, (Reported) TOTAL 6MG Timolol Maleate (Timolol Maleate) 0.5% 5ML Drops, 1 DROP OU DAILY, (Reported) Scheduled PRN Acetaminophen (Acetaminophen) 500 Mg Tab, 1,000 MG PO Q6H PRN for PAIN, (Reported) Dicyclomine HCl (Dicyclomine HCl) 10 Mg Cap, 10 MG PO Q6H PRN for ABDOMINAL PAIN, (Reported) Fluticasone Propionate (Flonase Allergy Relief) 9.9 Ml [place].susp, 2 SPRAY NA DAILY PRN for NASAL CONGESTION, (Reported) Phenobarb/Hyoscy/Atropine/Scop ( Tablet) 1 Tab Tab, 1 TAB PO TID PRN for ABDOMINAL PAIN, (Reported) QUIANA DEL ROSARIO MD Apr 05, 2019 10:59
--- NOTE | 2019-04-05 11:40 | IPNPDOC ---
PM&R Progress Note DATE OF SERVICE: Apr 05, 2019 Alliance Manager Progress Note Subjective: Patient reporting her pain is better controlled with Toradol and that she is agreeable to going up a little on her daily prednisone because she can [place] her RA starting to flare. REVIEW OF SYSTEMS: The following is a completed review of systems and has been reviewed. Review of systems otherwise unremarkable. PAIN: Patient self reports left hip pain EYES: No recent vision changes EARS, NOSE, & THROAT: No throat pain, or dysphagia, or rhinorrhea CARDIOVASCULAR: Denies chest pain or palpitations PULMONARY: Denies shortness of breath GASTROINTESTINAL: denies constipation/diarrhea, +colostomy GENITOURINARY: denies dysuria MUSCULOSKELETAL: left hip fracture NEUROLOGICAL:no focal tremor HEMATOLOGICAL: denies easy bruising SKIN: no rash PSYCHIATRIC: Unremarkable All other review of systems found to be negative. PHYSICAL EXAMINATION: VITAL SIGNS: Please see below. GENERAL: Pleasant and cooperative. No acute distress. HEENT: PERRL. Extraocular movements intact. Clear conjunctiva CARDIOVASCULAR: Regular rate and rhythm. No murmurs, rubs, or gallops LUNGS: Clear to auscultation bilaterally. No wheezes. No rhonchi ABDOMEN: Soft, nontender, nondistended. Positive bowel sounds. Normal active bowel sounds +colostomy NEUROLOGICAL: Alert and oriented times three. Cranial nerves II through XII grossly intact. Sensation grossly intact EXTREMITIES: 5\5 strength bilateral upper extremities. 5\5 strength right lower extremity. 5/5 strength in left ankle DF, EHL, and PF(limited due to hip fracture) SKIN: intact LABORATORY DATA: Please see below. ASSESSMENT:83-year-old F with past medical history of afib who presents status post fall with periprosthetic fracture PLAN: 1. Rehab- PT/OT TTWB to the E, optmize transfers, gait training, strengthen/stretch/maintain ROM, core strengthening 2. Neuro: hx of vestibular dysfunction, seen by neurology in the past, monitor 3. Cardiac: hx of afib not on AC- c/u Amiodarone, last ECHO indeterminant diastolic function, will assume some degree of CHF and fluid restrict with daily weights, medicine consulted to assist in management -CAD s/p PCI c/u ASA and metoprolol -HLD- lipitor 4. Resp: encourage incentive spirometry, monitor for infection 5. ENT: recent CT showing sings of possible acute sinusitis, c/u flonase, monitor for infection 6. Rheum: hx of RA, c/u prednisone, methotrexate, and plaquenil- will increase daily dose of prednisone to 10mg to help with post-fracture inflammation 7. Pain: due to neuroapthy and RA, c/u RA meds, gabapentin, tylenol -patient requesting Toradol, has nausea with oxycodone-c/u 8. DVT ppx: heparin and teds 9. GI ppx: protonix -c/u sucralfate FOBT while on Toradol -FOBt negative 10. : monitor PVRs 11. Ortho: s/p left femur periprosthetic fracture, TTWB- ortho consulted 11. Dispo: TBD Allergies Coded Allergies: Penicillins (Verified Allergy, Intermediate, Hives, 07/08/18) Sulfa (Sulfonamide Antibiotics) (Verified Allergy, Intermediate, Hives, 07/08/18) codeine (Verified Allergy, Unknown, UNKNOWN REACTION, 01/27/19) Vital Signs Vital Signs Date Time Temp Pulse Resp B/P (MAP) Pulse Ox O2 Delivery O2 Flow Rate FiO2 04/05/19 09:35 72 124/72 04/05/19 06:00 97.3 18 98 Room Air Laboratory Data Labs 24H Laboratory Tests 2 04/04/19 20:09: Bedside Glucose (Misc Panel) 100 Microbiology Microbiology 04/04/19 Stool Occult Blood (DEBBIE) - Final, Complete Current Medications Current Medications Current Medications Medications (Trade) Dose Ordered Sig/Dio Route PRN Reason Start Time Stop Time Status Last Admin Dose Admin Acetaminophen (Tylenol Tab) 1,000 mg TID PO 04/03/19 16:00 04/05/19 09:37 Amiodarone HCl (Pacerone, Cordarone) 200 mg DAILY PO 04/04/19 09:00 04/05/19 09:36 Aspirin (Ecotrin) 81 mg DAILY PO 04/04/19 09:00 04/05/19 09:32 Atorvastatin Calcium (Lipitor) 40 mg QHS PO 04/03/19 21:00 04/04/19 21:15 Cyanocobalamin (Vitamin B12) 1,000 mcg DAILY PO 04/04/19 09:00 04/05/19 09:32 Docusate Sodium (Colace) 100 mg BID PO 04/03/19 21:00 04/03/19 22:01 Fluticasone Propionate (Flonase 0.05% Nasal [place]) 1 spray BID NARES 04/03/19 21:00 04/05/19 09:40 Folic Acid (Folic Acid) 2 mg DAILY PO 04/04/19 09:00 04/05/19 09:36 Gabapentin (Neurontin) 100 mg QAM PO 04/04/19 09:00 04/05/19 09:37 Gabapentin (Neurontin) 300 mg QHS PO 04/03/19 21:00 04/04/19 21:15 Heparin Sodium (Porcine) (Heparin) 5,000 units Q8H SC 04/03/19 22:00 04/05/19 06:16 Home Med (Med Rec Complete!) ASDIRECTED XX 04/03/19 15:15 04/03/19 15:14 DC Hydroxychloroquine Sulfate (Plaquenil) 200 mg Q2D PO 04/04/19 09:00 04/04/19 09:10 Ketorolac Tromethamine (ToRADol) 10 mg Q6HP PRN PO PAIN 04/04/19 11:30 04/09/19 11:29 04/05/19 06:48 Latanoprost (Xalatan 0.005% Op Soln) 1 drop QHS OU 04/03/19 21:00 04/04/19 21:15 Magnesium Hydroxide (Milk Of Magnesia) 30 ml DAILYPRN PRN PO CONSTIPATION 04/03/19 13:45 Methotrexate (Folex) 7.5 mg Tu@0900 PO 04/04/19 09:00 04/04/19 09:09 Metoprolol Succinate (TopROL XL) 25 mg DAILY PO 04/04/19 09:00 04/05/19 09:35 Ondansetron HCl (Zofran Odt) 4 mg Q4HP PRN PO NAUSEA OR VOMITING 04/04/19 11:30 Oxycodone HCl (Roxicodone, Oxyir) 2.5 mg Q4HP PRN PO PAIN 04/03/19 13:45 04/04/19 11:18 DC 04/04/19 06:21 Pantoprazole Sodium (Protonix) 40 mg DAILY PO 04/03/19 09:00 04/05/19 09:32 Prednisone (Deltasone) 1 mg DAILY PO 04/04/19 09:00 04/05/19 09:36 Prednisone (Deltasone) 5 mg DAILY PO 04/04/19 09:00 04/05/19 09:36 Senna (Senokot) 1 tab QHS PO 04/03/19 21:00 04/03/19 22:01 Sodium Chloride ([place] Nasal [place]) 2 spray TID NA 04/03/19 16:00 04/05/19 09:40 Sucralfate (Carafate Suspension) 1 gm AC PO 04/04/19 12:00 04/04/19 17:20 Timolol Maleate (Timoptic 0.5% Ophth [place]) 1 drop DAILY OU 04/04/19 09:00 04/05/19 09:40 AXEL BROTHERS MD Apr 05, 2019 11:40
[2019-04-05 14:00] VITALS: BP 108/51
[2019-04-05] MEDS ORDERED: predniSONE 1 MG TAB PO ONE (14:00)
[2019-04-05] MEDS: REMEDY PHYTOPLEX Z-GUARD PASTE 113GM TUBE (FROM STOREROOM PRODUCT) TOP SCH ×2 (16:00→21:00)
[2019-04-05 20:00] VITALS: BP 138/52
[2019-04-05] MEDS: SENNA 8.6 MG TAB (SENOKOT) PO SCH (21:00)
[2019-04-05] MEDS: ATORVASTATIN 20 MG TAB PO SCH (21:24)
[2019-04-05] MEDS: GABAPENTIN 300 MG CAP PO SCH (21:24)
[2019-04-05] MEDS: LATANOPROST 0.005% OPHTH SOLN 2.5 ML OU SCH (21:27)
[2019-04-06] MEDS: HEPARIN SOD (PORCINE) 5000 UNITS/ML VIAL SC SCH ×3 (05:22→21:12)
[2019-04-06 06:00] VITALS: BP 142/74
[2019-04-06 06:45] LABS: BASO % 0.2 % (0.0-1.0); EOS % 0.4 % (0.0-3.0); HEMATOCRIT 35.6 % (36.0-47.0); HEMOGLOBIN 10.7 g/dl (12.0-15.5); LYMPH # 1.6 10^3/uL (1.5-5.0); LYMPH % 16.7 % (24.0-44.0); MEAN CORPUSCULAR HEMOGLOBIN 29.8 pg (27.0-33.0); MEAN CORPUSCULAR HGB CONC 30.1 g/dl (32.0-36.5); MEAN CORPUSCULAR VOLUME 99.2 fl (80.0-96.0); MONO # 0.7 10^3/uL (0.0-0.8); MONO % 7.2 % (0.0-5.0); NEUTROPHILS # 6.9 10^3/uL (1.5-8.5); NEUTROPHILS % 74.9 % (36.0-66.0); PLATELET COUNT, AUTOMATED 265 10^3/uL (150-450); RED BLOOD COUNT 3.59 10^6/uL (4.00-5.40); WHITE BLOOD COUNT 9.3 10^3/uL (4.0-10.0)
[2019-04-06 07:11] LABS: BLOOD UREA NITROGEN 29 MG/DL (7-18); CALCIUM LEVEL 8.4 MG/DL (8.8-10.2); CARBON DIOXIDE LEVEL 28 MEQ/L (21-32); CHLORIDE LEVEL 107 MEQ/L (98-107); CREATININE FOR GFR 0.64 MG/DL (0.55-1.30); GLOMERULAR FILTRATION RATE > 60.0 (>32); GLUCOSE, FASTING 78 MG/DL (70-100); POTASSIUM SERUM 3.7 MEQ/L (3.5-5.1); SODIUM LEVEL 140 MEQ/L (136-145)
[2019-04-06] MEDS: GABAPENTIN 100 MG CAP PO SCH (08:16)
[2019-04-06] MEDS: SUCRALFATE SUSP 1GM/10ML UD PO SCH ×3 (08:16→16:21)
[2019-04-06] MEDS: HYDROXYCHLOROQUINE 200 MG TAB PO SCH (08:17)
[2019-04-06] MEDS: FOLIC ACID 1 MG TAB PO SCH (08:17)
[2019-04-06] MEDS: ACETAMINOPHEN 500 MG TAB PO SCH ×3 (08:18→21:00)
[2019-04-06] MEDS: ASPIRIN 81 MG ENTERIC TAB PO SCH (08:18)
[2019-04-06] MEDS: PANTOPRAZOLE 40MG TAB (PROTONIX) PO SCH (08:18)
[2019-04-06] MEDS: METOPROLOL SUCC *XL* 25MG TAB (TopROL *XL*) PO SCH (08:18)
[2019-04-06] MEDS: predniSONE 10 MG TAB PO SCH (08:18)
[2019-04-06] MEDS: CYANOCOBALAMIN 500 MCG TAB PO SCH (08:19)
[2019-04-06] MEDS: AMIODARONE 200 MG TAB (PACERONE) PO SCH (08:19)
[2019-04-06] MEDS: DOCUSATE SODIUM 100 MG CAP PO SCH ×2 (08:20→21:00)
[2019-04-06] MEDS: SODIUM CHLORIDE NASAL 0.65% SPRAY BTL (OCEAN) SCH ×3 (08:29→21:11)
[2019-04-06] MEDS: FLUTICASONE PROP 0.05% NASAL SPRAY 16 GM (FLONASE) NARES SCH ×2 (08:29→21:11)
[2019-04-06] MEDS: TIMOLOL MALEATE 0.5% OPHTH SOLN 5 ML OU SCH (08:29)
[2019-04-06] MEDS: REMEDY PHYTOPLEX Z-GUARD PASTE 113GM TUBE (FROM STOREROOM PRODUCT) TOP SCH ×4 (08:31→21:00)
[2019-04-06] MEDS: KETOROLAC TROMETHAMINE 10 MG TAB PO PRN (09:48)
--- NOTE | 2019-04-06 11:19 | IPNPDOC ---
PM&R Progress Note DATE OF SERVICE: Apr 06, 2019 Senior Financial Consultant Progress Note Subjective: Patient reporting her left anterior thigh and hip are cramping and is interested in trying some [place]. She otherwise states she is feeling well and believes the increased prednisone dosing is helping. REVIEW OF SYSTEMS: The following is a completed review of systems and has been reviewed. Review of systems otherwise unremarkable. PAIN: Patient self reports left hip pain EYES: No recent vision changes EARS, NOSE, & THROAT: No throat pain, or dysphagia, or rhinorrhea CARDIOVASCULAR: Denies chest pain or palpitations PULMONARY: Denies shortness of breath GASTROINTESTINAL: denies constipation/diarrhea, +colostomy GENITOURINARY: denies dysuria MUSCULOSKELETAL: left hip fracture NEUROLOGICAL:no focal tremor HEMATOLOGICAL: denies easy bruising SKIN: no rash PSYCHIATRIC: Unremarkable All other review of systems found to be negative. PHYSICAL EXAMINATION: VITAL SIGNS: Please see below. GENERAL: Pleasant and cooperative. No acute distress. HEENT: PERRL. Extraocular movements intact. Clear conjunctiva CARDIOVASCULAR: Regular rate and rhythm. No murmurs, rubs, or gallops LUNGS: Clear to auscultation bilaterally. No wheezes. No rhonchi ABDOMEN: Soft, nontender, nondistended. Positive bowel sounds. Normal active bowel sounds +colostomy NEUROLOGICAL: Alert and oriented times three. Cranial nerves II through XII grossly intact. Sensation grossly intact EXTREMITIES: 5\5 strength bilateral upper extremities. 5\5 strength right lower extremity. 5/5 strength in left ankle DF, EHL, and PF(limited due to hip fracture) SKIN: intact LABORATORY DATA: Please see below. ASSESSMENT:83-year-old F with past medical history of afib who presents status post fall with periprosthetic fracture PLAN: 1. Rehab- PT/OT TTWB to the E, optmize transfers, gait training, strengthen/stretch/maintain ROM, core strengthening 2. Neuro: hx of vestibular dysfunction, seen by neurology in the past, monitor 3. Cardiac: hx of afib not on AC- c/u Amiodarone, last ECHO indeterminant diastolic function, will assume some degree of CHF and fluid restrict with daily weights, medicine consulted to assist in management -CAD s/p PCI c/u ASA and metoprolol -HLD- lipitor 4. Resp: encourage incentive spirometry, monitor for infection 5. ENT: recent CT showing sings of possible acute sinusitis, c/u flonase, monitor for infection 6. Rheum: hx of RA, c/u prednisone, methotrexate, and plaquenil- will increase daily dose of prednisone to 10mg to help with post-fracture inflammation 7. Pain: due to neuroapthy and RA, c/u RA meds, gabapentin, tylenol -patient requesting Toradol, has nausea with oxycodone-c/u 8. DVT ppx: heparin and teds 9. GI ppx: protonix -c/u sucralfate FOBT while on Toradol -FOBt negative 10. : monitor PVRs 11. Ortho: s/p left femur periprosthetic fracture, TTWB- ortho consulted 11. Dispo: TBD Allergies Coded Allergies: Penicillins (Verified Allergy, Intermediate, Hives, 07/08/18) Sulfa (Sulfonamide Antibiotics) (Verified Allergy, Intermediate, Hives, 07/08/18) codeine (Verified Allergy, Unknown, UNKNOWN REACTION, 01/27/19) Vital Signs Vital Signs Date Time Temp Pulse Resp B/P (MAP) Pulse Ox O2 Delivery O2 Flow Rate FiO2 04/06/19 08:18 70 132/64 04/06/19 06:00 97.4 18 99 Room Air Laboratory Data CBC/BMP Laboratory Tests 04/06/19 06:20 Labs 24H Laboratory Tests 2 04/06/19 06:20: Immature Granulocyte % (Auto) 0.6, Neutrophils (%) (Auto) 74.9H, Lymphocytes (%) (Auto) 16.7L, Monocytes (%) (Auto) 7.2H, Eosinophils (%) (Auto) 0.4, Basophils (%) (Auto) 0.2, Neutrophils # (Auto) 6.9, Lymphocytes # (Auto) 1.6, Monocytes # (Auto) 0.7, Eosinophils # (Auto) 0.0, Basophils # (Auto) 0.0, Nucleated Red Blood Cells % (auto) 0.0, Anion Gap 5L, Glomerular Filtration Rate > 60.0, Calcium Level 8.4L Microbiology Microbiology 04/04/19 Stool Occult Blood (DEBBIE) - Final, Complete Current Medications Current Medications Current Medications Medications (Trade) Dose Ordered Sig/Dio Route PRN Reason Start Time Stop Time Status Last Admin Dose Admin Acetaminophen (Tylenol Tab) 1,000 mg TID PO 04/03/19 16:00 04/06/19 08:18 Amiodarone HCl (Pacerone, Cordarone) 200 mg DAILY PO 04/04/19 09:00 04/06/19 08:19 Aspirin (Ecotrin) 81 mg DAILY PO 04/04/19 09:00 04/06/19 08:18 Atorvastatin Calcium (Lipitor) 40 mg QHS PO 04/03/19 21:00 04/05/19 21:24 Cyanocobalamin (Vitamin B12) 1,000 mcg DAILY PO 04/04/19 09:00 04/06/19 08:19 Docusate Sodium (Colace) 100 mg BID PO 04/03/19 21:00 04/03/19 22:01 Fluticasone Propionate (Flonase 0.05% Nasal [place]) 1 spray BID NARES 04/03/19 21:00 04/06/19 08:29 Folic Acid (Folic Acid) 2 mg DAILY PO 04/04/19 09:00 04/06/19 08:17 Gabapentin (Neurontin) 100 mg QAM PO 04/04/19 09:00 04/06/19 08:16 Gabapentin (Neurontin) 300 mg QHS PO 04/03/19 21:00 04/05/19 21:24 Heparin Sodium (Porcine) (Heparin) 5,000 units Q8H SC 04/03/19 22:00 04/06/19 05:22 Home Med (Med Rec Complete!) ASDIRECTED XX 04/03/19 15:15 04/03/19 15:14 DC Hydroxychloroquine Sulfate (Plaquenil) 200 mg Q2D PO 04/04/19 09:00 04/06/19 08:17 Ketorolac Tromethamine (ToRADol) 10 mg Q6HP PRN PO PAIN 04/04/19 11:30 04/09/19 11:29 04/06/19 09:48 Latanoprost (Xalatan 0.005% Op Soln) 1 drop QHS OU 04/03/19 21:00 04/05/19 21:27 Magnesium Hydroxide (Milk Of Magnesia) 30 ml DAILYPRN PRN PO CONSTIPATION 04/03/19 13:45 Methotrexate (Folex) 7.5 mg Tu@0900 PO 04/04/19 09:00 04/04/19 09:09 Metoprolol Succinate (TopROL XL) 25 mg DAILY PO 04/04/19 09:00 04/06/19 08:18 Ondansetron HCl (Zofran Odt) 4 mg Q4HP PRN PO NAUSEA OR VOMITING 04/04/19 11:30 Oxycodone HCl (Roxicodone, Oxyir) 2.5 mg Q4HP PRN PO PAIN 04/03/19 13:45 04/04/19 11:18 DC 04/04/19 06:21 Pantoprazole Sodium (Protonix) 40 mg DAILY PO 04/03/19 09:00 04/06/19 08:18 Prednisone (Deltasone) 1 mg DAILY PO 04/04/19 09:00 04/05/19 11:38 DC 04/05/19 09:36 Prednisone (Deltasone) 5 mg DAILY PO 04/04/19 09:00 04/05/19 11:38 DC 04/05/19 09:36 Prednisone (Deltasone) 10 mg DAILY PO 04/06/19 09:00 04/06/19 08:18 Senna (Senokot) 1 tab QHS PO 04/03/19 21:00 04/03/19 22:01 Sodium Chloride ([place] Nasal [place]) 2 spray TID NA 04/03/19 16:00 04/06/19 08:29 Sucralfate (Carafate Suspension) 1 gm AC PO 04/04/19 12:00 04/06/19 08:16 Timolol Maleate (Timoptic 0.5% Ophth Wendy) 1 drop DAILY OU 04/04/19 09:00 04/06/19 08:29 AXEL BROTHERS MD Apr 06, 2019 11:19
[2019-04-06 14:00] VITALS: BP 137/61
[2019-04-06] MEDS: ANALGESIC BALM CRM 120 GM TOP SCH ×2 (16:23→21:12)
[2019-04-06] MEDS: ONDANSETRON 4 MG ORAL DISINTEGRATING TAB (Q0162 PER 1MG) PO PRN (18:40)
[2019-04-06 20:00] VITALS: BP 139/65
[2019-04-06] MEDS: SENNA 8.6 MG TAB (SENOKOT) PO SCH (21:00)
[2019-04-06] MEDS: GABAPENTIN 300 MG CAP PO SCH (21:09)
[2019-04-06] MEDS: ATORVASTATIN 20 MG TAB PO SCH (21:10)
[2019-04-06] MEDS: LATANOPROST 0.005% OPHTH SOLN 2.5 ML OU SCH (21:11)
[2019-04-07] MEDS: HEPARIN SOD (PORCINE) 5000 UNITS/ML VIAL SC SCH ×2 (05:27→15:47)
[2019-04-07 05:36] VITALS: BP 118/60
[2019-04-07] MEDS: SODIUM CHLORIDE NASAL 0.65% SPRAY BTL (OCEAN) SCH ×3 (09:00→21:00)
[2019-04-07] MEDS: ACETAMINOPHEN 500 MG TAB PO SCH ×3 (09:00→21:00)
[2019-04-07] MEDS: DOCUSATE SODIUM 100 MG CAP PO SCH ×2 (09:00→21:00)
[2019-04-07] MEDS: PANTOPRAZOLE 40MG TAB (PROTONIX) PO SCH (09:11)
[2019-04-07] MEDS: AMIODARONE 200 MG TAB (PACERONE) PO SCH (09:11)
[2019-04-07] MEDS: SUCRALFATE SUSP 1GM/10ML UD PO SCH ×3 (09:11→17:58)
[2019-04-07] MEDS: predniSONE 10 MG TAB PO SCH (09:11)
[2019-04-07] MEDS: FOLIC ACID 1 MG TAB PO SCH (09:11)
[2019-04-07] MEDS: ONDANSETRON 4 MG ORAL DISINTEGRATING TAB (Q0162 PER 1MG) PO PRN (09:11)
[2019-04-07] MEDS: KETOROLAC TROMETHAMINE 10 MG TAB PO PRN (09:11)
[2019-04-07] MEDS: GABAPENTIN 100 MG CAP PO SCH (09:11)
[2019-04-07] MEDS: METOPROLOL SUCC *XL* 25MG TAB (TopROL *XL*) PO SCH (09:12)
[2019-04-07] MEDS: FLUTICASONE PROP 0.05% NASAL SPRAY 16 GM (FLONASE) NARES SCH ×2 (09:12→21:00)
[2019-04-07] MEDS: CYANOCOBALAMIN 500 MCG TAB PO SCH (09:12)
[2019-04-07] MEDS: ASPIRIN 81 MG ENTERIC TAB PO SCH (09:12)
[2019-04-07] MEDS: ANALGESIC BALM CRM 120 GM TOP SCH ×3 (09:13→21:41)
[2019-04-07] MEDS: TIMOLOL MALEATE 0.5% OPHTH SOLN 5 ML OU SCH (09:13)
[2019-04-07] MEDS: REMEDY PHYTOPLEX Z-GUARD PASTE 113GM TUBE (FROM STOREROOM PRODUCT) TOP SCH ×3 (09:14→21:00)
[2019-04-07] MEDS ORDERED: AMIO200T PO (10:34)
[2019-04-07] MEDS ORDERED: PRED10TA2 PO (10:34)
[2019-04-07] MEDS ORDERED: ASPI81TA26 PO (10:34)
[2019-04-07] MEDS ORDERED: GABA-1171 PO (10:34)
[2019-04-07] MEDS ORDERED: GABA-843 PO (10:34)
[2019-04-07] MEDS ORDERED: ATOR40TA75 PO (10:34)
[2019-04-07] MEDS ORDERED: FLON1SPR (10:34)
[2019-04-07] MEDS ORDERED: CYAN100050 PO (10:34)
[2019-04-07] MEDS ORDERED: METO1TAB32 PO (10:34)
[2019-04-07] MEDS ORDERED: FOLI1TAB11 PO (10:34)
[2019-04-07 14:00] VITALS: BP 133/60
--- NOTE | 2019-04-07 14:26 | IPNPDOC ---
PM&R Progress Note DATE OF SERVICE: Apr 07, 2019 Chemical Applicator Progress Note Subjective: Patient reporting she wants to stop getting heparin shots, but reports her left calf feels a little swollen. REVIEW OF SYSTEMS: The following is a completed review of systems and has been reviewed. Review of systems otherwise unremarkable. PAIN: Patient self reports left hip pain EYES: No recent vision changes EARS, NOSE, & THROAT: No throat pain, or dysphagia, or rhinorrhea CARDIOVASCULAR: Denies chest pain or palpitations PULMONARY: Denies shortness of breath GASTROINTESTINAL: denies constipation/diarrhea, +colostomy GENITOURINARY: denies dysuria MUSCULOSKELETAL: left hip fracture NEUROLOGICAL:no focal tremor HEMATOLOGICAL: denies easy bruising SKIN: no rash PSYCHIATRIC: Unremarkable All other review of systems found to be negative. PHYSICAL EXAMINATION: VITAL SIGNS: Please see below. GENERAL: Pleasant and cooperative. No acute distress. HEENT: PERRL. Extraocular movements intact. Clear conjunctiva CARDIOVASCULAR: Regular rate and rhythm. No murmurs, rubs, or gallops LUNGS: Clear to auscultation bilaterally. No wheezes. No rhonchi ABDOMEN: Soft, nontender, nondistended. Positive bowel sounds. Normal active bowel sounds +colostomy NEUROLOGICAL: Alert and oriented times three. Cranial nerves II through XII grossly intact. Sensation grossly intact EXTREMITIES: 5\5 strength bilateral upper extremities. 5\5 strength right lower extremity. 5/5 strength in left ankle DF, EHL, and PF(limited due to hip fracture) SKIN: intact (+/-) [place] LLE LABORATORY DATA: Please see below. ASSESSMENT:83-year-old F with past medical history of afib who presents status post fall with periprosthetic fracture PLAN: 1. Rehab- PT/OT TTWB to the E, optmize transfers, gait training, strengthen/stretch/maintain ROM, core strengthening- room privileges from a wheelchair level 2. Neuro: hx of vestibular dysfunction, seen by neurology in the past, monitor 3. Cardiac: hx of afib not on AC- c/u Amiodarone, last ECHO indeterminant diastolic function, will assume some degree of CHF and fluid restrict with daily weights, medicine consulted to assist in management -CAD s/p PCI c/u ASA and metoprolol -HLD- lipitor 4. Resp: encourage incentive spirometry, monitor for infection 5. ENT: recent CT showing sings of possible acute sinusitis, c/u flonase, monitor for infection 6. Rheum: hx of RA, c/u prednisone, methotrexate, and plaquenil- will increase daily dose of prednisone to 10mg to help with post-fracture inflammation 7. Pain: due to neuroapthy and RA, c/u RA meds, gabapentin, tylenol -patient requesting Toradol, has nausea with oxycodone-c/u 8. DVT ppx: heparin and teds, ordering Dopplers to r/o DVT before d/cing heparin 9. GI ppx: protonix -c/u sucralfate FOBT while on Toradol -FOBT negative 10. : monitor PVRs 11. Ortho: s/p left femur periprosthetic fracture, TTWB- ortho consulted, will order XR for Wednesday in anticipation of ortho f/u next week 11. Dispo: TBD Allergies Coded Allergies: Penicillins (Verified Allergy, Intermediate, Hives, 07/08/18) Sulfa (Sulfonamide Antibiotics) (Verified Allergy, Intermediate, Hives, 07/08/18) codeine (Verified Allergy, Unknown, UNKNOWN REACTION, 01/27/19) Vital Signs Vital Signs Date Time Temp Pulse Resp B/P (MAP) Pulse Ox O2 Delivery O2 Flow Rate FiO2 04/07/19 09:12 65 118/60 04/07/19 05:36 96.7 18 99 Room Air Microbiology Microbiology 04/04/19 Stool Occult Blood (DEBBIE) - Final, Complete Current Medications Current Medications Current Medications Medications (Trade) Dose Ordered Sig/Dio Route PRN Reason Start Time Stop Time Status Last Admin Dose Admin Acetaminophen (Tylenol Tab) 1,000 mg TID PO 04/03/19 16:00 04/06/19 16:21 Amiodarone HCl (Pacerone, Cordarone) 200 mg DAILY PO 04/04/19 09:00 04/07/19 09:11 Aspirin (Ecotrin) 81 mg DAILY PO 04/04/19 09:00 04/07/19 09:12 Atorvastatin Calcium (Lipitor) 40 mg QHS PO 04/03/19 21:00 04/06/19 21:10 Cyanocobalamin (Vitamin B12) 1,000 mcg DAILY PO 04/04/19 09:00 04/07/19 09:12 Docusate Sodium (Colace) 100 mg BID PO 04/03/19 21:00 04/03/19 22:01 Fluticasone Propionate (Flonase 0.05% Nasal [place]) 1 spray BID NARES 04/03/19 21:00 04/07/19 09:12 Folic Acid (Folic Acid) 2 mg DAILY PO 04/04/19 09:00 04/07/19 09:11 Gabapentin (Neurontin) 100 mg QAM PO 04/04/19 09:00 04/07/19 09:11 Gabapentin (Neurontin) 300 mg QHS PO 04/03/19 21:00 04/06/19 21:09 Heparin Sodium (Porcine) (Heparin) 5,000 units Q8H SC 04/03/19 22:00 04/07/19 05:27 Home Med (Med Rec Complete!) ASDIRECTED XX 04/03/19 15:15 04/03/19 15:14 DC Hydroxychloroquine Sulfate (Plaquenil) 200 mg Q2D PO 04/04/19 09:00 04/06/19 08:17 Ketorolac Tromethamine (ToRADol) 10 mg Q6HP PRN PO PAIN 04/04/19 11:30 04/09/19 11:29 04/07/19 09:11 Latanoprost (Xalatan 0.005% Op Soln) 1 drop QHS OU 04/03/19 21:00 04/06/19 21:11 Magnesium Hydroxide (Milk Of Magnesia) 30 ml DAILYPRN PRN PO CONSTIPATION 04/03/19 13:45 Menthol/Methyl Salicylate (Beng[place] Cream) 1 dose TID TOP 04/06/19 16:00 04/07/19 09:13 Methotrexate (Folex) 7.5 mg Tu@0900 PO 04/04/19 09:00 04/04/19 09:09 Metoprolol Succinate (TopROL XL) 25 mg DAILY PO 04/04/19 09:00 04/07/19 09:12 Ondansetron HCl (Zofran Odt) 4 mg Q4HP PRN PO NAUSEA OR VOMITING 04/04/19 11:30 04/07/19 09:11 Oxycodone HCl (Roxicodone, Oxyir) 2.5 mg Q4HP PRN PO PAIN 04/03/19 13:45 04/04/19 11:18 DC 04/04/19 06:21 Pantoprazole Sodium (Protonix) 40 mg DAILY PO 04/03/19 09:00 04/07/19 09:11 Prednisone (Deltasone) 1 mg DAILY PO 04/04/19 09:00 04/05/19 11:38 DC 04/05/19 09:36 Prednisone (Deltasone) 5 mg DAILY PO 04/04/19 09:00 04/05/19 11:38 DC 04/05/19 09:36 Prednisone (Deltasone) 10 mg DAILY PO 04/06/19 09:00 04/07/19 09:11 Senna (Senokot) 1 tab QHS PO 04/03/19 21:00 04/03/19 22:01 Sodium Chloride ([place] Nasal [place]) 2 spray TID NA 04/03/19 16:00 04/06/19 21:11 Sucralfate (Carafate Suspension) 1 gm AC PO 04/04/19 12:00 04/07/19 11:51 Timolol Maleate (Timoptic 0.5% Ophth Wendy) 1 drop DAILY OU 04/04/19 09:00 04/07/19 09:13 AXEL BROTHERS MD Apr 07, 2019 14:26
--- NOTE | 2019-04-07 16:09 | REP ---
BILATERAL LOWER EXTREMITY DUPLEX DOPPLER VENOUS ULTRASOUND: Real-time compression and duplex Doppler interrogation of bilateral lower extremity deep vein system is performed. Bilaterally, common femoral, superficial femoral and popliteal veins are fully compressible with transducer pressure and demonstrate normal spontaneous and phasic flow without evidence of deep venous thrombosis. Once again, in the right inguinal region the large hypoechoic area measures 10.5 x 5.2 x 5.1 cm. This was seen on the prior CT abdomen and pelvis 01/27/2019 as well as 07/01/2018. It probably represents complex fluid related to right hip joint and prosthesis as mentioned on prior CT reports. Electronically Signed by Woody Mo MD 04/12/2019 09:46 A
[2019-04-07 20:00] VITALS: BP 115/56
[2019-04-07] MEDS: SENNA 8.6 MG TAB (SENOKOT) PO SCH (21:00)
[2019-04-07] MEDS: ATORVASTATIN 20 MG TAB PO SCH (21:39)
[2019-04-07] MEDS: GABAPENTIN 300 MG CAP PO SCH (21:39)
[2019-04-07] MEDS: LATANOPROST 0.005% OPHTH SOLN 2.5 ML OU SCH (21:40)
[2019-04-08 06:00] VITALS: BP 137/74
[2019-04-08] MEDS: SUCRALFATE SUSP 1GM/10ML UD PO SCH ×3 (07:30→17:32)
[2019-04-08] MEDS: REMEDY PHYTOPLEX Z-GUARD PASTE 113GM TUBE (FROM STOREROOM PRODUCT) TOP SCH ×3 (09:00→21:00)
[2019-04-08] MEDS: ANALGESIC BALM CRM 120 GM TOP SCH ×3 (09:00→21:23)
[2019-04-08] MEDS: DOCUSATE SODIUM 100 MG CAP PO SCH ×2 (09:00→21:00)
[2019-04-08 10:00] VITALS: BP 135/71
[2019-04-08] MEDS: TIMOLOL MALEATE 0.5% OPHTH SOLN 5 ML OU SCH (10:22)
[2019-04-08] MEDS: FLUTICASONE PROP 0.05% NASAL SPRAY 16 GM (FLONASE) NARES SCH ×2 (10:22→21:19)
[2019-04-08] MEDS: ASPIRIN 81 MG ENTERIC TAB PO SCH (10:23)
[2019-04-08] MEDS: METOPROLOL SUCC *XL* 25MG TAB (TopROL *XL*) PO SCH (10:24)
[2019-04-08] MEDS: FOLIC ACID 1 MG TAB PO SCH (10:24)
[2019-04-08] MEDS: PANTOPRAZOLE 40MG TAB (PROTONIX) PO SCH (10:24)
[2019-04-08] MEDS: HYDROXYCHLOROQUINE 200 MG TAB PO SCH (10:24)
[2019-04-08] MEDS: GABAPENTIN 100 MG CAP PO SCH (10:24)
[2019-04-08] MEDS: CYANOCOBALAMIN 500 MCG TAB PO SCH (10:24)
[2019-04-08] MEDS: ACETAMINOPHEN 500 MG TAB PO SCH ×3 (10:25→21:16)
[2019-04-08] MEDS: AMIODARONE 200 MG TAB (PACERONE) PO SCH (10:25)
[2019-04-08] MEDS: predniSONE 10 MG TAB PO SCH (10:26)
[2019-04-08] MEDS: SODIUM CHLORIDE NASAL 0.65% SPRAY BTL (OCEAN) SCH ×3 (10:27→21:19)
[2019-04-08 14:00] VITALS: BP 100/54
[2019-04-08 20:00] VITALS: BP 106/52
[2019-04-08] MEDS: SENNA 8.6 MG TAB (SENOKOT) PO SCH (21:00)
[2019-04-08] MEDS: ATORVASTATIN 20 MG TAB PO SCH (21:15)
[2019-04-08] MEDS: GABAPENTIN 300 MG CAP PO SCH (21:15)
[2019-04-08] MEDS: LATANOPROST 0.005% OPHTH SOLN 2.5 ML OU SCH (21:21)
[2019-04-09 06:00] VITALS: BP 160/77
[2019-04-09] MEDS: KETOROLAC TROMETHAMINE 10 MG TAB PO PRN (07:20)
[2019-04-09] MEDS ORDERED: IBUPROFEN 400 MG TAB PO PRN (08:45)
[2019-04-09] MEDS: DOCUSATE SODIUM 100 MG CAP PO SCH ×2 (09:00→22:19)
[2019-04-09] MEDS: ANALGESIC BALM CRM 120 GM TOP SCH ×3 (09:00→22:22)
[2019-04-09] MEDS: REMEDY PHYTOPLEX Z-GUARD PASTE 113GM TUBE (FROM STOREROOM PRODUCT) TOP SCH ×3 (09:00→22:21)
[2019-04-09] MEDS: FOLIC ACID 1 MG TAB PO SCH (09:06)
[2019-04-09] MEDS: SUCRALFATE SUSP 1GM/10ML UD PO SCH ×3 (09:06→17:47)
[2019-04-09] MEDS: METOPROLOL SUCC *XL* 25MG TAB (TopROL *XL*) PO SCH (09:07)
[2019-04-09] MEDS: ASPIRIN 81 MG ENTERIC TAB PO SCH (09:07)
[2019-04-09] MEDS: CYANOCOBALAMIN 500 MCG TAB PO SCH (09:07)
[2019-04-09] MEDS: AMIODARONE 200 MG TAB (PACERONE) PO SCH (09:07)
[2019-04-09] MEDS: PANTOPRAZOLE 40MG TAB (PROTONIX) PO SCH (09:07)
[2019-04-09] MEDS: predniSONE 10 MG TAB PO SCH (09:07)
[2019-04-09] MEDS: SODIUM CHLORIDE NASAL 0.65% SPRAY BTL (OCEAN) SCH ×3 (09:08→21:00)
[2019-04-09] MEDS: FLUTICASONE PROP 0.05% NASAL SPRAY 16 GM (FLONASE) NARES SCH ×2 (09:08→21:00)
[2019-04-09] MEDS: TIMOLOL MALEATE 0.5% OPHTH SOLN 5 ML OU SCH (09:08)
[2019-04-09] MEDS: GABAPENTIN 100 MG CAP PO SCH (09:11)
[2019-04-09] MEDS: ACETAMINOPHEN 500 MG TAB PO SCH ×3 (09:13→22:20)
[2019-04-09 14:00] VITALS: BP 121/55
[2019-04-09 18:00] VITALS: BP 134/75
--- NOTE | 2019-04-09 19:12 | IPNPDOC ---
Text Note Date of Service The patient was seen on 04/09/19. NOTE TIME OF SERVICE 6:55 PM This is an 83-year-old female with history of RA, CAD, chronic diastolic CHF, paroxysmal I atrial fibrillation pulmonary hypertension, and neuropathy, who was admitted for management of syncope and left periprosthetic fracture. SUBJECTIVE: Patient reports that her pain is currently well-controlled and she anticipates going home possibly tomorrow OBJECTIVE: Vitals see below GEN Well-Nourished, Well-Developed, Not in Apparent Distress. CVS Regular Rate and Rhythm. No Murmurs, Rubs or Gallops. LUNGS clear to auscultation bilaterally on room air PSYCH alert and oriented to person, place and time, able to understand and follow commands ASSESSMENT & PLAN: 1.Presyncope, resolved 2 Left periprosthetic fracture. - Pain control per primary team 3. Paroxysmal atrial fibrillation - amiodarone and metoprolol 4. Pulmonary hypertension/chronic diastolic CHF - low salt diet DVT PX heparin DISPO possibly home tomorrow VS,Fishbone, I+O VS, Fishbone, I+O Vital Signs Date Time Temp Pulse Resp B/P (MAP) Pulse Ox O2 Delivery O2 Flow Rate FiO2 04/09/19 14:00 99.0 67 20 121/55 (77) 100 Room Air I&O- Last 24 Hours up to 6 AM 04/09/19 06:00 Intake Total 850 ml Output Total 0 ml Balance 850 ml ABENA WATKINS MD Apr 09, 2019 19:12
[2019-04-09 20:00] VITALS: BP 133/77
[2019-04-09] MEDS: GABAPENTIN 300 MG CAP PO SCH (22:20)
[2019-04-09] MEDS: ATORVASTATIN 20 MG TAB PO SCH (22:20)
[2019-04-09] MEDS: SENNA 8.6 MG TAB (SENOKOT) PO SCH (22:20)
[2019-04-09] MEDS: LATANOPROST 0.005% OPHTH SOLN 2.5 ML OU SCH (22:20)
[2019-04-10 06:00] VITALS: BP 127/67
[2019-04-10] MEDS: PANTOPRAZOLE 40MG TAB (PROTONIX) PO SCH (08:39)
[2019-04-10] MEDS: GABAPENTIN 100 MG CAP PO SCH (08:39)
[2019-04-10] MEDS: SUCRALFATE SUSP 1GM/10ML UD PO SCH ×2 (08:39→12:18)
[2019-04-10] MEDS: DOCUSATE SODIUM 100 MG CAP PO SCH ×2 (08:39→08:47)
[2019-04-10] MEDS: ASPIRIN 81 MG ENTERIC TAB PO SCH (08:40)
[2019-04-10] MEDS: CYANOCOBALAMIN 500 MCG TAB PO SCH (08:40)
[2019-04-10] MEDS: FOLIC ACID 1 MG TAB PO SCH (08:40)
[2019-04-10] MEDS: predniSONE 10 MG TAB PO SCH (08:40)
[2019-04-10] MEDS: AMIODARONE 200 MG TAB (PACERONE) PO SCH (08:40)
[2019-04-10] MEDS: HYDROXYCHLOROQUINE 200 MG TAB PO SCH (08:40)
[2019-04-10 08:41] VITALS: BP 127/67
[2019-04-10] MEDS: METOPROLOL SUCC *XL* 25MG TAB (TopROL *XL*) PO SCH (08:41)
[2019-04-10] MEDS: ACETAMINOPHEN 500 MG TAB PO SCH (08:41)
[2019-04-10] MEDS: TIMOLOL MALEATE 0.5% OPHTH SOLN 5 ML OU SCH (08:42)
[2019-04-10] MEDS: FLUTICASONE PROP 0.05% NASAL SPRAY 16 GM (FLONASE) NARES SCH (08:42)
[2019-04-10] MEDS: SODIUM CHLORIDE NASAL 0.65% SPRAY BTL (OCEAN) SCH (08:42)
[2019-04-10] MEDS: ANALGESIC BALM CRM 120 GM TOP SCH (08:43)
[2019-04-10] MEDS: REMEDY PHYTOPLEX Z-GUARD PASTE 113GM TUBE (FROM STOREROOM PRODUCT) TOP SCH (08:43)
--- NOTE | 2019-04-10 09:55 | REP ---
Left hip three views: Comparison is the left hip CT of 03/30/2019. There is a total left hip arthroplasty, unchanged. There is a nondisplaced fracture at the base of the lesser trochanter. There is 2 ml of distraction at the fracture site as an interval change. The fracture extends into the greater trochanter, nondisplaced, unchanged. Electronically Signed by Woody Wallace MD 04/10/2019 09:47 A
--- NOTE | 2019-04-10 10:18 | PMRDS ---
DATE OF ADMISSION: 04/03/2019 DATE OF DISCHARGE: 04/10/2019 CHIEF COMPLAINT/DISCHARGE DIAGNOSIS: Femur fracture. HISTORY OF PRESENT ILLNESS: 83-year-old female with a past medical history of atrial fibrillation, vestibular disorder, rheumatoid arthritis (RA), coronary artery disease (CAD) status post PCI times two, pulmonary hypertension, peripheral neuropathy, colon cancer status post resection with colostomy who had a dizzy spell at home resulting in a fall presented to [facility] Emergency Department on 03/30/2019 with difficulty walking. CTA showed "air fluid filled level of the left maxillary and left sphenoid sinus, may indicate acute sinusitis." CT cervical spine showed "moderate degenerative spondylitis with multiple multilevel disc space narrowing throughout the cervical spine, multilevel bilateral foraminal narrowing and multilevel disc osteophyte complexes with mild cord impingement at several levels." X-rays did not reveal hip or pelvic fractures however due to persistent pain CT was ordered showing "nondisplaced periprosthetic fracture which extends across the cephalic aspect of the femoral stem consistent with probably [place] B fracture." She was evaluated by orthopedics and made her toe-touch weightbearing and a nonsurgical candidate. She was evaluated by therapy and found to be well below her prior level of function for mobility and activities of daily living (ADLs) and deemed appropriate for discharge to Acute Rehabilitation Unit (ARU) on 04/03/2019. PAST MEDICAL HISTORY: As per history of present illness. HOSPITAL COURSE: The patient was admitted and enrolled in a comprehensive physical therapy (PT)/occupational therapy (OT) program. She received 24-hour nursing supervision and weekly team meetings were held to discuss her progress. The patient's pain was treated with Toradol and the patient received sucralfate and Protonix for gastrointestinal (GI) protection. Fecal occult blood test (FOBT) was negative. The patient reported that her rheumatoid arthritis (RA) was beginning to flare and agreed to a slight increase in her oral daily prednisone dosing. She was maintained on fluid restriction for probable congestive heart failure (CHF) and had Dopplers ordered to rule out deep venous thromboses (DVTs) prior to discharge. DVTs were not found in her bilateral lower extremities. The patient was deemed medically and functionally stable to return home. DISCHARGE MEDICATIONS: As per instructions. FUNCTIONAL HISTORY: Upon discharge the patient was modified independent for all functional transfers from a wheelchair level able to ambulate 20 feet toe-touch weightbearing modified independent. Thank you for this referral.
--- NOTE | 2019-04-10 12:07 | IPNPDOC ---
Text Note Date of Service The patient was seen on 04/10/19. NOTE TIME OF SERVICE 10:50 AM Ms. Birch is an 83-year-old female with history of RA, CAD, chronic diastolic CHF, paroxysmal atrial fibrillation pulmonary hypertension, and neuropathy, who was admitted for management of syncope and left periprosthetic fracture. SUBJECTIVE: She doesn't have any acute c/o this morning and is waiting for her to arrive so she can go home OBJECTIVE: Vitals see below GEN Well-Nourished, Well-Developed, Not in Apparent Distress. MSK: LASHAY in all 4 extremities PSYCH alert and oriented to person, place and time, able to understand and follow commands ASSESSMENT & PLAN: 1.Presyncope, resolved 2 Left periprosthetic fracture - f/u w Ortho tomorrow afternoon 3. Paroxysmal atrial fibrillation - amiodarone and metoprolol 4. Pulmonary hypertension/chronic diastolic CHF - low salt diet & control blood pressure 5. Lower extremity edema ( duplex neg for DVT) -advised the patient to purchase compression stalkings DISPO home today VS,Fishbone, I+O VS, Fishbone, I+O Vital Signs Date Time Temp Pulse Resp B/P (MAP) Pulse Ox O2 Delivery O2 Flow Rate FiO2 04/10/19 08:41 62 127/67 04/10/19 06:00 96.7 17 97 Room Air I&O- Last 24 Hours up to 6 AM 04/10/19 06:00 Intake Total 840 ml Output Total 1 ml Balance 839 ml ABENA WATKINS MD Apr 10, 2019 12:07
== END 2019-04-10 12:50 | disposition home or self-care (01) | DRG 560 ==
LOC: M PM&R 14:50
PROVIDERS: ADMIT Physical Medicine & Rehabilitation; ATTEND Physical Medicine & Rehabilitation
DX: M97.02XD Periprosthetic fracture around internal prosthetic left hip joint, subsequent encounter (principal); I50.32 Chronic diastolic (congestive) heart failure; I48.0 Paroxysmal atrial fibrillation; M06.9 Rheumatoid arthritis, unspecified; I25.10 Atherosclerotic heart disease of native coronary artery without angina pectoris; G62.9 Polyneuropathy, unspecified; Z96.652 Presence of left artificial knee joint; Z96.643 Presence of artificial hip joint, bilateral; Z90.49 Acquired absence of other specified parts of digestive tract; Z95.5 Presence of coronary angioplasty implant and graft; H81.90 Unspecified disorder of vestibular function, unspecified ear; E78.5 Hyperlipidemia, unspecified; Z79.82 Long term (current) use of aspirin; Z79.52 Long term (current) use of systemic steroids; Z79.899 Other long term (current) drug therapy; Z88.0 Allergy status to penicillin; Z88.2 Allergy status to sulfonamides; Z88.5 Allergy status to narcotic agent; Z93.3 Colostomy status; I27.20 Pulmonary hypertension, unspecified; Z85.038 Personal history of other malignant neoplasm of large intestine; D53.9 Nutritional anemia, unspecified

== ENCOUNTER → 2019-07-12 | Outpatient (CLI) | payer MEDICARE, OTHER ==
[~2019-07-12] MED LIST changes: +GABA-843 PO; +PRED10TA2 PO
[2019-07-12 11:42] LABS: BASO % 0.1 % (0.0-1.0); EOS # 0.1 10^3/uL (0.0-0.5); EOS % 0.8 % (0.0-3.0); HEMATOCRIT 42.2 % (36.0-47.0); HEMOGLOBIN 12.7 g/dl (12.0-15.5); LYMPH # 2.5 10^3/uL (1.5-5.0); LYMPH % 22.4 % (24.0-44.0); MEAN CORPUSCULAR HGB CONC 30.1 g/dl (32.0-36.5); MEAN CORPUSCULAR VOLUME 99.5 fl (80.0-96.0); MONO # 0.8 10^3/uL (0.0-0.8); MONO % 7.6 % (0.0-5.0); NEUTROPHILS # 7.6 10^3/uL (1.5-8.5); NEUTROPHILS % 68.7 % (36.0-66.0); PLATELET COUNT, AUTOMATED 273 10^3/uL (150-450); RED BLOOD COUNT 4.24 10^6/uL (4.00-5.40); WHITE BLOOD COUNT 11.1 10^3/uL (4.0-10.0)
[2019-07-12 12:05] LABS: ERYTHROCYTE SEDIMENTATION RATE 11 mm/hr (0-30)
[2019-07-12 12:08] LABS: ALBUMIN 3.3 GM/DL (3.2-5.2); ALT/SGPT 21 U/L (12-78); C REACTIVE PROTEIN QUANTITATIV 0.41 MG/DL (0.00-0.30); CREATININE FOR GFR 0.82 MG/DL (0.55-1.30); GLOMERULAR FILTRATION RATE > 60.0 (>32)
== END ==
LOC: M PLALAB 09:45
PROVIDERS: ATTEND Internal Medicine Rheumatology
DX: Z51.81 Encounter for therapeutic drug level monitoring (principal); Z79.899 Other long term (current) drug therapy; M06.9 Rheumatoid arthritis, unspecified

== ENCOUNTER 2019-08-26 10:25 | Observation (INO) | payer MEDICARE, OTHER ==
[~2019-08-26] VITALS: Ht 144.8 cm; Wt 41.0 kg
[2019-08-26] MEDS ORDERED: DONN1TAB3 PO (10:41)
[2019-08-26] MEDS ORDERED: PLAQ200T4 PO (10:41)
[2019-08-26] MEDS ORDERED: PRED1TABL PO ×2 (10:41→14:25)
[2019-08-26] MEDS ORDERED: IPRATROPIUM 0.5MG/ALBUTEROL 2.5MG INH SOL UD 3ML (DUONEB) NEB ONE (11:15)
[2019-08-26] MEDS ORDERED: methylPREDNISolone INJ 125 MG/2 ML VIAL (J2930) IV ONE (11:15)
[2019-08-26 11:37] LABS: BASO % 0.2 % (0.0-1.0); EOS # 0.1 10^3/uL (0.0-0.5); EOS % 0.8 % (0.0-3.0); HEMATOCRIT 38.2 % (36.0-47.0); HEMOGLOBIN 11.8 g/dl (12.0-15.5); LYMPH # 3.1 10^3/uL (1.5-5.0); LYMPH % 29.6 % (24.0-44.0); MEAN CORPUSCULAR HEMOGLOBIN 29.9 pg (27.0-33.0); MEAN CORPUSCULAR HGB CONC 30.9 g/dl (32.0-36.5); MONO % 9.5 % (0.0-5.0); NEUTROPHILS # 6.1 10^3/uL (1.5-8.5); NEUTROPHILS % 59.6 % (36.0-66.0); PLATELET COUNT, AUTOMATED 262 10^3/uL (150-450); RED BLOOD COUNT 3.94 10^6/uL (4.00-5.40); WHITE BLOOD COUNT 10.3 10^3/uL (4.0-10.0)
[2019-08-26 12:14] LABS: ALBUMIN 3.3 GM/DL (3.2-5.2); BILIRUBIN,DIRECT 0.2 MG/DL (0.0-0.2); BILIRUBIN,TOTAL 0.5 MG/DL (0.2-1.0); CK-MB VALUE MASS 2.9 NG/ML (<3.6); MB/CK RELATIVE INDEX 3.12 (< OR =4); THYROID STIMULATING HORMONE 1.04 uIU/ML (0.358-3.740); THYROXINE (T4) 13.2 UG/DL (4.5-12.0); TOTAL PROTEIN 6.4 GM/DL (6.4-8.2); TROPONIN I 0.02 NG/ML (< 0.10)
[2019-08-26] MEDS ORDERED: ISOVUE-370 76% 100ML VIAL As Ordered ONE (12:50)
[2019-08-26] MEDS ORDERED: METOPROLOL SUCC *XL* 25MG TAB (TopROL *XL*) PO SCH (13:00)
[2019-08-26] MEDS ORDERED: ACETAMINOPHEN TAB 650MG DOSE (2X325MG) PO PRN (13:15)
[2019-08-26] MEDS ORDERED: LEVALBUTEROL 1.25 MG/0.5 ML CONCENTRATE NEB INH PRN (13:30)
--- NOTE | 2019-08-26 13:40 | HPEPDOC ---
General Date of Admission Aug 26, 2019 at 10:26 Date of Service: Aug 26, 2019 Chief Complaint The patient is a 83-year-old female Who presented to the hospital with complaints of short of breath History of Present Illness Patient is an 83-year-old female with a PMHx of Paroxysmal A. fib (on amiodarone / ASA), CAD s/p stent x2 ([facility], 2003), Severe Pulmonary HTN, Chronic Diastolic CHF, Chronic HTN, Sjogrens/ RA, Peripheral neuropathy, Osteoporosis who presented to the hospital with complaints of short of breath. Patient reported that yesterday evening she used her Biotene spray for her dry mouth and had inhaled it accidentally. Immediately after that, patient went into a coughing spell and had difficulty breathing.. She was unable to sleep all night. This morning she still continued to have persistent shortness of breath that prompted her to come to the emergency room for further evaluation. Upon arrival to emergency room, patient was given a nebulization therapy with DuoNeb. Patient reported that she feels significantly better after that point. Hospitalist service was contacted for admission. Currently, patient is sitting up in bed. She reports her coughing has cleared. Reports clear. Nostrils denies any chest pain or palpitations. Has not experienced any nausea / vomiting or abdominal pain. Patient has a colostomy. Denies any urinary discomfort. Reports her appetite is fairly normal and denies any significant changes in her weight. Home Medications Scheduled Amiodarone HCl (Amiodarone HCl) 200 Mg Tablet, 200 MG PO DAILY Aspirin (Aspirin EC) 81 Mg Tab, 81 MG PO DAILY Atorvastatin Calcium (Atorvastatin Calcium) 40 Mg Tablet, 40 MG PO QHS Cyanocobalamin (Vitamin B-12) (Vitamin B-12) 1,000 Mcg Tablet, 1,000 MCG PO DAILY Denosumab Injection (Prolia) 60 Mg/Ml Wendy, 60 MG SC ASDIRECTED, (Reported) EVERY 6 MONTHS: LAST DOSE END OF FEBRUARY Ergocalciferol (Vitamin D2) (Vitamin D2) 50,000 Units Cap, 50,000 UNITS PO Q2WK, (Reported) EVERY OTHER WEDNESDAY Folic Acid (Folic Acid) 1 Mg Tab, 2 MG PO DAILY Gabapentin (Gabapentin) 100 Mg Capsule, 100 MG PO QAM Gabapentin (Gabapentin) 300 Mg Capsule, 300 MG PO QHS Hydroxychloroquine Sulfate (Plaquenil) 200 Mg Tablet, 200 MG PO Q2D, (Reported) Latanoprost (Xalatan) 0.005% 2.5ML Drops, 1 DROP OU QHS, (Reported) Methotrexate Sodium (Methotrexate) 2.5 Mg Tab, 7.5 MG PO QWEEK, (Reported) TUESDAYS Metoprolol Succinate (Metoprolol Succinate) 25 Mg Tab.er.24h, 25 MG PO DAILY Phenobarb/Hyoscy/Atropine/Scop ( Tablet) 16.2 Mg Tablet, 1 TAB PO BID, (Reported) Prednisone (Prednisone) 1 Mg Tablet, 6 TAB PO DAILY, (Reported) Timolol Maleate (Timolol Maleate) 0.5% 5ML Drops, 1 DROP OU DAILY, (Reported) Scheduled PRN Acetaminophen (Acetaminophen) 500 Mg Tab, 1,000 MG PO Q6H PRN for PAIN, (Reported) Dicyclomine HCl (Dicyclomine HCl) 10 Mg Cap, 10 MG PO Q6H PRN for ABDOMINAL PAIN, (Reported) Allergies Coded Allergies: Penicillins (Verified Allergy, Intermediate, Hives, 08/26/19) Sulfa (Sulfonamide Antibiotics) (Verified Allergy, Intermediate, Hives, 08/26/19) codeine (Verified Allergy, Unknown, UNKNOWN REACTION, 08/26/19) Past Medical History Medical History Paroxysmal A. fib (on amiodarone / ASA), CAD s/p stent x2 ([facility], 2003), Severe Pulmonary HTN, Chronic Diastolic CHF, Chronic HTN, Sjogrens/ RA, Peripheral neuropathy, Osteoporosis Surgical History Infiltrating adenocarcinoma of the colon status post colectomy / colostomy 2011 Bilateral knee replacement Bilateral hip replacement Cholecystectomy Hernia repair Family History - Family history of lung cancer and coronary artery disease Social History - Denies the use of tobacco or illicit drugs; reported prior use of social alcohol - Denies recent travel or sick contacts - Lives with - 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; 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 Review of Systems Other systems 10 point review of systems complete, all negative otherwise stated in HPI Vital Signs - Vitals: BP 155/72, HR 74, RR 20, Sat 100%RA], Temp 99.5F - General: Lying in bed, No acute distress, Speaking in full sentences, AAOx3 - HEENT: NC, AT, PERRLA, EOMI - CVS: +S1S2 - Lungs: Fair air entry bilaterally, No appreciable wheezing / rales / rhonchi - Abdomen: Soft, Non-distended, Non-tender - Extremities: No lower extremity edema, No calf tenderness - Neuro: No focal motor or sensory deficit - Skin: No visible rashes Laboratory Data Labs 24H Laboratory Tests 2 08/26/19 11:05: Immature Granulocyte % (Auto) 0.3, Neutrophils (%) (Auto) 59.6, Lymphocytes (%) (Auto) 29.6, Monocytes (%) (Auto) 9.5H, Eosinophils (%) (Auto) 0.8, Basophils (%) (Auto) 0.2, Neutrophils # (Auto) 6.1, Lymphocytes # (Auto) 3.1, Monocytes # (Auto) 1.0H, Eosinophils # (Auto) 0.1, Basophils # (Auto) 0.0, Nucleated Red Blood Cells % (auto) 0.0 08/26/19 11:27: Total Bilirubin 0.5, Direct Bilirubin 0.2, Aspartate Amino Transf (AST/SGOT) 18, Alanine Aminotransferase (ALT/SGPT) 23, Alkaline Phosphatase 73, Total Creatine Kinase 93, Creatine Kinase MB 2.9, Creatine Kinase MB Relative Index 3.12, Troponin I 0.02, KY-Gwx-I-Type Natriuretic Peptide 2098H, Total Protein 6.4, Albumin 3.3, Albumin/Globulin Ratio 1.1L, Thyroid Stimulating Hormone (TSH) 1.040, Thyroxine (T4) 13.2H 08/26/19 11:33: POC Glucose (Misc Panel) 79, POC Sodium (Misc Panel) 141, POC Potassium (Misc Panel) 3.8, POC Chloride (Misc Panel) 103, POC Total CO2 (Misc Panel) 27.0, POC Blood Urea Nitrogen (Misc Panel 21, POC Ionized Calcium (Misc Panel) 5.1, POC Creatinine (Misc Panel) 1.0, POC Hematocrit (Misc Panel) 37.0L CBC/BMP Laboratory Tests 08/26/19 11:05 Microbiology Microbiology 08/26/19 Respiratory Virus Panel (PCR) (DEBBIE) - Final, Complete Plan / VTE VTE Prophylaxis Ordered?: Yes Plan Plan Shortness of breath - likely 2/2 bronchospasm - possibly 2/2 Biotene inhalation - Patient presented to the emergency room this morning after experiencing shortness of breath that started yesterday evening - Patient reported that she had accidentally inhaled for Biotene spray - Currently patients physical exam does not reveal any wheezing after receiving nebulization therapy - No evidence of fluid overload - Lab work with mild leukocytosis - Elevated BNP; likely reflection of pulmonary hypertension - CTA chest 08/25: 1. No evidence for pulmonary embolus. 2. Trace right basilar atelectasis. 3. Cardiomegaly and scattered chronic age-related interstitial changes. - s/p Solumedrol loading in ER - Will continue with inhaled therapy as ordered - Will start PT Chronic HTN / Hypertensive Urgency - Will provide single dose of Labetolol now - Will resume home medications with Metoprolol with holding parameters Paroxysmal A. fib - c/w rate and rhythm control with amiodarone - c/w ASA CAD s/p stent x2 ([facility], 2004) - Denies any chest pain, or palpitations - c/w ASA Severe Pulmonary HTN / Chronic Diastolic CHF - No evidence of fluid overload - ECHO 01/2019 - Currently not on any diuretics DLP - c/w Atorvastatin Sjogrens/ RA - c/w Folic acid, Hydroxychloroquine, Methotrexate, Prednisone Peripheral neuropathy - c/w Gabapentin Osteoporosis Vitamin D deficiency - c/w Supplementaiton as an outpatient DVT prophylaxis - Will start Heparin AZUL ANGEL MD Aug 26, 2019 13:40
[2019-08-26] MEDS ORDERED: LABETALOL 100MG/20ML VIAL IV SCH (14:00)
[2019-08-26] MEDS ORDERED: AMIO200T PO (14:25)
[2019-08-26] MEDS ORDERED: GABA-843 PO (14:25)
[2019-08-26] MEDS ORDERED: ACET-683 PO (14:25)
[2019-08-26] MEDS ORDERED: ATOR40TA75 PO (14:25)
[2019-08-26] MEDS ORDERED: CYAN100049 PO (14:25)
[2019-08-26] MEDS ORDERED: PRED5TA PO (14:25)
[2019-08-26] MEDS ORDERED: [UNRECOGNIZED DRUG - CODE] PO (14:25)
[2019-08-26] MEDS ORDERED: FOLI1TAB11 PO (14:25)
[2019-08-26] MEDS ORDERED: GABA-1171 PO (14:25)
[2019-08-26] MEDS ORDERED: ASPI-161 PO (14:25)
[2019-08-26] MEDS ORDERED: METO1TAB32 PO (14:25)
[2019-08-26] MEDS ORDERED: ENTER DRUG NAME HERE (PATIENT'S OWN MED) PO SCH (14:30)
[2019-08-26] MEDS ORDERED: DICYCLOMINE 10 MG CAP PO PRN (14:30)
[2019-08-26 14:50] VITALS: BP 138/72
[2019-08-26] MEDS: FOLIC ACID 1 MG TAB PO SCH (15:22)
[2019-08-26 15:23] VITALS: BP 138/72
[2019-08-26] MEDS: CYANOCOBALAMIN 500 MCG TAB PO SCH (15:23)
[2019-08-26] MEDS: ASPIRIN 81 MG ENTERIC TAB PO SCH (15:23)
[2019-08-26] MEDS: AMIODARONE 200 MG TAB (PACERONE) PO SCH (15:23)
[2019-08-26] MEDS: LEVALBUTEROL 1.25 MG/0.5 ML CONCENTRATE NEB INH SCH ×2 (15:53→20:20)
[2019-08-26 15:54] LABS: CK-MB VALUE MASS 2.7 NG/ML (<3.6); MB/CK RELATIVE INDEX 2.93 (< OR =4); TROPONIN I 0.02 NG/ML (< 0.10)
--- NOTE | 2019-08-26 19:18 | ECGEPIP ---
[facility] - ED Test Date: 2019-08-26 Pat Name: CLOTILDE MEJIA Department: Room: - Gender: Female [employer] Tender: angela : 1935 Requested By: Michelle Eduardo Order Number: [id number] Reading MD: Michelle Eduardo Measurements Intervals [place] Rate: 66 P: 34 ND: 213 QRS: 43 QRSD: 85 T: 57 QT: 402 QTc: 423 Interpretive Statements SINUS RHYTHM WITH FIRST DEGREE AV BLOCK LEFT VENTRICULAR HYPERTROPHY AND ST-T CHANGE POSSIBLE SEPTAL MYOCARDIAL INFARCTION, PROBABLY OLD NONSPECIFIC ST T WAVE CHANGES CW 03/30/[address] T WAVE CHANGES Electronically Signed on 08-26-2019 19:17:51 EDT by Michelle Eduardo
[2019-08-26 20:00] VITALS: BP 137/67
[2019-08-26] MEDS: HEPARIN SOD (PORCINE) 5000UNITS/ML VIAL (J1644 PER 1000UNITS) SC SCH (20:58)
[2019-08-26] MEDS ORDERED: LATANOPROST 0.005% OPHTH SOLN 2.5 ML OU SCH (21:00)
[2019-08-26] MEDS ORDERED: GABAPENTIN 300 MG CAP PO SCH (21:00)
[2019-08-26] MEDS ORDERED: ATORVASTATIN 20 MG TAB PO SCH (21:00)
[2019-08-26 21:44] LABS: CK-MB VALUE MASS 2.3 NG/ML (<3.6); CPK CREATINE PHOSPHOKINASE 78 U/L (26-192); MB/CK RELATIVE INDEX 2.95 (< OR =4); TROPONIN I < 0.02 NG/ML (< 0.10)
[2019-08-27] VITALS: BP 100/56
[2019-08-27 04:00] VITALS: BP 121/69
[2019-08-27 04:51] LABS: HEMATOCRIT 36.9 % (36.0-47.0); HEMOGLOBIN 11.3 g/dl (12.0-15.5); LYMPH # 0.5 10^3/uL (1.5-5.0); LYMPH % 5.6 % (24.0-44.0); MEAN CORPUSCULAR HGB CONC 30.6 g/dl (32.0-36.5); MEAN CORPUSCULAR VOLUME 97.9 fl (80.0-96.0); MONO # 0.1 10^3/uL (0.0-0.8); MONO % 1.6 % (0.0-5.0); NEUTROPHILS # 7.4 10^3/uL (1.5-8.5); NEUTROPHILS % 92.3 % (36.0-66.0); PLATELET COUNT, AUTOMATED 246 10^3/uL (150-450); RED BLOOD COUNT 3.77 10^6/uL (4.00-5.40); WHITE BLOOD COUNT 8.1 10^3/uL (4.0-10.0)
[2019-08-27 05:13] LABS: BLOOD UREA NITROGEN 28 MG/DL (7-18); CALCIUM LEVEL 8.6 MG/DL (8.8-10.2); CARBON DIOXIDE LEVEL 25 MEQ/L (21-32); CHLORIDE LEVEL 109 MEQ/L (98-107); CREATININE FOR GFR 0.87 MG/DL (0.55-1.30); GLOMERULAR FILTRATION RATE > 60.0 (>32); GLUCOSE, FASTING 154 MG/DL (70-100); MAGNESIUM LEVEL 2.2 MG/DL (1.8-2.4); POTASSIUM SERUM 4.3 MEQ/L (3.5-5.1); SODIUM LEVEL 143 MEQ/L (136-145)
[2019-08-27] MEDS: HEPARIN SOD (PORCINE) 5000UNITS/ML VIAL (J1644 PER 1000UNITS) SC SCH (05:53)
[2019-08-27] MEDS: LEVALBUTEROL 1.25 MG/0.5 ML CONCENTRATE NEB INH SCH ×2 (07:16→10:33)
[2019-08-27 08:00] VITALS: BP 120/59
[2019-08-27] MEDS: FOLIC ACID 1 MG TAB PO SCH (08:42)
[2019-08-27] MEDS: ASPIRIN 81 MG ENTERIC TAB PO SCH (08:42)
[2019-08-27] MEDS: CYANOCOBALAMIN 500 MCG TAB PO SCH (08:42)
[2019-08-27] MEDS: AMIODARONE 200 MG TAB (PACERONE) PO SCH (08:42)
[2019-08-27] MEDS ORDERED: predniSONE 5 MG TAB PO SCH (09:00)
[2019-08-27] MEDS ORDERED: GABAPENTIN 100 MG CAP PO SCH (09:00)
[2019-08-27] MEDS ORDERED: predniSONE 1 MG TAB PO SCH (09:00)
[2019-08-27] MEDS ORDERED: HYDROXYCHLOROQUINE 200 MG TAB PO SCH (09:00)
[2019-08-27] MEDS ORDERED: TIMOLOL MALEATE 0.5% OPHTH SOLN 5 ML OU SCH (09:00)
--- NOTE | 2019-08-27 09:04 | DS.PDOC ---
Discharge Summary General Date of Admission Aug 26, 2019 at 10:26 Date of Discharge 08/27/2019 Time of service 7:50 AM Primary Care Physician: Chun Quezada Attending Physician: ABENA WATKINS MD Discharge Summary PROCEDURES PERFORMED DURING STAY: [None]. ADMITTING DIAGNOSES: 1. Shortness of breath - likely 2/2 bronchospasm - possibly 2/2 Biotene inhalation 2. Hypertensive Urgency DISCHARGE DIAGNOSES: 1. shortness of breath - likely 2/2 bronchospasm 2/2 accidental Biotene inhalation -resolved 2. Chronic HTN (Hypertensive Urgency resolved) COMPLICATIONS/CHIEF COMPLAINT: Hypertensive Urgency. HISTORY OF PRESENT ILLNESS: Per HPI is an "83-year-old female with a PMHx of Paroxysmal A. fib (on amiodarone / ASA), CAD s/p stent x2 ([facility], 2003), Severe Pulmonary HTN, Chronic Diastolic CHF, Chronic HTN, Sjogrens/ RA, Peripheral ariel ropathy, Osteoporosis who presented to the hospital with complaints of short of breath. Patient reported that yesterday evening she used her Biotene spray for her dry mouth and had inhaled it accidentally. Immediately after that, patient went into a coughing spell and had difficulty breathing.. She was unable to sleep all night. This morning she still continued to have persistent shortness of breath that prompted her to come to the emergency room for further evaluation. Upon arrival to emergency room, patient was given a nebulization therapy with DuoNeb. Patient reported that she feels significantly better after that point." HOSPITAL COURSE: She was admitted to the medical floor and received DuoNeb's. On the morning of August 26, she was reexamined and reported feeling much better and reported that her shortness of breath had completely resolved. DISCHARGE MEDICATIONS: Please see below. ALLERGIES: Please see below. PHYSICAL EXAMINATION ON DISCHARGE: VITAL SIGNS: Please see below. GENERAL: NAD HEENT: NCAT CARDIOVASCULAR EXAMINATION: RRR/NMRG RESPIRATORY EXAMINATION: CTAB on RA ABDOMINAL EXAMINATION: Soft and nontender EXTREMITIES: ROM intact x4 NEUROLOGICAL EXAMINATION: CN II to 12 grossly intact. Speech not dysarthric PSYCHIATRIC EXAMINATION:A&O 3/able to understand and follow commands LABORATORY DATA: Please see below. IMAGING: CTA chest 08/25: 1. No evidence for pulmonary embolus. 2. Trace right basilar atelectasis. 3. Cardiomegaly and scattered chronic age-related interstitial changes. PROGNOSIS: ACTIVITY: [As tolerated]. DIET: Low-salt DISCHARGE PLAN: Home DISPOSITION: . DISCHARGE INSTRUCTIONS: 1. Follow-up with your PCP within one week ITEMS TO FOLLOWUP ON ON OUTPATIENT: 1. Follow-up to confirm shortness of breath has not reoccurred 2. Consider Pulm consult to discuss if she is a candidate for medications for pulmonary HTN. Because she has pre-existing auto-immune conditions consider consulting Pulm to see if she needs a work up to determine the causes of the chronic interstitial lung changes. DISCHARGE CONDITION: [Stable]. TIME SPENT ON DISCHARGE: Approximately 15 minutes. Vital Signs/I&Os Vital Signs Date Time Temp Pulse Resp B/P (MAP) Pulse Ox O2 Delivery O2 Flow Rate FiO2 08/27/19 08:00 97.9 74 18 120/59 (79) 97 Room Air I&O- Last 24 Hours up to 6 AM 08/27/19 05:59 Intake Total 0 ml Output Total 175 ml Balance -175 ml Laboratory Data Labs 24H Laboratory Tests 2 08/26/19 11:05: Immature Granulocyte % (Auto) 0.3, Neutrophils (%) (Auto) 59.6, Lymphocytes (%) (Auto) 29.6, Monocytes (%) (Auto) 9.5H, Eosinophils (%) (Auto) 0.8, Basophils (%) (Auto) 0.2, Neutrophils # (Auto) 6.1, Lymphocytes # (Auto) 3.1, Monocytes # (Auto) 1.0H, Eosinophils # (Auto) 0.1, Basophils # (Auto) 0.0, Nucleated Red Blood Cells % (auto) 0.0 08/26/19 11:27: Total Bilirubin 0.5, Direct Bilirubin 0.2, Aspartate Amino Transf (AST/SGOT) 18, Alanine Aminotransferase (ALT/SGPT) 23, Alkaline Phosphatase 73, Total Creatine Kinase 93, Creatine Kinase MB 2.9, Creatine Kinase MB Relative Index 3.12, Troponin I 0.02, HH-Lmr-J-Type Natriuretic Peptide 2098H, Total Protein 6.4, Albumin 3.3, Albumin/Globulin Ratio 1.1L, Thyroid Stimulating Hormone (TSH) 1.040, Thyroxine (T4) 13.2H 08/26/19 11:33: POC Glucose (Misc Panel) 79, POC Sodium (Misc Panel) 141, POC Potassium (Misc Panel) 3.8, POC Chloride (Misc Panel) 103, POC Total CO2 (Misc Panel) 27.0, POC Blood Urea Nitrogen (Misc Panel 21, POC Ionized Calcium (Misc Panel) 5.1, POC Creatinine (Misc Panel) 1.0, POC Hematocrit (Misc Panel) 37.0L 08/26/19 15:08: Total Creatine Kinase 92, Creatine Kinase MB 2.7, Creatine Kinase MB Relative Index 2.93, Troponin I 0.02 08/26/19 20:55: Total Creatine Kinase 78, Creatine Kinase MB 2.3, Creatine Kinase MB Relative Index 2.95, Troponin I < 0.02 08/27/19 04:22: Immature Granulocyte % (Auto) 0.5, Neutrophils (%) (Auto) 92.3H, Lymphocytes (%) (Auto) 5.6L, Monocytes (%) (Auto) 1.6, Eosinophils (%) (Auto) 0.0, Basophils (%) (Auto) 0.0, Neutrophils # (Auto) 7.4, Lymphocytes # (Auto) 0.5L, Monocytes # (Auto) 0.1, Eosinophils # (Auto) 0.0, Basophils # (Auto) 0.0, Nucleated Red Blood Cells % (auto) 0.0, Anion Gap 9, Glomerular Filtration Rate > 60.0, Calcium Level 8.6L, Magnesium Level 2.2 CBC/BMP Laboratory Tests 08/26/19 11:05 08/27/19 04:22 Microbiology Microbiology 08/26/19 Respiratory Virus Panel (PCR) (DEBBIE) - Final, Complete Discharge Medications Scheduled Amiodarone HCl (Amiodarone HCl) 200 Mg Tablet, 200 MG PO DAILY, (Reported) Aspirin (Aspirin EC) 81 Mg Tablet.dr, 81 MG PO DAILY, (Reported) Atorvastatin Calcium (Atorvastatin Calcium) 40 Mg Tablet, 40 MG PO QHS, (Reported) Cyanocobalamin (Vitamin B-12) (Vitamin B-12) 1,000 Mcg Tablet, 1,000 MCG PO DAILY, (Reported) Denosumab Injection (Prolia) 60 Mg/Ml Wendy, 60 MG SC ASDIRECTED, (Reported) EVERY 6 MONTHS: LAST DOSE END OF FEBRUARY Ergocalciferol (Vitamin D2) (Vitamin D2) 50,000 Units Cap, 50,000 UNITS PO Q2WK, (Reported) EVERY OTHER WEDNESDAY Folic Acid (Folic Acid) 1 Mg Tablet, 2 MG PO DAILY, (Reported) Gabapentin (Gabapentin) 100 Mg Capsule, 100 MG PO QAM, (Reported) Gabapentin (Gabapentin) 300 Mg Capsule, 300 MG PO QHS, (Reported) Hydroxychloroquine Sulfate (Plaquenil) 200 Mg Tablet, 200 MG PO Q2D, (Reported) Latanoprost (Xalatan) 0.005% 2.5ML Drops, 1 DROP OU QHS, (Reported) Methotrexate Sodium (Methotrexate) 2.5 Mg Tab, 7.5 MG PO QWEEK, (Reported) TUESDAYS Metoprolol Succinate (Metoprolol Succinate) 25 Mg Tab.er.24h, 25 MG PO DAILY, (Reported) TAKES AT 1300 Prednisone (Prednisone) 1 Mg Tablet, 1 MG PO DAILY, (Reported) 6MG TOTAL DAILY Prednisone (Prednisone) 5 Mg Tablet, 5 MG PO DAILY, (Reported) 6MG TOTAL DAILY Timolol Maleate (Timolol Maleate) 0.5% 5ML Drops, 1 DROP OU DAILY, (Reported) Scheduled PRN Acetaminophen (Acetaminophen) 500 Mg Tablet, 1,000 MG PO Q6H PRN for PAIN, (Reported) Dicyclomine HCl (Dicyclomine HCl) 10 Mg Cap, 10 MG PO Q6H PRN for ABDOMINAL PAIN, (Reported) Phenobarb/Hyoscy/Atropine/Scop ( Elixir) 16.2 Mg/5 Ml Elixir, 5 ML PO BID PRN for ABDOMINAL PAIN, (Reported) Allergies Coded Allergies: Penicillins (Verified Allergy, Intermediate, Hives, 08/26/19) Sulfa (Sulfonamide Antibiotics) (Verified Allergy, Intermediate, Hives, 08/26/19) codeine (Verified Allergy, Unknown, UNKNOWN REACTION, 08/26/19) ABENA WATKINS MD Aug 27, 2019 09:04
--- NOTE | 2019-08-28 10:28 | REP ---
REASON FOR EXAM: Dyspnea and cough. COMPARISON EXAM: 03/30/2019 The technique utilized in obtaining the radiograph has magnified the cardiac silhouette and accentuated the interstitial markings. There is no significant change from the prior exam. Chronic basilar changes with elevation of the diaphragmatic surface of the right lung, status quo. The cardiac silhouette is magnified by technique. There is mild cardiomegaly. There are no new abnormal opacities. There is no change in the osseous structures. Preliminary report given by Dr. Bernabe. IMPRESSION: Stable-appearing chronic changes without evidence of acute cardiopulmonary disease. Electronically Signed by Farrukh Luis DO 08/28/2019 10:57 A
--- NOTE | 2019-08-29 00:46 | REP ---
REASON: Pain and dyspnea. LATEST PRIOR FOR COMPARISON: 01/27/2019 CONTRAST: 100 mL [id number]. Preliminary report given by Dr. Bernabe. There is excellent visualization of the pulmonary arterial vasculature. There are no focal filling defects present that would be considered consistent with pulmonary emboli. There is no gross abnormality seen involving the thoracic aorta, although seen in a limited fashion. There is no mediastinal or hilar adenopathy. There are no pleural or pericardial effusions. The imaged upper abdomen and imaged osseous structures are essentially unchanged. Evaluation of the lung saini again shows subsegmental atelectatic changes in the right lung base. No definite new abnormal nodules, masses, or opacities have developed. IMPRESSION: Stable chronic changes without evidence of acute disease. Electronically Signed by Farrukh Luis DO 08/29/2019 11:09 A
[2019-08-29] MEDS ORDERED: METHOTREXATE 2.5 MG TAB (J8610 PER 2.5MG) PO SCH (09:00)
== END 2019-08-27 11:17 | disposition home or self-care (01) ==
LOC: M ED 10:25 → M ED INP 10:26 → M PCU 14:45
PROVIDERS: ADMIT Internal Medicine; ATTEND Internal Medicine
DX: R06.02 Shortness of breath (principal); I11.0 Hypertensive heart disease with heart failure; I48.0 Paroxysmal atrial fibrillation; I25.10 Atherosclerotic heart disease of native coronary artery without angina pectoris; I27.20 Pulmonary hypertension, unspecified; I50.32 Chronic diastolic (congestive) heart failure; M35.00 Sjogren syndrome, unspecified; M06.9 Rheumatoid arthritis, unspecified; G62.9 Polyneuropathy, unspecified; M81.0 Age-related osteoporosis without current pathological fracture; E78.5 Hyperlipidemia, unspecified; E55.9 Vitamin D deficiency, unspecified; Z95.5 Presence of coronary angioplasty implant and graft; Z79.899 Other long term (current) drug therapy; Z79.82 Long term (current) use of aspirin; Z79.52 Long term (current) use of systemic steroids; Z88.0 Allergy status to penicillin; Z88.2 Allergy status to sulfonamides; Z88.5 Allergy status to narcotic agent
CPT/HCPCS: 36415; 71045; 71275; 80047; 80048; 80076; 82550; 82553; 83735; 83880; 84436; 84443; 84484; 85025; 87486; 87581; 87633; 87798; 93005; 93041; 94640; 94760; 96372; 96374; 99285; G0378; J1644; J2930; Q9967

== ENCOUNTER → 2019-09-09 | Outpatient (CLI) | payer MEDICARE, OTHER ==
[~2019-09-09] MED LIST changes: +ACET-683 PO; +ASPI-161 PO; +CYAN100049 PO; +PLAQ200T4 PO; +[UNRECOGNIZED DRUG - CODE] PO
[2019-09-09 13:33] LABS: BASO % 0.2 % (0.0-1.0); EOS # 0.1 10^3/uL (0.0-0.5); EOS % 0.7 % (0.0-3.0); HEMOGLOBIN 11.9 g/dl (12.0-15.5); LYMPH % 22.9 % (24.0-44.0); MEAN CORPUSCULAR HEMOGLOBIN 30.2 pg (27.0-33.0); MEAN CORPUSCULAR HGB CONC 30.5 g/dl (32.0-36.5); MONO # 0.7 10^3/uL (0.0-0.8); MONO % 5.2 % (0.0-5.0); NEUTROPHILS # 9.3 10^3/uL (1.5-8.5); NEUTROPHILS % 70.6 % (36.0-66.0); PLATELET COUNT, AUTOMATED 301 10^3/uL (150-450); RED BLOOD COUNT 3.94 10^6/uL (4.00-5.40); WHITE BLOOD COUNT 13.1 10^3/uL (4.0-10.0)
[2019-09-09 14:00] LABS: ALBUMIN 2.9 GM/DL (3.2-5.2); ALT/SGPT 20 U/L (12-78); BILIRUBIN,TOTAL 0.4 MG/DL (0.2-1.0); BLOOD UREA NITROGEN 21 MG/DL (7-18); CALCIUM LEVEL 9.2 MG/DL (8.8-10.2); CARBON DIOXIDE LEVEL 28 MEQ/L (21-32); CHLORIDE LEVEL 108 MEQ/L (98-107); CREATININE FOR GFR 0.82 MG/DL (0.55-1.30); GLOMERULAR FILTRATION RATE > 60.0 (>32); GLUCOSE, FASTING 104 MG/DL (70-100); POTASSIUM SERUM 3.5 MEQ/L (3.5-5.1); SODIUM LEVEL 141 MEQ/L (136-145); TOTAL PROTEIN 6.1 GM/DL (6.4-8.2)
== END ==
LOC: M LAB 12:59
PROVIDERS: ATTEND Internal Medicine Hematology & Oncology
DX: C50.919 Malignant neoplasm of unspecified site of unspecified female breast (principal); C18.9 Malignant neoplasm of colon, unspecified

== ENCOUNTER → 2019-09-14 | Outpatient (CLI) | payer MEDICARE, OTHER ==
[2019-09-14 11:58] LABS: TOTAL 25(OH) VITAMIN D 70.8 NG/ML (30.0-100.0)
== END ==
LOC: M PLALAB 08:38
PROVIDERS: ATTEND Internal Medicine Endocrinology, Diabetes & Metabolism
DX: M81.0 Age-related osteoporosis without current pathological fracture (principal)

== ENCOUNTER → 2019-12-22 | Outpatient (REF) | payer MEDICARE, OTHER ==
[~2019-12-22] MED LIST changes: -AMIO200T PO; +AMIO200T3 PO
[2019-12-22 11:57] LABS: ALBUMIN 3.2 GM/DL (3.2-5.2); ALT/SGPT 19 U/L (12-78); BILIRUBIN,TOTAL 0.6 MG/DL (0.2-1.0); BLOOD UREA NITROGEN 21 MG/DL (7-18); CALCIUM LEVEL 9.4 MG/DL (8.8-10.2); CARBON DIOXIDE LEVEL 31 MEQ/L (21-32); CHLORIDE LEVEL 107 MEQ/L (98-107); CHOLESTEROL LEVEL 126 MG/DL (<200); CHOLESTEROL RISK RATIO 1.636 (<5); CREATININE FOR GFR 0.74 MG/DL (0.55-1.30); GLOMERULAR FILTRATION RATE > 60.0 (>32); GLUCOSE, FASTING 77 MG/DL (70-100); HDL CHOLESTEROL 77 MG/DL (>40); LDL CHOLESTEROL 35 MG/DL (<100); NON-HDL-C 49 MG/DL; POTASSIUM SERUM 4.3 MEQ/L (3.5-5.1); SODIUM LEVEL 142 MEQ/L (136-145); TOTAL PROTEIN 6.3 GM/DL (6.4-8.2); TRIGLYCERIDES LEVEL 70 MG/DL (<150)
[2019-12-22 12:03] LABS: VITAMIN B12 LEVEL 1449 PG/ML
[2019-12-22 12:04] LABS: FOLATE > 24.0 NG/ML
== END ==
LOC: M PLALAB 10:08
PROVIDERS: ATTEND Internal Medicine
DX: I10 Essential (primary) hypertension (principal); E78.5 Hyperlipidemia, unspecified; G62.9 Polyneuropathy, unspecified

== ENCOUNTER 2020-01-23 10:30 | Emergency (ER) | payer MEDICARE, OTHER ==
[~2020-01-23] VITALS: Ht 144.8 cm; Wt 43.5 kg
[2020-01-23] MEDS ORDERED: DERMABOND TOPICAL SKIN ADHESIVE TOP ONE (11:15)
[2020-01-23 11:41] VITALS: BP 158/69
== END 2020-01-23 11:50 | disposition home or self-care (01) ==
LOC: M ED 10:30
DX: S81.802A Unspecified open wound, left lower leg, initial encounter (principal); W22.8XXA Striking against or struck by other objects, initial encounter; Y92.9 Unspecified place or not applicable; Y93.9 Activity, unspecified; Y99.9 Unspecified external cause status; I48.91 Unspecified atrial fibrillation; I50.9 Heart failure, unspecified; I10 Essential (primary) hypertension; K21.9 Gastro-esophageal reflux disease without esophagitis; K58.9 Irritable bowel syndrome, unspecified; Z90.49 Acquired absence of other specified parts of digestive tract; Z79.82 Long term (current) use of aspirin; Z79.899 Other long term (current) drug therapy; Z88.0 Allergy status to penicillin; Z88.2 Allergy status to sulfonamides; Z88.5 Allergy status to narcotic agent

== ENCOUNTER → 2020-02-26 | Outpatient (CLI) | payer SELFPAY | LOC: M LABSMTC 14:24 | PROVIDERS: ATTEND Pediatrics | DX: Z20.828 Contact with and (suspected) exposure to other viral communicable diseases (principal) ==

== ENCOUNTER → 2020-03-18 | Outpatient (CLI) | payer MEDICARE, OTHER | LOC: M PLALAB 10:18 | PROVIDERS: ATTEND Nurse Practitioner Family | DX: M81.0 Age-related osteoporosis without current pathological fracture (principal) ==

== ENCOUNTER → 2020-03-26 | Outpatient (CLI) | payer MEDICARE, OTHER ==
[~2020-03-26] MED LIST changes: +PROHANCE 279.3MG/ML 5ML VIAL As Ordered ONE
--- NOTE | 2020-03-26 10:06 | REP ---
INDICATION: BREAST AND COLON CA, HEADACHES METS?. Worsening headache right side back of the head. COMPARISON: Comparison brain CT study March 30, 2019. Comparison MRI exam March 28, 2016.. TECHNIQUE: Axial and sagittal imaging planes are utilized for T1 and T2-weighted scans. Sequences include spin-echo, fast spin echo, FLAIR, and diffusion weighted sequences. Gadolinium enhancement dose is 8 mL of intravenous ProHance. Post gadolinium enhanced T1 weighted axial, coronal and sagittal plane images are acquired. FINDINGS: No bony calvarial defect is seen. There is evidence of chronic poly sinusitis with filling of the left maxillary sinus and heterogeneous filling of the left sphenoid and left ethmoid air cells. Left frontal sinus is filled as well. These findings are similar to the prior CT study. The sinus changes are more extensive and more pronounced than on the 2017 prior MRI study of the brain. Today's images demonstrate a rounded, 1.5 cm, area of heterogeneously low T2 and high T1 weighted signal intensity in an expanded posterior ethmoid air cell on the left. There is peripheral enhancement in the left ethmoid and left frontal sinuses on postcontrast images. There is a new finding of restricted diffusion in the left maxillary and left ethmoid sinuses. These findings raise the issue of ongoing infection in chronic sinusitis. The low T2, high T1 signal intensity material may represent fungal involvement. Prior mucosal bleeding or desiccation may also have this appearance. No intraorbital abnormality is seen. There is no evidence of intracranial restricted diffusion to suggest acute ischemia. No intracranial hemorrhage is seen. There are fairly extensive small-vessel atherosclerotic changes again noted in the periventricular white matter bilaterally. These are somewhat more conspicuous than on the 2017 prior study. No extra-axial fluid collection is seen. Postcontrast images show enhancement in normal intracranial vasculature. No abnormal intracranial enhancement is seen. IMPRESSION: Evidence of chronic paranasal sinus disease on the left. New findings of low T2, high T1 signal intensity material in an expanded left ethmoid sinus and associated restricted diffusion in the left maxillary and left ethmoid sinus area suggests the possibility of superimposed or ongoing infectious etiology, see discussion above. Small-vessel atherosclerotic changes are seen. No acute intracranial abnormality. <Electronically signed by Krzysztof Dunn > 03/26/20 1002
== END ==
LOC: M RAD 07:59
PROVIDERS: ATTEND Specialist
DX: C50.919 Malignant neoplasm of unspecified site of unspecified female breast (principal); C18.9 Malignant neoplasm of colon, unspecified
CPT/HCPCS: 70553; A9576

== ENCOUNTER → 2020-07-16 | Outpatient (CLI) | payer MEDICARE, OTHER ==
[~2020-07-16] MED LIST changes: +GABA-282 PO; -GABA-843 PO; -PROHANCE 279.3MG/ML 5ML VIAL As Ordered ONE
--- NOTE | 2020-07-16 16:34 | REPPI ---
INDICATION: ACUTE RESPIRATORY DISTRESS. COMPARISON: 08/26/2019 a portable exam TECHNIQUE: PA and lateral FINDINGS: The superior mediastinal structures are midline. The cardiac silhouette is enlarged. The diaphragmatic surfaces of the lungs are regular, and the costophrenic angles are clear. The pulmonary saini are stable. Scattered fibrotic changes noted status quo. No acute patchy parenchymal opacities or pleural effusions have developed. There are multiple thoracic vertebral body compression fractures of varying types. When compared to the latest prior lateral view of the chest of 01/31/2019 these appear unchanged. IMPRESSION: There is no acute cardiopulmonary disease. Findings as described above. <Electronically signed by Farrukh Luis > 07/16/20 [id number]
== END ==
LOC: M PLAIMG 15:30
PROVIDERS: ATTEND Internal Medicine
DX: R06.03 Acute respiratory distress (principal); S22.000A Wedge compression fracture of unspecified thoracic vertebra, initial encounter for closed fracture; X58.XXXA Exposure to other specified factors, initial encounter; Y92.9 Unspecified place or not applicable

== ENCOUNTER → 2020-09-17 | Outpatient (CLI) | payer MEDICARE, OTHER ==
[~2020-09-17] MED LIST changes: +ERGO500029 PO; +GABA-283 PO; -GABA-845 PO; -VITA50005 PO
[2020-09-17 11:02] LABS: CALCIUM LEVEL 9.6 MG/DL (8.8-10.2)
[2020-09-17 11:18] LABS: TOTAL 25(OH) VITAMIN D 51.2 NG/ML (30.0-100.0)
== END ==
LOC: M PLALAB 09:14
PROVIDERS: ATTEND Internal Medicine Endocrinology, Diabetes & Metabolism
DX: M81.0 Age-related osteoporosis without current pathological fracture (principal); E55.9 Vitamin D deficiency, unspecified

== ENCOUNTER → 2020-11-18 | Outpatient (CLI) | payer MEDICARE, OTHER ==
--- NOTE | 2020-11-18 16:14 | REP ---
INDICATION: PAIN IN RIGHT ELBOW COMPARISON: None. TECHNIQUE: Four views right elbow. FINDINGS: There is no evidence of acute fracture, dislocation, or intrinsic bone disease.Two subcentimeter soft tissue calcifications are seen along the medial humeral epicondyle which may represent tendinous calcification peripherally and ligamentous calcification more adjacent to the cortex. There is no definite radiographic evidence of a joint effusion. IMPRESSION: No fracture or dislocation. Possible tendinous and ligamentous calcification along the medial humeral epicondyle. <Electronically signed by Woody Mo > 11/18/20 0129
== END ==
LOC: M PLAIMG 15:15
PROVIDERS: ATTEND Physician Assistant
DX: M25.521 Pain in right elbow (principal)

== ENCOUNTER → 2021-02-15 | Outpatient (CLI) | payer MEDICARE, OTHER ==
[~2021-02-15] MED LIST changes: -AMIO200T3 PO; +AMIO200T49 PO; -CAND4TAB PO; +CAND4TAB7 PO
== END ==
LOC: M RAD 12:43
PROVIDERS: ATTEND Nurse Practitioner Family
DX: R06.02 Shortness of breath (principal); R06.2 Wheezing

== ENCOUNTER → 2021-03-25 | Outpatient (CLI) | payer MEDICARE, OTHER ==
[~2021-03-25] MED LIST changes: +AMIO200T3 PO; -AMIO200T49 PO; +CAND4TAB PO; -CAND4TAB7 PO
== END ==
LOC: M PLALAB 10:14
PROVIDERS: ATTEND Internal Medicine Endocrinology, Diabetes & Metabolism
DX: M81.0 Age-related osteoporosis without current pathological fracture (principal)

== ENCOUNTER → 2021-04-16 | Outpatient (CLI) | payer MEDICARE, OTHER ==
[~2021-04-16] MED LIST changes: -AMIO200T3 PO; +AMIO200T49 PO; -CAND4TAB PO; +CAND4TAB7 PO
[2021-04-16 13:26] LABS: HEMATOCRIT 43.9 % (36.0-47.0); HEMOGLOBIN 12.9 g/dl (12.0-15.5); MEAN CORPUSCULAR HEMOGLOBIN 28.4 pg (27.0-33.0); MEAN CORPUSCULAR HGB CONC 29.4 g/dl (32.0-36.5); MEAN CORPUSCULAR VOLUME 96.5 fl (80.0-96.0); PLATELET COUNT, AUTOMATED 302 10^3/uL (150-450); RED BLOOD COUNT 4.55 10^6/uL (4.00-5.40)
[2021-04-16 14:31] LABS: ALBUMIN 3.3 GM/DL (3.2-5.2); ALT/SGPT 21 U/L (12-78); BILIRUBIN,TOTAL 0.5 MG/DL (0.2-1.0); BLOOD UREA NITROGEN 20 MG/DL (7-18); CALCIUM LEVEL 9.6 MG/DL (8.8-10.2); CARBON DIOXIDE LEVEL 30 MEQ/L (21-32); CHLORIDE LEVEL 108 MEQ/L (98-107); CHOLESTEROL LEVEL 119 MG/DL (<200); CHOLESTEROL RISK RATIO 1.776 (<5); CREATININE FOR GFR 0.85 MG/DL (0.55-1.30); GLOMERULAR FILTRATION RATE > 60.0 (>32); GLUCOSE, FASTING 83 MG/DL (70-100); HDL CHOLESTEROL 67 MG/DL (>40); LDL CHOLESTEROL 36 MG/DL (<100); NON-HDL-C 52 MG/DL; NT-PRO BNP 5424 PG/ML (<450); POTASSIUM SERUM 4.5 MEQ/L (3.5-5.1); SODIUM LEVEL 142 MEQ/L (136-145); TOTAL PROTEIN 6.5 GM/DL (6.4-8.2); TRIGLYCERIDES LEVEL 78 MG/DL (<150)
== END ==
LOC: M PLALAB 09:39
PROVIDERS: ATTEND Internal Medicine Cardiovascular Disease
DX: E78.00 Pure hypercholesterolemia, unspecified (principal); I48.0 Paroxysmal atrial fibrillation; I20.8 Other forms of angina pectoris

== ENCOUNTER → 2021-04-23 | Outpatient (CLI) | payer MEDICARE, OTHER ==
[2021-04-23 14:50] LABS: FREE T3 3.1 PG/ML (2.2-4.0); FREE T4 1.78 NG/DL (0.76-1.46); THYROID STIMULATING HORMONE 0.704 uIU/ML (0.358-3.740)
== END ==
LOC: M PLALAB 10:05
PROVIDERS: ATTEND Internal Medicine
DX: R53.82 Chronic fatigue, unspecified (principal)

== ENCOUNTER → 2021-04-23 | Outpatient (REF) | payer MEDICARE, OTHER | LOC: M SFHCPLAZ 09:42 | PROVIDERS: ATTEND Internal Medicine | DX: R53.82 Chronic fatigue, unspecified (principal) ==

== ENCOUNTER → 2021-06-02 | Outpatient (CLI) | payer MEDICARE, OTHER ==
[2021-06-02 18:18] LABS: ALBUMIN 3.5 GM/DL (3.2-5.2); CALCIUM LEVEL 9.6 MG/DL (8.8-10.2); CREATININE FOR GFR 1.06 MG/DL (0.55-1.30); GLOMERULAR FILTRATION RATE 52.7 (>32); PHOSPHORUS LEVEL 3.6 MG/DL (2.5-4.9); POTASSIUM SERUM 4.2 MEQ/L (3.5-5.1)
== END ==
LOC: M PLALAB 14:24
PROVIDERS: ATTEND Internal Medicine Cardiovascular Disease
DX: I50.32 Chronic diastolic (congestive) heart failure (principal)

== ENCOUNTER → 2021-07-11 | Outpatient (CLI) | payer MEDICARE, OTHER ==
[2021-07-11 14:05] LABS: BLOOD UREA NITROGEN 18 MG/DL (7-18); CALCIUM LEVEL 10.2 MG/DL (8.8-10.2); CARBON DIOXIDE LEVEL 33 MEQ/L (21-32); CHLORIDE LEVEL 106 MEQ/L (98-107); CREATININE FOR GFR 0.82 MG/DL (0.55-1.30); GLOMERULAR FILTRATION RATE > 60.0 (>32); GLUCOSE, FASTING 81 MG/DL (70-100); NT-PRO BNP 4727 PG/ML (<450); POTASSIUM SERUM 4.3 MEQ/L (3.5-5.1); SODIUM LEVEL 144 MEQ/L (136-145)
== END ==
LOC: M PLALAB 09:34
PROVIDERS: ATTEND Internal Medicine
DX: I50.32 Chronic diastolic (congestive) heart failure (principal)

== ENCOUNTER → 2021-08-04 | Outpatient (CLI) | payer MEDICARE, OTHER ==
[2021-08-04 13:59] LABS: CALCIUM LEVEL 10.1 MG/DL (8.8-10.2); CREATININE FOR GFR 0.97 MG/DL (0.55-1.30); GLOMERULAR FILTRATION RATE 58.4 (>32); POTASSIUM SERUM 4.9 MEQ/L (3.5-5.1)
== END ==
LOC: M PLALAB 09:56
PROVIDERS: ATTEND Internal Medicine Cardiovascular Disease
DX: I50.32 Chronic diastolic (congestive) heart failure (principal)

== ENCOUNTER → 2021-08-27 | Outpatient (CLI) | payer MEDICARE, OTHER ==
[2021-08-27 14:12] LABS: BLOOD UREA NITROGEN 25 MG/DL (7-18); CALCIUM LEVEL 10.2 MG/DL (8.8-10.2); CARBON DIOXIDE LEVEL 29 MEQ/L (21-32); CHLORIDE LEVEL 108 MEQ/L (98-107); GLOMERULAR FILTRATION RATE > 60.0 (>32); GLUCOSE, FASTING 75 MG/DL (70-100); NT-PRO BNP 4167 PG/ML (<450); POTASSIUM SERUM 4.4 MEQ/L (3.5-5.1); SODIUM LEVEL 144 MEQ/L (136-145)
== END ==
LOC: M PLALAB 09:50
PROVIDERS: ATTEND Internal Medicine Cardiovascular Disease
DX: I50.32 Chronic diastolic (congestive) heart failure (principal)

== ENCOUNTER 2021-09-07 10:23 | Emergency (ER) | payer MEDICARE, OTHER ==
[2021-09-07] MEDS ORDERED: ISOVUE-370 76% 100ML VIAL As Ordered ONE (10:43)
[2021-09-07 11:01] LABS: BASO # 0.1 10^3/uL (0.0-0.2); BASO % 0.5 % (0.0-1.0); EOS # 0.2 10^3/uL (0.0-0.5); HEMATOCRIT 46.5 % (36.0-47.0); HEMOGLOBIN 14.2 g/dl (12.0-15.5); LYMPH # 3.6 10^3/uL (1.5-5.0); LYMPH % 34.6 % (24.0-44.0); MEAN CORPUSCULAR HEMOGLOBIN 28.1 pg (27.0-33.0); MEAN CORPUSCULAR HGB CONC 30.5 g/dl (32.0-36.5); MEAN CORPUSCULAR VOLUME 91.9 fl (80.0-96.0); MONO # 0.8 10^3/uL (0.0-0.8); MONO % 7.8 % (2.0-8.0); NEUTROPHILS # 5.7 10^3/uL (1.5-8.5); NEUTROPHILS % 54.8 % (36.0-66.0); PLATELET COUNT, AUTOMATED 296 10^3/uL (150-450); RED BLOOD COUNT 5.06 10^6/uL (4.00-5.40); WHITE BLOOD COUNT 10.4 10^3/uL (4.0-10.0)
[2021-09-07 11:11] LABS: INR 0.98; PROTHROMBIN TIME 13.4 SECONDS (12.7-14.5)
[2021-09-07 11:12] LABS: PARTIAL THROMBOPLASTIN TIME 29.1 SECONDS (25.9-37.0)
[2021-09-07] MEDS ORDERED: MIDAZOLAM INJ 2MG/2ML VIAL (J2250 PER 1MG) IV STA (11:19)
[2021-09-07 11:21] LABS: CALCIUM LEVEL 10.8 MG/DL (8.8-10.2); CREATININE FOR GFR 0.96 MG/DL (0.55-1.30); GLOMERULAR FILTRATION RATE 59.1 (>32); POTASSIUM SERUM 4.5 MEQ/L (3.5-5.1)
[2021-09-07 11:22] LABS: CK-MB VALUE MASS 1.9 NG/ML (<3.6); MB/CK RELATIVE INDEX 5.43 (< OR =4)
[2021-09-07] MEDS ORDERED: LABETALOL 100MG/20ML VIAL IV PRN (11:40)
[2021-09-07] MEDS ORDERED: TENECTEPLASE 50 MG KIT (TNKase) (J3101 PER 1MG) IVP ONE (11:50)
[2021-09-07 12:56] LABS: RSV AMPLIFICATION POSITIVE (NEGATIVE)
[2021-09-07 13:00] VITALS: BP 145/100
[2021-09-07] MEDS ORDERED: SODIUM CHLORIDE 0.9% INJ 10 ML SYR IV ONE ×2 (14:00)
== END 2021-09-07 13:19 | disposition short-term general hospital (02) ==
LOC: M ED 10:23
DX: I63.411 Cerebral infarction due to embolism of right middle cerebral artery (principal); I48.91 Unspecified atrial fibrillation; I25.10 Atherosclerotic heart disease of native coronary artery without angina pectoris; I10 Essential (primary) hypertension; E78.5 Hyperlipidemia, unspecified; Z95.5 Presence of coronary angioplasty implant and graft; Z85.3 Personal history of malignant neoplasm of breast; Z85.038 Personal history of other malignant neoplasm of large intestine; M06.9 Rheumatoid arthritis, unspecified; R91.8 Other nonspecific abnormal finding of lung field; Z79.82 Long term (current) use of aspirin; Z79.52 Long term (current) use of systemic steroids; Z79.899 Other long term (current) drug therapy; Z88.0 Allergy status to penicillin; Z88.2 Allergy status to sulfonamides; Z88.5 Allergy status to narcotic agent
CPT/HCPCS: 51702; 70450; 70496; 70498; 71045; 80047; 80048; 82550; 82553; 84484; 85025; 85610; 85730; 86850; 86900; 86901; 87631; 93005; 93041; 94760; 96374; 96375; 99285; J2250; J3101; Q9967